=== PATIENT | female | born 1965 | race Caucasian/White ===

== ENCOUNTER → 2018-03-11 10:36 | Outpatient (CLI) | payer OTHER, SELFPAY | PROVIDERS: Family Provider Nurse Practitioner; PCP Nurse Practitioner; Visit Provider Nurse Practitioner | DX: Z12.31 Encounter for screening mammogram for malignant neoplasm of breast (principal); Z78.0 Asymptomatic menopausal state | CPT/HCPCS: 77063; 77067; 77080 ==

== ENCOUNTER 2019-01-29 19:36 | Emergency (ER) | payer OTHER, SELFPAY ==
[2019-01-29 19:38] VITALS: BP 162/88; PULSE 101; RESP 17; TEMP 36.2; O2SAT 96; BMI 29.8
--- NOTE | 2019-01-29 20:37 | CM.ED ---
Social Work Consult: Anxiety Informant: Dr. Birmingham Met with patient in room. Patient stating to have feelings of anxiety and not wanting to live like this. Patient denies any active suicidal thoughts. Patient is stating to think that it wouldn't be bad if God would take patient. Patient confirming that take means end of life for patient on earth. Patient reporting to have recently been started on a new medication, Temazepam by patient psychiatrist Dr. David No. Patient was started on Temazepam 3 days ago. Patient stating to have also started a new job recently and to feel overwhelmed. Patient identifying a diagnosis of depression and anxiety. Patient also stating that patient doctor has diagnosed patient with bi-polar disorder. Patient stating to typically feel good and to not want to feel this way any longer. Patient stating to happy to be in the ER as patient will get some help. Collaborating with Dr. Birmingham. Dr. Birmingham not safe with patient discharging to community at this time and would like patient evaluated by crisis. Telephone call to Nani Trevino. This social work coordinator giving handoff. ER staff to notify Crisis when patient is medically cleared. Garret CASTRO, NEMO
[2019-01-29 20:48] LABS: Absolute Lymphocyte Count 2.32 X10^3/uL (0.83-4.51); Absolute Neutrophil Count 6.4 X10^3/uL (2.0-7.7); Basophil# 0.03 X10^3/uL; Basophil% 0.3 % (0-1); Eosinophil# 0.04 X10^3/uL; Eosinophils% 0.4 % (0-5); Hematocrit 43.3 % (37-47); Hemoglobin 14.1 g/dL (12.0-15.0); Lymphocyte # 2.32 X10^3/ul (4.0); Lymphocyte % 23.5 % (19-41); Mean Corp Hgb Conc 32.6 g/dL (32-36); Mean Corpuscular Volume 101.4 fL (81-99); Mean Platelet Vol. 9.2 fl (6.2-12.0); Monocyte# 1.03 X10^3/uL; Monocyte% 10.4 % (0-10); NRBC Flagged by Analyzer 0 % (0-5); Neutrophil # 6.41 X10^3/uL (2.7-7.7); Neutrophil % 65.1 % (47-70); Platelet Count 323 K/mm3 (150-450); RBC Distribution Width CV 12.3 % (11.6-14.6); RBC Distribution Width SD 45.8 fl (35.1-43.9); Red Blood Count 4.27 M/mm3 (4.2-5.4); White Blood Count 9.9 K/mm3 (4.4-11.0)
[2019-01-29 21:09] LABS: Amphetamine Urine VISTA NEGATIVE (<1000 ng/mL); Barbiturate Urine VISTA NEGATIVE (< 200 ng/mL); Benzodiazepine Urine VISTA NEGATIVE (< 200 ng/mL); Cocaine Urine VISTA NEGATIVE (< 300 ng/mL); Ecstacy Urine VISTA NEGATIVE (< 500 ng/mL); Internal QC Validated? YES +Cl - CLEAR BKGD; Methadone Urine VISTA NEGATIVE (< 300 ng/mL); PCP Urine VISTA NEGATIVE (< 25 ng/mL); Pregnancy, Serum, hCG Quali. NEGATIVE Negative; THC Urine VISTA NEGATIVE (< 50 ng/mL); Vista UDS pH Range 7
[2019-01-29 21:11] LABS: AST(SGOT) 15 U/L (15-37); Alanine Aminotransfer ALT/SGPT 40 U/L (13-56); Albumin, Serum 4.2 g/dL (3.2-5.0); Alkaline Phosphatase 93 U/L (45-117); Anion Gap 7 (5-15); BUN 14 mg/dL (7-18); BUN/Creat Ratio 18.5 RATIO (10-20); Calcium,Total 9.3 mg/dL (8.5-10.1); Chloride 103 mmol/L (98-107); Creatinine, Serum 0.76 mg/dL (0.55-1.02); EST Glomerular Filtration Rate 86 mL/min (>60); Est Glom Filt Rate - Afr Amer 104 mL/min (>60); Estimated Creatinine Clearance 85.16 ml/min; Globulin 4.2 g/dL (2.2-4.2); Glucose 97 mg/dL (74-106); Potassium 3.4 mmol/L (3.5-5.1); Protein, Total 8.4 g/dL (6.4-8.2); Sodium Level 141 mmol/L (136-145)
--- NOTE | 2019-01-29 21:21 | NURSING ---
CALLED CRISIS AT [phone]
[2019-01-29 21:34] VITALS: RESP 14
--- NOTE | 2019-01-29 22:15 | CM.ED ---
Social Work Crisis evaluated patient and consulting with this professor of social work. Collaborating with Dr. Birmingham and crisis. Patient to be pink slipped. Crisis managing referral to inpatient psychiatric facility. Garret CASTRO, NEMO
[2019-01-29 23:15] VITALS: RESP 18; O2SAT 100
--- NOTE | 2019-01-29 23:33 | ED.DCSUM_ITS ---
- ER Visit Summary Date of Service: 01/29/19 Chief Complaint: Bad day History of Present Illness: The patient is a 53 F who presents with multiple complaints. She presents with exhaustion, diffuse paresthesias, memory issues. She said she is not eating much or sleeping much. She feels restless and hopele ss. She has a history of depression, anxiety, and bipolar disorder. She says she is compliant with her medications including temazepam, Prozac, mirtazapine, and Abilify. She told me that she had thoughts of suicide. She said it would be okay if God took her. No plan or attempt. Physical Examination: Afebrile and vital signs unremarkable. Alert and oriented. No acute distress. Depressed mood and flat affect. Heart regular. Lungs clear. Skin appears normal. Test Results: CBC, CMP, hCG negative. Tox screen negative. Alcohol negative. Emergency Department Course and Treatment: Patient presents with dysphoric symptoms possibly some manic symptoms as well. I did have the crisis counselor speak with her. Crisis evaluated her. She told them that she wanted to wreck her car and kill herself. At this point, I did complete a pink slip. She had suicide precautions. She is medically cleared for placement at a psychiatric facility. We are awaiting placement at this time. Treatment Plan: As above Disposition: Pending placement Impression: 1. Suicidal ideation This note was generated with [employer] dictation software. It may contain incorrect words, spelling, and punctuation that were not noted in review of the chart p rior to signing ED Disposition - Plan for ED Patient: Referrals: Addie Cosme, YURI-C [Primary Care Provider] -
[2019-01-30] VITALS (19 sets, daily range): BP systolic 114–148; BP diastolic 72–92; PULSE 73–99; RESP 12–20; TEMP 37.1; O2SAT 96–100
[2019-01-30] MEDS: Temazepam 15 MG Capsule 30 MG PO (00:51)
[2019-01-30] MEDS: ARIPiprazole 10 MG Tablet PO (00:51)
[2019-01-30] MEDS: Mirtazapine 30 MG Tablet PO (00:51)
--- NOTE | 2019-01-30 08:21 | EKG12_ITS ---
Test Reason : Blood Pressure : / mmHG Vent. Rate : 103 BPM Atrial Rate : 103 BPM P-R Int : 128 ms QRS Dur : 084 ms QT Int : 366 ms P-R-T Axes : 070 033 059 degrees QTc Int : 479 ms Sinus tachycardia Otherwise normal ECG Confirmed by JOSE MCALLISTER, JOVITA ([id number]), assignment desk editor JENNY FIERRO ([id number]) on 02/01/2019 1:46:27 PM Referred By: SWAPNIL Confirmed By:JOVITA GARCIA MD
--- NOTE | 2019-01-30 08:59 | ED.RN ---
PER RIMMA WITH CRISIS; PT WILL HAVE TO BE ACCEPTED BY [facility] BECAUSE THIS PT HAS NO INSURANCE. SHE CALLED [facility] AND THEY REQUESTED AN EKG WHICH WAS TAKEN AND FAXED TO THE FACILITY.
[2019-01-30] MEDS: Loperamide 2 MG Capsule PO (09:53)
[2019-01-30] MEDS: FLUoxetine 20 MG Capsule 80 MG PO (10:53)
--- NOTE | 2019-01-30 11:55 | ED.RN ---
RENNY HALL WITH CRISIS; [facility] IS STILL REVIEWING THE PTS CHART. SHE WILL CALL THEM BACK SOON IF SHE DOES NOT HEAR FROM THEM
--- NOTE | 2019-01-30 14:35 | ED.RN ---
ISABEL WITH CRISIS; STATED THAT THERE IS NO UPDATE FOR THE PATIENT. SHE HAS CALLED SEVERAL TIMES AND [facility] IS NOT ANSWERING THEIR PHONE
--- NOTE | 2019-01-30 14:47 | ED.RN ---
PER ISABEL WITH CRISIS; PT IS ACCEPTED BY [facility] AND DOES HAVE A BED ON HOLD AT THE FACILITY; THEY ARE UNABLE TO ALLOW HER TO COME AT THIS TIME BECAUSE THEY NEED TO PROCESS ALL THE HALFWAY HOLDS FIRST. ISABEL STATED THAT [facility] WILL CALL US SOON THEY ARE READY FOR HER.
--- NOTE | 2019-01-30 17:15 | ED.RN ---
LEFT A MESSAGE WITH [facility] ASKING FOR AN UPDATE
--- NOTE | 2019-01-30 18:16 | ED.RN ---
CALLED [facility] TO CHECK STATUS OF PT. GAVE ACCEPTING INFORMATION TO ME.
== END 2019-01-30 19:37 ==
PROVIDERS: Emergency Provider Emergency Medicine; Family Provider Nurse Practitioner; PCP Nurse Practitioner
DX: R45.851 Suicidal ideations (principal); F31.9 Bipolar disorder, unspecified; F41.9 Anxiety disorder, unspecified
CPT/HCPCS: 80053; 80307; 80320; 84703; 85025; 93005; 99285; A4216; G0480

== ENCOUNTER 2019-03-10 18:37 | Emergency (ER) | payer OTHER, SELFPAY ==
[2019-03-10 18:38] VITALS: BP 128/91; PULSE 108; RESP 16; TEMP 36.4; O2SAT 98; BMI 28.1
--- NOTE | 2019-03-10 18:54 | ED.VISSUMM ---
- ER Visit Summary Date of Service: 03/10/19 Chief Complaint: Depressed History of Present Illness: The patient is a 53 F who presents with depression. Is been ongoing for a couple of weeks. There was no specific trigger that may have started it but family was concerned that she is starting menopause and that may have some to do with that. She states that she feels very off. She cannot eat. Her sleeping habits have changed. She denies any auditory or visual hallucinations. This morning she had a thought that she was rolled up in a carpet and thrown out. She denies having any suicidal thoughts. No homicidal thoughts. She has had her psychiatric medications including her depression and anxiety meds changed around and this could be the cause of this as well. Physical Examination: Vital signs reviewed. HEENT exam unremarkable. Heart is regular rate and rhythm without murmurs. Lungs are clear to auscultation. Abdomen is soft and nontender. Extremities reveal no edema. Skin exam normal. Neurologic exam normal. The patient does appear to be depressed but voices no suicidal or homicidal thoughts. She does have a flat affect. Test Results: Laboratory studies including TSH are normal except for glucose of 138. Tox screen and alcohol are negative. Emergency Department Course and Treatment: I had our protective services social worker evaluate the patient. She, along with myself do not feel the patient needs to be admitted psychiatrically. She attempted to call the crisis center but they were unable to get her in tomorrow. Family feels safe taking her home. She will continue her medications that are prescribed to her. She will call her doctor and her psychiatrist tomorrow. Treatment Plan: [] Disposition: Discharge Impression: Depression This note was generated with [employer] dictation software. It may contain incorrect words, spelling, and punctuation that were not noted in review of the chart prior to signing ED Disposition - Plan for ED Patient: Referrals: Addie Cosme, YURI-C [Primary Care Provider] -
[2019-03-10 19:15] LABS: Absolute Lymphocyte Count 1.64 X10^3/uL (0.83-4.51); Absolute Neutrophil Count 5.9 X10^3/uL (2.0-7.7); Basophil# 0.04 X10^3/uL; Basophil% 0.5 % (0-1); Eosinophil# 0.07 X10^3/uL; Eosinophils% 0.8 % (0-5); Hemoglobin 14.2 g/dL (12.0-15.0); Lymphocyte # 1.64 X10^3/ul (4.0); Lymphocyte % 19.8 % (19-41); Mean Corp Hgb Conc 32.3 g/dL (32-36); Mean Corpuscular Hgb 32.8 pg (27.0-32.0); Mean Corpuscular Volume 101.6 fL (81-99); Mean Platelet Vol. 9.6 fl (6.2-12.0); Monocyte# 0.62 X10^3/uL; Monocyte% 7.5 % (0-10); NRBC Flagged by Analyzer 0 % (0-5); Neutrophil # 5.88 X10^3/uL (2.7-7.7); Neutrophil % 71.2 % (47-70); Platelet Count 284 K/mm3 (150-450); RBC Distribution Width CV 11.9 % (11.6-14.6); Red Blood Count 4.33 M/mm3 (4.2-5.4); White Blood Count 8.3 K/mm3 (4.4-11.0)
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
[2019-03-10 19:29] LABS: Internal QC Validated? YES +Cl - CLEAR BKGD; Pregnancy, Serum, hCG Quali. NEGATIVE Negative
[2019-03-10 19:30] LABS: Alcohol, Blood (Medical)-Serum < 3.0 mg/dL
[2019-03-10 19:39] LABS: Anion Gap 6 (5-15); BUN 13 mg/dL (7-18); BUN/Creat Ratio 13.3 RATIO (10-20); Calcium,Total 8.9 mg/dL (8.5-10.1); Chloride 107 mmol/L (98-107); Creatinine, Serum 0.98 mg/dL (0.55-1.02); EST Glomerular Filtration Rate 63 mL/min (>60); Est Glom Filt Rate - Afr Amer 77 mL/min (>60); Estimated Creatinine Clearance 66.04 ml/min; Glucose 138 mg/dL (74-106); Potassium 3.5 mmol/L (3.5-5.1); Sodium Level 140 mmol/L (136-145); Thyroid Stim Hormone (TSH) 0.82 uIU/mL (0.358-3.74)
[2019-03-10 20:02] LABS: Amphetamine Urine VISTA NEGATIVE (<1000 ng/mL); Barbiturate Urine VISTA NEGATIVE (< 200 ng/mL); Benzodiazepine Urine VISTA NEGATIVE (< 200 ng/mL); Cocaine Urine VISTA NEGATIVE (< 300 ng/mL); Ecstacy Urine VISTA NEGATIVE (< 500 ng/mL); Methadone Urine VISTA NEGATIVE (< 300 ng/mL); PCP Urine VISTA NEGATIVE (< 25 ng/mL); THC Urine VISTA NEGATIVE (< 50 ng/mL); Vista UDS pH Range 5
--- NOTE | 2019-03-10 20:21 | ED.DEP ---
ED Disposition - Plan for ED Patient: Disposition: Home or Assisted Living Instructions: Depression Referrals: Addie Cosme NP-C [Primary Care Provider] -
[2019-03-10 20:35] VITALS: BP 135/91; PULSE 95; PULSE 99; RESP 16; O2SAT 95
--- NOTE | 2019-03-10 20:35 | CM.ED ---
SOCIAL WORK PATIENT TO BE DISCHARGED HOME. MET WITH PATIENT AND IN ROOM. RECOMMENDING PATIENT CALL DR. ALEXANDER TOMORROW TO UPDATE ON ED VISIT. ALSO RECOMMENDING PATIENT CALL COUNSELOR AT [facility] TO UPDATE ON VISIT. PATIENT DOES HAVE COUNSELING APPOINTMENT SCHEDULED FOR 03/17/19. BRIGHT CUTTER TO FOLLOW UP TOMORROW BY TELEPHONE CALL. ALL IN AGREEMENT WITH PLAN. PATIENT PROVIDED WITH CRISIS RESOURCES AND THIS WORKER'S CONTACT INFORMATION. XUAN REED, CREDIT RATING CHECKER, CLAM SHUCKING MACHINE TENDER.
--- NOTE | 2019-03-11 18:11 | CM.ED ---
Social Work Follow-up call to patient. This marriage and family social worker introduced self. Patient open to speaking with this marriage and family social worker. Patient stating to have had a good day. This marriage and family social worker inquiring as of the nature of patient current thoughts. Patient stating that thoughts are getting better. Patient stating to have contact [facility], Dr. Gleason and left a message. This marriage and family social worker encouraging patient to contact Dr. Gleason again tomorrow. Patient confirming to have counseling appoint set up for next Friday, March 17. Patient stating to be continuing to be open to with family/support system on patient current mental health. Support provided. Patient thanking this marriage and family social worker for follow-up call. Garret CASTRO, NEMO
== END 2019-03-10 20:38 | disposition home or self-care (01) ==
PROVIDERS: Emergency Provider Emergency Medicine; Family Provider Nurse Practitioner; PCP Nurse Practitioner
DX: F32.9 Major depressive disorder, single episode, unspecified (principal); F41.9 Anxiety disorder, unspecified; Z79.899 Other long term (current) drug therapy
CPT/HCPCS: 36415; 80048; 80307; 80320; 84443; 84703; 85025; 99282; G0480

== ENCOUNTER 2021-08-21 12:10 | Outpatient (CLI) | payer OTHER, SELFPAY ==
[2021-08-21 13:34] LABS: Hematocrit 41.2 % (37-47); Hemoglobin 13.6 g/dL (12.0-15.0); Mean Corpuscular Hgb 32.5 pg (27.0-32.0); Mean Corpuscular Volume 98.3 fL (81-99); Mean Platelet Vol. 9.4 fl (6.2-12.0); Platelet Count 314 K/mm3 (150-450); RBC Distribution Width CV 12.2 % (11.6-14.6); RBC Distribution Width SD 44.5 fl (35.1-43.9); Red Blood Count 4.19 M/mm3 (4.2-5.4)
[2021-08-21 13:54] LABS: Anion Gap 6 (5-15); BUN 21 mg/dL (7-18); BUN/Creat Ratio 28.4 RATIO (10-20); Calcium,Total 8.9 mg/dL (8.5-10.1); Chloride 104 mmol/L (98-107); Creatinine, Serum 0.74 mg/dL (0.55-1.02); EST Glomerular Filtration Rate 87 mL/min (>60); Est Glom Filt Rate - Afr Amer 105 mL/min (>60); Glucose 85 mg/dL (74-106); Potassium 4.1 mmol/L (3.5-5.1); Sodium Level 140 mmol/L (136-145)
== END 2021-08-21 23:59 | disposition home or self-care (01) ==
PROVIDERS: PCP Nurse Practitioner; Referring Provider Physician Assistant; Visit Provider Physician Assistant
DX: Z01.818 Encounter for other preprocedural examination (principal)
CPT/HCPCS: 36415; 80048; 85027; 93005

== ENCOUNTER → 2021-08-27 | Outpatient (CLI) | payer OTHER, SELFPAY ==
--- NOTE | 2021-08-27 13:58 | BI_ITS ---
MAMMOGRAPHY - BILATERAL SCREENING REASON FOR EXAM: Female, 55 years old. Routine annual screening examination. PERTINENT HISTORY: Aunts with breast cancer. TECHNIQUE: Digital bilateral breast donny (3D mammographic acquisition) in the CC and MLO projections. 2-D mediolateral oblique (MLO) and craniocaudad (CC) views of both breasts were obtained. CAD: Full Field Digital Mammography with Computer Added Detection was performed. COMPARISON: Comparison is made with prior study done 03/11/2018 and 09/24/2016. FINDINGS: Breast Composition: The breasts are heterogeneously dense, which may obscure small masses. There are no dominant masses or suspicious calcifications. No other significant abnormalities are identified. There has been no significant change since the prior study. BI/SCRN MAMM (CAD)W/DONNY BILAT IMPRESSION: Stable bilateral screening mammogram. Yearly follow-up mammogram recommended. (A) ASSESSMENT CATEGORY: BIRADS Category 1: Negative. A letter regarding these results will be sent to the patient by the facility within 30 days. Approximately 10% of breast cancers are not detected by mammography. A normal mammogram should not delay biopsy of a clinically suspicious abnormality. [id number] Electronically Signed: Brandon Holloway MD at 14:43 EST ,
== END | disposition home or self-care (01) ==
PROVIDERS: PCP Nurse Practitioner; Referring Provider Nurse Practitioner; Visit Provider Nurse Practitioner
DX: Z12.31 Encounter for screening mammogram for malignant neoplasm of breast (principal)
CPT/HCPCS: 77063; 77067

== ENCOUNTER 2021-09-04 15:21 | Outpatient (CLI) | payer OTHER, SELFPAY ==
--- NOTE | 2021-09-04 15:25 | RAD_ITS ---
STUDY: X-RAY - RIGHT CALCANEUS REASON FOR EXAM: Female, 56 years old. pain, right heel spur TECHNIQUE: 2 view(s) of the calcaneus were obtained. COMPARISON: None. FINDINGS: Normal visualized calcaneus. No visualized calcaneal spur. Normal visualized tarsal bones. There is no demonstrated fracture. RAD/Calcaneus min 2 Views IMPRESSION: Normal x-ray examination of the calcaneus. Electronically Signed: Malachi Fields MD at 20:17 EST ,
== END 2021-09-04 23:59 | disposition home or self-care (01) ==
LOC: MTRAD 15:23
PROVIDERS: PCP Nurse Practitioner; Referring Provider Nurse Practitioner; Visit Provider Nurse Practitioner
DX: M77.31 Calcaneal spur, right foot (principal)
CPT/HCPCS: 73650

== ENCOUNTER 2024-02-21 16:44 | Emergency (ER) | payer OTHER, SELFPAY ==
[2024-02-21] VITALS (7 sets, daily range): BP systolic 117–158; BP diastolic 72–131; PULSE 83–94; RESP 16–19; TEMP 36.4–36.7; O2SAT 93–100; BMI 28.1
[2024-02-21] MEDS: morphine 8 MG/ML Syringe 6 MG IM (17:00)
--- NOTE | 2024-02-21 17:00 | RAD_ITS ---
STUDY: X-RAY - RIGHT ANKLE REASON FOR EXAM: Female, 58 years old. Injury/Pain TECHNIQUE: 3 view(s) of the ankle. COMPARISON: None. FINDINGS: There are acute comminuted spiral fractures of the distal third of the tibial and fibular shafts with mild overlapping and dorsal medial angulation of fracture fragments. Normal medial and lateral malleoli. Normal tibiotalar articulation and ankle mortise. Normal visualized talus and calcaneus. The visualized subtalar, talonavicular, calcaneocuboid and tarsal articulations are normal. The soft tissue structures are unremarkable. RAD/Ankle min 3 Views IMPRESSION: Acute displaced angulated fractures of the distal third of the tibial and fibular shaft. Electronically Signed: Audie Grady MD at 17:38 EDT ,
--- NOTE | 2024-02-21 17:00 | RAD_ITS ---
STUDY: X-RAY - RIGHT TIBIA AND FIBULA REASON FOR EXAM: Female, 58 years old. Injury/Pain TECHNIQUE: 2 view(s) of the tibia and fibula were obtained. COMPARISON: None. FINDINGS: The proximal to mid tibial and fibular shafts are intact. There are incompletely visualized fractures of the distal third of the tibia and fibula . The soft tissue structures are unremarkable. RAD/Tibia & Fibula 2 Views IMPRESSION: Acute fractures of the distal tibial and fibular shafts Electronically Signed: Audie Grady MD at 17:39 EDT ,
[2024-02-21] MEDS: Ondansetron ODT 4 MG Tablet PO (17:01)
--- NOTE | 2024-02-21 17:40 | ED.VIS.LOWEX ---
HPI History of Present Illness Chief Complaint: Lower Extremity Injury Informant: patient Narrative Narrative: Patient is a 58-year-old female presenting with sudden onset of right lower extremity pain. Patient was mowing the lawn when she slipped and fell. She heard a crack in her right lower leg and immediately had pain there. Denies hitting her head or any other injuries. Was brought in by EMS. Did not take any pain prior to arrival. Not on any blood thinners. Denies any associated numbness or tingling. No other complaints or concerns reported at this time. [facility] Medical History ANDREAS (generalized anxiety disorder) MDD (major depressive disorder) Vaginal prolapse Allergies Home Medications ?Medication ?Instructions ?Recorded ?Last Taken ?Type montelukast 10 mg tablet 10 mg PO DAILY PRN Allergies 01/29/19 Unknown History ascorbic acid (vitamin C) 500 mg mg PO 08/28/23 Unknown History capsule biotin 2,500 mcg capsule 5 mg PO DAILY 08/28/23 Unknown History cetirizine 10 mg tablet mg PO 08/28/23 Unknown History cholecalciferol (vitamin D3) 50 50 mcg PO DAILY 08/28/23 Unknown History mcg (2,000 unit) capsule naproxen sodium 220 mg tablet 440 mg PO Q12H PRN 08/28/23 Unknown History (Aleve) zinc gluconate 50 mg tablet 50 mg PO DAILY 08/28/23 Unknown History bupropion HCl 150 mg 24 hr tablet, 150 mg PO QAM #90 tabs 11/26/23 Unknown Rx extended release fluoxetine 40 mg capsule 40 mg PO DAILY #90 caps 11/26/23 Unknown Rx mirtazapine 30 mg tablet 30 mg PO QHS #90 tabs 11/26/23 Unknown Rx quetiapine 300 mg tablet 300 mg PO QHS #90 tabs 11/26/23 Unknown Rx trazodone 150 mg tablet 150 mg PO QHS #90 tabs 11/26/23 Unknown Rx hydroxyzine HCl 25 mg tablet 25 mg PO TID PRN anxiety #90 tabs 12/09/23 Unknown Rx ondansetron 4 mg disintegrating 4 mg PO Q8H PRN PRN Nausea #10 tabs 02/21/24 Unknown Rx tablet oxycodone-acetaminophen 5 mg-325 1 tab PO Q6H PRN pain 3 days #12 02/21/24 Unknown Rx mg tablet (Percocet) tabs Allergy/AdvReac Type Severity Reaction Status Date / Time No Known Allergies Allergy Verified 02/21/24 16:46 Family History Other Alcoholism Anxiety Arthritis Colon cancer Depression Psychiatric care Severe allergy Social History Smoking Status: Never smoker alcohol intake: current details: 1x week substance use type: does not use frequency: 1-2 times per week ROS ROS ED Constitutional Constitutional ED: Denies chills or fever(s) Gastrointestinal Gastrointestinal: Denies nausea Musculoskeletal Musculoskeletal: Reports other Details: Right lower extremity pain Neurologic Neurologic: Denies paresthesias or weakness Hematologic/Lymphatic Hematologic/Lymphatic: Denies easy bleeding or easy bruising EXAM Physical Exam Const Vital Signs: 02/21/24 16:46 02/21/24 16:46 02/21/24 18:11 Temperature 97.5 F L 98 F Temperature Source Oral Pulse Rate 83 83 89 Pulse Rate [1] Pulse Rate [2] Pulse Rate [3] Respiratory Rate 18 16 19 H Respiratory Rate [1] Respiratory Rate [2] Respiratory Rate [3] Blood Pressure 117/73 117/73 153/98 H Blood Pressure [1] Blood Pressure [2] Blood Pressure [3] Blood Pressure Mean 87 87 Pulse Ox 99 94 100 Oxygen Delivery Method Room Air Room Air Room Air Oxygen Delivery Method [1] Oxygen Delivery Method [2] Oxygen Delivery Method [3] Oxygen Flow Rate (L/min) Oxygen Flow Rate (L/min) [2] Oxygen Flow Rate (L/min) [3] 02/21/24 18:25 02/21/24 18:42 02/21/24 19:24 Temperature 98.0 F Temperature Source Pulse Rate 90 Pulse Rate [1] 88 Pulse Rate [2] 94 Pulse Rate [3] 94 Respiratory Rate 16 Respiratory Rate [1] 16 Respiratory Rate [2] 16 Respiratory Rate [3] 16 Blood Pressure 137/80 H Blood Pressure [1] 156/94 H Blood Pressure [2] 158/81 H Blood Pressure [3] 152/131 H Blood Pressure Mean 99 Pulse Ox 95 Oxygen Delivery Method Nasal Cannula Oxygen Delivery Method [1] Nasal Cannula Oxygen Delivery Method [2] Nasal Cannula Oxygen Delivery Method [3] Nasal Cannula Oxygen Flow Rate (L/min) 2 Oxygen Flow Rate (L/min) [2] 2 Oxygen Flow Rate (L/min) [3] 2 Positive well nourished and well developed General Appearance ED: well developed and NAD HEENT normocephalic and atraumatic Neck full ROM Chest Wall inspection of chest normal Resp normal respiratory effort and clear to auscultation bilaterally Cardio regular rate and regular rhythm Cardio Narrative: 2+ DP pulses Extremity Extremity Narrative: Tenderness palpation of the mid/distal tibia/fibula. No significant tenderness or deformity of the right ankle. Patient does have a deformity along the distal aspect of the tibia/fibula. No deformity or tenderness of the knee, fibular head or hip. General Extremety ED: Negative for edema General Extremity: Negative for edema Neuro oriented x3, moves all extremities and no sensory deficits noted Sensorium / Orientation: alert Psych mental status grossly normal Skin no wounds Rashes: no rashes MDM MDM MDM Narrative Medical decision making narrative: Patient is evaluated for right lower extremity injury. Patient is given IM morphine for pain control and oral Zofran. X-ray viewed by myself as well as radiology shows an acute displaced angulated fracture of the distal third of the tibia and fibular shaft. Case discussed with Dr. Fisher, Ortho on-call. He recommends splinting with some reduction of the proximal fragment if possible. Nonweightbearing status. This will need outpatient surgical follow-up with likely surgery in 7 to 10 days. Does request a CT of the ankle for surgical planning as there is a piece that appears to track down to the articular surface. Patient is informed of this and is agreeable. Patient is given and 1 mg diazepam and 50 mcg of fentanyl. Localized traction is applied with countertraction at the thigh with the leg bent. The great toe is in line with the knee. Patient is placed in a posterior slab with stirrup splint. Tolerated suture well. Does have improvement of her pain with the splint. Will discharge home with assistive devices (patient would like to try crutches). Given first dose of oxycodone in the emergency room. Patient unsuccessful with crutches and given a walker. Radiography Diagnostic Testing: Clinical Impression(s) from Imaging Studies Ankle X-Ray 02/21/24 17:00 IMPRESSION: Acute displaced angulated fractures of the distal third of the tibial and fibular shaft. Electronically Signed: Audie Grady MD at 17:38 EDT , Tibia/Fibula X-Ray 02/21/24 17:00 IMPRESSION: Acute fractures of the distal tibial and fibular shafts Electronically Signed: Audie Grady MD at 17:39 EDT , Lower Extremity CT 02/21/24 17:42 IMPRESSION: Acute fractures of the distal tibial and fibular shafts. Electronically Signed: Audie Grady MD at 18:32 EDT , Procedures Lower Extremity Splints Lower Extremity Splint: Orthoglass, Stirrup and - (posterior slab) Splint Fabrication: Fabricated Location: Right Procedural Sedation 1 (Initial Baseline): Consent Signed: Yes Any Problems With Anesthesia: No You/Your family experience fever (hyperthermia) w/anesthesia: No Sedation medication: Versed Route: IV Maliampati Score: Class I ASA Classification: II Discharge Plan Triage Chief Complaint: Lower Extremity Injury ED Provider: Cindy Mathis Dx/Rx/DC Orders Clinical Impression: Closed fracture of tibia and fibula, shaft, Leg pain, right Instructions: Crutches Stand Non Wt Bear Steps, ED Leg Fracture Prescriptions: New ondansetron 4 mg tablet,disintegrating 4 mg PO Q8H PRN PRN (Reason: Nausea) Qty: 10 0RF oxycodone-acetaminophen [Percocet] 5-325 mg tablet 1 tab PO Q6H PRN (Reason: pain) 3 Days Qty: 12 0RF No Action cetirizine 10 mg tablet PO Patient Comments: TAKE 1 TABLET BY MOUTH ONCE DAILY naproxen sodium [Aleve] 220 mg tablet 440 mg PO Q12H PRN ascorbic acid (vitamin C) 500 mg capsule PO cholecalciferol (vitamin D3) 50 mcg (2,000 unit) capsule 50 mcg PO DAILY biotin 2,500 mcg capsule 5 mg PO DAILY zinc gluconate 50 mg tablet 50 mg PO DAILY trazodone 150 mg tablet 150 mg PO QHS Qty: 90 1RF quetiapine 300 mg tablet 300 mg PO QHS Qty: 90 1RF mirtazapine 30 mg tablet 30 mg PO QHS Qty: 90 1RF fluoxetine 40 mg capsule 40 mg PO DAILY Qty: 90 1RF bupropion HCl 150 mg tablet extended release 24 hr 150 mg PO QAM Qty: 90 1RF hydroxyzine HCl 25 mg tablet 25 mg PO TID PRN (Reason: anxiety) Qty: 90 0RF montelukast 10 MG tablet 10 mg PO DAILY PRN (Reason: Allergies) Stand Alone Forms: ED Work / School Excuse Primary Care Provider: Rosalinda Cabello Referrals: Rosalinda Cabello DO [Primary Care Provider] - Jose Manuel Fisher DO [Med Staff - Active Staff] - 3-5 Days Activity Restrictions/Additional Instructions: Do not get the splint wet. Do not take it off. If the pain becomes significantly worse or you develop numbness please return to the emergency room. Follow-up with orthopedics. Call the office on Friday to schedule an appointment. Per recommendation of orthopedics, likely will need surgery but not for around 10 days. Take stool softener or MiraLAX to help with opioid-induced constipation while taking the pain medication. Do not put any weight on your foot. Print Language: Hebrew Disposition Disposition: Home, Self Care Discharge Date/Time: 02/21/24 19:42
--- NOTE | 2024-02-21 17:42 | CT_ITS ---
CT RIGHT LOWER EXTREMITY WITH 3-D IMAGING CLINICAL INDICATION: FRACTURE TECHNIQUE: Axial CT images of the RIGHT lower extremity was performed IV contrast material. Coronal and sagittal reformats were provided. The protocol utilizes one or more of the following dose reduction techniques: automated exposure control, adjustment of mA and/or kV according to patient size,and/or use of iterative reconstruction technique. RADIATION DOSAGE (If Supplied By Facility): CTDIvol = ( 15.35 ) mGy, DLP = ( 503.44 ) mGycm COMPARISON: FINDINGS: Bones: There is an acute comminuted spiral fracture of the distal third of the tibial shaft with mild separation and overlapping of fracture fragments. There is also an obliquely oriented intra-articular hairline fracture of the posterior distal tibial shaft. There is also an acute spiral fracture of the distal third of the fibular shaft with minor separation and overlapping of fracture fragments . No lytic or blastic osseous masses. Soft Tissues: The deep soft tissue structures are unremarkable. The superficial soft tissues are unremarkable without evidence of edema, hematoma, or foreign body. CT/Extremity Lower without Contra IMPRESSION: Acute fractures of the distal tibial and fibular shafts. Electronically Signed: Audie Grady MD at 18:32 EDT ,
[2024-02-21] MEDS: fentaNYL 100 MCG/2 ML Ampul 50 MCG IV (18:22)
[2024-02-21] MEDS: Midazolam 2 MG/2 ML Syringe 1 MG IV (18:24)
[2024-02-21] MEDS: oxyCODONE 5 MG Tablet PO (19:05)
== END 2024-02-21 19:42 | disposition home or self-care (01) ==
PROVIDERS: Emergency Provider Emergency Medicine; PCP Internal Medicine; Visit Provider Emergency Medicine
DX: S82.251A Displaced comminuted fracture of shaft of right tibia, initial encounter for closed fracture (principal); S82.241A Displaced spiral fracture of shaft of right tibia, initial encounter for closed fracture; S82.231A Displaced oblique fracture of shaft of right tibia, initial encounter for closed fracture; S82.441A Displaced spiral fracture of shaft of right fibula, initial encounter for closed fracture; W01.0XXA Fall on same level from slipping, tripping and stumbling without subsequent striking against object, initial encounter; Y93.H9 Activity, other involving exterior property and land maintenance, building and construction
CPT/HCPCS: 27752; 73590; 73610; 73700; 96372; 96374; 96375; 99152; 99284; J7030; A4216

== ENCOUNTER 2024-02-27 11:31 | Day surgery (SDC) | payer OTHER, SELFPAY ==
[2024-02-26 11:34] LABS: Absolute Neutrophil Count 4.7 X10^3/uL (2.0-7.7); Basophil# 0.08 X10^3/uL; Basophil% 1.1 % (0-1); Eosinophil# 0.13 X10^3/uL; Eosinophils% 1.8 % (0-5); Hematocrit 38.2 % (37-47); Lymphocyte % 22.3 % (19-41); Mean Corp Hgb Conc 31.4 g/dL (32-36); Mean Corpuscular Hgb 31.7 pg (27.0-32.0); Mean Corpuscular Volume 100.8 fL (81-99); Mean Platelet Vol. 9.4 fl (6.2-12.0); Monocyte% 8.4 % (0-10); NRBC Flagged by Analyzer 0 % (0-5); Neutrophil # 4.73 X10^3/uL (2.7-7.7); Neutrophil % 66.1 % (47-70); Platelet Count 304 K/mm3 (150-450); RBC Distribution Width CV 12.5 % (11.6-14.6); RBC Distribution Width SD 46.8 fl (35.1-43.9); Red Blood Count 3.79 M/mm3 (4.2-5.4); White Blood Count 7.2 K/mm3 (4.4-11.0)
[2024-02-26 12:56] LABS: Anion Gap 7 (5-15); BUN 18 mg/dL (7-18); BUN/Creat Ratio 28.8 RATIO (10-20); Chloride 104 mmol/L (98-107); Creatinine, Serum 0.62 mg/dL (0.55-1.02); EST Glomerular Filtration Rate 105 mL/min (>60); Est Glom Filt Rate - Afr Amer 127 mL/min (>60); Glucose 95 mg/dL (74-106); Potassium 4.3 mmol/L (3.5-5.1); Sodium Level 139 mmol/L (136-145)
[2024-02-27] VITALS (9 sets, daily range): BP systolic 131–166; BP diastolic 79–97; PULSE 85–96; RESP 16–20; TEMP 36.6–36.8; O2SAT 92–97; BMI 28.1
[2024-02-27] MEDS: Lactated Ringers 1,000 ML 15 ML IV (12:12)
--- NOTE | 2024-02-27 12:24 | PCM.PRE.AN2 ---
ASA Classification* ASA Classification ASA Classification: 2 Assessment & Plan Anesthesia* Anesthesia Assessment Anesthesia Assessment: Discussed sedation and/or anesthesia options, risks, benefits, and alternatives with patient/parents/legal guardian/POA. Questions invited. The patient/parents/legal guardian/POA seems to understand and agrees to proceed with anesthesia plan. Reviewed the physical assessment, medical history, allergy history and patient home medications list prior to surgery/procedure/anesthetic and documented any changes. Performed airway and anesthesia risk assessments. Anesthesia Type Anesthesia Type: General (block consented if surgeon request) Anesthesia Focused Assessment* Temperature: 98.2 F Pulse Rate: 85 Blood Pressure: 131/79 Respiratory Rate: 18 Pulse Ox: 97 Airway Assessment Mouth opens: >3 cm Mallampati Score: II Focused Labs Anesthesia Preop lab: CBC WBC 7.2 K/mm3 (4.4-11.0) 02/26/24 11:05 RBC 3.79 M/mm3 (4.2-5.4) L 02/26/24 11:05 Hgb 12.0 g/dL (12.0-15.0) 02/26/24 11:05 Hct 38.2 % (37-47) 02/26/24 11:05 Plt Count 304 K/mm3 (150-450) 02/26/24 11:05 CHEMISTRY Potassium 4.3 mmol/L (3.5-5.1) 02/26/24 11:05 Sodium 139 mmol/L (136-145) 02/26/24 11:05 BUN 18 mg/dL (7-18) 02/26/24 11:05 Creatinine 0.62 mg/dL (0.55-1.02) 02/26/24 11:05 Glucose 95 mg/dL (74-106) 02/26/24 11:05 TSH 0.82 uIU/mL (0.358-3.74) 03/10/19 19:00 COAG Pre-Assessment Diagnosis/Proposed Procedure Planned Operative Procedure(s): OPEN REDUCTION INTERNAL FIXATION RIGHT DISTAL TIBIA AND FIBULA FRACTURES Anesthesia History 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 When Was Last Pacemaker Check QUESTION #4 FULL TEXT: You/Your Family Experience fever (hyperthermia) with Anesthesia Last Oral Intake Last Oral intake: Last Oral Intake NPO since 08:00 02/27/24 11:59 Meds taken in AM with sips of Yes 02/27/24 11:59 water? Meds patient instructed to see medlist 02/27/24 11:59 take am of surgery PONV PONV - ultimate hoops trainer: PONV - ultimate hoops trainer Female Yes 02/26/24 08:44 HX of Motion Sickness No 02/26/24 08:44 HX of N/V After Surgery No 02/26/24 08:44 Non-Smoker Yes 02/26/24 08:44 Duration of Surgery greater Yes 02/26/24 08:44 than 60 minutes Number of Risk Factors 3 02/26/24 08:44 PONV Score Moderate Risk 02/26/24 08:44 Height & Weight Height & Weight: Anesthesia: Height & Weight Height 5 ft 7 in 02/27/24 11:59 Weight: 81.647 kg 02/27/24 11:59 Body Mass Index (BMI) 28.1 02/27/24 11:59 Respiratory Assessment Respiratory Assessment - ultimate hoops trainer: Respiratory Tract Infection Hx - ultimate hoops trainer Hx Respiratory Tract Infection STOP Sleep Apnea STOP Sleep Apnea - ultimate hoops trainer: STOP Sleep Apnea - ultimate hoops trainer Hx Hypertension No 02/26/24 08:44 Hx Sleep Apnea No 02/26/24 08:44 CPAP BIPAP Do you snore loudly (louder No 02/26/24 08:44 than talking or can be heard Do you often feel tired/ No 02/26/24 08:44 fatigued/ sleepy during daytime? Has anyone observed you stop No 02/26/24 08:44 breathing during sleep? STOP Results Negative 02/26/24 08:44 QUESTION #5 FULL TEXT : Do you snore loudly (louder than talking or can be heard through closed doors)? 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 Specify any problems Hx of Preganancy in last 3 No 02/26/24 08:44 Months Nurse Filling Out Transfusion [email or web address] 02/26/24 08:44 & Questions: Date: 02/26/24 02/26/24 08:44 Time: 08:47 02/26/24 08:44 Patient unable to answer at this time (ie. confused, unrespo /Reproduction History /Reproductive History - ultimate hoops trainer: /Reproductive Hx- ultimate hoops trainer Hx Now Gestational Age (in weeks): EDC: Hx Hx Para Hx Section SAB Active Medications Active Medications: Current Medications Generic Name Dose Route Start Last Admin Trade Name Freq PRN Reason Stop Dose Admin Cefazolin Sodium 2 gm/ Sodium 110 mls @ 150 mls/hr 02/27/24 13:30 Chloride IV 02/27/24 14:13 PREOP ONE Lactated Ringer's 1,000 mls @ 15 mls/hr 02/27/24 11:45 02/27/24 12:12 IV 15 mls/hr .Q48H OSVALDO Administration PFSH Medical History Wears glasses ANDREAS (generalized anxiety disorder) MDD (major depressive disorder) Vaginal prolapse Allergies Home Medications ?Medication ?Instructions ?Recorded ?Last Taken ?Type montelukast 10 mg tablet 10 mg PO QHS Allergies 01/29/19 Unknown History ascorbic acid (vitamin C) 500 mg 500 mg PO DAILY 08/28/23 Unknown History capsule cetirizine 10 mg tablet 10 mg PO QHS 08/28/23 Unknown History cholecalciferol (vitamin D3) 50 50 mcg PO DAILY 08/28/23 Unknown History mcg (2,000 unit) capsule naproxen sodium 220 mg tablet 440 mg PO Q12H PRN pain 08/28/23 Unknown History (Aleve) zinc gluconate 50 mg tablet 50 mg PO DAILY 08/28/23 Unknown History bupropion HCl 150 mg 24 hr tablet, 150 mg PO QAM #90 tabs 11/26/23 02/27/24 Rx extended release fluoxetine 40 mg capsule 40 mg PO DAILY #90 caps 11/26/23 02/27/24 Rx mirtazapine 30 mg tablet 30 mg PO QHS #90 tabs 11/26/23 Unknown Rx quetiapine 300 mg tablet 300 mg PO QHS #90 tabs 11/26/23 Unknown Rx trazodone 150 mg tablet 150 mg PO QHS #90 tabs 11/26/23 Unknown Rx ondansetron 4 mg disintegrating 4 mg PO Q8H PRN PRN Nausea #10 tabs 02/21/24 Unknown Rx tablet oxycodone-acetaminophen 5 mg-325 1 tab PO Q6H PRN pain 3 days #12 02/21/24 Unknown Rx mg tablet (Percocet) tabs aspirin 81 mg tablet,delayed 81 mg PO DAILY 02/26/24 02/26/24 History release (Adult Aspirin Regimen) Allergy/AdvReac Type Severity Reaction Status Date / Time No Known Allergies Allergy Verified 02/27/24 11:59 Family History Other Alcoholism Anxiety Arthritis Colon cancer Depression Psychiatric care Severe allergy Social History Smoking Status: Never smoker alcohol intake: current details: 1x week substance use type: does not use frequency: 1-2 times per week Review of Systems (Anesthesia) ROS Narrative System reviewed and no additional complaints, except as documented.
--- NOTE | 2024-02-27 13:30 | RAD_ITS ---
STUDY: X-RAY - RIGHT ANKLE REASON FOR EXAM: Female, 58 years old. Intraoperative digital documentation views of ORIF of distal right lower extremity. TECHNIQUE: 2 intraoperative digital documentation view(s) of the ankle. COMPARISON: Preoperative x-rays of the right lower extremity/ankle February 21, 2024 FINDINGS: 2 intraoperative digital documentation views show localizer at the distal tibiofibular syndesmosis and long lateral plate and screw fixation of the distal fibula. RAD/Ankle 2 Views IMPRESSION: Intraoperative digital documentation views as described. Electronically Signed: Christopher Agudelo MD at 10:34 EDT ,
[2024-02-27] MEDS: Cefazolin 2 GM in 0.9% Normal Saline (100mL Bag) 100 ML IV (13:34)
--- NOTE | 2024-02-27 16:46 | OP.PCM_ITS ---
Report of Operation Date of Procedure: 02/27/24 Description of Surgical Findings:: Preoperative diagnosis: 1. Right distal tibia pilon fracture 2. Right distal fibula fracture Postoperative diagnosis: 1. Right distal tibia pilon fracture 2. Right distal fibula fracture Procedure: Open reduction internal fixation of right distal tibia intra- articular pilon fracture with open reduction internal fixation of distal fibula Surgeon: Jose Manuel Fisher DO Anesthesiologist: Chico Iyer MD IV fluids: Per anesthesia record Urine output: None recorded Estimated blood loss: 50 cc Specimen: None Complications: None apparent Implants: Synthes 8 hole direct medial distal tibia LCP 3.5 mm plate, 12 hole 3. 5 mm third tubular plate Packing/drains: None Indications: This is a 58-year-old female who sustained a right distal tibia/fibula fracture mowing her lawn which she slipped and fell. Injury was sustained 6 days ago. She was seen in the emergency department and splinted. She follow-up in our office. There were no fracture blisters upon examination 3 days ago. Skin appeared amenable for definitive fixation. I recommended surgical intervention in the form of right distal tibia and fibula open reduction internal fixation. Risks, benefits, and alternatives to the procedure reviewed with patient at length and she agreed to proceed. Risks included but were not limited to bleeding, infection, loss of life or limb, need for additional surgery, nonhealing bone or wounds, neurovascular injury, DVT or PE, stiffness, posttraumatic arthritis, symptomatic hardware, risk of anesthesia. Informed consent obtained in the outpatient setting. Description of procedure: Patient was identified in the preoperative holding area by name, medical record number, and date of . The operative extremities marked. All questions answered to the patient's satisfaction. At time of her procedure, patient was brought to the op suite positioned supine a standard operating table. General anesthesia was induced and LMA placed. All bony prominences were well-padded. The splint was removed. Well-padded pneumatic tourniquet was applied to the right upper thigh. A Betadine scrub was performed provisionally. The leg was then dried. ChloraPrep was then used to prep the skin. We draped in a normal sterile orthopedic fashion. We then called a timeout to confirm the side, site, operation to be performed. No concerns voiced like to proceed with surgery. 2 g Ancef was ministered IV prior to tourniquet placed by anesthesia staff. I then elevated the right lower extremity for 2 minutes and tourniquet inflated to 250 mmHg which remained up for approximately 90 minutes. I first turned my attention to the distal fibula. Direct lateral approach to the fibula was performed. Full-thickness skin flaps were developed down to level of fascia. The fascia had already been disrupted by the fracture. I bluntly dissected the torn periosteum from the bone. There was a multi fragmentary fracture noted. I attempted to achieve reduction to allow amish of her fibular length. I provisionally placed a 12 hole third tubular plate in standard fashion however the length did not appear to be appropriate and I removed the proximal screws from the plate to destabilize the fibula term attention to the tibia. Direct medial approach to the tibia was performed. Full-thickness skin flaps were developed. I attempted to indirectly reduce the tibia with percutaneous clamps but was unsuccessful. Fracture site was opened. I was then able to debride the fracture site and irrigated. Reduction was then achieved with combination of traction, rotation and manual manipulation. I then selected a 8 hole medial LCP distal tibial plate. I compressed the plate to bone with a BB tack distally and a cortical screw proximally. This achieved near-anatomic and acceptable reduction. Distal clus ter of screws were then filled with unicortical locking screws. 4 cortical screws were placed proximal to the fracture site. The provisional reduction cortical screw was removed to increase our working length in this bridge construct. Bridge construct was selected due to the amount of comminution at the fracture site. I entered my attention back to the fibula. Length was restored given the tibial reduction. I placed cortical screws in the proximal segment of the plate achieving 3 cortical screws proximally and 4 screws distally. Final tightening was performed. Wounds were copiously irrigated with normal saline solution. Final orthogonal fluoroscopy was obtained and demonstrated an acceptable near-anatomic alignment and stable fixation. Tourniquet deflated hemostasis was achieved with Bovie cautery. Fascia was loosely reapproximated over the plates with 0 Vicryl suture. Dermis was reapproximated buried 2-0 Vicryl suture. Skin was finally reapproximated with 3-0 nylon suture laterally and 2-0 nylon suture medially. Compartments were soft and compressible following fixation. A bulky sterile compression dressing was applied. A well-padded 3 sided short leg AO type fiberglass splint was applied in maximal dorsiflexion. Patient was safely extubated and awakened from anesthesia. She was transferred to her gurney and subsequently to PACU in stable condition. She tolerated the procedure well without apparent complication. Postoperative plan: Discharge home today Postoperative femoral and popliteal blocks Ice elevation Follow-up in 2 weeks for suture removal and splint off x-rays Nonweightbearing x 6 weeks Aspirin 81 mg twice daily for x 6 weeks Oxycodone refill, Tylenol and Aleve encouraged.
--- NOTE | 2024-02-27 16:46 | PCM.POST.ANE ---
Anesthesia: Postop Eval I Current Vital Signs Temperature: 97.8 F Pulse Rate: 95 Blood Pressure: 161/97 Respiratory Rate: 20 Pulse Ox: 93 Assessment Airway patent: Yes Spontaneous unlabored respirations: Yes nausea: No Vomiting: No Anesthesia Complication: No Fluid Hydration Crystalloid volume administer (ml): 1,800 Total IV fluid infused: 1,800 Progress Note Anesthesia document: Postop Eval 1 completed: Yes
--- NOTE | 2024-02-27 17:04 | POSTOPAN2_ITS ---
Anesthesia Postop Eval I Sum Postop Eval Completion status Anesthesia document: Postop Eval 1 completed: Yes Anesthesia Postop Eval I Summary Anesthesia Postop Eval I Summary: Anesthesia Postop Eval I: Assessment Summary Airway patent Yes 02/27/24 16:46 SENIOR MARKETING COORDINATOR.CSIR Spontaneous unlabored Yes 02/27/24 16:46 SENIOR MARKETING COORDINATOR.CSIR respirations Mental status nausea No 02/27/24 16:46 SENIOR MARKETING COORDINATOR.CSIR Vomiting No 02/27/24 16:46 SENIOR MARKETING COORDINATOR.CSIR Anesthesia Postop Eval I: Fluid Summary Crystalloid volume administer 1,800 02/27/24 16:46 SENIOR MARKETING COORDINATOR.CSIR (ml) Colloids volume administered ( ml) Blood Product volume administered (ml) Total IV fluid infused 1,800 02/27/24 16:46 SENIOR MARKETING COORDINATOR.CSIR Anesthesia Postop Eval I: Summary Notes Anesthesia Complication No 02/27/24 16:46 SENIOR MARKETING COORDINATOR.CSIR Anesthesia Complication Comment: Post-operative progress note Anesthesia: Postop Eval II Evaluation Mental status: Awake Pain Level: 0 nausea: No Vomiting: No
--- NOTE | 2024-02-27 17:04 | PCM.POSTANE2 ---
Anesthesia Postop Eval I Sum Postop Eval Completion status Anesthesia document: Postop Eval 1 completed: Yes Anesthesia Postop Eval I Summary Anesthesia Postop Eval I Summary: Anesthesia Postop Eval I: Assessment Summary Airway patent Yes 02/27/24 16:46 SMALL BUSINESS BANKING OFFICER.CSIR Spontaneous unlabored Yes 02/27/24 16:46 SMALL BUSINESS BANKING OFFICER.CSIR respirations Mental status nausea No 02/27/24 16:46 SMALL BUSINESS BANKING OFFICER.CSIR Vomiting No 02/27/24 16:46 SMALL BUSINESS BANKING OFFICER.CSIR Anesthesia Postop Eval I: Fluid Summary Crystalloid volume administer 1,800 02/27/24 16:46 SMALL BUSINESS BANKING OFFICER.CSIR (ml) Colloids volume administered ( ml) Blood Product volume administered (ml) Total IV fluid infused 1,800 02/27/24 16:46 SMALL BUSINESS BANKING OFFICER.CSIR Anesthesia Postop Eval I: Summary Notes Anesthesia Complication No 02/27/24 16:46 SMALL BUSINESS BANKING OFFICER.CSIR Anesthesia Complication Comment: Post-operative progress note Anesthesia: Postop Eval II Evaluation Mental status: Awake Pain Level: 0 nausea: No Vomiting: No
[2024-02-27] MEDS: oxyCODONE 5 MG Tablet PO (17:25)
== END 2024-02-27 18:23 | disposition home or self-care (01) ==
LOC: SDC 11:31 → AC 11:32
PROVIDERS: PCP Internal Medicine; Referring Provider Student in an Organized Health Care Education/Training Program; Visit Provider Student in an Organized Health Care Education/Training Program
PROC: (CPT 27828; principal; 2024-02-27 13:10)
DX: S82.871A Displaced pilon fracture of right tibia, initial encounter for closed fracture (principal); W17.81XA Fall down embankment (hill), initial encounter; F32.A Depression, unspecified; R03.0 Elevated blood-pressure reading, without diagnosis of hypertension; Z79.899 Other long term (current) drug therapy; Z86.16 Personal history of COVID-19
CPT/HCPCS: 27828; 01480; 64445; 36415; 73600; 76000; 80048; 85025; 93005; C1713; J7120; J2405

== ENCOUNTER → 2024-07-17 | Outpatient (CLI) | payer OTHER, SELFPAY ==
[2024-07-17 10:42] LABS: Absolute Lymphocyte Count 1.47 X10^3/uL (0.83-4.51); Absolute Neutrophil Count 3.5 X10^3/uL (2.0-7.7); Basophil# 0.06 X10^3/uL; Eosinophil# 0.23 X10^3/uL; Hematocrit 41.3 % (37-47); Hemoglobin 13.1 g/dL (12.0-15.0); Lymphocyte # 1.47 X10^3/ul (0.83-4.51); Lymphocyte % 25.3 % (19-41); Mean Corp Hgb Conc 31.7 g/dL (32-36); Mean Corpuscular Hgb 30.7 pg (27.0-32.0); Mean Corpuscular Volume 96.7 fL (81-99); Mean Platelet Vol. 9.1 fl (6.2-12.0); Monocyte# 0.52 X10^3/uL; NRBC Flagged by Analyzer 0 % (0-5); Neutrophil # 3.49 X10^3/uL (2.7-7.7); Neutrophil % 60.2 % (47-70); Platelet Count 350 K/mm3 (150-450); RBC Distribution Width CV 13.3 % (11.6-14.6); RBC Distribution Width SD 47.7 fl (35.1-43.9); Red Blood Count 4.27 M/mm3 (4.2-5.4); White Blood Count 5.8 K/mm3 (4.4-11.0)
[2024-07-17 10:53] LABS: ALB/GLOB Ratio 0.9 RATIO (0.9-2.4); AST(SGOT) 29 U/L (15-37); Alanine Aminotransfer ALT/SGPT 47 U/L (13-56); Albumin, Serum 3.6 g/dL (3.2-5.0); Alkaline Phosphatase 138 U/L (45-117); Anion Gap 4 (5-15); BUN 20 mg/dL (7-18); BUN/Creat Ratio 26.4 RATIO (10-20); CRP 6.21 mg/L (0.0-3.0); Calcium,Total 8.8 mg/dL (8.5-10.1); Chloride 105 mmol/L (98-107); Creatinine, Serum 0.76 mg/dL (0.55-1.02); EST Glomerular Filtration Rate 84 mL/min (>60); Est Glom Filt Rate - Afr Amer 101 mL/min (>60); Glucose 105 mg/dL (74-106); Potassium 4.1 mmol/L (3.5-5.1); Protein, Total 7.6 g/dL (6.4-8.2); Sodium Level 137 mmol/L (136-145)
[2024-07-17 11:02] LABS: Erythrocyte Sedimentation Rate 26 mm/hr (0-30)
== END | disposition home or self-care (01) ==
LOC: LAB 10:14
PROVIDERS: PCP Nurse Practitioner Family; Referring Provider Physician Assistant Surgical; Visit Provider Physician Assistant Surgical
DX: R60.0 Localized edema (principal)
CPT/HCPCS: 36415; 80053; 85025; 85652; 86140

== ENCOUNTER → 2024-09-15 | Outpatient (CLI) | payer OTHER, SELFPAY ==
--- NOTE | 2024-09-15 15:00 | BI_ITS ---
PROCEDURE: SCRN MAMM (CAD)W/DONNY BILAT REASON FOR EXAM: F, Age 59 y/o, aunts with breast cancer. TECHNIQUE: Bilateral screening digital breast tomosynthesis with 2D and 3D images. Computer aided detection. COMPARISON: Prior exam(s) dating back to August 27, 2021.. FINDINGS: The breasts are heterogeneously dense which may obscure small masses. Stable small benign-appearing bilateral axillary lymph nodes. No suspicious masses, areas of developing architectural distortion, or suspicious calcifications. BI/SCRN MAMM (CAD)W/DONNY BILAT IMPRESSION: BI-RADS 2: BENIGN. RECOMMEND ANNUAL MAMMOGRAPHIC SCREENING. Follow-up code: Routine Follow-up The patient will be notified of the results by letter. Reading Location: [id number]
--- NOTE | 2024-09-15 15:26 | BD_ITS ---
PROCEDURE: DEXA BONE DENSITY STUDY REASON FOR EXAM: F, age 59 y/o . Postmenopausal. TECHNIQUE: DEXA scan of the lumbar spine and both hips. COMPARISON: Comparison is made with prior study dated March 11, 2018. FINDINGS: Lumbar Spine (L1-L4): g/cm2 (1.066)/T-score (0.1)/Z-score (1.3) findings are suggestive of normal with a low fracture risk. Left Femur Total: g/cm2 (0.983)/T-score (0.3)/Z-score (1.1) Left Femoral Neck: g/cm2 (0.828)/T-score (-0.2)/Z-score (1.0) Right Femur Total: g/cm2 (0.769)/T-score (-1.4)/Z-score (-0.6) Right Femoral Neck: g/cm2 (0.721)/T-score (-1.2)/Z-score (0.0) The T-Scores on the most recent prior examination were: Lumbar Spine (L1-L4): There has been worsening of bone density since the previous examination. Left Femur Total: Worsening of 7%. Right Femur Total: Worsening of 23%. BD/Dexa Bone Density Study IMPRESSION: The patient is considered osteopenia as outlined below according to [employer] Organization (WHO) criteria with a low fracture risk. There has been worsening of bone density since the previous examination. Reading Location: [id number]
== END | disposition home or self-care (01) ==
LOC: OPBD 15:00
PROVIDERS: PCP Nurse Practitioner Family; Referring Provider Nurse Practitioner Family; Visit Provider Nurse Practitioner Family
DX: Z12.31 Encounter for screening mammogram for malignant neoplasm of breast (principal); Z78.0 Asymptomatic menopausal state
CPT/HCPCS: 77063; 77067; 77080

== ENCOUNTER → 2025-07-06 | Outpatient (CLI) | payer OTHER, SELFPAY ==
--- OUTSIDE RECORDS SUMMARY | 2025-07-06 12:52 | XMS RPT_ITS | CCD ---
Author Organization [facility] Care Team Providers Care Grid Casting Machine Operator Helper Name Role Phone Addie Cosme Unavailable Nicole Barker Unavailable Dave Freeman Unavailable Sally House Unavailable Unavailable Karolina Dumont Unavailable Unavailable Zeeshan Byrne Unavailable Unavailable Unavailable Unavailable Unavailable Unavailable Unavailable Primary Care Provider Unavailabl Zeeshan Vazquez Unavailable Unavailable Silvana Chaves Unavailable Unavailable Ba PJAddie E Unavailable Nicole Barker MD Unavailable Dr. Dave Freeman Unavailable Zeeshan Dukes LPN Unavailable Unavailable Karolina Dumont LPN Unavailable Unavailable Sally House Unavailable Unavailable Silvana Chaves LPN Unavailable Unavailable Unavailable Unavailable Dr. April Encinas Unavailable Addie Cosme Unavailable Nicole Barker MD Unavailable [phone] Ciesa WET MACHINE OPERATOR, WET MACHINE OPERATOR-C Addie Primary Care Provider Dr. Saravanan Hernandez Attending Provider CASE Brian Referring Provider [phone] Ba WET MACHINE OPERATOR, WET MACHINE OPERATOR-C Addie Referring Provider [phone] Dr. Sallie Cottrell Attending Provider [phone] EdelmitaAddie Unavailable Ba WET MACHINE OPERATOR, WET MACHINE OPERATOR-C Addie Primary Care Provider ELVA Peacock Attending Provider [phone] Ba WET MACHINE OPERATOR, WET MACHINE OPERATOR-C Addie Primary Care Provider Ba WET MACHINE OPERATOR, WET MACHINE OPERATOR-C Addie Referring Provider [phone] BatoolmarlenemitaAddie Attending Unavailable Nicole Barker MD Referring Unavailable Batoolmarlenemita Addie Consulting Unavailable Blu OLIVA, Renaldo Unavailable [phone] Blu OLIVA, Renaldo Unavailable [phone] Addie Cosme Unavailable BLU SCRAP DROP CRANE OPERATOR-SCALE RECLAMATION TENDER, RENALDO Primary Care Physician ABDOUL WORTHY DO Attending Unavailable BLU SCRAP DROP CRANE OPERATOR-SCALE RECLAMATION TENDER, RENALDO Primary Care Unavail able ABDOUL WORTHY DO Attending Unavailable BLU SCRAP DROP CRANE OPERATOR-SCALE RECLAMATION TENDER, RENALDO Primary Care Unavail able WOODY MICHAEL MD Consulting Unavailable KORARABELLA DOABDOUL Admitting Unavailable KORARABELLA JACKSON, ABDOUL Attending Unavailable LASKOVDOYLE JACKSON, VU Consulting Unavailabl e BLU SCRAP DROP CRANE OPERATOR-SCALE RECLAMATION TENDER, RENALDO Primary Care Unavail able SHARON PIÑA DO Consulting Unavailable CELIA CHAND MD Consulting Unavailable Buddy Villegas Attending Unavailable Blu, Renaldo Primary Care Unavailable Blu, Renaldo Primary Care Unavailable Ynes Mobley Attending Unavailable Ynes Mobley Referring Unavailable Renaldo Hurt Attending Unavailable Renaldo Hurt Referring Unavailable Blu, Renaldo Primary Care Unavailable Buddy Villegas Attending Unavailable BluNevin dawsonyn Primary Care Unavailable Buddy Villegas Attending Unavailable Blu, Renaldo Primary Care Unavailable Allergies Allergy Classification Reported Allergen(s) Allergy Type Date of Onset Reaction(s) Facility Amoxicillin / Clavulanate (3 sources) Amoxicillin / Clavulanate; Translations: [Augmentin *PENICILLINS*] Drug Allergy [facility]omiting [facility] Work Phone: (9 sources) LORazepam; Translations: [LORAZEPAM] Drug Allergy 02-08-20 [facility] Repository (9 sources) zolpidem; Translations: [ZOLPIDEM TARTRATE] [facility] Amoxicillin / Clavulanate; Translations: [Augmentin *PENICILLINS*] Drug Allergy Vomiting [facility] Work Phone: (7 sources) Amoxicillin-Pot Clavulanate Propensity to adverse reactions to drug 03-31-20 Nausea And Vomiting [place], [place] Medications Current Medications Medication Drug Class(es) Dates Sig (Normalized) Sig (Original) acetaminophen 325 mg oral tablet (1 source) Start: 12-30-2024 acetaminophen 325 mg oral tablet Dose : 650 mg = 2 tab(s), Oral, q4h, PRN as needed for pain, # 1 tab(s), 0 Refill(s) Start Date: 12/30/24 Status: Ordered Quantity: 1.0 Unit: tab(s) Repeat number: 1 acetaminophen 325 mg / HYDROcodone bitartrate 5 mg oral tablet (1 source) Opioid Agonist Start: 07-22-2024 End: 07-29-2024 take 1 tablet by mouth every four hours as needed for pain Ewen 325- 5 mg oral tablet Dose = 1 tab(s), Oral, q4h, PRN for pain, X 7 day(s), # 28 tab(s), 0 Refill(s), Pharmacy: [id number], 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, 170.2, cm, 07/22/24 7:28:00 EST, Height, 83.9, kg, 07/22/24 7:28:00 EST, Dosing Weight Start Date: 07/22/24 Stop Date: 07/29/24 Status: Ordered Quantity: 28.0 Unit: tab(s) Repeat number: 1 Indication: Unspecified fracture of lower end of right tibia, subsequent encounter for closed fracture with nonunion acetaminophen 500 mg / phenyltoloxamine citrate 30 mg oral tablet (1 source) Start: 12-30-2024 take 1 tablet by mouth every four hours as needed for pain acetaminophen-pheny ltoloxamine 500 mg-30 mg oral tablet Dose = 1 tab(s), Oral, q4h, PRN for pain, # 50 tab(s), 0 Refill(s) Start Date: 12/30/24 Status: Ordered Quantity: 50.0 Unit: tab(s) Repeat number: 1 Biotin (1 source) Start: 07-22-2024 Biotin 5000 mcg oral capsule Dose : 5,000 mcg = 1 cap(s), Oral, Daily, 0 Refill(s) Start Date: 07/22/24 Status: Ordered Repeat number: 1 24 hr buPROPion hydrochloride 150 mg extended release oral tablet (9 sources) Aminoketone Start: 07-20-2024 take 1 tablet by mouth every hour, then take 1 tablet by mouth once daily in the morning buPROPion 150 mg/24 hours (XL) oral tablet, extended release Dose : 150 mg = 1 tab(s), Oral, qAM, # 30 tab(s), 0 Refill(s) Start Date: 07/20/24 Status: Ordered Quantity: 30.0 Unit: tab(s) Repeat number: 1 Start: 04-15-2023 take 1 tablet by [facility] once daily buPROPion HCL 150 mg oral Tablet, Extended Release 24 hr 1 (one) tablet daily for 90 days Quantity: 90 {Tablet} Refills: 3 Ordered: 15-Apr-2023 Renaldo Hurt CNP Start : 15-Apr-2023 Active Comments: Dr. Gleason Comment on above: Dr. Gleason cetirizine hydrochloride 10 mg oral tablet (20 sources) Histamine-1 Receptor Antagonist Start: 07-20-2024 cetirizine 10 mg oral tablet Dose : 10 mg = 1 tab(s), Oral, qHS, # 90 tab(s), 0 Refill(s) Start Date: 07/20/24 Status: Ordered Quantity: 90.0 Unit: tab(s) Repeat number: 1 Start: 04-15-2023 take 1 capsule by [facility] once daily ZyrTEC 10 mg oral capsule 1 (one) Capsule daily for 90 days Quantity: 90 {Capsule} Refills: 3 Ordered: 15-Apr-2023 Renaldo Hurt CNP Start : 15-Apr-2023 Active Start: 10-09-2022 take 1 capsule by [facility] once daily ZyrTEC 10 mg oral capsule 1 (one) Capsule daily for 0 days Quantity: 30 {Capsule} Refills: 0 Ordered: 09-Oct-2022 Renaldo Hurt CNP Start : 09-Oct-2022 Active Start: 09-11-2022 take 1 capsule by [facility] once daily ZyrTEC 10 mg oral capsule 1 (one) Capsule daily for 0 days Quantity: 30 {Capsule} Refills: 0 Ordered: 11-Sep-2022 Renaldo Hurt CNP Start : 11-Sep-2022 Active Start: 05-14-2022 take 1 capsule by [facility] once daily ZyrTEC Allergy 10 MG Oral Capsule 1 (one) Capsule daily for 0 days Quantity: 30 {Capsule} Refills: 3 Ordered: 14-May-2022 Irineo JACKSON Rosalinad Start : 14-May-2022 Active Start: 01-04-2022 take 1 capsule by [facility] once daily ZyrTEC Allergy 10 MG Oral Capsule 1 (one) Capsule daily for 0 days Quantity: 30 {Capsule} Refills: 3 Ordered: 04-Jan-2022 Irineo JACKSON Rosalinda Start : 04-Jan-2022 Active Start: 09-04-2021 take 1 capsule by [facility] once daily ZyrTEC Allergy 10 MG Oral Capsule 1 (one) Capsule daily for 0 days Quantity: 30 {Capsule} Refills: 3 Ordered: 04-Sep-2021 Ba Addie Ba Addie Start : 04-Sep-2021 Active Start: 04-07-2014 End: 2015 take 1 capsule by mouth once daily ZYRTEC ALLERGY, 10MG (Oral Capsule) 1 (one) Capsule Capsule daily for 0 days Quantity: 30 {Capsule} Refills: 0 Ordered: 28-Aug-2015 DALI Pina LPN Start : 07-Apr-2014 End : 28-Aug-2015 Inactive End: 09-09-2016 Zyrtec daily End : 09-Sep-19 17 Discontinued docusate sodium 100 mg oral capsule (7 sources) Start: 04-16-2019 take 1 capsule by mouth twice daily as needed for constipation docusate sodium (COLACE, DULCOLAX) 100 MG CAPS Take 100 mg by mouth 2 times daily as needed for Constipation 30 capsule 1 04/16/2019 Active DULoxetine 60 mg delayed release oral capsule (20 sources) Serotonin and Norepinephrine Reuptake Inhibitor Start: 04-16-2019 take 2 capsules by mouth once daily DULoxetine (CYMBALTA) 60 MG extended release capsule Take 2 capsules by mouth daily 60 capsule 1 04/16/2019 Active Start: 03-17-2019 End: 09-04-2021 take 1 capsule by mouth once daily DULoxetine HCl 30 MG Oral Capsule Delayed Release Particles 1 (one) Capsule daily for 0 days Quantity: 30 {Capsule} Refills: 0 Ordered: 04-Sep-2021 Karolina Dumont LPN Start : 17-Mar-2019 End : 04-Sep-2021 Inactive Start: 03-10-2019 End: 04-15-2023 take 1 capsule by mouth once daily DULoxetine 60 mg oral capsule,delayed release (enteric coated) 1 (one) Capsule daily for 0 days Quantity: 30 {Capsule} Refills: 3 Ordered: 15-Apr-2023 Karolina Dumont LPN Start : 17-Mar-2019 End : 15-Apr-2023 Inactive Comments: rx by dr gleason Start: 03-10-2019 take 30 mg by mouth at bedtime Duloxetine Active 30 MG PO AT BEDTIME March 10, 2019 12:00am Comment on above: rx by dr gleason FLUoxetine 40 mg oral capsule (20 sources) Serotonin Reuptake Inhibitor Start: 07-20-2024 FLUoxetine 40 mg oral capsule Dose : 40 mg = 1 cap(s), Oral, qAM, # 90 cap(s), 0 Refill(s) Start Date: 07/20/24 Status: Ordered Quantity: 90.0 Unit: cap(s) Repeat number: 1 Start: 08-08-2020 PROzac 20 MG O ral Capsule 1 (one) Capsule daily for 0 days Quantity: 30 {Capsule} Refills: 0 Ordered: 08-Aug-2020 Addie Cosme Start : 08-Aug-2020 Active Comments: states she takes 30mg take 1 capsule by [facility] once daily PROZAC, 20MG (Oral Capsule) 1 qd (20 MG) Inactive Comment on above: states she takes 30m g hydrOXYzine hydrochloride 50 mg oral tablet (7 sources) Antihistamine Start: 04-16-20 End: 04-30-20 19 take 1 tablet by mouth every six hours as needed for anxiety hydrOXYzine (ATARAX) 50 MG tablet Take 1 tablet by mouth every 6 hours as needed for Anxiety 14 tablet 1 04/16/2019 04/30/2019 Active L-METHYLFOLATE CALCIUM PO (7 sources) L-METHYLFOLATE CALCIUM PO Take by mouth 0 Active Levomefolate Calcium POWD (7 sources) Start: 03-10-20 19 take 7.5 mg by mouth once daily Levomefolate Calcium POWD Take 7.5 mg by mouth daily 0 03/10/2019 Active Levomefolate-Algal Oil (4 sources) Start: 03-10-20 Levomefolate-Algal Oil Active 7.5 MG PO March 10, 2019 7:36pm Start: 03-10-2019 Levomefolate-A lgal Oil Active 7.5 MG PO March 10, 2019 12:00am melatonin 3 mg oral tablet (4 sources) Start: 03-10-2019 take 3 mg by mouth at bedtime Melatonin Active 3 MG PO AT BEDTIME March 10, 2019 12:00am mirtazapine 30 mg oral tablet (20 sources) Start: 07-20-2024 mirtazapine 30 mg oral tablet Dose : 30 mg = 1 tab(s), Oral, qHS, 0 Refill(s) Start Date: 07/20/24 Status: Ordered Repeat number: 1 Start: 07-26-2011 End: 04-16-2019 take 1 tablet by mouth once daily Mirtazapine 30 MG Oral Tablet 1 (one) Tablet daily for 0 days Quantity: 30 {Tablet} Refills: 0 Ordered: 17-Mar-2019 BatoolAddie garcia Start : 17-Mar-2019 Active montelukast 10 mg oral tablet (20 sources) Leukotriene Receptor Antagonist Start: 07-22-2024 montelukast 10 mg oral tablet Dose : 10 mg = 1 tab(s), Oral, qPM, # 30 tab(s), 0 Refill(s) Start Date: 07/22/24 Status: Ordered Quantity: 30.0 Unit: tab(s) Repeat number: 1 Start: 04-15-2023 take 1 tablet by [facility] once daily montelukast 10 mg oral tablet 1 (one) Tablet daily for 0 days Quantity: 90 {Tablet} Refills: 3 Ordered: 15-Apr-2023 Renaldo Hurt CNP Start : 15-Apr-2023 Active Start: 10-14-2022 take 1 tablet by eleni [facility] once daily montelukast 10 mg oral tablet 1 (one) Tablet daily for 0 days Quantity: 90 {Tablet} Refills: 0 Ordered: 14-Oct-2022 Nicole Barker MD Start : 14-Oct-2022 Active Comments: no refills until next appt Start: 01-04-2022 take 1 tablet by eleni [facility] once daily Montelukast Sodium 10 MG Oral Tablet 1 (one) Tablet daily for 0 days Quantity: 90 {Tablet} Refills: 3 Ordered: 04-Jan-2022 Rosalinda Cabello DO Start : 04-Jan-2022 Active Start: 09-04-2021 take 1 tablet by eleni [facility] once daily Montelukast Sodium 10 MG Oral Tablet 1 (one) Tablet daily for 0 days Quantity: 90 {Tablet} Refills: 3 Ordered: 04-Sep-2021 Addie Cosme Mary Start : 04-Sep-2021 Active Start: 01-02-2021 take 1 tablet by eleni [facility] once daily Montelukast Sodium 10 MG Oral Tablet 1 (one) Tablet daily for 0 days Quantity: 90 {Tablet} Refills: 3 Ordered: 02-Jan-2021 Addie Cosme CNP, CNP Mary Start : 02-Jan-2021 Active Start: 12-27-2020 take 1 tablet by eleni [facility] once daily Montelukast Sodium 10 MG Oral Tablet 1 (one) Tablet daily for 0 days Quantity: 90 {Tablet} Refills: 3 Ordered: 27-Dec-2020 Addie Cosme CNP, CNP Mary Start : 27-Dec-2020 Active Start: 12-21-2019 take 1 tablet by eleni th once daily Montelukast Sodium 10 MG Oral Tablet 1 (one) Tablet daily for 0 days Quantity: 90 {Tablet} Refills: 3 Ordered: 21-Dec-2019 Addie Cosme CNP, CNP Mary Start : 21-Dec-2019 Active Start: 04-19-2019 take 1 tablet by eleni th once daily Montelukast Sodium 10 MG Oral Tablet 1 (one) Tablet daily for 0 days Quantity: 90 {Tablet} Refills: 3 Ordered: 19-Apr-2019 Addie Cosme CNP, CNP Mary Start : 19-Apr-2019 Active Start: 02-27-2018 take 10 mg by mouth once daily Montelukast Active 10 MG PO DAILY January 29, 2019 12:00am Comment on above: no refills until nex t appt naproxen sodium 220 mg oral tablet (1 source) Nonsteroidal Anti-inflammatory Drug Start: 12-30-2024 Aleve 220 mg oral tablet Dose : 440 mg = 2 tab(s), Oral, q8h, PRN as needed for pain, # 60 tab(s), 0 Refill(s) Start Date: 12/30/24 Status: Ordered Quantity: 60.0 Unit: tab(s) Repeat number: 1 oxyCODONE hydrochloride 5 mg oral tablet (1 source) Opioid Agonist Start: 01-06-2025 End: 01-09-2025 oxyCODONE 5 mg oral tablet ( IMMEDIATE release ) Dose : 5 mg = 1 tab(s), Oral, q6h, PRN as needed for pain, X 3 day(s), # 12 tab(s), 0 Refill(s), 01/09/25 8:39:00 AM EDT, Pharmacy: [id number], Post-op pain, 170.2, cm, 01/06/25 6:08:00 EDT, Height, 82.2, kg, 01/06/25 6:08:00 EDT, Dosing Weight Start Date: 01/06/25 Stop Date: 01/09/25 Status: Ordered Quantity: 12.0 Unit: tab(s) Repeat number: 1 Indications: Other acute postprocedural pain; polyethylene glycol 3350 66161 mg powder for oral solution (2 sources) Osmotic Laxative Start: 07-22-2024 MiraLax oral powder for reconstitution Oral, qDay, PRN Constipation, 0 Refill(s) Start Date: 07/22/24 Status: Ordered Repeat number: 1 QUEtiapine 300 mg oral tablet (20 sources) Atypical Antipsychotic Start: 07-20-2024 QUEtiapine 300 mg oral tablet Dose : 300 mg = 1 tab(s), Oral, qHS, # 90 tab(s), 0 Refill(s) Start Date: 07/20/24 Status: Ordered Quantity: 90.0 Unit: tab(s) Repeat number: 1 Start: 04-16-2019 take 1 tablet by eleni [facility] once daily QUEtiapine (SEROQUEL) 300 MG tablet Take 1 tablet by mouth daily 30 tablet 1 04/16/2019 Active take 1 tablet by eleni th once daily at bedtime SEROquel XR 150 mg oral Tablet, Extended Release 24 hr 150mg qhs (150 mg) Active take 1 tablet by eleni th every twenty-four hours SEROquel XR 150 MG Oral Tablet Extended Release 24 Hour daily (150 MG) Active Comments: rx by dr gleason End: 04-21-2019 take 1 tablet by mouth once daily QUEtiapine (SEROQUEL) 100 MG tablet Take 100 mg by mouth nightly 0 04/21/2019 Discontinued (DOSE ADJUSTMENT) End: 04-21-2019 take 1 tablet by mouth once daily QUEtiapine (SEROQUEL) 50 MG tablet Take 50 mg by mouth nightly 0 04/21/2019 Discontinued (DOSE ADJUSTMENT) Comment on above: rx by dr gleason traZODone hydrochloride 150 mg oral tablet (9 sources) Serotonin Reuptake Inhibitor Start: 07-20-2024 traZODone 150 mg oral tablet Dose : 150 mg = 1 tab(s), Oral, qHS, 0 Refill(s) Start Date: 07/20/24 Status: Ordered Repeat number: 1 Start: 04-16-2019 take 1 tablet by eleni th once daily as needed for sleep traZODone (DESYREL) 150 MG tablet Take 1 tablet by mouth nightly as needed for Sleep 30 tablet 1 04/16/2019 Active Vitamin D3 25 mcg (1000 intl units) oral capsule (2 sources) Start: 07-20-2024 Vitamin D3 25 mcg (1000 intl units) oral capsule Dose : 75 mcg = 3 cap(s), Oral, Mon/Wed/Fri, 0 Refill(s) Start Date: 07/20/24 Status: Ordered Repeat number: 1 Walking boot (2 sources) Start: 07-22-2024 Walking boot 1 , Other, Once, # 1 EA, 0 Refill(s), 83.9 Start Date: 07/22/24 Status: Ordered Quantity: 1.0 Unit: EA Repeat number: 1 zinc gluconate 50 mg oral tablet (1 source) Start: 07-20-2024 zinc (as gluco shun) 50 mg oral tablet Dose : 50 mg = 1 tab(s), Oral, qAM, # 30 tab(s), 0 Refill(s) Start Date: 07/20/24 Status: Ordered Quantity: 30.0 Unit: tab(s) Repeat number: 1 Completed/Discontinued Medications Medication Drug Class(es) Dates Sig (Normalized) Sig (Original) [id number] 200 actuat albuterol 0.09 mg/actuat metered dose inhaler (20 sources) beta2-Adrenergic Agonist Start: 12-27-2020 End: 04-15-2023 take 2 puff(s) by inhalation three times daily ProAir HFA 90 mcg/actuation inhalation HFA Aerosol with Adapter 2 (two) Puff tid for 0 days Quantity: 1 {Inhaler} Refills: 0 Ordered: 15-Apr-2023 Karolina Dumont LPN Start : 27-Dec-2020 End : 15-Apr-2023 Inactive amoxicillin 875 mg / clavulanate 125 mg oral tablet (20 sources) Penicillin-class Antibacterial Start: 08-27-2016 End: 09-06-2016 take 1 tablet by mouth twice daily Augmentin 875-125 MG Oral Tablet 1 (one) Tablet bid for 10 days Quantity: 20 {Tablet} Refills: 0 Ordered: 27-Aug-2016 Batoolradha Addie Start : 27-Aug-2016 End : 06-Sep-2016 Inactive ARIPiprazole 10 mg oral tablet (20 sources) Atypical Antipsychotic Start: 01-29-2019 End: 03-24-2019 take 1 tablet by mouth once daily at bedtime Abilify 10 MG Oral Tablet 1 (one) Tablet QHS for 0 days Quantity: 30 {Tablet} Refills: 0 Ordered: 24-Mar-2019 Zeeshan Dukes LPN Start : 17-Mar-2019 End : 24-Mar-2019 Inactive Ascorbic Acid (20 sources) Vitamin C Vitamin C Active azithromycin 250 mg oral tablet (17 sources) Macrolide Antimicrobial Start: 12-06-2021 End: 11-29-2022 Zithromax Z-George 250 mg oral tablet 1 (one) Tablet uad for 0 days Quantity: 1 {Packet} Refills: 0 Ordered: 29-Nov-2022 Karolina Dumont LPN Start : 06-Dec-2021 End : 29-Nov-2022 Discontinued budesonide 0.032 mg/actuat metered dose nasal spray (20 sources) Corticosteroid Start: 07-12-2014 End: 2015 RHINOCORT AQUA, 32MCG/ACT (Nasal Suspension) 2 (two) Puff daily for 0 days Quantity: 1 {Bottle} Refills: 0 Ordered: 28-Aug-2015 DALI Pina LPN Start : 12-Jul-2014 End : 28-Aug-2015 Inactive cholecalciferol 0.05 mg oral capsule (20 sources) Vitamin D Start: 03-02-2018 End: 04-01-2018 take 1 capsule by mouth once daily Vitamin D3 2000 UNIT Oral Capsule 1 (one) Capsule daily for 30 days Quantity: 30 {Capsule} Refills: 0 Ordered: 15-Jun-2018 Addie Cosme Start : 02-Mar-2018 End : 01-Apr-2018 Inactive clarithromycin 500 mg oral tablet (20 sources) Macrolide Antimicrobial Start: 09-09-2016 End: 09-19-2016 take 1 tablet by mouth twice daily Biaxin 500 MG Oral Tablet 1 (one) Tablet bid for 10 days Quantity: 20 {Tablet} Refills: 0 Ordered: 09-Sep-2016 Addie Cosme Start : 09-Sep-2016 End : 19-Sep-2016 Inactive codeine phosphate 2 mg/ml / guaiFENesin 20 mg/ml oral solution (20 sources) Opioid Agonist Start: 07-12-2014 End: 2015 take 1 [tsp_us] by mouth once daily at bedtime as needed CHERATUSSIN AC, 100-10MG/5ML (Oral Solution) 1 (one) Teaspoon qhs prn for 0 days Quantity: 6 {Ounce} Refills: 0 Ordered: 28-Aug-2015 DALI Pina LPN Start : 12-Jul-2014 End : 28-Aug-2015 Inactive cyclobenzaprine hydrochloride 10 mg oral tablet (20 sources) Muscle Relaxant Start: 07-23-2013 End: 2015 take 1 tablet by mouth every eight hours as needed CYCLOBENZAPRINE HCL, 10MG (Oral Tablet) 1 Tablet Tablet every 8 hours prn for 0 days Quantity: 10 {Tablet} Refills: 0 Ordered: 28-Aug-2015 DALI Pina LPN Start : 23-Jul-2013 End : 28-Aug-2015 Inactive Deplin 7.5 7.5-90.314 MG Oral Capsule (20 sources) Start: 03-17-2019 End: 09-04-2021 take 1 capsule by mouth once daily Deplin 7.5 7.5-90.314 MG Oral Capsule 1 (one) Capsule daily for 0 days Quantity: 30 {Capsule} Refills: 0 Ordered: 04-Sep-2021 Karolina Dumont LPN Start : 17-Mar-2019 End : 04-Sep-2021 Inactive Comments: rx by dr gleason Start: 03-17-2019 take 1 capsule by [facility] once daily Deplin 7.5 7.5-90.314 MG Oral Capsule 1 (one) Capsule daily for 0 days Quantity: 30 {Capsule} Refills: 0 Ordered: 17-Mar-2019 Batoolmarlenemita OLIVA, Mary Edelmita SCALE RECLAMATION TENDER, Mary Start : 17-Mar-2019 Active Comments: rx by dr gleason Comment on above: rx by dr gleason 0.4 ml enoxaparin sodium 100 mg/ml prefilled syringe (1 source) Low Molecular Weight Heparin Start: End: inject 0.4 mL by subcutaneous injection once daily Lovenox 40 mg/0.4 mL injectable solution Dose : 40 mg = 0.4 mL, Subcutaneous, qDay, X 6 week(s), # 16.8 mL, 0 Refill(s), 09/02/24 9:55:00 AM EST, Pharmacy: [id number], 170.2, cm, 07/22/24 7:28:00 EST, Height, kg, 07/22/24 7:28:00 EST, Dosing Weight Start Date: 07/22/24 Stop Date: 09/02/24 Status: Ordered Quantity: 16.8 Unit: mL Repeat number: 1 ergocalciferol 1.25 mg oral capsule (20 sources) Provitamin D2 Compound Start: 014 End: take 1 capsule by mouth two times weekly ergocalciferol (vitamin D2) 1,250 mcg (50,000 unit) oral capsule 1 Capsule Capsule twice weekly for 0 days Quantity: 24 {Capsule} Refills: 1 Ordered: 15-Apr-2023 Karolina Dumont LPN Start : 10-Aug-2013 End : 15-Apr-2023 Inactive 168 hr estradiol 0.44946 mg/hr transdermal system (20 sources) Estrogen Start: 023 apply 1 dose transdermal route every week estradioL 0.025 mg/24 hr weekly transdermal patch 1 (one) Patch once weekly for 0 days Quantity: 12 {Patch} Refills: 3 Ordered: 15-Apr-2023 Renaldo Hurt CNP Start : 15-Apr-2023 Active Start: 01-18-2022 apply 1 dose transde rmal route every week Estradiol 0.025 MG/24HR Transdermal Patch Weekly 1 (one) Patch take on weekly for 0 days Quantity: 12 {Patch} Refills: 1 Ordered: 18-Jan-2022 Rosalinda Cabello DO Start : 18-Jan-2022 Active Start: 09-04-2021 apply 1 dose transde rmal route every week Estradiol 0.025 MG/24HR Transdermal Patch Weekly 1 (one) Patch take on weekly for 0 days Quantity: 12 {Patch} Refills: 1 Ordered: 04-Sep-2021 Addie Cosme Mary Start : 04-Sep-2021 Active Start: 09-04-2021 Estradiol 0.02 5 MG/24HR Transdermal Patch Weekly 1 (one) Patch take daily x 2 weeks then one 3x per week for 0 days Quantity: 20 {Patch} Refills: 3 Ordered: 04-Sep-2021 Addie Cosme CNP, CNP Mary Start : 04-Sep-2021 Active Start: 01-02-2021 End: 09-04-2021 Estradiol 0.1 MG/GM Vaginal Cream 2 (two) Gram qd x2 weeks vaginally for 0 days Refills: 0 Ordered: 04-Sep-2021 Karolina Dumont LPN Start : 02-Jan-2021 End : 04-Sep-2021 Inactive Start: 01-02-2021 Estradiol 0.02 5 MG/24HR Transdermal Patch Weekly 1 (one) Patch take daily x 2 weeks then one 3x per week for 0 days Quantity: 20 {Patch} Refills: 3 Ordered: 02-Jan-2021 Ba OLIVA MaryAlex Cosme CNP Mary Start : 02-Jan-2021 Active Start: 08-02-2020 Estradiol 0.02 5 MG/24HR Transdermal Patch Weekly 1 (one) Patch take weekly x 3 weeks and off for 1 week for 90 days Quantity: 9 {Patch} Refills: 3 Ordered: 02-Aug-2020 Ba OLIVA MaryAlex Cosme CNP Mary Start : 02-Aug-2020 Active Start: 03-24-2019 Estradiol 0.02 5 MG/24HR Transdermal Patch Weekly 1 (one) Patch take weekly x 3 weeks and off for 1 week for 90 days Quantity: 9 {Patch} Refills: 3 Ordered: 24-Mar-2019 Ba PJ Addie Cosme PJ, Addie Johnson Start : 24-Mar-2019 Active lamoTRIgine 200 mg oral tablet (20 sources) Mood Stabilizer, Anti-epileptic Agent take 1 tablet by mouth once daily LAMICTAL, 200MG (Oral Tablet) 1 qd (200 MG) Inactive Problems Active Problems Problem Classification Problem Date Documented Date Episodic/Chronic Administrative/social admission (20 sources) Patient encounter status; Translations: [Physical exam for work or camp (Renamed from Encounter for school health examination)] Resolved: 11-28-2022 12-27-2020 Episodic Anxiety disorders (20 sources) Anxiety; Translations: [Anxiety] Onset: 05-16-2025 02-27-2018 Chronic Comment on above: On Lmictal per Helmu th, prozac and remeron, those filled thru Dr. Flanagan in late s, hospitalized in [address] Gleason await Dr. 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 has no uterus and on ly 1 ovary, thinks also in menopausenever had period. Immunizations and screening for infectious disease (14 sources) Needs influenza immunization; Translations: [Need for influenza vaccination (Renamed from Need for immunization against influenza)] 04-15-2023 Episodic Intracranial injury (20 sources) Concussion, unspecified; Translations: [Mild concussion] Resolved: 2015 2015 Episodic Comment on above: Grade I. better now. no postconcussive ss. recommend not to hit head again if can help blayne in next 6 weeks. since she has been clumsy since on lamictal will check level Menopausal disorders (20 sources) Menopausal flushing; Translations: [Hot flashes, menopausal] 03-17-2019 Chronic Comment on above: has no uterus, born that way, has one ovary, will check menopause hormones, then consider estradiol patch, no history of blood clots or migrainesShe wont need progesterone if no uterus. Mood disorders (20 sources) Depression; Translations: [Depressive disorder] Onset: 03-30-2019 Resolved: 2015 2015 Chronic Comment on above: sees Dr. gleason. ramon Gallegosmuth we will send refills of psych meds until she gets establishedsaw Rosibel, retired. Waiting on scheduled consult with Dr. Villegas Nutritional deficiencies (20 sources) Vitamin D deficiency; Translations: [Vitamin d deficiency (Renamed from Avitaminosis D)] 03-02-2018 Chronic Other connective tissue disease (20 sources) Calcaneal spur of right foot; Translations: [Heel spur, right] Resolved: 11-29-2022 09-04-2021 Episodic Other eye disorders (20 sources) Lazy eye; Translations: [Lazy eye] 02-27-2018 Episodic Comment on above: left eye, most all l víctor. Other injuries and conditions due to external causes (20 sources) Injury of head; Translations: [Head injury, unspecified] Episodic Other lower respiratory disease (20 sources) Cough; Translations: [Cough] Resolved: 11-28-2022 02-27-2018 Episodic Other lower respiratory disease (20 sources) Dyspnea; Translations: [Dyspnea] Resolved: 2015 2015 Episodic Other nervous system disorders (1 source) Other acute postprocedural pain; Translations: [Other acute postprocedural pain] Onset: 01-06-2025 Episodic Other nutritional; endocrine; and metabolic disorders (20 sources) Body mass index 25-29 - overweight; Translations: [BMI 28.0-28.9,adult] 02-27-2018 Chronic Other nutritional; endocrine; and metabolic disorders (20 sources) Body mass index 30+ - obesity; Translations: [BMI 30.0-30.9,adult] Resolved: 11-29-2022 09-04-2021 Chronic Other nutritional; endocrine; and metabolic disorders (20 sources) Body mass index 25-29 - overweight; Translations: [BMI 27.0-27.9,adult] Resolved: 09-04-2021 12-27-2020 Episodic Other nutritional; endocrine; and metabolic disorders (20 sources) Overweight in adulthood with body mass index of 25 or more but less than 30; Translations: [BMI 27.0-27.9,adult] Resolved: 09-04-2021 09-04-2021 Episodic Other upper respiratory disease (20 sources) Allergic rhinitis; Translations: [Allergic Rhinitis] 02-27-2018 Chronic Comment on above: velasquezyrtic not working a nymore will add singulair to cover lungs, this helped leslietec helps, has no t been taking the singulair. takes prn. doing ok. send refills Other upper respiratory infections (20 sources) Sinusitis; Translations: [Sinusitis] Resolved: 11-28-2022 12-27-2020 Chronic Other upper respiratory infections (20 sources) Sinusitis; Translations: [Acute pharyngitis] 02-27-2018 Episodic Residual codes; unclassified (20 sources) Postmenopausal state; Translations: [Postmenopausal (Renamed from Postmenopausal status)] 02-27-2018 Episodic Comment on above: born without uterus, has Left ovary, no cervix found age 14 [address] Welch F agenesis of uterus-d iscussed osteo prevention, vit d/ca+ supplements, exercise, etc Residual codes; unclassified (6 sources) Increased body mass index; Translations: [BMI 29.0-29.9,adult] 02-27-2018 Episodic Residual codes; unclassified (20 sources) Current non-smoker ; Translations: [Current nonsmoker (Renamed from Current non-smoker)] 12-27-2020 Episodic Residual codes; unclassified (20 sources) Non-smoker; Translations: [Current nonsmoker (Renamed from Current non-smoker)] 09-04-2021 Episodic Spondylosis; intervertebral disc disorders; other back problems (20 sources) Neck pain; Translations: [Neck pain] Resolved: 11-29-2022 02-27-2018 Episodic Comment on above: think muscle try mas alejandra icy hot, etc Sprains and strains (20 sources) Strain of neck muscle; Translations: [Neck muscle strain] Resolved: 2015 2015 Episodic Superficial injury; contusion (1 source) Contusion of left middle finger without damage to nail, initial encounter; Translations: [Contusion of left middle finger without damage to nail, initial encounter] Onset: 04-20-2018 Episodic Unclassified (20 sources) Current non-smoker ; Translations: [Current nonsmoker (Renamed from Current non-smoker)] 02-27-2018 Unclassified (20 sources) Unclassified (8 sources) BMI 30.0-30.9,adult Unclassified (8 sources) Heel spur, right Viral infection (20 sources) Viral infection, unspecified; Translations: [Viral disease] Resolved: 2015 2015 Episodic Comment on above: Tested pos Jul 20 ret urned Jul 31 2020, mostly fatigue and congestion works at [employer] Past or Other Problems Problem Classification Problem Date Documented Date Episodic/Chronic Complication of device; implant or graft (2 sources) Breakdown (mechanical) of internal fixation device of other bones, initial encounter; Translations: [Breakdown (mechanical) of internal fixation device of other bones, initial encounter] Onset: 07-22-2024 Episodic Mood disorders (1 source) Mood disorders Other injuries and conditions due to external causes (20 sources) Head injury, unspecified; Translations: [Head trauma] Resolved: 2015 2015 Episodic Comment on above: no neuro signs and s ymptoms. not think need image at this point Other screening for suspected conditions (not mental disorders or infectious disease) (20 sources) Breast neoplasm screening status; Translations: [Patient encounter status] Onset: 09-29-2024 Resolved: 2015 2015 Episodic Residual codes; unclassified (1 source) Localized edema; Translations: [Localized edema] Onset: 08-09-2024 Episodic Unclassified (20 sources) WWV V73.21 Resolved: 2015 2015 Comment on above: up to date with immu nizations through hospital work. no pap with uterine agenesis. 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 make sure mammo and done Unclassified (20 sources) Neck muscle strain (847.0) Unclassified (20 sources) Mild concussion (850.9) Unclassified (20 sources) Unspecified Diagnosis 02-27-2018 Unclassified (20 sources) Encounter for screening mammogram for breast cancer (Renamed from Encounter for screening mammogram for malignant neoplasm of breast) Unclassified (20 sources) Encounter for routine adult medical exam with abnormal findings Unclassified (20 sources) Encounter for screening for lipid disorder Unclassified (20 sources) Agenesis of uterus Unclassified (20 sources) Pelvic kidney Unclassified (20 sources) BMI 29.0-29.9,adult Unclassified (20 sources) BMI 28.0-28.9,adult Unclassified (20 sources) Colon cancer screening (Renamed from Encounter for screening for malignant neoplasm of colon) Unclassified (20 sources) Postmenopausal (Renamed from Postmenopausal status) Unclassified (20 sources) Encounter for screening for other suspected endocrine disorder Unclassified (20 sources) Encounter for general adult medical examination with abnormal findings Unclassified (20 sources) Encounter for screening breast examination Unclassified (20 sources) Pharyngitis, acute Unclassified (20 sources) Hot flashes, menopausal Unclassified (19 sources) BMI 27.0-27.9,adult Unclassified (17 sources) Physical exam for work or camp (Renamed from Encounter for school health examination) Unclassified (17 sources) COVID-19 Unclassified (10 sources) Screening for breast cancer Results Test Name Value Interpretation Reference Range Facility MR/BMS.BPon 05-16-2025 MR/BMS.BP [facility] [address], [address] [place] [id number] OFFICE VISIT Date of Service: 05/16/25 MR#: [id number] Acct: [id number] Name: RONNI BLUM JO Rep #: [id number] : 1965 Provider: Dr. Buddy Bedoya se, DO Age/Sex: 59/F Location: [facility] Status: Signed Intake Vital Signs 01/24/25 06:40 05/16/25 08:02 Height 5 ft 7 in 5 ft 7 in Weight: 194 lb 197 lb BMI 30.4 30.8 BP 135/81 H 133/86 H Blood Pressure Location Lt brachial Lt brachial Position Sitting Sitting Respiration 16 16 Pulse 103 H 93 Pulse Source Monitor Monitor BP Intake Visit Reasons: 4 M FU Accompanied by: Self Allergies No Known Allergies Allergy (Verified 05/16/25 08:04) Medications ???Medication ???Instructions ???Recorded ???Confirmed ???Type montelukast 10 mg tablet 10 mg PO QHS Allergies 01/29/19 History ascorbic acid (vitamin C) 500 mg 500 mg PO DAILY 08/28/23 05/16/25 History capsule cetirizine 10 mg tablet 10 mg PO QHS 08/28/23 05/16/25 His tory cholecalciferol (vitamin D3) 50 50 mcg PO DAILY 08/28/23 05/16/25 History mcg (2,000 unit) capsule naproxen sodium 220 mg tablet 440 mg PO Q12H PRN pain 08/28/23 1 07/16/24 History (Aleve) bupropion HCl 150 mg 24 hr tablet, 150 mg PO QAM #90 tabs 04/28/25 05/16/25 Rx extended release fluoxetine 40 mg capsule 40 mg PO DAILY #90 caps 04/28/25 1 07/16/24 Rx mirtazapine 30 mg tablet 30 mg PO QHS #90 tabs 04/28/2510/05 Rx naproxen 220 mg-diphenhydramine 25 1 tab PO HS PRN 05/16/25 5 History mg tablet (Aleve PM) quetiapine 200 mg tablet 200 mg PO QHS #90 tabs 05/16/25 Rx trazodone 150 mg tablet 150 mg PO QHS #90 tabs 05/16/25 Rx PFSH Medical History (Updated 01/24/25 @ 07:03 by Bernie Romero) Fracture of tibia or fibula following insertion of orthopedic implant, joint prosthesis, or bone plate, right leg Wears glasses ANDREAS (generalized anxiety disorder) MDD (major depressive disorder) Vaginal prolapse Allergies Family History Other Alcoholism Anxiety Arthritis Colon cancer Depression Psychiatric care Severe allergy Social History Smoking Status: Never smoker alcohol intake: current details: 1x week substance use type: does not use frequency: 1-2 times per week HPI History of Present Illness History provided by: patient HPI: Ronni Blum is a 59 year old female who presents today for follow up evaluation. Patient reports that things have been rough at work over the course of the last week. 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 No longer has an activities specialist which increased her workload. Was awake for nearly 3 hours last night stressing about work. Ankle is largely doing well. Mood is somewhat jumpy/cranky. Has not been doing her devotions as she previously had been. Admits to feeling maybe a little depressed. Continues to have some sexual side effects. Unsure of the effects of reducing the quetiapine to this point. On her way to work she scraped her car on another car but didn't even realize until the next day. Denies SI/HI or AVH. Sleep outside of last night has been ok. Has been using some Aleve PM which has helped with sleep. Does feel somewhat more hungry in recent past. Review of Systems Constitutional Denies: fever(s), chills, change in weight or fatigue Eyes Denies: change in vision or blurry vision Ears, Nose, Mouth, Throat Reports: nasal congestion; Denies: neck pain Cardiovascular Denies: chest pain, palpitations or dyspnea Respiratory Denies: dyspnea, cough or wheezing Gastrointestinal Reports: diarrhea (likely secondary to diet); Denies: abdominal pain, nausea or vomiting Genitourinary Denies: dysuria or urinary frequency Musculoskeletal Reports: extremity swelling and joint pain (leg/ankle); Denies: back pain, neck pain or muscle weakness Integumentary/Breast Denies: rash or new lesions Neurological Denies: headache(s), dizziness or confusion Endocrine Denies: fatigue or excessive sweating Hematologic/Lymphatic Denies: easy bruising or easy bleeding Allergic/Immunologic Denies: wheezing Exam Mental Status Exam - Psych Appearance casually dressed Attitude cooperative Activity/Motor Behavior MSE activity/motor behavior finding no adventitious movements Speech regular rate, regular volume and regular prosody Mood anxious and irritable Affect congruent Thought Process linear, logical and coherent Thought Content no delusions and no hallucinations Suicidal Ideation none Homicidal Ideation none Attention intact Concentration (more content not included)... Normal [facility] MR/BMS.BPon 01-24-2025 MR/BMS.BP [facility] [address], [address] [place] [address] OFFICE VISIT Date of Service: 01/24/25 MR#: [id number] Acct: [id number] Name: RONNI BLUM Rep #: [id number] : 1965 Provider: Dr. Buddy Bedoya se, DO Age/Sex: 59/F Location: [facility].BP Status: Signed Intake Vital Signs 09/13/24 16:44 09/15/24 15:27 01/24/25 06:40 Height 5 ft 7 in 5 ft 7 in 5 ft 7 in Weight: 194 lb BMI 30.4 BP 135/81 H Blood Pressure Location Lt brachial Position Sitting Respiration 16 Pulse 103 H Pulse Source Monitor BP Intake Visit Reasons: 4 M FU Accompanied by: Self Allergies No Known Allergies Allergy (Verified 01/24/25 06:59) Medications ???Medication ???Instructions ???Recorded ???Confirmed ???Type montelukast 10 mg tablet 10 mg PO QHS Allergies 01/29/19 History ascorbic acid (vitamin C) 500 mg 500 mg PO DAILY 08/28/23 01/24/25 History capsule cetirizine 10 mg tablet 10 mg PO QHS 08/28/23 01/24/25 His tory cholecalciferol (vitamin D3) 50 50 mcg PO DAILY 08/28/23 01/24/25 History mcg (2,000 unit) capsule naproxen sodium 220 mg tablet 440 mg PO Q12H PRN pain 08/28/23 0 01/24/25 History (Aleve) trazodone 150 mg tablet 150 mg PO QHS #90 tabs 08/16/24 Rx bupropion HCl 150 mg 24 hr tablet, 150 mg PO QAM #90 tabs 09/13/24 01/24/25 Rx extended release fluoxetine 40 mg capsule 40 mg PO DAILY #90 caps 09/13/24 0 01/24/25 Rx mirtazapine 30 mg tablet 30 mg PO QHS #90 tabs 09/13/24 Rx quetiapine 200 mg tablet 200 mg PO QHS #90 tabs 01/24/25 Rx PFSH Medical History (Updated 01/24/25 @ 07:03 by Bernie Romeor) Fracture of tibia or fibula following insertion of orthopedic implant, joint prosthesis, or bone plate, right leg Wears glasses ANDREAS (generalized anxiety disorder) MDD (major depressive disorder) Vaginal prolapse Allergies Family History Other Alcoholism Anxiety Arthritis Colon cancer Depression Psychiatric care Severe allergy Social History Smoking Status: Never smoker alcohol intake: current details: 1x week substance use type: does not use frequency: 1-2 times per week HPI History of Present Illness History provided by: patient HPI: Ronni Blum is a 59 year old female who presents today for follow up evaluation. Patient has been doing much better in regards to having 3 ankle surgeries over the last year. 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 Does have an activities specialist which has been helpful. Mood has been good. Feels like medications is doing largely well. Has been experiencing some anorgasmia which has been worse for the past year. Is currently wearing a hormone patch. Sleep has been doing largely well. Appetite has been somewhat increased. 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 Has stopped taking zinc. Did recently get a speeding ticket which was frustrating. Denies SI/HI or AVH. Review of Systems Constitutional Denies: fever(s), chills, change in weight or fatigue Eyes Denies: change in vision or blurry vision Ears, Nose, Mouth, Throat Reports: nasal congestion; Denies: neck pain Cardiovascular Denies: chest pain, palpitations or dyspnea Respiratory Denies: dyspnea, cough or wheezing Gastrointestinal Reports: constipation; Denies: abdominal pain, nausea, vomiting or diarrhea Genitourinary Denies: dysuria or urinary frequency Musculoskeletal Reports: extremity swelling and joint pain (leg/ankle); Denies: back pain, neck pain or muscle weakness Integumentary/Breast Denies: rash or new lesions Neurological Denies: headache(s), dizziness or confusion Endocrine Denies: fatigue or excessive sweating Hematologic/Lymphatic Denies: easy bruising or easy bleeding Allergic/Immunologic Denies: wheezing Exam Mental Status Exam - Psych Appearance casually dressed Attitude cooperative Activity/Motor Behavior MSE activity/motor behavior finding no adventitious movements Speech regular rate, regular volume and regular prosody Mood OK Affect congruent Thought Process linear, logical and coherent Thought Content no delusions and no hallucinations Suicidal Ideation none Homicidal Ideation none Attention intact Concentration intact Sensorium/Orientation awake, alert and oriented x3 Memory/Cognition other (appropriate for stated age) Insight fair Judgement fair Assessment Plan Assessment Plan (1) MDD (major depressive disorder): Plan: -Will continue Wellbutrin, fluoxetine, mirtazapine, and trazodone as previous ??? Given some worsening sexual side effects we w (more content not included)... [facility] XR FLUORO < 1HR TECH TIMEon 01-12-2025 XR FLUORO < 1HR TECH TIME ORIGINAL HISTORY: Hardware removal COMPARISON: 22 July 2024 FLUOROSCOPY TIME: 3 seconds FLUOROSCOPY IMAGES: 4 FINDINGS: There is removal of fibula hardware IMPRESSION: Fluoroscopy provided to the Orthopedic surgery service. Interpreted by: Eliezer Vargas MD Preliminary Report By: Eliezer Vargas MD Electronically signed By Eliezer Vargas MD Dictated Date: 01/12/2025 9:18:41 AM Prelim Date: 01/12/2025 9:19:42 AM Sign Date: 01/12/2025 9:19:42 AM Ordering Provider: ABDOUL WORTHY Interpreted by: Eliezer Vargas MD Preliminary Report By: Eliezer Vargas MD Electronically signed By Eliezer Vargas MD Dictated Date: 01/12/2025 9:18:41 AM Prelim Date: 01/12/2025 9:19:42 AM Sign Date: 01/12/2025 9:19:42 AM Ordering Provider: ABDOUL WORTHY [facility] MAIN Dexa Bone Density Studyon Dexa Bone Density Study [facility] Imaging Services [address] [place], [place] [id number] Dexa Bone Density Study MR#: [id number] Acct: [id number] Name: MIRIAMKARIN Rep #: [id number] : 1965 F 59 From: Brandon hobson MD PCP: AURELIA Machado Status: REG CLI Study: Dexa Bone Density Study Date of Exam: 09/15/24 Exam# [id number] Ordering Dr: Renaldo Hurt PROCEDURE: DEXA BONE DENSITY STUDY REASON FOR EXAM: F, age 59 y/o . Postmenopausal. TECHNIQUE: DEXA scan of the lumbar spine and both hips. COMPARISON: Comparison is made with prior study dated March 11, 2018. FINDINGS: Lumbar Spine (L1-L4): g/cm2 (1.066)/T-score (0.1)/Z-score (1.3) findings are suggestive of normal with a low fracture risk. Left Femur Total: g/cm2 (0.983)/T-score (0.3)/Z-score (1.1) Left Femoral Neck: g/cm2 (0.828)/T-score (-0.2)/Z-score (1.0) Right Femur Total: g/cm2 (0.769)/T-score (-1.4)/Z-score (-0.6) Right Femoral Neck: g/cm2 (0.721)/T-score (-1.2)/Z-score (0.0) The T-Scores on the most recent prior examination were: Lumbar Spine (L1-L4): There has been worsening of bone density since the previous examination. Left Femur Total: Worsening of 7%. Right Femur Total: Worsening of 23%. BD/Dexa Bone Density Study IMPRESSION: The patient is considered osteopenia as outlined below according to World Ama[employer] Organization (WHO) criteria with a low fracture risk. There has been worsening of bone density since the previous examination. Reading Location: [id number] CC: AURELIA Hurt Magnetic Prospecting Operator: Signed Normal [facility] SCRN MAMM (CAD)W/DONNY BILATo n 09-15-2024 SCRN MAMM (CAD)W/DONNY BILAT [facility] Imaging Services [address] [place] [id number] SCRN MAMM (CAD)W/DONNY BILAT MR#: [id number] Acct: [id number] Name: RONNI BLUM Rep #: [id number] : 1965 F 59 From: Brandon hobson MD PCP: AURELIA Machado Status: [facility] CL Study: SCRN MAMM (CAD)W/DONNY BILAT Date of Exam: 12/05 Exam# [id number] Ordering Dr: Renaldo Hurt WET MACHINE OPERATORRamona PROCEDURE: SCRN MAMM (CAD)W/DONNY BILAT REASON FOR EXAM: F, Age 59 y/o, aunts with breast cancer. TECHNIQUE: Bilateral screening digital breast tomosynthesis with 2D and 3D images. Computer aided detection. COMPARISON: Prior exam(s) dating back to August 27, 2021.. FINDINGS: The breasts are heterogeneously dense which may obscure small masses. Stable small benign-appearing bilateral axillary lymph nodes. No suspicious masses, areas of developing architectural distortion, or suspicious calcifications. BI/SCRN MAMM (CAD)W/DONNY BILAT IMPRESSION: BI-RADS 2: BENIGN. RECOMMEND ANNUAL MAMMOGRAPHIC SCREENING. Follow-up code: Routine Follow-up The patient will be notified of the results by letter. Reading Location: [id number] CC: AURELIA Hurt Magnetic Prospecting Operator: Signed [facility] MR/BMS.BPon 09-13-2024 MR/BMS.[address], [address] [place] [address] OFFICE VISIT Date of Service: 09/13/24 MR#: [id number] Acct: [id number] Name: RONNI BLUM Rep #: [id number] : 1965 Provider: Dr. Buddy Bedoya se, DO Age/Sex: 59/F Location: [facility]. Status: Signed Intake Vital Signs 04/20/24 12:44 09/13/24 16:44 Height 5 ft 7 in 5 ft 7 in BP Intake Visit Reasons: Follow up Allergies No Known Allergies Allergy (Verified 02/27/24 11:59) [facility] Medical History Wears glasses ANDREAS (generalized anxiety disorder) MDD (major depressive disorder) Vaginal prolapse Allergies Family History Other Alcoholism Anxiety Arthritis Colon cancer Depression Psychiatric care Severe allergy Social History Smoking Status: Never smoker alcohol intake: current details: 1x week substance use type: does not use frequency: 1-2 times per week HPI History of Present Illness History provided by: patient HPI: Ronni Blum is a 59 year old female who presents today for follow up evaluation. Patient admits to having had another surgery on her tibia after it had broken again after her first surgery. This happened in July. Is still walking with a cane, but pain is largely managed. 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 She is excited about this, but also a little nervous. Hours will be about 8 am-430 pm. Mood has been much better. Recognizes that she was likely depressed, but this has improved. Weight loss has stabilized. Scheduled for a bone density scan this Friday. Feels like her psychiatric medications are working largely well. Plans to get Invisalign in near future. Had to sell one her cars in recent past. Sleep has been doing largely well. Has been taking afternoon nap but mainly because she is recovering from her surgery. Denies SI/HI or AVH. Review of Systems Constitutional Denies: fever(s), chills, change in weight or fatigue Eyes Denies: change in vision or blurry vision Ears, Nose, Mouth, Throat Reports: nasal congestion; Denies: neck pain Cardiovascular Denies: chest pain, palpitations or dyspnea Respiratory Denies: dyspnea, cough or wheezing Gastrointestinal Reports: constipation; Denies: abdominal pain, nausea, vomiting or diarrhea Genitourinary Denies: dysuria or urinary frequency Musculoskeletal Reports: extremity swelling and joint pain (leg/ankle); Denies: back pain, neck pain or muscle weakness Integumentary/Breast Denies: rash or new lesions Neurological Denies: headache(s), dizziness or confusion Endocrine Denies: fatigue or excessive sweating Hematologic/Lymphatic Denies: easy bruising or easy bleeding Allergic/Immunologic Denies: wheezing Exam Mental Status Exam - Psych Appearance other (utilizes cane) Attitude cooperative Activity/Motor Behavior MSE activity/motor behavior finding no adventitious movements Speech regular rate, regular volume and regular prosody Mood OK Affect congruent Thought Process linear, logical and coherent Thought Content no delusions and no hallucinations Suicidal Ideation none Homicidal Ideation none Attention intact Concentration intact Sensorium/Orientation awake, alert and oriented x3 Memory/Cognition other (appropriate for stated age) Insight fair Judgement fair Assessment Plan Assessment Plan (1) MDD (major depressive disorder): Plan: - Can continue to use hydroxyzine as needed for anxiety however has not been using in recent past. -Will continue Wellbutrin, fluoxetine, mirtazapine, quetiapine, and trazodone as previously prescribed. Despite being a relatively complex combination medication she has been doing largely well on this combination. ??? Recent labs reviewed and largely within normal limits -Despite recent stressor of having broken her leg has been doing largely fairly well (2) ANDREAS (generalized anxiety disorder): Plan: See above Medications: Refilled bupropion HCl XL 150 mg PO QAM 90 tabs 1RF F32.9 - Major depressive disorder, single episode, unspecified, F41.1 - Generalized anxiety disorder fluoxetine 40 mg PO DAILY 90 caps 1RF F32.9 - Major depressive disorder, single episode, unspecified, F41.1 - Generalized anxiety disorder mirtazapine 30 mg PO QHS 90 tabs 1RF F32.9 - Major depressive disorder, single episode, unspecified, F41.1 - Generalized anxiety disorder Coding Level of Care Code Off vis,est,level 4 Diagnoses MDD (major depressive disorder) F32.9 ANDREAS (generalized anxiety disorder) F41.1 09/14/24 0629 Date Buddy Villegas DO [facility] Signature (more content not included)... Normal [facility] .Auto Diffon 07-23-2024 Basophil, Absolute 0.0 10 3/mcL Normal 0.0-0.3 [facility] Comment on above: Performed By: #### A ALEX, BMP, ADIFF, CBC, GFR #### [address] [address] Eosinophil, Absolute 0.0 10 3/mcL Normal 0.0-0.7 [facility] Comment on above: Performed By: #### A ALEX, BMP, ADIFF, CBC, GFR #### [address] [address] Lymphocyte, Absolute 1.3 10 3/mcL Normal 0.9-4.3 [facility] Comment on above: Performed By: #### A ALEX, BMP, ADIFF, CBC, GFR #### [address] [address] Monocyte, Absolute 1.2 10 3/mcL Normal 0.1-1.4 [facility] Comment on above: Performed By: #### A ALEX, BMP, ADIFF, CBC, GFR #### [address] [address] .Auto DiffOrdered By: SYSTEM SYSTEM on 07-23-2024 Basophils/100 WBC (Bld) 0.1 % Normal 0.0-2.5 AH Workflow SS Comment on above: Performed By: #### A ALEX, BMP, ADIFF, CBC, GFR #### [address] [address] Eosinophils/100 WBC (Bld) 0.0 % Normal 0.0-6.0 AH Workflow SS Comment on above: Performed By: #### A ALEX, BMP, ADIFF, CBC, GFR #### [address] [address] Lymphocytes/100 WBC (Bld) 9.4 % Low 20.0-40.0 AH Workflow SS Comment on above: Performed By: #### A ALEX, BMP, ADIFF, CBC, GFR #### [address] [address] Monocytes/100 WBC (Bld) 8.6 % Normal 2.0-13.0 AH Workflow SS Comment on above: Performed By: #### A ALEX, BMP, ADIFF, CBC, GFR #### [address] [address] Neutrophils/100 WBC (Bld) 81.9 % High 50.0-75.0 AH Workflow SS Comment on above: Performed By: #### A ALEX, BMP, ADIFF, CBC, GFR #### [address] [address] .GFRon 07-23-2024 GFR Non- >60 [facility] Comment on above: Result Comment: GFR Population mean for , Non- Americans Ages 20-29 = 116 mL/min/1.73 sq.m. Ages 30-39 = 107 mL/min/1.73 sq.m. Ages 40-49 = 99 mL/min/1.73 sq.m. Ages 50-59 = 93 mL/min/1.73 sq.m. Ages 60-69 = 85 mL/min/1.73 sq.m. Ages 70+ = 75 mL/min/1.73 sq.m. Chronic Kidney Disease: Less than 60 mL/min/1.73 square meters End Stage Renal Disease: Less than 15 mL/min/1.73 square meters Performed By: #### A ALEX, BMP, ADIFF, CBC, GFR #### [place] [address] GFR >60 [facility] Comment on above: Result Comment: GFR Population mean for , Non- Americans Ages 20-29 = 116 mL/min/1.73 sq.m. Ages 30-39 = 107 mL/min/1.73 sq.m. Ages 40-49 = 99 mL/min/1.73 sq.m. Ages 50-59 = 93 mL/min/1.73 sq.m. Ages 60-69 = 85 mL/min/1.73 sq.m. Ages 70+ = 75 mL/min/1.73 sq.m. Chronic Kidney Disease: Less than 60 mL/min/1.73 square meters End Stage Renal Disease: Less than 15 mL/min/1.73 square meters Performed By: #### A ALEX, BMP, ADIFF, CBC, GFR #### [place] [id number] .NEUABSon 07-23-2024 Neutrophil, Absolute 11.4 10 3/mcL High 2.3-8.1 [facility] Comment on above: Performed By: #### A ALEX, BMP, ADIFF, CBC, GFR #### [address] [address] BMPon 07-23-2024 BUN/Creatinine Ratio 27.8 ratio High 10.0-22.0 [facility] Comment on above: Performed By: #### A ALEX, BMP, ADIFF, CBC, GFR #### [address] [address] BMPOrdered By: SYSTEM SYSTEM on 07-23-2024 Calcium [Mass/Vol] 8.8 mg/dL Normal 8.7-10.4 AH ADM SS Comment on above: Performed By: #### A ALEX, BMP, ADIFF, CBC, GFR #### [place] [address] Chloride [Moles/Vol] 105 mmol/L Normal 98-110 AH ADM SS Comment on above: Performed By: #### A ALEX, BMP, ADIFF, CBC, GFR #### [place] [address] CO2 [Moles/Vol] 31 mmol/L Normal 22-32 AH ADM SS Comment on above: Performed By: #### A ALEX, BMP, ADIFF, CBC, GFR #### [place] [address] Creatinine [Mass/Vol] 0.54 mg/dL Normal 0.50-1.20 AH ADM SS Comment on above: Interpretive Data: T esting performed on [employer] CH analyzer using enzymatic creatinine methodology. Result Comment: Test ing performed on [employer] CH analyzer using enzymatic creatinine methodology. Performed By: #### A ALEX, BMP, ADIFF, CBC, GFR #### [place] [address] Electrolyte Balance 7.0 mEq/L Normal 4.0-15.0 AH AD M SS Comment on above: Performed By: #### A ALEX, BMP, ADIFF, CBC, GFR #### [place] [address] Glucose [Mass/Vol] 114 mg/dL High 70-110 AH ADM SS Comment on above: Performed By: #### A ALEX, BMP, ADIFF, CBC, GFR #### [address] [address] Potassium [Moles/Vol] 4.2 mmol/L Normal 3.5-5.0 AH ADM SS Comment on above: Performed By: #### A ALEX, BMP, ADIFF, CBC, GFR #### [address] [address] Sodium [Moles/Vol] 143 mmol/L Normal 136-145 AH ADM SS Comment on above: Performed By: #### A ALEX, BMP, ADIFF, CBC, GFR #### [place] [address] Urea nitrogen [Mass/Vol] 15.0 mg/dL Normal 8.0-22.0 AH ADM SS Comment on above: Performed By: #### A ALEX, BMP, ADIFF, CBC, GFR #### [place] [address] CBCOrdered By: SYSTEM SYSTEM on 07-23-2024 Erythrocyte distribution width (RBC) [Ratio] 14.0 % Normal 11.5-15.5 AH Workflow SS Comment on above: Performed By: #### A ALEX, BMP, ADIFF, CBC, GFR #### [place] [address] Hematocrit (Bld) [Volume fraction] 33.5 % Low 34.0-46.0 AH Workflow SS Comment on above: Performed By: #### A ALEX, BMP, ADIFF, CBC, GFR #### [address] [address] MCH (RBC) [Entitic mass] 31.7 pg Normal 27.0-33.0 AH Workflow SS Comment on above: Performed By: #### A ALEX, BMP, ADIFF, CBC, GFR #### [place] [address] MCHC 32.5 G/dL Normal 32.0-36.0 AH Workflow SS Comment on above: Performed By: #### A ALEX, BMP, ADIFF, CBC, GFR #### [address] [address] MCV (RBC) [Entitic vol] 97.4 fL Normal 80.0-99.0 AH Workflow SS Comment on above: Performed By: #### A ALEX, BMP, ADIFF, CBC, GFR #### [address] [address] Platelet mean volume (Bld) [Entitic vol] 7.4 fL Normal 6.6-10.5 Workflow SS Comment on above: Performed By: #### A ALEX, BMP, ADIFF, CBC, GFR #### [address] [address] CBCon 07-23-2024 Hgb 10.9 G/dL Low 12.0-16.0 [facility] Comment on above: Performed By: #### A ALEX, BMP, ADIFF, CBC, GFR #### [place] [address] Platelet 292 10 3/mcL Normal 150-450 [facility] Comment on above: Performed By: #### A ALEX, BMP, ADIFF, CBC, GFR #### [place] [address] RBC 3.44 10 6/mcL Low 4.10-5.30 [facility] Comment on above: Performed By: #### A ALEX, BMP, ADIFF, CBC, GFR #### [place] [address] WBC 14.0 10 3/mcL High 4.5-10.8 [facility] Comment on above: Performed By: #### A ALEX, BMP, ADIFF, CBC, GFR #### [place] [address] LABORATORYOrdered By: SYSTEM SYSTEM on 07-23-2024 Basophils (Bld) [#/Vol] 0.0 103/mcL Normal 0.0 - 0.3 10^3/mcL AH Workflow SS Eosinophils (Bld) [#/Vol] 0.0 103/mcL Normal 0.0 - 0.7 10^3/mcL AH Workflow SS GFR/1.73 sq M.predicted among blacks MDRD (S/P/Bld) [Vol rate/Area] ml/min/1.73sqm Invalid Interpretation Code Chemistry S Comment on above: Interpretive Data: GFR Population mean for , Non- Americans Ages 20-29 = 116 mL/min/1.73 sq.m. Ages 30-39 = 107 mL/min/1.73 sq.m. Ages 40-49 = 99 mL/min/1.73 sq.m. Ages 50-59 = 93 mL/min/1.73 sq.m. Ages 60-69 = 85 mL/min/1.73 sq.m. Ages 70+ = 75 mL/min/1.73 sq.m. Chronic Kidney Disease: Less than 60 mL/min/1.73 square meters End Stage Renal Disease: Less than 15 mL/min/1.73 square meters GFR/1.73 sq M.predicted among non-blacks MDRD (S/P/Bld) [Vol rate/Area] ml/min/1.73sqm Invalid Interpretation Code Chemistry S Comment on above: Interpretive Data: GFR Population mean for , Non- Americans Ages 20-29 = 116 mL/min/1.73 sq.m. Ages 30-39 = 107 mL/min/1.73 sq.m. Ages 40-49 = 99 mL/min/1.73 sq.m. Ages 50-59 = 93 mL/min/1.73 sq.m. Ages 60-69 = 85 mL/min/1.73 sq.m. Ages 70+ = 75 mL/min/1.73 sq.m. Chronic Kidney Disease: Less than 60 mL/min/1.73 square meters End Stage Renal Disease: Less than 15 mL/min/1.73 square meters Hemoglobin (Bld) [Mass/Vol] 10.9 G/dL Low 12.0 - 16.0 G/dL Workflow SS Lymphocytes (Bld) [#/Vol] 1.3 103/mcL Normal 0.9 - 4.3 10^3/mcL Workflow SS Monocytes (Bld) [#/Vol] 1.2 103/mcL Normal 0.1 - 1.4 10^3/mcL Workflow SS Neutrophils (Bld) [#/Vol] 11.4 103/mcL High 2.3 - 8.1 10^3/mcL Workflow SS Platelets (Bld) [#/Vol] 292 103/mcL Normal 150 - 450 10^3/mcL Workflow SS RBC (Bld) [#/Vol] 3.44 106/mcL Low 4.10 - 5.30 10^6/mcL AH Workflow SS Urea nitrogen/Creatinine [Mass ratio] 27.8 ratio High 10.0 - 22.0 ratio AH ADM SS WBC (Bld) [#/Vol] 14.0 103/mcL High 4.5 - 10.8 10^3/mcL AH Workflow SS No Panel InformationOrdered By: Deysi Good on 07-22-2024 Bone Culture No growth to date [facility] XR FLUORO 1-2 HRS TECH TIMEo n 07-22-2024 XR FLUORO 1-2 HRS TECH TIME ORIGINAL EXAMINATION: SPOT FLUOROSCOPIC IMAGES 07/22/2024 5:27 pm TECHNIQUE: Fluoroscopy was provided by the radiology department for procedure. Radiologist was not present during examination. FLUOROSCOPY DOSE AND TYPE: Reference air kerma: mGy, 2.3683 Total number of images: 11. COMPARISON: None HISTORY: ORDERING SYSTEM PROVIDED HISTORY: Reason for Exam: RT TIBIA REVISION Intraprocedural imaging. FINDINGS: Spot intraoperative images are obtained demonstrating tibial fixation revision.. IMPRESSION: Intraprocedural fluoroscopic spot images as above. See separate procedure report for more information. Interpreted by: Guero Yo Preliminary Report By: Guero Yo Electronically signed By Guero Yo Dictated Date: 07/22/2024 5:32:05 PM Prelim Date: 07/22/2024 5:32:50 PM Sign Date: 07/22/2024 5:32:50 PM Ordering Provider: ABDOUL WORTHY [facility] MAIN CT TIBIA/FIBULA W/O CONTRAST RIGHTon 07-19-2024 CT TIBIA/FIBULA W/O CONTRAST RIGHT ORIGINAL EXAMINATION: CT OF THE RIGHT TIBIA AND FIBULA WITHOUT CONTRAST 07/19/2024 3:58 pm TECHNIQUE: CT of the right tibia and fibula was performed without the administration of intravenous contrast. Multiplanar reformatted images are provided for review. Automated exposure control, iterative reconstruction, and/or weight based adjustment of the mA/kV was utilized to reduce the radiation dose to as low as reasonably achievable. COMPARISON: None. HISTORY ORDERING SYSTEM PROVIDED HISTORY: Reason for Exam: OTH FX SHAFT OF RIGHT TIBIA, SUBS FOR CLOS FX W NONUNION FINDINGS: Fractures of the distal tibia and fibula status post plate screw fixation. A majority of the distal tibial fixation screws are fractured, with resultant widening of the space between the plate and the medial tibial cortex (although with underlying periosteal reaction), as well as mild displacement of the distal tibia and nonunion of the fracture. Nonunion of the distal fibular fracture. Generalized heterogeneous osseous demineralization. Degenerative changes of the knee. 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 Correlate with prior postoperative radiographs/imaging. Interpreted by: Guero Yo Preliminary Report By: uGero Yo Electronically signed By Guero Yo Dictated Date: 07/19/2024 4:16:05 PM Prelim Date: 07/19/2024 4:21:35 PM Sign Date: 07/19/2024 4:21:35 PM Ordering Provider: ABDOUL Oropeza [facility] CBC W/Diff, Automatedon 01-0 Absolute Lymph 1.47 X10 3/uL Normal 0.83-4.51 [facility] Comment on above: Performed By: #### L 100.0100, L101.9900, L500.4050, [id number] #### [facility] [address] [place], [address] Absolute Neut 3.5 X10 3/uL Normal 2.0-7.7 [facility] Comment on above: Performed By: #### L 100.0100, L101.9900, L500.4050, [id number] #### [facility] [address] [place], [address] Basophils/100 WBC (Bld) 1.0 % Normal 0-1 [facility] Comment on above: Performed By: #### L 100.0100, L101.9900, L500.4050, [id number] #### [facility] [address] [place], [address] Eosinophils/100 WBC (Bld) 4.0 % Normal 0-5 [facility] Comment on above: Performed By: #### L 100.0100, L101.9900, L500.4050, [id number] #### [facility] [address] [place], [address] Erythrocyte distribution width (RBC) [Ratio] 13.3 % Normal 11.6-14.6 [facility] Comment on above: Performed By: #### L 100.0100, L101.9900, L500.4050, [id number] #### [facility] [address] [place], [address] Hematocrit (Bld) [Volume fraction] 41.3 % Normal 37-47 [facility] Comment on above: Performed By: #### L 100.0100, L101.9900, L500.4050, [id number] #### [facility] [address] [place], [address] Hemoglobin (Bld) [Mass/Vol] 13.1 g/dL Normal 12.0-15.0 [facility] Comment on above: Performed By: #### L 100.0100, L101.9900, L500.4050, [id number] #### [facility] [address] [place], [address] IG% 0.500 Normal 0.0-0.9 [facility] Comment on above: Result Comment: IG% - Immature Granulocytes (promyelocytes, myelocytes and metamyelocytes) > 1% indicates that a LEFT SHIFT is Present. Performed By: #### L 100.0100, L101.9900, L500.4050, [id number] #### [facility] [address] [place], [address] Lymphocytes/100 WBC (Bld) 25.3 % Normal 19-41 [facility] Comment on above: Performed By: #### L 100.0100, L101.9900, L500.4050, [id number] #### [facility] [address] [place], [address] MCH (RBC) [Entitic mass] 30.7 pg Normal 27.0-32.0 [facility] Comment on above: Performed By: #### L 100.0100, L101.9900, L500.4050, [id number] #### [facility] [address] [place], [address] MCHC (RBC) [Mass/Vol] 31.7 g/dL Low 32-36 [facility] Comment on above: Performed By: #### L 100.0100, L101.9900, L500.4050, [id number] #### [facility] [address] [place], [address] MCV (RBC) [Entitic vol] 96.7 fL Normal 81-99 [facility] Comment on above: Performed By: #### L 100.0100, L101.9900, L500.4050, [id number] #### [facility] [address] [place], [address] Monocytes/100 WBC (Bld) 9.0 % Normal 0-10 [facility] Comment on above: Performed By: #### L 100.0100, L101.9900, L500.4050, [id number] #### [facility] [address] [place], [address] Neutrophils/100 WBC (Bld) 60.2 % Normal 47-70 [facility] Comment on above: Performed By: #### L 100.0100, L101.9900, L500.4050, [id number] #### [facility] [address] [place], [address] Nucleated RBC (Bld) [#/Vol] 0 10*3/uL Normal 0-5 [facility] Comment on above: Performed By: #### L 100.0100, L101.9900, L500.4050, [id number] #### [facility] [address] [place], [address] Platelet mean volume (Bld) [Entitic vol] 9.1 fL Normal 6.2-12.0 [facility] Comment on above: Performed By: #### L 100.0100, L101.9900, L500.4050, [id number] #### [facility] [address] [place], [address] Platelets (Bld) [#/Vol] 350 10*3/uL Normal 150-450 [facility] Comment on above: Performed By: #### L 100.0100, L101.9900, L500.4050, [id number] #### [facility] [address] [place], [address] RBC (Bld) [#/Vol] 4.27 10*6/uL Normal 4.2-5.4 [facility] Comment on above: Performed By: #### L 100.0100, L101.9900, L500.4050, [id number] #### [facility] [address] [place], [address] RDW SD 47.7 fl High 35.1-43.9 [facility] Comment on above: Performed By: #### L 100.0100, L101.9900, L500.4050, [id number] #### [facility] [address] [place], [address] WBC (Bld) [#/Vol] 5.8 10*3/uL Normal 4.4-11.0 [facility] Comment on above: Performed By: #### L 100.0100, L101.9900, L500.4050, [id number] #### [facility] [address] [place], [address] CRPon 07-17-2024 C-REACTIVE PROT 6.21 mg/L High 0.0-3.0 [facility] Comment on above: Result Comment: C-Re active Protein (CRP) provides useful information for the diagnosis, therapy and monitoring of inflammatory processes and associated diseases. For the evaluation of Relative Risk for Cardiovascular Disease, a High Sensitivity CRP (HSCRP) should be ordered. Performed By: #### L 100.0100, L101.9900, L500.4050, [id number] #### [facility] [address] [place], [address] Comprehensive Metabolic Prof ilon 07-17-2024 Albumin [Mass/Vol] 3.6 g/dL Normal 3.2-5.0 [facility] Comment on above: Performed By: #### L 100.0100, L101.9900, L500.4050, [id number] #### [facility] [address] [place], [address] Albumin/Globulin [Mass ratio] 0.9 {ratio} Normal 0.9-2.4 [facility] Comment on above: Performed By: #### L 100.0100, L101.9900, L500.4050, [id number] #### [facility] [address] [place], [address] ALK P 138 U/L High 45-117 [facility] Comment on above: Performed By: #### L 100.0100, L101.9900, L500.4050, [id number] #### [facility] [address] [place], [address] ALT [Catalytic activity/Vol] 47 U/L Normal 13-56 [facility] Comment on above: Performed By: #### L 100.0100, L101.9900, L500.4050, [id number] #### [facility] [address] [place], [address] AST [Catalytic activity/Vol] 29 U/L Normal 15-37 [facility] Comment on above: Performed By: #### L 100.0100, L101.9900, L500.4050, [id number] #### [facility] [address] [place], [address] Bilirubin [Mass/Vol] 0.50 mg/dL Normal 0.20-1.00 [facility] Comment on above: Result Comment: For patients on eltrombopag therapy, use of Dimension [place] TBIL is not recommended. Performed By: #### L 100.0100, L101.9900, L500.4050, [id number] #### [facility] [address] [place], [address] BUN/CRE 26.4 RATIO High 10-20 [facility] Comment on above: Performed By: #### L 100.0100, L101.9900, L500.4050, [id number] #### [facility] [address] [place], [address] CA,Total 8.8 mg/dL Normal 8.5-10.1 [facility] Comment on above: Performed By: #### L 100.0100, L101.9900, L500.4050, [id number] #### [facility] [address] [place], [address] Chloride [Moles/Vol] 105 mmol/L Normal 98-107 [facility] Comment on above: Performed By: #### L 100.0100, L101.9900, L500.4050, [id number] #### [facility] [address] [place], [address] CO2 [Moles/Vol] 28.0 mmol/L Normal 21.0-32.0 [facility] Comment on above: Performed By: #### L 100.0100, L101.9900, L500.4050, [id number] #### [facility] [address] [place], [address] Creatinine [Mass/Vol] 0.76 mg/dL Normal 0.55-1.02 [facility] Comment on above: Result Comment: The validity of the calculated GFR GFRAA in patients over 70 years has not been determined. Clinical correlation is essential. Performed By: #### L 100.0100, L101.9900, L500.4050, [id number] #### [facility] [address] [place], [address] EST GFR - AA 101 mL/min Normal >60 [facility] Comment on above: Result Comment: Afri can [place] GFR Calc Performed By: #### L 100.0100, L101.9900, L500.4050, [id number] #### [facility] [address] [place], [address] GAP 4 Low 5-15 [facility] Comment on above: Performed By: #### L 100.0100, L101.9900, L500.4050, [id number] #### [facility] [address] [place], [address] GFR/1.73 sq M.predicted among non-blacks MDRD (S/P/Bld) [Vol rate/Area] 84 mL/min/{1.73_m2} Normal >60 [facility] Comment on above: Result Comment: Non- GFR Calc Performed By: #### L 100.0100, L101.9900, L500.4050, [id number] #### [facility] [address] [place], [address] Globulin (S) [Mass/Vol] 4.0 g/dL Normal 2.2-4.2 [facility] Comment on above: Performed By: #### L 100.0100, L101.9900, L500.4050, [id number] #### [facility] [address] [place], [address] Glucose [Mass/Vol] 105 mg/dL Normal 74-106 [facility] Comment on above: Result Comment: Fast ing Glucose result from 100 to 125 mg/dL suggests IMPAIRED HOMEOSTASIS per A.D.A. criteria. Performed By: #### L 100.0100, L101.9900, L500.4050, [id number] #### [facility] [address] [place], [address] Potassium [Moles/Vol] 4.1 mmol/L Normal 3.5-5.1 [facility] Comment on above: Performed By: #### L 100.0100, L101.9900, L500.4050, [id number] #### [facility] [address] [place], [address] Sodium [Moles/Vol] 137 mmol/L Normal 136-145 [facility] Comment on above: Performed By: #### L 100.0100, L101.9900, L500.4050, [id number] #### [facility] [address] [place], [address] T PROT 7.6 g/dL Normal 6.4-8.2 [facility] Comment on above: Performed By: #### L 100.0100, L101.9900, L500.4050, [id number] #### [facility] [address] [place], [address] Urea nitrogen [Mass/Vol] 20 mg/dL High 7-18 [facility] Comment on above: Performed By: #### L 100.0100, L101.9900, L500.4050, [id number] #### [facility] [address] [place], [address] Erythrocyte Sed Rateon 07-17 SED RATE 26 mm/hr Normal 0-30 [facility] Comment on above: Performed By: #### L 100.0100, L101.9900, L500.4050, [id number] #### [facility] [address] [place], [address] Laboratory - Microbiology an d Antimicrobial susceptibilityon 12-05-2021 SARS-CoV-2 (COVID-19) RNA GINA+probe Ql (Unsp spec) Detected [facility] Work Phone: No Panel Informationon 12-05 Influenza Types A,B Rapid (Clinic) Not detected [facility] Work Phone: SARS-CoV-2 (COVID-19) Ag IA. rapid Ql (Resp)on 11-30-2021 SARS-CoV-2 (COVID-19) RNA GINA+probe Ql (Unsp spec) [facility] Work Phone: No Panel Informationon 10-02 Hepatitis B Surface Antibody Non-Reactive [facility] Work Phone: Comment on above: Non Reactive: Incons istent with immunity less than <10 mIU/mL Reactive: Consistent with immunity greater than or equal to 10 mIU/mL Basophil percentageon 2021 Chloride [Moles/Vol] 104 mmol/L 98-107 [facility] Work Phone: Glucose [Mass/Vol] 85 mg/dL 74-106 [facility] Work Phone: Potassium [Moles/Vol] 4.1 mmol/L 3.5-5.1 [facility] Work Phone: Sodium [Moles/Vol] 140 mmol/L 136-145 [facility] Work Phone: WBC (Bld) [#/Vol] 7.0 10*3/uL 4.4-11.0 [facility] Work Phone: Blood erythrocytes count (nu mber/volume)on 08-21-2021 RBC (Bld) [#/Vol] 4.19 10*6/uL 4.2-5.4 [facility] Work Phone: Blood hemoglobin measurement (mass/volume)on 08-21-2021 Hemoglobin (Bld) [Mass/Vol] 13.6 g/dL 12.0-15.0 [facility] Work Phone: Blood platelet mean volumeon 08-21-2021 Platelet mean volume (Bld) [Entitic vol] 9.4 fL 6.2-12.0 [facility] Work Phone: Determination of erythrocyte mean corpuscular volume (MCV)on 08-21-2021 MCV (RBC) [Entitic vol] 98.3 fL 81-99 [facility] Work Phone: Hematocrit Auto (Bld) [Volum e fraction]on 08-21-2021 Hematocrit (Bld) [Volume fraction] 41.2 % 37-47 [facility] Work Phone: Laboratory - Chemistry and C hemistry - challengeon 08-21-2021 CO2 [Moles/Vol] 30.0 mmol/L 21.0-32.0 [facility] Work Phone: Urea nitrogen/Creatinine [Mass ratio] 28.4 mg/mg 10-20 [facility] Work Phone: Laboratory - Hematology and Cell countson 08-21-2021 Erythrocyte distribution width (RBC) [Entitic vol] 44.5 fL 35.1-43.9 [facility] Work Phone: Erythrocyte distribution width (RBC) [Ratio] 12.2 % 11.6-14.6 [facility] Work Phone: MCH (RBC) [Entitic mass] 32.5 pg 27.0-32.0 [facility] Work Phone: MCHC Auto (RBC) [Mass/Vol]on 08-21-2021 MCHC (RBC) [Mass/Vol] 33.0 g/dL 32-36 [facility] Work Phone: No Panel Informationon 08-21 Estimated GFR (MDRD) Amer 105 mL/min >60 [facility] Work Phone: Comment on above: GFR Calc Estimated GFR (MDRD) Non-Af Amer 87 mL/min >60 [facility] Work Phone: Comment on above: Non- GFR Calc Platelets bldon 08-21-2021 Platelets (Bld) [#/Vol] 314 10*3/uL 150-450 [facility] Work Phone: Serum or plasma calcium vania urement (mass/volume)on 08-21-2021 Calcium [Mass/Vol] 8.9 mg/dL 8.5-10.1 [facility] Work Phone: Serum or plasma creatinine m easurement (mass/volume)on 08-21-2021 Creatinine [Mass/Vol] 0.74 mg/dL 0.55-1.02 [facility] Work Phone: Comment on above: The validity of the calculated GFR & GFRAA in patients over 70 years has not been determined. Clinical correlation is essential. Serum or plasma urea nitroge n measurement (mass/volume)on 08-21-2021 Urea nitrogen [Mass/Vol] 21 mg/dL 7-18 [facility] Work Phone: Thin prep Papanicolaou smear with manual screeningon 08-21-2021 Thin prep Papanicolaou smear with manual screening 6 5-15 [facility] Work Phone: LIPID PANEL ([id number])Ordered B y: Shopfitter on 08-25-2020 Cholesterol [Mass/Vol] 184 mg/dL Normal 100-199 [facility] Work Phone: Comment on above: PATIENT WAS FASTINGP ERFORMED BY: [id number] [facility] [id number] Cholesterol in HDL [Mass/Vol] 67 mg/dL Normal [facility] Work Phone: Comment on above: PATIENT WAS FASTINGP ERFORMED BY: [employer] [place] [id number] Cholesterol in LDL/Cholesterol in HDL [Mass ratio] 1.5 {ratio} Normal 0.0-3.2 [facility] Work Phone: Comment on above: LDL/HDL Ratio Men Wo men 1/2 Avg.Risk 1.0 1.5 Avg.Risk 3.6 3.2 2X Avg.Risk 6.2 5.0 3X Avg.Risk 8.0 6.1 PATIENT WAS FASTINGP ERFORMED BY: DANIA [facility] [id number] L2CMaria Parham Healthin [place] [id number] Triglyceride [Mass/Vol] 104 mg/dL Normal 0-149 [facility] Work Phone: Comment on above: PATIENT WAS FASTINGP ERFORMED BY: CB [facility] [id number] [facility] [place] [id number] LIPID PANEL ([id number]) 98 mg/dL Normal 0-99 [facility] Work Phone: Comment on above: PATIENT WAS FASTINGP ERFORMED BY: DANIA [facility] [id number] [address] L[facility] [id number] LIPID PANEL ([id number]) 19 mg/dL Normal 5-40 [facility] Work Phone: Comment on above: PATIENT WAS FASTINGP ERFORMED BY: CB [facility] [id number] [facility] [id number] LIPID PANEL ([id number]) 1.5 {ratio} Normal 0.0-3.2 [facility] Work Phone: Comment on above: LDL/HDL Ratio Men Wo men 1/2 Avg.Risk 1.0 1.5 Avg.Risk 3.6 3.2 2X Avg.Risk 6.2 5.0 3X Avg.Risk 8.0 6.1 PATIENT WAS FASTINGP ERFORMED BY: DANIA [facility] [id number] [facility] [id number] Blood Glucose , Office ([phone])Ordered By: Zeeshan Dukes on 08-08-2020 Glucose Glucometer (BldC) [Moles/Vol] 138 1 Normal [facility]; [facility] Work Phone: HgA1C , Office ([phone])Ordere d By: Zeeshan Dukes on 08-08-2020 HbA1c (Bld) [Mass fraction] 5.3 % Normal 4.6 - 7.1 [facility]; [facility] Work Phone: CT Head or Brain w/o Contras ton 04-01-2019 CT Head or Brain w/o Contrast Patient Name: RONNI BLUM CT Exam Date/Time 04/01/2019 12:33:[address] Head or Brain w/o Contrast Ordering Physician DO GAYLE HEATHER ANN Accession Number [id number] CPT4 Codes 91224 () Reason For Exam CONFUSION/DELIRIUM, ALTERED LOC, UNEXPLAINED Report Examination: CT Head Clinical Information: Mental status change. Comparison: None Findings: Serial axial [address] images were obtained through the skull without intravenous contrast. Coronal, sagittal, and axial images were reconstructed. The ventricular system and cortical sulci are within normal limits. Roland white differentiation is well preserved. There is no evidence of gross mass, hemorrhage or edema. No areas of mass-effect or infarct are seen. Sinuses appear well pneumatized. Impression: Unremarkable noncontrast CT scan of the head. No evidence of acute intracranial process. Report Dictated on Final Dictated: 04/01/2019 1:16 pm Dictating Physician: MD ANDRE JASON Signed Date and Time: 04/01/2019 1:17 pm Signed by: MD ANDRE JASON Transcribed Date and Time: 04/01/2019 1:16 Normal [facility] 04-01-2019 Cholesterol [Mass/Vol] 165 mg/dL <200 [facility], [place] Cholesterol in HDL [Mass/Vol] 60 mg/dL 40 - 60 mg/dL [facility] [place] Cholesterol in LDL [Mass/Vol] 84 mg/dL <100 [facility] [place] Triglyceride [Mass/Vol] 106 mg/dL <150 [facility] [place] Free T4on 04-01-2019 Free T4 [Mass/Vol] 0.85 ng/dL Normal 0.78-2.19 [facility] Comment on above: Performed By: #### T SH5, LIPD2, FT4M, HA1C2 #### [facility] [address] [place], [place] Hemoglobin A1Con 04-01-2019 HbA1c (Bld) [Mass fraction] 123 mg/dL Normal [facility] Comment on above: Performed By: #### T SH5, LIPD2, FT4M, HA1C2 #### [facility] [address] [place], [place] HbA1c (Bld) [Mass fraction] 5.9 % High 4.0-5.7 [place], [place] Comment on above: --HgbA1C levels may not be accurate in patients who have renal disease, received recent blood transfusions, are anemic, or who have dyshemoglobinemia. Result Comment: --Hg bA1C levels may not be accurate in patients who have renal disease, received recent blood transfusions, are anemic, or who have dyshemoglobinemia. Performed By: #### T SH5, LIPD2, FT4M, HA1C2 #### [facility] [address] [place], [place] Lipid Panelon 04-01-2019 Cholesterol in HDL [Mass/Vol] 60 mg/dL Normal 40-60 [facility] Comment on above: Performed By: #### T SH5, LIPD2, FT4M, HA1C2 #### [facility] [address] [place], [place] Cholesterol.total/C holesterol in HDL [Mass ratio] 3 Normal [facility] Comment on above: Result Comment: Ref Range: < 3 Low Risk for CHD 3-6 Mod Risk for CHD > 6 High Risk for CHD Performed By: #### T SH5, LIPD2, FT4M, HA1C2 #### [facility] [address] [place], [place] Protein [Mass/Vol] 84 mg/dL Normal <100 [facility] Comment on above: Performed By: #### T SH5, LIPD2, FT4M, HA1C2 #### [facility] [address] [place], [place] Triglyceride [Mass/Vol] 106 mg/dL Normal <150 [facility] Comment on above: Performed By: #### T SH5, LIPD2, FT4M, HA1C2 #### [facility] [address] [place] [address] Cholesterol [Mass/Vol] 165 mg/dL Normal < 200 [facility] Comment on above: Performed By: #### T SH5, LIPD2, FT4M, HA1C2 #### [facility] [address] [place] [address] Otheron 04-01-2019 [facility], [facility] Incoming Radiology Results From [facility] - 04/01/2019 1:19 PM EDT Patient Name: RONNI BLUM ---CT--- Exam Date/Time 04/01/2019 12:33:[address] Head or Brain w/o Contrast Ordering Physician DO GAYLE HEATHER BOSSMAN Accession Number [id number] CPT4 Codes 80268 () Reason For Exam CONFUSION/DELIRIUM, ALTERED LOC, UNEXPLAINED Report Examination: CT Head Clinical Information: Mental status change. Comparison: None Findings: Serial axial [address] images were obtained through the skull without intravenous contrast. Coronal, sagittal, and axial images were reconstructed. The ventricular system and cortical sulci are within normal limits. Roland white differentiation is well preserved. There is no evidence of gross mass, hemorrhage or edema. No areas of mass-effect or infarct are seen. Sinuses appear well pneumatized. Impression: Unremarkable noncontrast CT scan of the head. No evidence of acute intracranial process. Report Dictated on --- Final --- Dictated: 04/01/2019 1:16 pm Dictating Physician: MD ANDRE JASON Signed Date and Time: 04/01/2019 1:17 pm Signed by: MD ANDRE JASON Transcribed Date and Time: 04/01/2019 1:16 [facility], [place] Patient Name: Teena BLUM ---CT--- Exam Date/Time 04/01/2019 12:33:[address] Head or Brain w/o Contrast Ordering Physician DO GAYLE HEATHER BOSSMAN Accession Number [id number] CPT4 Codes 98788 () Reason For Exam CONFUSION/DELIRIUM, ALTERED LOC, UNEXPLAINED Report Examination: CT Head Clinical Information: Mental status change. Comparison: None Findings: Serial axial [address] images were obtained through the skull without intravenous contrast. Coronal, sagittal, and axial images were reconstructed. The ventricular system and cortical sulci are within normal limits. Roland white differentiation is well preserved. There is no evidence of gross mass, hemorrhage or edema. No areas of mass-effect or infarct are seen. Sinuses appear well pneumatized. Impression: Unremarkable noncontrast CT scan of the head. No evidence of acute intracranial process. Report Dictated on --- Final --- Dictated: 04/01/2019 1:16 pm Dictating Physician: MD ANDRE JASON Signed Date and Time: 04/01/2019 1:17 pm Signed by: MD ANDRE JASON Transcribed Date and Time: 04/01/2019 1:16 [facility]zTWO [facility]IV[facility] PS[facility] HOSPITALSprout Route eAG 123 mg/dL [place], [place] Interpretation and review of laboratory results Abnormal [facility] [place] Test Performed by [facility], [address] [place] [id number] [place] [address] Test Performed by [employer] [id number] [place] [address] Test Performed by [facility], [address] [place] [id number] [place] [address] Cholesterol.total/C holesterol in HDL [Mass ratio] 3 {ratio} [place], [place] Comment on above: Ref Range: < 3 Low Risk for CHD 3-6 Mod Risk for CHD > 6 High Risk for CHD Test Performed by [facility], [address] [place] [id number] [facility] Test Date: 2019-03-30 Pat Name: Ronni Blum Department: Room: 444 Gender: F Primary Care Nurse: DENNIS : 1965 Requested By: ED Order Number: [id number] Reading MD: Karina Whelan Measurements Intervals [place] Rate: 106 P: 43 AL: 128 QRS: 37 QRSD: 86 T: 38 QT: 336 QTc: 447 Interpretive Statements SINUS TACHYCARDIA BORDERLINE R WAVE PROGRESSION, ANTERIOR LEADS Compared to ECG 05/16/2011 07:12:02 Sinus rhythm no longer present Electronically Signed On 04-01-2019 8:23:52 EDT by Karina Whelan [place], [place] [facility] Incoming Cardiology Results From [facility] - 04/01/2019 8:24 AM EDT [facility] Test Date: 2019-03-30 Pat Name: Ronni Blum Department: 01 Room: 444 Gender: F Primary Care Nurse: DENNIS : 1965 Requested By: ED Order Number: [id number] Reading MD: Karina Whelan Measurements Intervals [place] Rate: 106 P: 43 AL: 128 QRS: 37 QRSD: 86 T: 38 QT: 336 QTc: 447 Interpretive Statements SINUS TACHYCARDIA BORDERLINE R WAVE PROGRESSION, ANTERIOR LEADS Compared to ECG 05/16/2011 07:12:02 Sinus rhythm no longer present Electronically Signed On 04-01-2019 8:23:52 EDT by Karina Whelan [place], [place] Thyroidon 04-01-2019 TSH Qn 1.059 u[IU]/mL 0.465 - 4.68 u[IU]/mL [place], [place] Free T4 [Mass/Vol] 0.85 ng/dL 0.78 - 2.19 ng/dL [place], [place] Thyroid Stim. Hormoneon 03-14 Thyroid Stim. Hormone 1.059 u[IU]/mL Normal 0.465-4.68 0 [facility] Comment on above: Performed By: #### T SH5, LIPD2, FT4M, HA1C2 #### [facility] [address] [place] [address] Comp Metabolic Panelon 03-30 ALP [Catalytic activity/Vol] 69 U/L Normal 38-126 [facility] Comment on above: Performed By: #### H NURY ERICKSON3 #### [facility] [address] [place] [address] ALT [Catalytic activity/Vol] 30 U/L Normal 13-69 [facility] Comment on above: Performed By: #### H DRE CMP3 #### [facility] [address] [place] [address] Calcium [Mass/Vol] 9.3 mg/dL Normal 8.4-10.4 [facility] Comment on above: Performed By: #### H DRE, CMP3 #### [facility] [address] [place] [address] Glucose [Mass/Vol] 114 mg/dL High 70-100 [facility] Comment on above: Performed By: #### H EMDF CMP3 #### [facility] [address] [place] [address] Protein [Mass/Vol] 7.3 g/dL Normal 6.3-8.2 [facility] Comment on above: Performed By: #### H EMDF CMP3 #### [facility] [address] [place] [address] Urea nitrogen [Mass/Vol] 12 mg/dL Normal 7-20 [facility] Comment on above: Performed By: #### H LAURAF CMP3 #### [facility] [address] [place] [address] Anion gap [Moles/Vol] 6 Normal [facility] Comment on above: Performed By: #### H EMDF, CMP3 #### [facility] [address] [place] [address] AST [Catalytic activity/Vol] 20 U/L Normal 15-46 [facility] Comment on above: Performed By: #### H EMDF, CMP3 #### [facility] [address] [place] [address] Bilirubin [Mass/Vol] 0.5 mg/dL Normal 0.2-1.3 [facility] Comment on above: Performed By: #### H EMDF, CMP3 #### [facility] [address] [place] [address] CO2 [Moles/Vol] 32 mmol/L High 22-30 [facility] Comment on above: Performed By: #### H EMDF, CMP3 #### [facility] [address] [place] [address] Creatinine [Mass/Vol] 0.59 mg/dL Normal 0.52-1.25 [facility] Comment on above: Performed By: #### H EMDF, CMP3 #### [facility] [address] [place] [address] GFR/1.73 sq M predicted among blacks MDRD (S/P/Bld) [Vol rate/Area] mL/min/{1.73_m2} Normal >60 [facility] Comment on above: Performed By: #### H EMDF, CMP3 #### [facility] [address] [place] [address] GFR/1.73 sq M predicted among non-blacks MDRD (S/P/Bld) [Vol rate/Area] mL/min/{1.73_m2} Normal >60 [facility] Comment on above: Result Comment: Sour ce- MDRD equation with creatinine calibration to IDMS(NKDEP) eGFR not recommended for drug dose adjustment Performed By: #### H DRE, CMP3 #### [facility] [address] [place] [address] Potassium [Moles/Vol] 3.5 mmol/L Normal 3.5-5.1 [facility] Comment on above: Performed By: #### H DRE, CMP3 #### [facility] [address] [place] [address] Sodium [Moles/Vol] 141 mmol/L Normal 135-145 [facility] Comment on above: Performed By: #### H EMDF, CMP3 #### [facility] [address] [place] [address] Albumin [Mass/Vol] 4.2 g/dL Normal 3.5-5.0 [facility] Comment on above: Performed By: #### H EMDF, CMP3 #### [facility] [address] [place] [address] Chloride [Moles/Vol] 103 mmol/L Normal 98-107 [facility] Comment on above: Performed By: #### H EMDF, CMP3 #### [facility] [address] [place] [address] Complete Urinalysison 2018 Appearance (U) Clear Normal [facility] Comment on above: Result Comment: Refe rence Range: Clear Performed By: #### H CGUR, CUA2, DRGA4 #### [facility] [address] [place] [address] Bilirubin,Urine Negative Normal [facility] Comment on above: Result Comment: Refe rence Range: Negative Performed By: #### H CGUR, CUA2, DRGA4 #### [facility] [address] [place] [address] Color (U) Light-Yellow Normal [facility] Comment on above: Result Comment: Refe rence Range: Lt. Yellow Performed By: #### H CGUR, CUA2, DRGA4 #### [facility] [address] [place] [address] Glucose Ql (U) Normal Normal [facility] Comment on above: Result Comment: Refe rence Range: Normal (<70) Performed By: #### H CGUR, CUA2, DRGA4 #### [facility] [address] [place] [address] Ketone,Urine Negative Normal [facility] Comment on above: Result Comment: Refe rence Range: Negative Performed By: #### H CGUR, CUA2, DRGA4 #### [facility] [address] [place] [address] Leukocytes,Urine Negative Normal [facility] Comment on above: Result Comment: Refe rence Range: Negative Performed By: #### H CGUR, CUA2, DRGA4 #### [facility] [address] [place] [address] Nitrites,Urine Negative Normal [facility] Comment on above: Result Comment: Refe rence Range: Negative Performed By: #### H CGUR, CUA2, DRGA4 #### [facility] [address] [place] [address] Occult Blood,Urine Negative Normal [facility] Comment on above: Result Comment: Refe rence Range: Negative Performed By: #### H CGUR, CUA2, DRGA4 #### [facility] [address] [place] [address] pH (U) 6.0 Normal 5.0-8.0 [facility] Comment on above: Performed By: #### H CGUR, CUA2, DRGA4 #### [facility] [address] [place] [address] Protein (U) [Mass/Vol] Negative Normal [facility] Comment on above: Result Comment: Refe rence Range: Negative Performed By: #### H CGCOLLIN, CUA2, DRGA4 #### [facility] [address] [place] [address] Specific Dexter,Urine 1.020 Normal 1.005-1.03 0 [facility] Comment on above: Performed By: #### H CGCOLLIN, CUA2, DRGA4 #### [facility] [address] [place] [address] Urobilinogen,Urine Normal Normal [facility] Comment on above: Result Comment: Refe rence Range: Normal (0-1) Performed By: #### H CGCOLLIN, CUA2, DRGA4 #### [facility] [address] [place] [address] Drugs of Abuseon 03-30-2019 Phencyclidine (PCP), Ur Negative Normal [facility] Comment on above: Result Comment: The expected value for all of the drugs listed above is Negative. The following drugs or drug groups have been screened for by Immunoassay at the following thresholds: Amphetamine class (1000 ng/mL), Barbiturates (200 ng/mL), Benzodiazepines (200 ng/mL), Cocaine (300 ng/mL), Methadone (300 ng/mL), Opiates (300 ng/mL), Oxycodone (100 ng/mL), and PCP (25 ng/mL). NOTE: These results are for medical treatment only. Analysis performed using non-forensic procedures. POSITIVE results are NOT confirmed by a more specific alternative method unless requested. If confirmation is needed, request confirmation under separate order. Performed By: #### H CGCOLLIN, CUA2, DRGA4 #### [facility] [address] [place] [address] Opiates, Ur Negative Normal [facility] Comment on above: Performed By: #### H CGUR, CUA2, DRGA4 #### [facility] [address] [place] [address] Cocaine, Ur Negative Normal [facility] Comment on above: Performed By: #### H CGUR, CUA2, DRGA4 #### [facility] [address] [place] [address] Methadone, Ur Negative Normal [facility] Comment on above: Performed By: #### H CGUR, CUA2, DRGA4 #### [facility] [address] [place] [address] Benzodiazepines, Ur Negative Normal [facility] Comment on above: Performed By: #### H CGUR, CUA2, DRGA4 #### [facility] [address] [place] [address] Barbiturates, Ur Negative Normal [facility] Comment on above: Performed By: #### H CGUR, CUA2, DRGA4 #### [facility] [address] [place] [address] Amphetamines, Ur Negative Normal [facility] Comment on above: Performed By: #### H CGUR, CUA2, DRGA4 #### [facility] [address] [place] [address] Oxycodone/Oxymorphi ne,Ur Negative Normal [facility] Comment on above: Performed By: #### H CGUR, CUA2, DRGA4 #### [facility] [address] [place] [address] HCG,Urine Qualon 03-30-2019 Beta HCG ( test) Ql (U) Negative Normal Negative [facility] Comment on above: Result Comment: Preg pratima is the most common reason for HCG in urine, although choriocarcinoma, hydatidiform mole, and certain nontropho- blastic malignancies also result in detectable urinary HCG levels. Sensitivity = 20mIU/mL. Performed By: #### H CGUR, CUA2, DRGA4 #### [facility] [address] [place] [address] Hematologyon 03-30-2019 Basophils/100 WBC (Bld) 0.6 % 0 - 2 % [place] Eosinophils (Bld) [#/Vol] 0.0 10*3/uL 0 - 0.5 10*3/uL [place] Eosinophils/100 WBC (Bld) 0.6 % Low 1 - 6 % [place] Hematocrit (Bld) [Volume fraction] 40.8 % 35 - 47 % [place] Hemoglobin (Bld) [Mass/Vol] 13.6 g/dL 11.7 - 16 g/dL [place] Lymphocytes (Bld) [#/Vol] 1.5 10*3/uL 1 - 4.3 10*3/uL [place] Lymphocytes/100 WBC (Bld) 17.8 % Low 20 - 40 % [place] [facility] (RBC) [Entitic mass] 32.7 pg 26 - 34 pg [place] MCV (RBC) [Entitic vol] 98.1 fL High 79 - 98 fL [place] Monocytes (Bld) [#/Vol] 0.7 10*3/uL 0 - 0.8 10*3/uL [place] Monocytes/100 WBC (Bld) 8.8 % 2 - 10 % [place] Platelets (Bld) [#/Vol] 304 10*3/uL 140 - 440 10*3/uL [place] RBC (Bld) [#/Vol] 4.16 10*6/uL 3.8 - 5.2 10*6/uL [place] WBC (Bld) [#/Vol] 8.4 10*3/uL 3.6 - 10.7 10*3/uL [place] Hemogram w/ Autodiffon 03-30 Abs Baso Cnt 0.1 10*3/uL Normal 0.0-0.2 [facility] Comment on above: Performed By: #### H DRE CMP3 #### [facility] [address] [place] [address] Abs Neutrophile Cnt 6.1 10*3/uL Normal 1.8-7.0 [facility] Comment on above: Performed By: #### H DRE CMP3 #### [facility] [address] [place] [address] Basophils/100 WBC (Bld) 0.6 % Normal 0.0-2.0 [facility] Comment on above: Performed By: #### H DRE CMP3 #### [facility] [address] [place] [address] Eosinophils (Bld) [#/Vol] 0.0 10*3/uL Normal 0.0-0.5 [facility] Comment on above: Performed By: #### H EMDF, CMP3 #### [facility] [address] [place] [address] Eosinophils/100 WBC (Bld) 0.6 % Low 1.0-6.0 [facility] Comment on above: Performed By: #### H EMDF, CMP3 #### [facility] [address] [place] [address] Erythrocyte distribution width (RBC) [Ratio] 12.9 % Normal 11.5-14.5 [facility] Comment on above: Performed By: #### H EMDF, CMP3 #### [facility] [address] [place] [address] Granulocytes/100 WBC (Bld) 72.2 % Normal 40.0-80.0 [facility] Comment on above: Performed By: #### H EMDF CMP3 #### [facility] [address] [place] [address] Hematocrit (Bld) [Volume fraction] 40.8 % Normal 35.0-47.0 [facility] Comment on above: Performed By: #### H EMDF, CMP3 #### [facility] [address] [place] [address] Hemoglobin (Bld) [Mass/Vol] 13.6 g/dL Normal 11.7-16.0 [facility] Comment on above: Performed By: #### H EMDF, CMP3 #### [facility] [address] [place] [address] Lymphocytes (Bld) [#/Vol] 1.5 10*3/uL Normal 1.0-4.3 [facility] Comment on above: Performed By: #### H EMDF, CMP3 #### [facility] [address] [place] [address] Lymphocytes/100 WBC (Bld) 17.8 % Low 20.0-40.0 [facility] Comment on above: Performed By: #### H EMDF, CMP3 #### [facility] [address] [place] [address] MCH (RBC) [Entitic mass] 32.7 pg Normal 26.0-34.0 [facility] Comment on above: Performed By: #### H EMDF, CMP3 #### [facility] [address] [place] [address] MCHC (RBC) [Mass/Vol] 33.3 % Normal 32.0-36.0 [facility] Comment on above: Performed By: #### H EMDF, CMP3 #### [facility] [address] [place] [address] MCV (RBC) [Entitic vol] 98.1 fL High 79.0-98.0 [facility] Comment on above: Performed By: #### H EMDF, CMP3 #### [facility] [address] [place] [address] Monocytes (Bld) [#/Vol] 0.7 10*3/uL Normal 0.0-0.8 [facility] Comment on above: Performed By: #### H EMDF, CMP3 #### [facility] [address] [place] [address] Monocytes/100 WBC (Bld) 8.8 % Normal 2.0-10.0 [facility] Comment on above: Performed By: #### H EMDF, CMP3 #### [facility] [address] [place] [address] Platelet mean volume (Bld) [Entitic vol] 7.2 fL Low 7.4-10.4 [facility] Comment on above: Performed By: #### H EMDF, CMP3 #### [facility] [address] [place] [address] Platelets (Bld) [#/Vol] 304 10*3/uL Normal 140-440 [facility] Comment on above: Performed By: #### H EMDF, CMP3 #### [facility] [address] [place] [address] RBC (Bld) [#/Vol] 4.16 10*6/uL Normal 3.80-5.20 [facility] Comment on above: Performed By: #### H EMDF, CMP3 #### [facility] [address] [place] [address] WBC (Bld) [#/Vol] 8.4 10*3/uL Normal 3.6-10.7 [facility] Comment on above: Performed By: #### H NURY ERICKSON3 #### [facility] [address] [place] [address] Metabolic Panelon 03-30-2019 Albumin [Mass/Vol] 4.2 g/dL 3.5 - 5 g/dL [place] ALP [Catalytic activity/Vol] 69 U/L 38 - 126 U/L [place] ALT [Catalytic activity/Vol] 30 U/L 13 - 69 U/L [place] Anion gap [Moles/Vol] 6 mmol/L [place] AST [Catalytic activity/Vol] 20 U/L 15 - 46 U/L [place] Calcium [Mass/Vol] 9.3 mg/dL 8.4 - 10. 4 mg/dL [place] Chloride [Moles/Vol] 103 mmol/L 98 - 107 mmol/L [place] CO2 [Moles/Vol] 32 mmol/L High 22 - 30 mmol/L [place] Creatinine [Mass/Vol] 0.59 mg/dL 0.52 - 1.25 mg/dL [place] GFR/1.73 sq M predicted among blacks MDRD (S/P/Bld) [Vol rate/Area] mL/min/{1.73_m2} >60 mL/min [place] Glucose [Mass/Vol] 114 mg/dL High 70 - 100 mg/dL [place] Potassium [Moles/Vol] 3.5 mmol/L 3.5 - 5.1 mmol/L [place] Protein [Mass/Vol] 7.3 g/dL 6.3 - 8.2 g/dL [place] Sodium [Moles/Vol] 141 mmol/L 135 - 145 mmol/L [place] Urea nitrogen [Mass/Vol] 12 mg/dL 7 - 20 mg/dL [place] Otheron 03-30-2019 Amphetamines, urine Negative [facility], [place] Barbiturates, Ur Negative [facility] [place] Benzodiazepine Ur Qual Negative [facility], [place] Cocaine Metabolites, Ur Negative [facility], [place] Methadone, Urine Negative [facility] [place] Opiates, Urine Negative [facility], [place] Oxycodone Screen, Ur Negative [facility], [place] PCP, Urine Negative [place] Comment on above: The expected value f or all of the drugs listed above is Negative. The following drugs or drug groups have been screened for by Immunoassay at the following thresholds: Amphetamine class (1000 ng/mL), Barbiturates (200 ng/mL), Benzodiazepines (200 ng/mL), Cocaine (300 ng/mL), Methadone (300 ng/mL), Opiates (300 ng/mL), Oxycodone (100 ng/mL), and PCP (25 ng/mL). NOTE: These results are for medical treatment only. Analysis performed using non-forensic procedures. POSITIVE results are NOT confirmed by a more specific alternative method unless requested. If confirmation is needed, request confirmation under separate order. Test Performed by [facility], [address] [place], [place] [address] [place] [address] Bilirubin Urine Negative mg/dL [place], [place] Comment on above: Reference Range: Neg ative Glucose, Ur Normal mg/dL [place] Comment on above: Reference Range: Nor mal (<70) LEUKOCYTES, UA Negative Pierce/uL [place], [place] Comment on above: Reference Range: Neg ative Nitrite, Urine Negative [place] Comment on above: Reference Range: Neg ative Occult Blood,Urine Negative mg/dL [place] Comment on above: Reference Range: Neg ative pH (U) 6.0 [pH] [place] Specific Dexter, Urine 1.020 [place] Urobilinogen, Urine Normal mg/dL [place] Comment on above: Reference Range: Nor mal (0-1) Test Performed by [facility], [address] [place] [address] [place] Bilirubin Ql (U) 0.5 mg/dL 0.2 - 1.3 mg/dL [place] EGFR IF NonAfrican Chadian >60.0 >60 mL/min [place] Comment on above: Source- MDRD equatio n with creatinine calibration to IDMS(NKDEP) eGFR not recommended for drug dose adjustment Interpretation and review of laboratory results Abnormal [place] Test Performed by [facility], [address] [place], [place] [address] [place] Absolute Baso # 0.1 10*3/uL 0 - 0.2 10*3/uL [place] Absolute Neut # 6.1 10*3/uL 1.8 - 7 10*3/uL [place] Erythrocyte distribution width (RBC) [Ratio] 12.9 % 11.5 - 14.5 % [place] Granulocytes/100 WBC (Bld) 72.2 % 40 - 80 % [place] Interpretation and review of laboratory results Abnormal [place] MCHC (RBC) [Mass/Vol] 33.3 % 32 - 36 % [place] Platelet mean volume (Bld) [Entitic vol] 7.2 fL Low 7.4 - 10.4 fL [place] Test Performed by [facility], [address] [place], [place] [id number] [place] [address] Urinalysison 03-30-2019 Appearance (U) Clear [place], [place] Comment on above: Reference Range: Mars ar Beta HCG ( test) Ql (U) Negative Negative NA [place] Comment on above: is the mos t common reason for HCG in urine, although choriocarcinoma, hydatidiform mole, and certain nontropho- blastic malignancies also result in detectable urinary HCG levels. Sensitivity = 20mIU/mL. Color (U) Light-Yellow [place], [place] Comment on above: Reference Range: Lt. Yellow Ketones Ql (U) Negative mg/dL [place] Comment on above: Reference Range: Neg ative Protein (U) [Mass/Vol] Negative mg/dL [facility], [place] Comment on above: Reference Range: Neg ative ESTRADIOL ([id number])Ordered By: Shopfitter on 03-17-2019 E2 [Mass/Vol] 8.5 pg/mL Normal Compre[facility] ve [facility] Work Phone: Comment on above: Adult Female: Follic ular phase 12.5 - 166.0 Ovulation phase 85.8 - 498.0 Luteal phase 43.8 - 211.0 Postmenopausal <6.0 - 54.7 1st trimester 215.0 - >4300.0 Girls (1-10 years) 6.0 - 27.0Roche ECLIA methodology PATIENT NOT FASTINGP ERFORMED BY: DANIA [employer] E-commerceSt. Lawrence Rehabilitation CenterLjqbpj8109 [facility] [id number] GONADOTROPIN-FSH ([id number])Orde red By: Shopfitter on 03-17-2019 Follitropin Qn 67.9 m[IU]/mL Normal Compreh ensive Internal Medicine Work Phone: Comment on above: Adult Female: Follic ular phase 3.5 - 12.5 Ovulation phase 4.7 - 21.5 Luteal phase 1.7 - 7.7 Postmenopausal 25.8 - 134.8 PATIENT NOT FASTINGP ERFORMED BY: DANIA [employer] E-commerceSt. Lawrence Rehabilitation CenterIryzvz7088 [facility] [id number] GONADOTROPIN-LH ([id number])Order ed By: Shopfitter on 03-17-2019 Lutropin Qn 55.9 m[IU]/mL Normal Comprehens windy [facility] Work Phone: Comment on above: Adult Female: Follic ular phase 2.4 - 12.6 Ovulation phase 14.0 - 95.6 Luteal phase 1.0 - 11.4 Postmenopausal 7.7 - 58.5 PATIENT NOT FASTINGP ERFORMED BY: DANIA [employer] E-commerceSt. Lawrence Rehabilitation CenterHzseeu9229 [facility] [id number] ED NOTEon 04-20-2018 ED NOTE HNO ID: [id number] thor: Izzy (Medic) Manjeet, MedicService: Emergency MedicineAuthor Type: Depot Agent and TechnicianType: ED NotesFiled: 04/20/2018 4:33 PMNote Text:Pt comes to er c/o left middle finger injury. States she slammed finger inbetween residents door and bathroom door. No bruising, deformity, orswelling noted. No other complaints at this time. Normal [facility] ED PROV NOTEon 04-20-2018 Protein mass conc HNO ID: [id number] thor: Daniel Dukes IIIService: Emergency MedicineAuthor Type: Physician AssistantType: ED Provider NotesFiled: 04/20/2018 7:56 PMNote Text:ED Provider NotePatient Name: Ronni Andrews LayMRN: [id number] DATE: 04/20/18HistoryPatient presents with:Finger Injury: left midle [id number] that is right-hand dominant presents to the emergencydepartment for evaluation of left middle finger injury. The patientstates that she was coming into room and the finger Caught between thebathroom door and the resident door. The patient has left middle fingerdistal phalanx pain. 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- Nonspecific (abnormal) findings on radiological and other examination ofgastrointestinal tract malrotation of colon- Nonspecific abnormal findings on radiological and other examination ofother site of body left pelvic kidney is low- Other acne- PMH - PAST MEDICAL HISTORY OF absence of uterusPAST SURGICAL HISTORYProcedure Laterality Date- PAST SURGICAL HISTORY OF 1999 neovaginal prolaspe repair with sacrospinial fixationFAMILY HISTORYProblem Relation Age of Onset- Hypertension Mother- Thyroid Father- Breast Cancer Maternal Aunt- Cancer Maternal Uncle testicular- Breast Cancer Maternal AuntSocial HistorySocial History Main Topics- Smoking status: Never Smoker- Smokeless tobacco: Never Used- Alcohol use No- Drug use: No- Sexual activity: Yes Partners: Male Comment: one tatoo, certain was clean needle; no transfusionsALLERGIESAllerg en Reactions- Ambien [Zolpidem Ta* Intolerance dreaming, facial tics- Ativan [Lorazepam] Mental Status Change Addiction issuesReview of SystemsConstitutional: Negative for chills, fatigue and fever.HENT: Negative for congestion and rhinorrhea.Respiratory: Negative for cough, chest tightness, shortness of breath andwheezing.Cardiovascular: Negative for chest pain, palpitations and leg swelling.Gastrointestinal: Negative for abdominal pain, diarrhea, nausea andvomiting.Genitourinary: Negative for dysuria and flank pain.Musculoskeletal: Negative for back pain, neck pain and neck stiffness. Left middle finger injurySkin: Negative for color change, pallor, rash and wound.Neurological: Negative for dizziness, syncope, speech difficulty,light-headedness and headaches.Hematological: Negative for adenopathy. Does not bruise/bleed easily.Psychiatric/Behavior al: Negative for agitation and confusion.All other systems reviewed and are negative.Physical ExamBP 128/67 Pulse 96 Temp (Src) 97.6 (Oral) Resp 18 Ht 5' 7 (1.70m) Wt 175 lb (79.4kg) SpO2 95% BMI 27.40 kg/(m2).Physical ExamVital signs reviewed and nurse's notes. The patient is not hypoxic.General: Alert, no acute distress, patient resting comfortablySkin: warm, intact, no pallor notedHead: Normocephalic, atraumaticEye: Normal conjunctivaRespiratory: No acute distressMusculoskeletal: The patient does have tenderness noted to the distalpharynx of the left middle finger. There is no obvious deformity. Thereis no significant abrasion, contusion, laceration, or swelling. There isno ecchymosis at this point. Pulses are intact at radius 2+. The patientno deficit to any the other digits. The patient had no cyanosis ormottling. Normal capillary refill. No definite signs of subungualhematoma at this point.Neurological: alert and orient x4, normal sensory and motor observed.Psychiatric: CooperativeProceduresMDMED Course:XR DIGIT GENERAL 3V FRONTAL/LAT/OBL LT Final Result IMPRESSION: Cortical irregularity volar base and proximal shaft of the middle finger likely represents a bone contusion. No discrete fracture or dislocation. Magnetic Prospecting Operator: HOLDEN Transcribe Date/Time: Apr 20 2018 5:10P Dictated by : JESSA QUEZADA MD This examination was interpreted and the report reviewed and electronically signed by: JESSA QUEZADA MD on Apr 20 2018 5:16PM ESTMedical Decision Makin-year-old female presents to the emergency department for evaluation ofleft middle finger injury. X-rays were obtained. The patient did notwant anything for the pain here. The patient has a cortical irregularityat the volar bases and proximal shaft of the middle finger likelyrepresents a bone contusion. No discrete fracture or dislocation. Thepatient had the results discussed with her. I printed a copy of theradiology report. The patient was placed in a long finger splint. Thepatient will be discharged home with adequate analgesia. The patient isto ice the area. The patient is to follow-up with PCP. Patient is toreturn if any of the signs or symptoms worsen. Patient was comfortablewith the plan and will be discharged to home. She will follow-up withpending [facility] as [facility].Clinical Impression:Encounter Diagnosis ICD-10-CM1. Contusion of left middle finger without damage to nail, initialencounter S60.032ACondition at disposition:stableDispositi on:DISCHARGED: Counseled patient regarding radiology results AND suspecteddiagnosis AND need for follow-up. Discharged home with verbal and writteninstructions. They were instructed to return as needed for persistent orworsening symptoms or any new concerns.SIGNATURE: Clemencia Yates III (Case) Ernst MORGAN04/[birth year]/181953 [facility] XR DIGIT 3V FRONTAL/LAT/OBL LTon 04-20-2018 XR DIGIT 3V FRONTAL/LAT/OBL LT * * *Final Report* * *DATE OF EXAM: Apr 20 2018 5:03PM MDX [id number] - XR DIGIT 3V FRONTAL/LAT/OBL LT / REASON: Fracture, hand * * * * Physician Interpretation * * * * EXAMINATION: XR DIGIT 3V FRONTAL/LAT/OBL LTCLINICAL HISTORY: long/middle finger, slammed in door todayTechnique: XR DIGIT 3V FRONTAL/LAT/OBL LT -- LEFT with 3 views on 3 imagesComparison: NoneRESULT:There is cortical irregularity along the volar aspect of the middle phalanx base and proximal shaft, likely sequela of trauma. No discrete fractures identified. No dislocation.IMPRESSION:Shyam ical irregularity volar base and proximal shaft of the middle finger likely represents a bone contusion. No discrete fracture or dislocation.Transcriptionis t: PSCB Transcribe Date/Time: Apr 20 2018 5:10PDictated by : JESSA QUEZADA MDThijorge luis examination was interpreted and the report reviewed and electronically signed by: JESSA QUEZADA MD on Apr 20 2018 5:16PM [id number] Normal [facility] CALCIFEDIOL ([id number])Ordered B y: Shopfitter on 02-27-2018 25-Hydroxyvitamin D2+25-Hydroxyvitami n D3 [Mass/Vol] 37.1 ng/mL Normal 30.0-100.0 [facility] Work Phone: Comment on above: Vitamin D deficiency has been defined by the [place] of[place] and an Endocrine Society practice guideline as alevel of serum 25-OH vitamin D less than 20 ng/mL (1,2).The Endocrine Society went on to further define vitamin Dinsufficiency as a level between 21 and 29 ng/mL (2).1. IOM ([place] [employer]). 2010. Dietary reference intakes for calcium and D. [place]: The National Academies Press.2. Yuridia MF, Wendy ADAME, Jose Cruz DESHPANDE, et al. Evaluation, treatment, and prevention of vitamin D deficiency: an Endocrine Society clinical practice guideline. JCEM. 2010; 96(7):1911-30. PATIENT WAS FASTINGP ERFORMED BY: [employer] [place] [id number] CBC, Platelets & Auto Diff ( [id number])Ordered By: Shopfitter on 02-27-2018 Basophils (Bld) [#/Vol] 0.0 {x10E3/uL} Normal 0.0-0.2 [facility] Work Phone: Comment on above: PATIENT WAS FASTINGP ERFORMED BY: [employer] [facility] Kjbyoq[address] L2CDublin [place] [id number] Basophils (Bld) [#/Vol] 0.0 10*3/uL Normal 0.0-0.2 [facility]; [facility] Work Phone: Comment on above: PATIENT WAS FASTINGP ERFORMED BY: [employer] [facility] Pxfqrq6545 [address] L2CDublin [place] [id number] Basophils/100 WBC (Bld) 0 % Normal [facility] Work Phone: Comment on above: PATIENT WAS FASTINGP ERFORMED BY: [facility] Xrgkyc5163 [address]arez RoadDublin [place] [id number] Eosinophils (Bld) [#/Vol] 0.1 {x10E3/uL} Normal 0.0-0.4 [facility] Work Phone: Comment on above: PATIENT WAS FASTINGP ERFORMED BY: [facility] Bsvcwp8936 Suarez RoadDublin [place] [id number] Eosinophils (Bld) [#/Vol] 0.1 10*3/uL Normal 0.0-0.4 [facility]; [facility] Work Phone: Comment on above: PATIENT WAS FASTINGP ERFORMED BY: [facility] Ppxsxr6908 [address]arez RoadDuin [place] [id number] Eosinophils/100 WBC (Bld) 1 % Normal [facility] Work Phone: Comment on above: PATIENT WAS FASTINGP ERFORMED BY: [facility] Oeqnox[address] [facility]in [place] [id number] Erythrocyte distribution width (RBC) [Ratio] 13.3 % Normal 12.3-15.4 [facility] Work Phone: Comment on above: PATIENT WAS FASTINGP ERFORMED BY: [facility] Atmngl[address] [facility] [place] [id number] Hematocrit (Bld) [Volume fraction] 40.9 % Normal 34.0-46.6 [facility] Work Phone: Comment on above: PATIENT WAS FASTINGP ERFORMED BY: [facility] Gazpff0690 [address] RoadDublin [place] [id number] Hemoglobin (Bld) [Mass/Vol] 13.6 g/dL Normal 11.1-15.9 [facility] Work Phone: Comment on above: PATIENT WAS FASTINGP ERFORMED BY: [facility] Jimgzf0511 [address]arez RoadDublin [place] [id number] Immature granulocytes (Bld) [#/Vol] 0.0 {x10E3/uL} Normal 0.0-0.1 [facility] Work Phone: Comment on above: PATIENT WAS FASTINGP ERFORMED BY: [facility] Rmlzsl8527 [address]arez RoadDublin [place] [id number] Immature granulocytes (Bld) [#/Vol] 0.0 10*3/uL Normal 0.0-0.1 [facility]; [facility] Work Phone: Comment on above: PATIENT WAS FASTINGP ERFORMED BY: [facility] Jbqovl4607 [address] RoadDublin [place] [id number] Immature granulocytes/100 WBC (Bld) 0 % Normal [facility] Work Phone: Comment on above: PATIENT WAS FASTINGP ERFORMED BY: [facility] Qezzke6097 [address]arez RoadDublin [place] [id number] Lymphocytes (Bld) [#/Vol] 1.6 {x10E3/uL} Normal 0.7-3.1 [facility] Work Phone: Comment on above: PATIENT WAS FASTINGP ERFORMED BY: LabUp [facility] System6370 [address] RoadDublin [place] [id number] Lymphocytes (Bld) [#/Vol] 1.6 10*3/uL Normal 0.7-3.1 [facility]; [facility] Work Phone: Comment on above: PATIENT WAS FASTINGP ERFORMED BY: [facility] Hidrom0726 [address] RoadDublin [place] [id number] Lymphocytes/100 WBC (Bld) 22 % Normal [facility] Work Phone: Comment on above: PATIENT WAS FASTINGP ERFORMED BY: [facility] Qtmniy9744 [address] RoadDublin [place] [id number] MCH (RBC) [Entitic mass] 32.5 pg Normal 26.6-33.0 [facility] Work Phone: Comment on above: PATIENT WAS FASTINGP ERFORMED BY: [facility] Qrdyin9916 [address] RoadDublin [place] [id number] MCHC (RBC) [Mass/Vol] 33.3 g/dL Normal 31.5-35.7 [facility] Work Phone: Comment on above: PATIENT WAS FASTINGP ERFORMED BY: DANIA [facility] Sqdxej8947 [address] RoadDublin [place] [id number] MCV (RBC) [Entitic vol] 98 fL Abnormal 79-97 [facility] Work Phone: Comment on above: PATIENT WAS FASTINGP ERFORMED BY: [facility] Qzcudn1038 [address] RoadDublin [place] [id number] Monocytes (Bld) [#/Vol] 0.6 {x10E3/uL} Normal 0.1-0.9 [facility] Work Phone: Comment on above: PATIENT WAS FASTINGP ERFORMED BY: [facility] Uqrthx3658 [address] RoadDublin [place] [id number] Monocytes (Bld) [#/Vol] 0.6 10*3/uL Normal 0.1-0.9 [facility]; [facility] Work Phone: Comment on above: PATIENT WAS FASTINGP ERFORMED BY: [facility] Lgblru5489 [address]arez RoadDublin [place] [id number] Monocytes/100 WBC (Bld) 8 % Normal [facility] Work Phone: Comment on above: PATIENT WAS FASTINGP ERFORMED BY: [facility] Fzlhkl0633 [address] RoadDublin [place] [id number] Neutrophils (Bld) [#/Vol] 5.1 {x10E3/uL} Normal 1.4-7.0 [facility] Work Phone: Comment on above: PATIENT WAS FASTINGP ERFORMED BY: [facility] Iyznxl3957 [address] RoadDublin [place] [id number] Neutrophils (Bld) [#/Vol] 5.1 10*3/uL Normal 1.4-7.0 [facility]; [facility] Work Phone: Comment on above: PATIENT WAS FASTINGP ERFORMED BY: [facility] Ogocgj8039 [address] RoadDublin [place] [id number] Neutrophils/100 WBC (Bld) 69 % Normal [facility] Work Phone: Comment on above: PATIENT WAS FASTINGP ERFORMED BY: DANIA LabCobryant YipPnlgde0740 [address] [place] [id number] Platelets (Bld) [#/Vol] 383 {x10E3/uL} Abnormal 150-379 [facility] Work Phone: Comment on above: PATIENT WAS FASTINGP ERFORMED BY: CB LabCo Fvodyr5780 [address] [facility]in [place] [id number] Platelets (Bld) [#/Vol] 383 10*3/uL Abnormal 150-379 [facility]; [facility] Work Phone: Comment on above: PATIENT WAS FASTINGP ERFORMED BY: DANIA LabRobi Jchavs7541 [facility] [place] [id number] RBC (Bld) [#/Vol] 4.19 {x10E6/uL} Normal 3.77-5.28 [facility] Internal Medicine Work Phone: Comment on above: PATIENT WAS FASTINGP ERFORMED BY: DANIA [facility] Iotwer9112 [facility] [id number] RBC (Bld) [#/Vol] 4.19 10*6/uL Normal 3.77-5.[address] [facility] Internal Medicine; [facility] Work Phone: Comment on above: PATIENT WAS FASTINGP ERFORMED BY: [facility] Cndiqq5846 [facility] [id number] WBC (Bld) [#/Vol] 7.4 {x10E3/uL} Normal 3.4-10.8 [facility] Internal Medicine Work Phone: Comment on above: PATIENT WAS FASTINGP ERFORMED BY: LabCo Aqxhmd6379 [address] [facility]in [place] [id number] WBC (Bld) [#/Vol] 7.4 10*3/uL Normal 3.4-10.8 [facility] Internal Medicine; [facility] Work Phone: Comment on above: PATIENT WAS FASTINGP ERFORMED BY: DANIA [facility] Ezqxti2402 [address]arez RoadDublin [place] [id number] LIPID PANEL ([id number])Ordered B y: Shopfitter on 02-27-2018 Cholesterol [Mass/Vol] 162 mg/dL Normal 100-199 [facility] Work Phone: Comment on above: PATIENT WAS FASTINGP ERFORMED BY: DANIA LabDerrell AnEnhaho2137 [address]arez RoadDublin [place] [id number] Cholesterol in HDL [Mass/Vol] 62 mg/dL Normal [facility] Work Phone: Comment on above: PATIENT WAS FASTINGP ERFORMED BY: DANIA LabCobryant Czncpv5612 [address] RoadDublin [place] [id number] Cholesterol in LDL [Mass/Vol] 83 mg/dL Normal 0-99 [facility] Work Phone: Comment on above: PATIENT WAS FASTINGP ERFORMED BY: DANIA LabDerrell AnOzqmjk6212 [address] L2CMaria Parham Healthin [place] [id number] Cholesterol in LDL/Cholesterol in HDL [Mass ratio] 1.3 {ratio} Normal 0.0-3.2 [facility] Work Phone: Comment on above: LDL/HDL Ratio Men Wo men 1/2 Avg.Risk 1.0 1.5 Avg.Risk 3.6 3.2 2X Avg.Risk 6.2 5.0 3X Avg.Risk 8.0 6.1 PATIENT WAS FASTINGP ERFORMED BY: DANIA LabCobryant Xuqryq3813 [address] L2CC[facility] [id number] Cholesterol in VLDL [Mass/Vol] 17 mg/dL Normal 5-40 [facility] Work Phone: Comment on above: PATIENT WAS FASTINGP ERFORMED BY: DANIA LabCobryant Srdjmn6506 [address]arez RoadDublin [place] [id number] Triglyceride [Mass/Vol] 85 mg/dL Normal 0-149 [facility] Work Phone: Comment on above: PATIENT WAS FASTINGP ERFORMED BY: DANIA [facility] Dgbjom7471 Suarez RoadDublin [place] [id number] Metabolic Panel, Comprehensi ve ([id number])Ordered By: Shopfitter on 02-27-2018 Albumin [Mass/Vol] 4.2 g/dL Normal 3.5-5.5 [facility] Internal Medicine Work Phone: Comment on above: PATIENT WAS FASTINGP ERFORMED BY: CB [facility] Fzmkcn7290 [address]arez RoadDublin [place] [id number] Albumin/Globulin [Mass ratio] 1.5 {ratio} Normal 1.2-2.2 [facility] Work Phone: Comment on above: PATIENT WAS FASTINGP ERFORMED BY: CB [facility] Rftmwf8105 [address] RoadDublin [place] [id number] ALP [Catalytic activity/Vol] 79 [iU]/L Normal 39-117 [facility] Work Phone: Comment on above: PATIENT WAS FASTINGP ERFORMED BY: CB [facility] Xgeeqs6781 [address] RoadDublin [place] [id number] ALP [Catalytic activity/Vol] 79 U/L Normal 39-117 [facility]; [facility] Work Phone: Comment on above: PATIENT WAS FASTINGP ERFORMED BY: CB [facility] Ajdztu0681 [address] RoadDublin [place] [id number] ALT [Catalytic activity/Vol] 19 [iU]/L Normal 0-32 [facility] Work Phone: Comment on above: PATIENT WAS FASTINGP ERFORMED BY: CB [facility] Qrbgyh6900 [address] RoadDublin [place] [id number] ALT [Catalytic activity/Vol] 19 U/L Normal 0-32 [facility]; [facility] Work Phone: Comment on above: PATIENT WAS FASTINGP ERFORMED BY: CB [facility] Wkqkbz3101 [address] RoadDublin [place] [id number] AST [Catalytic activity/Vol] 13 [iU]/L Normal 0-40 [facility] Work Phone: Comment on above: PATIENT WAS FASTINGP ERFORMED BY: CB [facility] Lmqgty1249 [address] RoadDublin [place] [id number] AST [Catalytic activity/Vol] 13 U/L Normal 0-40 [facility]; [facility] Work Phone: Comment on above: PATIENT WAS FASTINGP ERFORMED BY: CB [facility] Ccmbkm4272 [address] RoadDublin [place] [id number] Bilirubin [Mass/Vol] 0.3 mg/dL Normal 0.0-1.2 [facility] Internal Medicine Work Phone: Comment on above: PATIENT WAS FASTINGP ERFORMED BY: CB [facility] Thiboe6448 [address] RoadDublin [place] [id number] Calcium [Mass/Vol] 9.0 mg/dL Normal 8.7-10.2 [facility] Internal Medicine Work Phone: Comment on above: PATIENT WAS FASTINGP ERFORMED BY: CB [facility] Kejniv1473 [address] RoadDublin [place] [id number] Chloride [Moles/Vol] 100 mmol/L Normal 96-106 [facility] Internal Medicine Work Phone: Comment on above: PATIENT WAS FASTINGP ERFORMED BY: [facility] Jikyqd2390 [address] RoadDublin [place] [id number] CO2 [Moles/Vol] 24 mmol/L Normal 20-29 [facility] Internal Medicine Work Phone: Comment on above: PATIENT WAS FASTINGP ERFORMED BY: [facility] Pgmssx7122 [address] RoadDublin [place] [id number] Creatinine [Mass/Vol] 0.66 mg/dL Normal 0.57-1.00 [facility] Internal Medicine Work Phone: Comment on above: PATIENT WAS FASTINGP ERFORMED BY: CB [facility] Zlznij8569 [address] RoadDublin [place] [id number] GFR/1.73 sq M predicted among blacks CKD-EPI (S/P/Bld) [Vol rate/Area] 119 mL/min/1.73 Normal [facility] Work Phone: Comment on above: PATIENT WAS FASTINGP ERFORMED BY: CB [facility] Vrwwvl4966 [address] RoadDublin [place] [id number] GFR/1.73 sq M predicted among non-blacks CKD-EPI (S/P/Bld) [Vol rate/Area] 103 mL/min/1.73 Normal [facility] Work Phone: Comment on above: PATIENT WAS FASTINGP ERFORMED BY: CB [facility] Zscmyp8218 [address] RoadDublin [place] [id number] Globulin (S) [Mass/Vol] 2.8 g/dL Normal 1.5-4.5 [facility] Work Phone: Comment on above: PATIENT WAS FASTINGP ERFORMED BY: CB [facility] Cqmzwn9873 [address] RoadDublin [place] [id number] Glucose [Mass/Vol] 89 mg/dL Normal 65-99 [facility] Internal Medicine Work Phone: Comment on above: PATIENT WAS FASTINGP ERFORMED BY: [facility] Ngnexq8345 [address]arez RoadDublin [place] [id number] Potassium [Moles/Vol] 4.5 mmol/L Normal 3.5-5.2 [facility] Work Phone: Comment on above: PATIENT WAS FASTINGP ERFORMED BY: LabCo Dhdmsp7253 [address] RoadDublin [place] [id number] Protein [Mass/Vol] 7.0 g/dL Normal 6.0-8.5 [facility] Internal Medicine Work Phone: Comment on above: PATIENT WAS FASTINGP ERFORMED BY: [facility] Jpmshm7046 [address] RoadDublin [place] [id number] Sodium [Moles/Vol] 139 mmol/L Normal 134-144 [facility] Internal Medicine Work Phone: Comment on above: PATIENT WAS FASTINGP ERFORMED BY: [facility] Afrrok6001 [address]ae[address] RoadDublin [place] [id number] Urea nitrogen [Mass/Vol] 11 mg/dL Normal 6-24 [facility] Work Phone: Comment on above: PATIENT WAS FASTINGP ERFORMED BY: CB [facility] Vkhmuh7228 [address] RoadDublin [place] [id number] Urea nitrogen/Creatinine [Mass ratio] 17 mg/mg Normal 9-23 [facility] Work Phone: Comment on above: PATIENT WAS FASTINGP ERFORMED BY: CB [facility] Ujxfdv6222 [address] L2Cblin [place] [id number] TSH (THYROID STIMULATING HOR NAKUL) ([id number])Ordered By: Shopfitter on 02-27-2018 TSH Qn 0.838 {uIU/mL} Normal 0.450-4.50 0 [facility] Work Phone: Comment on above: PATIENT WAS FASTINGP ERFORMED BY: CB [facility] Pjoufx8381 [address] L2Cblin [place] [id number] JERICHO CULTURE-OTHER ([id number])Ord ered By: Shopfitter on 09-09-2016 Bacteria identified Respiratory culture Nom (Unsp spec) RRF Normal [facility] Work Phone: Comment on above: Routine respiratory hay PATIENT NOT FASTINGP ERFORMED BY: CB [facility] Rebzja2032 [address] Man [facility] [id number] Information: SRC:TH Bacteria identified Respiratory culture Nom (Unsp spec) Final report Normal [facility] Work Phone: Comment on above: PATIENT NOT FASTINGP ERFORMED BY: CB [facility] Qiexml7162 [address] [facility] [id number] Information: SRC:TH Rapid Strep Test, Office ([phone])Ordered By: Trista Herman on 09-09-2016 S. pyogenes Ag EIA Ql (Throat) Negative Normal [facility]; [facility] Work Phone: S. pyogenes Ag IA Ql (Unsp spec) Negative Normal [facility] Work Phone: CALCIFEDIOL ([id number])Ordered B y: Shopfitter on 2016 25-Hydroxyvitamin D2+25-Hydroxyvitami n D3 [Mass/Vol] 43.2 ng/mL Normal 30.0-100.0 [facility] Work Phone: Comment on above: Vitamin D deficiency has been defined by the [place] [employer] and an Endocrine Society practice guideline as alevel of serum 25-OH vitamin D less than 20 ng/mL (1,2).The Endocrine Society went on to further define vitamin Dinsufficiency as a level between 21 and 29 ng/mL (2).1. IOM ([place] [employer]). 2010. Dietary reference intakes for calcium and D. [place]: The National Academies Press.2. Yuridia MF, Wendy ADAME, Jose Cruz DESHPANDE, et al. Evaluation, treatment, and prevention of vitamin D deficiency: an Endocrine Society clinical practice guideline. JCEM. 2010; 96(7):1911-30. PATIENT WAS FASTINGP ERFORMED BY: LabCo Nordio2214 [address] [facility] [place] [id number] CBC, Platelets & Auto Diff ( [id number])Ordered By: Shopfitter on 2016 Basophils (Bld) [#/Vol] 0.0 {x10E3/uL} Normal 0.0-0.2 [facility] Work Phone: Comment on above: PATIENT WAS FASTINGP ERFORMED BY: [facility] Qyiimo1832 [address] [facility]bl[facility] [place] [id number] Basophils (Bld) [#/Vol] 0.0 10*3/uL Normal 0.0-0.2 [facility]; [facility] Work Phone: Comment on above: PATIENT WAS FASTINGP ERFORMED BY: [facility] Dgyeoa7337 [address] [facility]bl[facility] [place] [id number] Basophils/100 WBC (Bld) 1 % Normal [facility] Work Phone: Comment on above: PATIENT WAS FASTINGP ERFORMED BY: LabCo Ylpbmd6689 [address] [facility] [place] [id number] Eosinophils (Bld) [#/Vol] 0.1 {x10E3/uL} Normal 0.0-0.4 [facility] Work Phone: Comment on above: PATIENT WAS FASTINGP ERFORMED BY: [facility] Sajzdb7087 [address] [place] [facility] [place] [id number] Eosinophils (Bld) [#/Vol] 0.1 10*3/uL Normal 0.0-0.4 [facility]; [facility] Work Phone: Comment on above: PATIENT WAS FASTINGP ERFORMED BY: [facility]6370 [address] [facility]in [place] [id number] Eosinophils/100 WBC (Bld) 1 % Normal [facility] Work Phone: Comment on above: PATIENT WAS FASTINGP ERFORMED BY: [facility]6370 [facility] [id number] Erythrocyte distribution width (RBC) [Ratio] 13.3 % Normal 12.3-15.4 [facility] Work Phone: Comment on above: PATIENT WAS FASTINGP ERFORMED BY: [facility]6370 [address] [facility] [id number] Hematocrit (Bld) [Volume fraction] 42.7 % Normal 34.0-46.6 [facility] Work Phone: Comment on above: PATIENT WAS FASTINGP ERFORMED BY: [place] [id number] [address] [facility] [id number] Hemoglobin (Bld) [Mass/Vol] 13.8 g/dL Normal 11.1-15.9 [facility] Work Phone: Comment on above: PATIENT WAS FASTINGP ERFORMED BY: [facility]6370 [address] [facility] [id number] Immature granulocytes (Bld) [#/Vol] 0.0 {x10E3/uL} Normal 0.0-0.1 [facility] Work Phone: Comment on above: PATIENT WAS FASTINGP ERFORMED BY: [facility] Udvvdw0579 [address] [facility]in [place] [id number] Immature granulocytes (Bld) [#/Vol] 0.0 10*3/uL Normal 0.0-0.1 [facility]; [facility] Work Phone: Comment on above: PATIENT WAS FASTINGP ERFORMED BY: [facility]6370 [address] [facility] [place] [id number] Immature granulocytes/100 WBC (Bld) 0 % Normal [facility] Work Phone: Comment on above: PATIENT WAS FASTINGP ERFORMED BY: DANIA [facility] Qutlth7188 [facility] [id number] Lymphocytes (Bld) [#/Vol] 1.4 {x10E3/uL} Normal 0.7-3.1 [facility] Work Phone: Comment on above: PATIENT WAS FASTINGP ERFORMED BY: DANIA [place] [id number] [facility] [id number] Lymphocytes (Bld) [#/Vol] 1.4 10*3/uL Normal 0.7-3.1 [facility]; [facility] Work Phone: Comment on above: PATIENT WAS FASTINGP ERFORMED BY: DANIA SunshineMibryant AnAckkve7680 [facility] [id number] Lymphocytes/100 WBC (Bld) 21 % Normal [facility] Work Phone: Comment on above: PATIENT WAS FASTINGP ERFORMED BY: DANIA SunshineMet[facility] Whyvqm8927 [facility] [id number] MCH (RBC) [Entitic mass] 31.9 pg Normal 26.6-33.0 [facility] Work Phone: Comment on above: PATIENT WAS FASTINGP ERFORMED BY: DANIA [facility]6370 [facility] [id number] MCHC (RBC) [Mass/Vol] 32.3 g/dL Normal 31.5-35.7 [facility] Work Phone: Comment on above: PATIENT WAS FASTINGP ERFORMED BY: DANIA [place] 1743770 [facility] [id number] MCV (RBC) [Entitic vol] 99 fL Abnormal 79-97 [facility] Work Phone: Comment on above: PATIENT WAS FASTINGP ERFORMED BY: DANIA [facility] Wxcppl3555 [facility] [id number] Monocytes (Bld) [#/Vol] 0.4 {x10E3/uL} Normal 0.1-0.9 [facility] Work Phone: Comment on above: PATIENT WAS FASTINGP ERFORMED BY: DANIA Yip6370 [address] RoadDublin [place] [id number] Monocytes (Bld) [#/Vol] 0.4 10*3/uL Normal 0.1-0.9 [facility]; [facility] Work Phone: Comment on above: PATIENT WAS FASTINGP ERFORMED BY: DANIA [place] Bwlqnd0643 [address]arez RoadDublin [place] [id number] Monocytes/100 WBC (Bld) 7 % Normal [facility] Work Phone: Comment on above: PATIENT WAS FASTINGP ERFORMED BY: DANIA LabRobi Aowmda8435 [address] RoadDublin [place] [id number] Neutrophils (Bld) [#/Vol] 4.5 {x10E3/uL} Normal 1.4-7.0 [facility] Work Phone: Comment on above: PATIENT WAS FASTINGP ERFORMED BY: DANIA Yip6370 [address] RoadDublin [place] [id number] Neutrophils (Bld) [#/Vol] 4.5 10*3/uL Normal 1.4-7.0 [facility]; [facility] Work Phone: Comment on above: PATIENT WAS FASTINGP ERFORMED BY: DANIA Anlin6370 [address] RoadDublin [place] [id number] Neutrophils/100 WBC (Bld) 70 % Normal [facility] Work Phone: Comment on above: PATIENT WAS FASTINGP ERFORMED BY: Mike Anlin6370 [address] RoadDublin [place] [id number] Platelets (Bld) [#/Vol] 376 {x10E3/uL} Normal 150-379 [facility] Work Phone: Comment on above: PATIENT WAS FASTINGP ERFORMED BY: DANIA LabDerrell AnPcrdih2511 [address] RoadDublin [place] [id number] Platelets (Bld) [#/Vol] 376 10*3/uL Normal 150-379 [facility]; [facility] Work Phone: Comment on above: PATIENT WAS FASTINGP ERFORMED BY: DANIA [facility] Invibi6421 [address] RoadDublin [place] [id number] RBC (Bld) [#/Vol] 4.33 {x10E6/uL} Normal 3.77-5.28 [facility] Internal Medicine Work Phone: Comment on above: PATIENT WAS FASTINGP ERFORMED BY: CB [facility] Pmswps2120 [address] RoadDublin [place] [id number] RBC (Bld) [#/Vol] 4.33 10*6/uL Normal 3.77-5.[address] [facility] Internal Medicine; [facility] Work Phone: Comment on above: PATIENT WAS FASTINGP ERFORMED BY: CB [facility] Ommzlt2403 [address] RoadDublin [place] [id number] WBC (Bld) [#/Vol] 6.4 {x10E3/uL} Normal 3.4-10.8 [facility] Internal Medicine Work Phone: Comment on above: PATIENT WAS FASTINGP ERFORMED BY: CB [facility] Ygnkqu2047 [address] RoadDublin [place] [id number] WBC (Bld) [#/Vol] 6.4 10*3/uL Normal 3.4-10.8 [facility] Internal [facility]; [facility] Work Phone: Comment on above: PATIENT WAS FASTINGP ERFORMED BY: DANIA [facility] Mayxms1771 [address] RoadDublin [place] [id number] LIPID PANEL ([id number])Ordered B y: Shopfitter on 2016 Cholesterol [Mass/Vol] 200 mg/dL Abnormal 100-199 [facility] Work Phone: Comment on above: PATIENT WAS FASTINGP ERFORMED BY: CB [facility] Lcbgrq8230 [address] RoadDublin [place] [id number] Cholesterol in HDL [Mass/Vol] 76 mg/dL Normal [facility] Work Phone: Comment on above: PATIENT WAS FASTINGP ERFORMED BY: CB [facility] Nwegnr8237 [address] RoadDublin [place] [id number] Cholesterol in LDL [Mass/Vol] 105 mg/dL Abnormal 0-99 [facility] Work Phone: Comment on above: PATIENT WAS FASTINGP ERFORMED BY: DANIA LabDerrell AnSylabz1652 [facility] [id number] Cholesterol in LDL/Cholesterol in HDL [Mass ratio] 1.4 {ratio_units} Normal 0.0-3.2 [facility] Work Phone: Comment on above: LDL/HDL Ratio Men Wo men 1/2 Avg.Risk 1.0 1.5 Avg.Risk 3.6 3.2 2X Avg.Risk 6.2 5.0 3X Avg.Risk 8.0 6.1 PATIENT WAS FASTINGP ERFORMED BY: DANIA Anlin6370 [facility] [id number] Cholesterol in VLDL [Mass/Vol] 19 mg/dL Normal 5-40 [facility] Work Phone: Comment on above: PATIENT WAS FASTINGP ERFORMED BY: DANIA LabDerrell AnEzpnfn9773 [facility] [id number] Triglyceride [Mass/Vol] 96 mg/dL Normal 0-149 [facility] Work Phone: Comment on above: PATIENT WAS FASTINGP ERFORMED BY: DANIA Anlin6370 [facility] [id number] Metabolic Panel, Comprehensi ve ([id number])Ordered By: Shopfitter on 2016 Albumin [Mass/Vol] 4.3 g/dL Normal 3.5-5.5 [facility] Internal Medicine Work Phone: Comment on above: PATIENT WAS FASTINGP ERFORMED BY: DANIA LabDerrell Pffsrh7683 [facility] [id number]; ov 09/09 Albumin/Globulin [Mass ratio] 1.4 {ratio} Normal 1.1-2.5 [facility] Work Phone: Comment on above: Effective September the reference interval for A/G Ratio will be changing to: Age Male Female 0 - 7 days 1.1 - 2.3 1.1 - 2.3 8 - 30 days 1.2 - 2.8 1.2 - 2.8 1 - 6 months 1.3 - 3.6 1.3 - 3.6 7 months - 5 years 1.5 - 2.6 1.5 - 2.6 > 5 years 1.2 - 2.2 1.2 - 2.2 PATIENT WAS FASTINGP ERFORMED BY: CB [facility] Zsxrsk7182 [address] RoadDublin [place] [id number]; ov 2 ALP [Catalytic activity/Vol] 103 [iU]/L Normal 39-117 [facility] Work Phone: Comment on above: PATIENT WAS FASTINGP ERFORMED BY: CB [facility] Klfece4591 [address]arez RoadDublin [place] [id number]; ov 2 ALP [Catalytic activity/Vol] 103 U/L Normal 39-117 [facility]; [facility] Work Phone: Comment on above: PATIENT WAS FASTINGP ERFORMED BY: CB [facility] Gwxiaq4879 [address] RoadDublin [place] [id number]; ov 2 ALT [Catalytic activity/Vol] 23 [iU]/L Normal 0-32 [facility] Work Phone: Comment on above: PATIENT WAS FASTINGP ERFORMED BY: CB [facility] Tgxqez3541 [address] RoadDublin [place] [id number]; ov 2 ALT [Catalytic activity/Vol] 23 U/L Normal 0-32 [facility]; [facility] Work Phone: Comment on above: PATIENT WAS FASTINGP ERFORMED BY: CB [facility] Fdllqq4883 [address] RoadDublin [place] [id number]; ov 2 AST [Catalytic activity/Vol] 16 [iU]/L Normal 0-40 [facility] Work Phone: Comment on above: PATIENT WAS FASTINGP ERFORMED BY: CB [facility] Pilzst0265 [address] RoadDublin [place] [id number]; ov 2 AST [Catalytic activity/Vol] 16 U/L Normal 0-40 [facility]; [facility] Work Phone: Comment on above: PATIENT WAS FASTINGP ERFORMED BY: CB [facility] Bmqeob8107 [address] RoadDublin [place] [id number]; ov 2 Bilirubin [Mass/Vol] 0.3 mg/dL Normal 0.0-1.2 [facility] Work Phone: Comment on above: PATIENT WAS FASTINGP ERFORMED BY: CB [facility] Ftziig9639 [address] RoadDublin [place] [id number]; ov 2 Calcium [Mass/Vol] 9.2 mg/dL Normal 8.7-10.2 [facility] Internal Medicine Work Phone: Comment on above: PATIENT WAS FASTINGP ERFORMED BY: CB [facility] Ihdqok9635 [address] RoadDublin [place] [id number]; ov 2 Chloride [Moles/Vol] 100 mmol/L Normal 96-106 [facility] Work Phone: Comment on above: PATIENT WAS FASTINGP ERFORMED BY: CB [facility] Voqgcl3115 [address] RoadDublin [place] [id number]; ov 2/ CO2 [Moles/Vol] 24 mmol/L Normal 18-29 [facility] Internal Medicine Work Phone: Comment on above: PATIENT WAS FASTINGP ERFORMED BY: CB [facility] Hxuqul7701 [address] RoadDublin [place] [id number]; ov 2 Creatinine [Mass/Vol] 0.66 mg/dL Normal 0.57-1.00 [facility] Work Phone: Comment on above: PATIENT WAS FASTINGP ERFORMED BY: CB [facility] Ktcprq3902 [address] RoadDublin [place] [id number]; ov 2/ GFR/1.73 sq M predicted among blacks CKD-EPI (S/P/Bld) [Vol rate/Area] 120 mL/min/1.73 Normal [facility] Work Phone: Comment on above: PATIENT WAS FASTINGP ERFORMED BY: CB [facility] Yfhkpe8453 [address] RoadDublin [place] [id number]; ov 2 GFR/1.73 sq M predicted among non-blacks CKD-EPI (S/P/Bld) [Vol rate/Area] 104 mL/min/1.73 Normal [facility] Work Phone: Comment on above: PATIENT WAS FASTINGP ERFORMED BY: CB [facility] Rkplec5513 [address] RoadDublin [place] [id number]; ov 2/27 Globulin (S) [Mass/Vol] 3.1 g/dL Normal 1.5-4.5 [facility] Work Phone: Comment on above: PATIENT WAS FASTINGP ERFORMED BY: CB [facility] Exomia3585 [address] RoadDublin [place] [id number]; ov 2/27 Glucose [Mass/Vol] 89 mg/dL Normal 65-99 [facility] Internal Medicine Work Phone: Comment on above: PATIENT WAS FASTINGP ERFORMED BY: CB [facility] Quciym7683 [address] RoadDublin [place] [id number]; ov 2/ Potassium [Moles/Vol] 4.3 mmol/L Normal 3.5-5.2 [facility] Work Phone: Comment on above: PATIENT WAS FASTINGP ERFORMED BY: CB [facility] Iemxqx8670 [address] RoadDublin [place] [id number]; ov 2/27 Protein [Mass/Vol] 7.4 g/dL Normal 6.0-8.5 [facility] Internal Medicine Work Phone: Comment on above: PATIENT WAS FASTINGP ERFORMED BY: CB [facility] Wlfgeg6147 [address] RoadDublin [place] [id number]; ov 2/27 Sodium [Moles/Vol] 141 mmol/L Normal 134-144 [facility] Internal Medicine Work Phone: Comment on above: PATIENT WAS FASTINGP ERFORMED BY: CB [facility] Emyfvv1524 Suarez RoadDublin [place] [id number]; ov 2/27 Urea nitrogen [Mass/Vol] 16 mg/dL Normal 6-24 [facility] Work Phone: Comment on above: PATIENT WAS FASTINGP ERFORMED BY: CB [facility] Edzhec6[address] Roadblin [place] [id number]; ov 09/09 Urea nitrogen/Creatinine [Mass ratio] 24 mg/mg Abnormal 9- [facility] Work Phone: Comment on above: PATIENT WAS FASTINGP ERFORMED BY: [facility] Hfbdnr4476 Suarez RoadDublin [place] [id number]; ov 09/09 TSH (THYROID STIMULATING HOR NAKUL) ([id number])Ordered By: Shopfitter on 2016 TSH Qn 0.576 {uIU/mL} Normal 0.450-4.50 0 [facility] Work Phone: Comment on above: PATIENT WAS FASTINGP ERFORMED BY: [facility] Lebmzs55[address] RoadDublin [place] [id number] CALCIFIDIOL (73633) VIT D 25 Ordered By: Shopfitter on 08-29-2015 25-Hydroxyvitamin D2+25-Hydroxyvitami n D3 [Mass/Vol] 58.1 ng/mL Normal 30.0-100.0 [facility] Work Phone: Comment on above: Vitamin D deficiency has been defined by the [facility] and an Endocrine Society practice guideline as alevel of serum 25-OH vitamin D less than 20 ng/mL (1,2).The Endocrine Society went on to further define vitamin Dinsufficiency as a level between 21 and 29 ng/mL (2).1. IOM ([place] of Medicine). 2010. Dietary reference intakes for calcium and D. [place]: The National Academies Press.2. Yuridia MF, Wendy NC, Jose Cruz DESHPANDE, et al. Evaluation, treatment, and prevention of vitamin D deficiency: an Endocrine Society clinical practice guideline. JCEM. 2010; 96(7):1911-30. PATIENT WAS FASTINGP ERFORMED BY: [facility] Zexuec65[address] RoadDublin [place] [id number] LIPID PANEL ([id number])Ordered B y: Shopfitter on 08-29-2015 Cholesterol [Mass/Vol] 176 mg/dL Normal 100-199 [facility] Work Phone: Comment on above: PATIENT WAS FASTINGP ERFORMED BY: DANIA Anlin6370 [facility] [id number] Cholesterol in HDL [Mass/Vol] 71 mg/dL Normal [facility] Work Phone: Comment on above: According to ATP-III Guidelines, HDL-C >59 mg/dL is considered anegative risk factor for CHD. PATIENT WAS FASTINGP ERFORMED BY: DANIA Anlin6370 [facility] [id number] Cholesterol in LDL [Mass/Vol] 90 mg/dL Normal 0-99 [facility] Work Phone: Comment on above: PATIENT WAS FASTINGP ERFORMED BY: DANIA Yip6370 [facility] [id number] Cholesterol in LDL/Cholesterol in HDL [Mass ratio] 1.3 {ratio_units} Normal 0.0-3.2 [facility] Work Phone: Comment on above: LDL/HDL Ratio Men Wo men 1/2 Avg.Risk 1.0 1.5 Avg.Risk 3.6 3.2 2X Avg.Risk 6.2 5.0 3X Avg.Risk 8.0 6.1 PATIENT WAS FASTINGP ERFORMED BY: DANIA Anlin6370 [facility] [id number] Cholesterol in VLDL [Mass/Vol] 15 mg/dL Normal 5-40 [facility] Work Phone: Comment on above: PATIENT WAS FASTINGP ERFORMED BY: DANIA Anlin6370 [facility] [id number] Triglyceride [Mass/Vol] 73 mg/dL Normal 0-149 [facility] Work Phone: Comment on above: PATIENT WAS FASTINGP ERFORMED BY: DANIA Anlin6370 [facility] [id number] Renal function Panel (75393) Ordered By: Shopfitter on 08-29-2015 Albumin [Mass/Vol] 4.3 g/dL Normal 3.5-5.5 [facility] Internal Medicine Work Phone: Comment on above: PATIENT WAS FASTINGP ERFORMED BY: DANIA Anlin[address] [facility] [id number] Information: [id number] Calcium [Mass/Vol] 8.9 mg/dL Normal 8.7-10.2 [facility] Internal Medicine Work Phone: Comment on above: PATIENT WAS FASTINGP ERFORMED BY: [facility] Fjukqa[address] [facility] [id number] Information: [id number] Chloride [Moles/Vol] 101 mmol/L Normal 97-108 [facility] Work Phone: Comment on above: PATIENT WAS FASTINGP ERFORMED BY: [facility] Zzrviy1027 [facility] [id number] Information: [id number] CO2 [Moles/Vol] 22 mmol/L Normal 18-29 [facility] Internal Medicine Work Phone: Comment on above: PATIENT WAS FASTINGP ERFORMED BY: [facility] Nhtzdr6119 [facility] [id number] Information: [id number] Creatinine [Mass/Vol] 0.64 mg/dL Normal 0.57-1.00 [facility] Work Phone: Comment on above: PATIENT WAS FASTINGP ERFORMED BY: [facility] Qgxato9311 [facility] [id number] Information: [id number] GFR/1.73 sq M predicted among blacks CKD-EPI (S/P/Bld) [Vol rate/Area] 122 mL/min/1.73 Normal [facility] Work Phone: Comment on above: PATIENT WAS FASTINGP ERFORMED BY: [facility] Lizytb6101 [facility] [id number] Information: [id number] GFR/1.73 sq M predicted among non-blacks CKD-EPI (S/P/Bld) [Vol rate/Area] 106 mL/min/1.73 Normal [facility] Work Phone: Comment on above: PATIENT WAS FASTINGP ERFORMED BY: DANIA [facility] Aiilnh[address] [facility]in [place] [id number] Information: [id number] Glucose [Mass/Vol] 90 mg/dL Normal 65-99 [facility] Internal Medicine Work Phone: Comment on above: PATIENT WAS FASTINGP ERFORMED BY: [facility] Awbnwa2857 [address] [facility] [id number] Information: [id number] Phosphate [Mass/Vol] 3.3 mg/dL Normal 2.5-4.5 [facility] Work Phone: Comment on above: PATIENT WAS FASTINGP ERFORMED BY: DANIA [facility] Lfsxqn4529 [address] [facility] [id number] Information: [id number] Potassium [Moles/Vol] 4.2 mmol/L Normal 3.5-5.2 [facility] Work Phone: Comment on above: PATIENT WAS FASTINGP ERFORMED BY: [facility] Lnshnj1623 [facility] [id number] Information: [id number] Sodium [Moles/Vol] 141 mmol/L Normal 134-144 [facility] Internal Medicine Work Phone: Comment on above: PATIENT WAS FASTINGP ERFORMED BY: [facility] Dywmxk0[address] [facility] [id number] Information: [id number] Urea nitrogen [Mass/Vol] 15 mg/dL Normal 6-24 [facility] Work Phone: Comment on above: PATIENT WAS FASTINGP ERFORMED BY: [facility] Zvxdvh4[address] [facility] [id number] Information: [id number] Urea nitrogen/Creatinine [Mass ratio] 23 mg/mg Normal 9-23 [facility] Work Phone: Comment on above: PATIENT WAS FASTINGP ERFORMED BY: [facility] Iuyfic6271 [facility] [id number] Information: [id number] Rapid Flu (27110 x 2)Ordered By: Karolina Dumont on 07-12-2014 FLUAV Ag IA Ql (Throat) Negative Normal [facility] Work Phone: FLUAV Ag IA Ql (Throat) Negative Normal [facility]; [facility] Work Phone: CALCIFIDIOL (40392) VIT D 25 Ordered By: Shopfitter on 07-30-2013 25-Hydroxyvitamin D2+25-Hydroxyvitami n D3 [Mass/Vol] 19.0 ng/mL Abnormal 30.0-100.0 [facility] Work Phone: Comment on above: Vitamin D deficiency has been defined by the [place] ofMedicine and an Endocrine Society practice guideline as alevel of serum 25-OH vitamin D less than 20 ng/mL (1,2).The Endocrine Society went on to further define vitamin Dinsufficiency as a level between 21 and 29 ng/mL (2).1. IOM ([place] of Medicine). 2010. Dietary reference intakes for calcium and D. [place]: The National Academies Press.2. Yuridia MF, Wendy NC, Cristina-Dre DESHPANDE, et al. Evaluation, treatment, and prevention of vitamin D deficiency: an Endocrine Society clinical practice guideline. JCEM. 2010; 96(7):1911-30. PATIENT NOT FASTINGP ERFORMED BY: [facility] Oncologylin6370 SuarezLeido TechnologyAtrium Health Cleveland [id number] BY: [employer] E-commerceEast Orange VA Medical CenterThyyfkghik4724 [facility] [id number] Information: [id number] LAMOTIGINE (LAMICTAL) [id number] (12269)Ordered By: Shopfitter on 07-30-2013 Lamotrigine [Mass/Vol] 4.1 ug/mL Normal 2.0-20.0 [facility] Work Phone: Comment on above: Detection Limit = 1. [address] gleason; PATIENT NOT FASTINGPERFORMED BY: ViViFilin6[address] L2CCone Health Wesley [facility] Hospital [id number] BY: Playcez Vrdgacdvmp7821 [facility] [id number] VITAMIN D, 1, 25-DIHYDROXY ( 57531)Ordered By: Shopfitter on 11-17-2012 Calcitriol [Mass/Vol] 71.6 pg/mL Normal 10.0-75.0 [facility] Work Phone: Comment on above: PATIENT NOT FASTINGP ERFORMED BY: Playcez Btscgrjqxi7041 [facility] [id number] Information: [id number] CALCIFIDIOL (44940) VIT D 25 Ordered By: Shopfitter on 09-18-2012 25-Hydroxyvitamin D2+25-Hydroxyvitami n D3 [Mass/Vol] 15.3 ng/mL Abnormal 30.0-100.0 [facility] Work Phone: Comment on above: Vitamin D deficiency has been defined by the [facility] and an Endocrine Society practice guideline as alevel of serum 25-OH vitamin D less than 20 ng/mL (1,2).The Endocrine Society went on to further define vitamin Dinsufficiency as a level between 21 and 29 ng/mL (2).1. IOM ([place] of Medicine). 2010. Dietary reference intakes for calcium and D. [place]: The National Academies Press.2. Yuridia MF, Wendy ADAME, Jose Cruz DESHPANDE, et al. Evaluation, treatment, and prevention of vitamin D deficiency: an Endocrine Society clinical practice guideline. JCEM. 2010; 96(7):1911-30. PATIENT WAS FASTINGP ERFORMED BY: ThirdSpaceLearning6370 [facility] [id number] Lipid Panel (82044)Ordered B y: Shopfitter on 09-18-2012 Cholesterol [Mass/Vol] 185 mg/dL Normal 100-199 [facility] Work Phone: Comment on above: PATIENT WAS FASTINGP ERFORMED BY: ThirdSpaceLearning6370 [facility] [id number] Cholesterol in HDL [Mass/Vol] 67 mg/dL Normal [facility] Work Phone: Comment on above: According to ATP-III Guidelines, HDL-C >59 mg/dL is considered anegative risk factor for CHD. PATIENT WAS FASTINGP ERFORMED BY: DANIA LabDerrell Yip6370 [facility] [id number] Cholesterol in LDL [Mass/Vol] 101 mg/dL Abnormal 0-99 [facility] Work Phone: Comment on above: PATIENT WAS FASTINGP ERFORMED BY: DANIA LabRobi Rgzdms7104 [facility] [id number] Cholesterol in LDL/Cholesterol in HDL [Mass ratio] 1.5 {ratio_units} Normal 0.0-3.2 [facility] Work Phone: Comment on above: PATIENT WAS FASTINGP ERFORMED BY: DANIA Anlin6370 [facility] [id number] Cholesterol in VLDL [Mass/Vol] 17 mg/dL Normal 5-40 [facility] Work Phone: Comment on above: PATIENT WAS FASTINGP ERFORMED BY: DANIA Florence Bccapg2268 [facility] [id number] Triglyceride [Mass/Vol] 87 mg/dL Normal 0-149 [facility] Work Phone: Comment on above: PATIENT WAS FASTINGP ERFORMED BY: DANIA Florence Bvejzl9206 [facility] [id number] Metabolic Panel, Comprehensi ve (07102)Ordered By: Shopfitter on 09-18-2012 Albumin [Mass/Vol] 4.2 g/dL Normal 3.5-5.5 [facility] Internal Medicine Work Phone: Comment on above: PATIENT WAS FASTINGP ERFORMED BY: [facility] Nqwrra6964 [facility] [id number] Information: [id number] Albumin/Globulin [Mass ratio] 1.6 {ratio} Normal 1.1-2.5 [facility] Work Phone: Comment on above: PATIENT WAS FASTINGP ERFORMED BY: [facility] Pedpdh1137 [facility] [id number] Information: [id number] ALP [Catalytic activity/Vol] 80 [iU]/L Normal 25-150 [facility] Work Phone: Comment on above: PATIENT WAS FASTINGP ERFORMED BY: DANIA LabCobryant YipWwszzo4913 [address] [facility] [id number] Information: [id number] ALP [Catalytic activity/Vol] 80 U/L Normal 25-150 [facility]; [facility] Work Phone: Comment on above: PATIENT WAS FASTINGP ERFORMED BY: LabCoJonathan Ville 65[address] [facility] [id number] Information: [id number] ALT [Catalytic activity/Vol] 16 [iU]/L Normal 0-32 [facility] Work Phone: Comment on above: PATIENT WAS FASTINGP ERFORMED BY: [place] 1011570 [facility] [id number] Information: [id number] ALT [Catalytic activity/Vol] 16 U/L Normal 0-32 [facility]; [facility] Work Phone: Comment on above: PATIENT WAS FASTINGP ERFORMED BY: LabCoSt. Lawrence Rehabilitation CenterBcefbi7902 [facility] [id number] Information: [id number] AST [Catalytic activity/Vol] 15 [iU]/L Normal 0-40 [facility] Work Phone: Comment on above: PATIENT WAS FASTINGP ERFORMED BY: [facility] Jslrym6086 [facility] [id number] Information: [id number] AST [Catalytic activity/Vol] 15 U/L Normal 0-40 [facility]; [facility] Work Phone: Comment on above: PATIENT WAS FASTINGP ERFORMED BY: [facility] Dzemec3843 [address] [facility] [id number] Information: [id number] Bilirubin [Mass/Vol] 0.5 mg/dL Normal 0.0-1.2 [facility] Work Phone: Comment on above: PATIENT WAS FASTINGP ERFORMED BY: DANIA [facility] Ggasrz3543 [address] [facility] [id number] Information: [id number] Calcium [Mass/Vol] 8.8 mg/dL Normal 8.7-10.2 [facility] Internal Medicine Work Phone: Comment on above: PATIENT WAS FASTINGP ERFORMED BY: [facility] Gkwsqx4087 [address] [facility] [id number] Information: [id number] Chloride [Moles/Vol] 101 mmol/L Normal 97-108 [facility] Internal Medicine Work Phone: Comment on above: PATIENT WAS FASTINGP ERFORMED BY: [facility] Iknxoc6819 [facility] [id number] Information: [id number] CO2 [Moles/Vol] 25 mmol/L Normal 20-32 [facility] Internal Medicine Work Phone: Comment on above: PATIENT WAS FASTINGP ERFORMED BY: [facility] Qazxrr4764 [facility] [id number] Information: [id number] Creatinine [Mass/Vol] 0.62 mg/dL Normal 0.57-1.00 [facility] Work Phone: Comment on above: PATIENT WAS FASTINGP ERFORMED BY: [facility] Cnbcyk8299 [facility] [id number] Information: [id number] GFR/1.73 sq M predicted among blacks CKD-EPI (S/P/Bld) [Vol rate/Area] 126 mL/min/1.73 Normal [facility] Work Phone: Comment on above: PATIENT WAS FASTINGP ERFORMED BY: [facility] Gkothd5226 [facility] [id number] Information: [id number] GFR/1.73 sq M predicted among non-blacks CKD-EPI (S/P/Bld) [Vol rate/Area] 109 mL/min/1.73 Normal [facility] Work Phone: Comment on above: PATIENT WAS FASTINGP ERFORMED BY: DANIA LabCoSt. Lawrence Rehabilitation CenterSrjvcv1246 [facility] [id number] Information: [id number] Globulin (S) [Mass/Vol] 2.7 g/dL Normal 1.5-4.5 [facility] Work Phone: Comment on above: PATIENT WAS FASTINGP ERFORMED BY: [facility]6370 [facility] [id number] Information: [id number] Glucose [Mass/Vol] 82 mg/dL Normal 65-99 [facility] Internal Medicine Work Phone: Comment on above: PATIENT WAS FASTINGP ERFORMED BY: [place] 1011570 [facility] [id number] Information: [id number] Potassium [Moles/Vol] 3.8 mmol/L Normal 3.5-5.2 [facility] Internal Medicine Work Phone: Comment on above: PATIENT WAS FASTINGP ERFORMED BY: [facility]6370 [facility] [id number] Information: [id number] Protein [Mass/Vol] 6.9 g/dL Normal 6.0-8.5 [facility] Internal Medicine Work Phone: Comment on above: PATIENT WAS FASTINGP ERFORMED BY: [facility]6370 [facility] [id number] Information: [id number] Sodium [Moles/Vol] 138 mmol/L Normal 134-144 [facility] Internal Medicine Work Phone: Comment on above: PATIENT WAS FASTINGP ERFORMED BY: [facility]6370 [facility] [id number] Information: [id number] Urea nitrogen [Mass/Vol] 11 mg/dL Normal 6-24 [facility] Work Phone: Comment on above: PATIENT WAS FASTINGP ERFORMED BY: DANIA [facility] Gjdgys6762 [facility] [id number] Information: [id number] Urea nitrogen/Creatinine [Mass ratio] 18 mg/mg Normal 9-23 [facility] Work Phone: Comment on above: PATIENT WAS FASTINGP ERFORMED BY: DANIA [facility] Pcjlqd5727 [facility] [id number] Information: [id number] TSH ([id number])Ordered By: Garry lao Raw Stock Drier Tender on 09-18-2012 TSH Qn 0.741 {uIU/mL} Normal 0.450-4.50 0 [facility] Work Phone: Comment on above: PATIENT WAS FASTINGP ERFORMED BY: DANIA [facility] Ivbhfu4088 [facility] [id number] Vital Signs Date Time Vital Sign Value Performing Clinician Facility 07-23-2024 14:50-0500 Reason For Taking VItal Signs ABDOUL KORPI DO [address] [place] [address] 07-23-2024 14:28-0500 Body temperature 98.42 [degF] ABDOUL KORPI DO [address] [place] [address] 07-23-2024 14:28-0500 Diastolic Blood Pressure Non-Invasive 71 mm[Hg] ABDOUL KORPI DO [address] [place] [address] 07-23-2024 14:28-0500 Heart rate 89 /min ABDOUL KORPI DO [address] [place] [address] 07-23-2024 14:28-0500 Reason For Taking VItal Signs ABDOUL KORPI DO [address] [place] [address] 07-23-2024 14:28-0500 Respiratory rate 18 /min ABDOUL KORPI DO [address] [place] [address] 07-23-2024 14:28-0500 Systolic Blood Pressure Non-Invasive 108 mm[Hg] ABDOUL KORPI DO [address] [place] [address] 07-23-2024 11:20-0500 Reason For Taking VItal Signs ABDOUL KORPI DO [address] [place] [address] 07-23-2024 07:09-0500 Body temperature 98.06 [degF] ABDOUL KORPI DO [address] [place] [address] 07-23-2024 07:09-0500 Diastolic Blood Pressure Non-Invasive 69 mm[Hg] ABDOUL KORPI DO [address] [place] [address] 07-23-2024 07:09-0500 Heart rate 97 /min ABDOUL KORPI DO [address] [place] [address] 07-23-2024 07:09-0500 Systolic Blood Pressure Non-Invasive 125 mm[Hg] ABDOUL KORPI DO [address] [place] [address] 07-22-2024 23:00-0500 Body temperature 98.24 [degF] ABDOUL KORPI DO [address] [place] [address] 07-22-2024 23:00-0500 Diastolic Blood Pressure Non-Invasive 71 mm[Hg] ABDOUL KORPI DO [address] [place] [address] 07-22-2024 23:00-0500 Heart rate 100 /min ABDOUL KORPI DO [address] [place] [address] 07-22-2024 23:00-0500 Systolic Blood Pressure Non-Invasive 111 mm[Hg] ABDOUL KORPI DO [address] [place] [address] 07-22-2024 16:56-0500 Body height 170.2 cm ABDOUL KORPI DO [address] [place] [address] 07-22-2024 16:56-0500 Body weight 83.9 kg ABDOUL KORPI DO [address] [place] [address] 07-22-2024 16:56-0500 Body weight 28.96 kg/m2 ABDOUL KORPI DO [address] [place] [address] 07-22-2024 16:09-0500 Body temperature 98.06 [degF] ABDOUL KORPI DO [address] [place] [address] 07-22-2024 16:09-0500 Heart rate 95 /min ABDOUL KORPI DO [address] [place] [address] 07-22-2024 16:09-0500 Respiratory rate 16 /min ABDOUL KORPI DO [address] [place] [address] 07-22-2024 15:36-0500 Body temperature 97.16 [degF] ABDOUL KORPI DO [address] [place] [address] 07-22-2024 15:36-0500 Heart rate 94 /min ABDOUL KORPI DO [address] [place] [address] 07-22-2024 15:36-0500 Mean blood pressure 89 mm[Hg] ABDOUL KORPI DO [address] [place] [address] 07-22-2024 15:05-0500 Heart rate 95 /min ABDOUL KORPI DO [address] [place] [address] 07-22-2024 15:05-0500 Mean blood pressure 85 mm[Hg] ABDOUL KORPI DO [address] [place] [address] 07-22-2024 14:35-0500 Mean blood pressure 85 mm[Hg] ABDOUL KORPI DO [address] [place] [address] 07-22-2024 13:34-0500 Body temperature 97.16 [degF] ABDOUL KORPI DO [address] [place] [address] 07-22-2024 13:30-0500 Respiratory Rate - Anes 19 br/min ABDOUL KORPI DO [address] [place] [address] 07-22-2024 13:25-0500 Respiratory Rate - Anes 11 br/min ABDOUL KORPI DO [address] [place] [address] 07-22-2024 13:20-0500 Respiratory Rate - Anes 10 br/min ABDOUL KORPI DO [address] [place] [address] 07-22-2024 13:15-0500 Body temperature 98.35 [degF] ABDOUL KORPI DO [address] [place] [address] 07-22-2024 13:10-0500 Body temperature 98.28 [degF] ABDOUL KORPI DO [address] [place] [address] 07-22-2024 13:05-0500 Body temperature 98.28 [degF] ABDOUL KORPI DO [address] [place] [address] 07-22-2024 07:27-0500 Body height 170.2 cm ABDOUL KORPI DO [address] [place] [address] 07-22-2024 07:27-0500 Body weight 83.9 kg ABDOUL KORPI DO [address] [place] [address] 07-22-2024 07:27-0500 Heart rate 85 /min ABDOUL KORPI DO [address] [place] [address] 07-20-2024 07:47-0500 Body height 170.2 cm ABDOUL KORPI DO [address] [place] [address] 07-20-2024 07:47-0500 Body weight 81.8 kg ABDOUL KORPI DO [address] [place] [address] 07-20-2024 07:47-0500 Body weight 28.24 kg/m2 ABDOUL KORPI DO [address] [place] [address] 04-15-2023 08:11-0400 Body height 170.18 cm Karolina Dumont [facility]; [facility] Work Phone: 04-15-2023 08:11-0400 Body mass index (BMI) [Ratio] 28.56 kg/m2 Karolina Dumont [facility]; [facility] Work Phone: 04-15-2023 08:11-0400 Body surface area Derived from formula 1.94 m2 Karolina Dumont [facility]; [facility] Work Phone: 04-15-2023 08:0400 Body temperature 98.8 [degF] Karolina Slarb MEDICAL ASSEMBLER [facility]; [facility] Work Phone: Comment on above: Method: Temporal 04-15-2023 08:110400 Body weight 82.73 kg Karolina Slarb MEDICAL ASSEMBLER [facility]; [facility] Work Phone: 04-15-2023 08:11-0400 Diastolic blood pressure 80 mm[Hg] Karolina Slarb MEDICAL ASSEMBLER [facility]; [facility] Work Phone: Comment on above: Patient Position: Sitting; Cuff Location : Left Arm; Cuff Size: Standard 04-15-2023 08:11-0400 Heart rate 93 /min Karolina Slarb MEDICAL ASSEMBLER [facility]; [facility] Work Phone: Comment on above: Pattern: Regular 04-15-2023 08:11-0400 Respiratory rate 16 /min Karolina Slarb MEDICAL ASSEMBLER [facility]; [facility] Work Phone: Comment on above: Pattern: Unlabored 04-15-2023 08:11-0400 SaO2% (BldA) [Mass fraction] 97 % Karolina Slarb MEDICAL ASSEMBLER [facility]; [facility] Work Phone: Comment on above: Room air 04-15-2023 08:11-0400 Systolic blood pressure 118 mm[Hg] Karolina Slarb [employer]ICAL [employer]; [facility] Work Phone: Comment on above: Patient Position: Sitting; Cuff Location : Left Arm; Cuff Size: Standard 09-04-2021 14:25-0500 Body height 170.18 cm Karolina Slarb MEDICAL ASSEMBLER [facility]; [facility] Work Phone: 09-04-2021 14:25-0500 Body mass index (BMI) [Ratio] 30.54 kg/m2 Karolina Slarb MEDICAL ASSEMBLER [facility]; [facility] Work Phone: 09-04-2021 14:25-0500 Body surface area Derived from formula 2 m2 Karolina Slarb MEDICAL ASSEMBLER [facility]; [facility] Work Phone: 09-04-2021 14:25-0500 Body temperature 97.1 [degF] Karolina Dumont MEDICAL ASSEMBLER [facility]; [facility] Work Phone: 09-04-2021 14:25-0500 Body weight 88.46 kg Karolina Slaangelina CHACKON [facility]; [facility] Work Phone: 09-04-2021 14:25-0500 Diastolic blood pressure 76 mm[Hg] Karolina Dumont MEDICAL ASSEMBLER [facility]; [facility] Work Phone: Comment on above: Patient Position: Sitting; Cuff Location : Left Arm; Cuff Size: Standard 09-04-2021 14:25-0500 Heart rate 95 /min Karolina Tim MONTOYA [facility]; [facility] Work Phone: Comment on above: Pattern: Regular 09-04-2021 14:25-0500 Respiratory rate 16 /min Karolina Dumont LPN [facility]; [facility] Work Phone: Comment on above: Pattern: Unlabored 09-04-2021 14:25-0500 SaO2% (BldA) [Mass fraction] 96 % Karolina Tim MONTOYA [facility]; [facility] Work Phone: Comment on above: Room air 09-04-2021 14:25-0500 Systolic blood pressure 118 mm[Hg] Karolina Dumont LPN [facility]; [facility] Work Phone: Comment on above: Patient Position: Sitting; Cuff Location : Left Arm; Cuff Size: Standard 12-27-2020 15:17-0400 Body height 170.18 cm Zeeshan Dukes LPN [facility]; [facility] Work Phone: 12-27-2020 15:17-0400 Body mass index (BMI) [Ratio] 28.98 kg/m2 Zeeshan Dukes LPN [facility]; [facility] Work Phone: 12-27-2020 15:17-0400 Body surface area Derived from formula 1.96 m2 Zeeshan Dukes LPN [facility]; [facility] Work Phone: 12-27-2020 15:17-0400 Body temperature 97.9 [degF] Zeeshan Dukes LPN [facility]; [facility] Work Phone: Comment on above: Method: Infrared 12-27-2020 15:17-0400 Body weight 83.92 kg Zeeshan Dukes LPN [facility]; [facility] Work Phone: 12-27-2020 15:17-0400 Diastolic blood pressure 70 mm[Hg] Zeeshan Dukes LPN [facility]; [facility] Work Phone: Comment on above: Patient Position: Sitting; Cuff Location : Left Arm; Cuff Size: Standard 12-27-2020 15:17-0400 Heart rate 93 /min Zeeshan Dukes LPN [facility]; [facility] Work Phone: Comment on above: Pattern: Regular 12-27-2020 15:17-0400 Respiratory rate 16 /min Zeeshan Dukes LPN [facility]; [facility] Work Phone: Comment on above: Pattern: Unlabored 12-27-2020 15:17-0400 SaO2% (BldA) [Mass fraction] 97 % Zeeshan Dukes LPN [facility]; [facility] Work Phone: Comment on above: Room air 12-27-2020 15:17-0400 Systolic blood pressure 106 mm[Hg] Zeeshan Dukes LPN [facility]; [facility] Work Phone: Comment on above: Patient Position: Sitting; Cuff Location : Left Arm; Cuff Size: Standard 08-08-2020 13:20-0500 BMI (Body Mass Index) 28.98 kg/m2 Zeeshan Dukes LPN [facility]; [facility] Work Phone: 08-08-2020 13:20-0500 Body Temperature 97.8 [degF] Zeeshan Dukes LPN [facility]; [facility] Work Phone: Comment on above: Method: Infrared 08-08-2020 13:20-0500 Body weight 83.92 kg Zeeshan Dukes LPN [facility]; [facility] Work Phone: 08-08-2020 13:20-0500 BP Diastolic 62 mm[Hg] Zeeshan Dukes LPN [facility]; [facility] Work Phone: Comment on above: Patient Position: Sitting; Cuff Location : Left Arm; Cuff Size: Standard 08-08-2020 13:20-0500 BP Systolic 100 mm[Hg] Zeeshan Dukes LPN [facility]; [facility] Work Phone: Comment on above: Patient Position: Sitting; Cuff Location : Left Arm; Cuff Size: Standard 08-08-2020 13:20-0500 BSA (Body Surface Area) 1.96 m2 Zeeshan Dukes LPN [facility]; [facility] Work Phone: 08-08-2020 13:20-0500 Height 170.18 cm Zeeshan Dukes LPN [facility]; [facility] Work Phone: 08-08-2020 13:20-0500 Pulse (Heart Rate) 100 /min Zeeshan Dukes LPN [facility]; [facility] Work Phone: Comment on above: Pattern: Regular 08-08-2020 13:20-0500 Pulse Oximetry 96 % Addie Cosme [facility]; [facility] Work Phone: Comment on above: Room air 08-08-2020 13:20-0500 Respiratory Rate 16 /min Zeeshan Dukes LPN [facility]; [facility] Work Phone: Comment on above: Pattern: Unlabored 08-08-2020 13:20-0500 SaO2% (BldA) [Mass fraction] 96 % Zeeshan Dukes LPN [facility]; [facility] Work Phone: Comment on above: Room air 04-28-2019 10:10-0400 BP Diastolic 83 mm[Hg] [employer] , [place] 04-28-2019 10:10-0400 BP Systolic 135 mm[Hg] [facility] , [place] 04-28-2019 10:10-0400 Pulse (Heart Rate) 104 /min [facility] [place] 04-28-2019 10:10-0400 Pulse Oximetry 94 % [facility] , [place] 04-28-2019 10:10-0400 Respiratory Rate 19 /min [facility], [place] 04-28-2019 10:00-0400 Body Temperature 98.6 [degF] [facility], [place] 04-26-2019 09:43-0400 Body Temperature 98.49 [degF] [facility], [place] 04-26-2019 09:43-0400 BP Diastolic 90 mm[Hg] [facility] , [place] 04-26-2019 09:43-0400 BP Systolic 142 mm[Hg] [facility] , [place] 04-26-2019 09:43-0400 Pulse (Heart Rate) 107 /min [facility], [place] 04-26-2019 09:43-0400 Pulse Oximetry 94 % [facility] , [place] 04-26-2019 09:43-0400 Respiratory Rate 20 /min [facility], [place] 04-23-2019 09:55-0400 Body Temperature 98.49 [degF] [facility], [place] 04-23-2019 09:55-0400 BP Diastolic 90 mm[Hg] [facility] , [place] 04-23-2019 09:55-0400 BP Systolic 133 mm[Hg] [facility] , [place] 04-23-2019 09:55-0400 Pulse (Heart Rate) 97 /min [facility], [place] 04-23-2019 09:55-0400 Pulse Oximetry 95 % [facility] , [place] 04-23-2019 09:55-0400 Respiratory Rate 17 /min [facility], [place] 04-23-2019 07:30-0400 BMI (Body Mass Index) 28.19 kg/m2 [facility], [place] 04-23-2019 07:30-0400 Body weight 81.65 kg [facility] , [place] 04-23-2019 07:30-0400 Height 170.2 cm [facility] , [place] 04-21-2019 09:50-0400 BP Diastolic 82 mm[Hg] [facility] , [place] 04-21-2019 09:50-0400 BP Systolic 121 mm[Hg] [facility] , [place] 04-21-2019 09:50-0400 Pulse (Heart Rate) 94 /min [facility], [place] 04-21-2019 09:50-0400 Pulse Oximetry 96 % [facility] [place] , [place] 04-21-2019 09:50-0400 Respiratory Rate 18 /min [facility] [place] 04-21-2019 07:30-0400 BMI (Body Mass Index) 28.19 kg/m2 [facility], [place] 04-21-2019 07:30-0400 Body Temperature 98.4 [degF] [facility] [place] 04-21-2019 07:30-0400 Body weight 81.65 kg [facility] , [place] 04-21-2019 07:30-0400 Height 170.2 cm [facility] , [place] 04-19-2019 09:30-0400 BP Diastolic 86 mm[Hg] [facility] , [place] 04-19-2019 09:30-0400 BP Systolic 146 mm[Hg] [facility] , [place] 04-19-2019 09:30-0400 Pulse (Heart Rate) 98 /min [facility], [place] 04-19-2019 09:30-0400 Pulse Oximetry 94 % [facility] , [place] 04-19-2019 09:30-0400 Respiratory Rate 19 /min [facility], [place] 04-19-2019 09:20-0400 Body Temperature 97.9 [degF] [facility], [place] 04-19-2019 07:45-0400 BMI (Body Mass Index) 28.19 kg/m2 [facility], [place] 04-19-2019 07:45-0400 Body weight 81.65 kg [facility] , [place] 04-19-2019 07:45-0400 Height 170.2 cm [facility] , [place] 04-16-2019 14:44-0400 Body Temperature 99 [degF] [facility] [place] 04-16-2019 14:44-0400 BP Diastolic 83 mm[Hg] [facility] , [place] 04-16-2019 14:44-0400 BP Systolic 116 mm[Hg] [facility] , [place] 04-16-2019 14:44-0400 Pulse (Heart Rate) 109 /min [facility], [place] 04-16-2019 14:44-0400 Pulse Oximetry 94 % [facility] , [place] 04-16-2019 14:44-0400 Respiratory Rate 18 /min [facility], [place] 03-31-2019 17:37-0400 BMI (Body Mass Index) 27.84 kg/m2 [facility], [place] 03-31-2019 17:37-0400 Body weight 80.63 kg [facility] , [place] 03-31-2019 17:37-0400 Height 170.2 cm [facility] , [place] 03-23-2019 14:59-0400 BMI (Body Mass Index) 27.89 kg/m2 Zeeshan Dukes LPN [facility] Work Phone: 03-23-2019 14:59-0400 Body Temperature 97.5 [degF] Zeeshan Dukes LPN [facility] Work Phone: Comment on above: Method: Temporal 03-23-2019 14:59-0400 Body weight 80.76 kg Zeeshan Dukes LPN [facility] Work Phone: 03-23-2019 14:59-0400 BP Diastolic 82 mm[Hg] Zeeshan Dukes LPN [facility] Work Phone: Comment on above: Patient Position: Sitting; Cuff Location : Left Arm; Cuff Size: Standard 03-23-2019 14:59-0400 BP Systolic 124 mm[Hg] Zeeshan Dukes LPN [facility] Work Phone: Comment on above: Patient Position: Sitting; Cuff Location : Left Arm; Cuff Size: Standard 03-23-2019 14:59-0400 BSA (Body Surface Area) 1.92 m2 Zeeshan Dukes LPN [facility] Work Phone: 03-23-2019 14:59-0400 Height 170.18 cm Zeeshan Dukes LPN [facility] Work Phone: 03-23-2019 14:59-0400 Pulse (Heart Rate) 111 /min Zeeshan Dukes LPN [facility] Work Phone: Comment on above: Pattern: Regular 03-23-2019 14:59-0400 Pulse Oximetry 98 % Addie Cosme [facility] Work Phone: Comment on above: Room air 03-23-2019 14:59-0400 Respiratory Rate 16 /min Zeeshan Dukes LPN [facility] Work Phone: Comment on above: Pattern: Unlabored 03-23-2019 14:59-0400 SaO2% (BldA) [Mass fraction] 98 % Zeeshan Dukes LPN [facility]; [facility] Work Phone: Comment on above: Room air 03-17-2019 07:50-0400 BMI (Body Mass Index) 29.03 kg/m2 Addie Hollingsworthmita [facility] Work Phone: 03-17-2019 07:50-0400 BMI (Body Mass Index) 28.04 kg/m2 Zeeshan Dukes LPN [facility] Work Phone: 03-17-2019 07:50-0400 Body Temperature 97.9 [degF] Zeeshan Dukes LPN [facility] Work Phone: Comment on above: Method: Temporal 03-17-2019 07:50-0400 Body weight 84.09 kg Addie Gantradha [facility] Work Phone: 03-17-2019 07:50-0400 Body weight 81.21 kg Zeeshan Dukes LPN [facility] Work Phone: 03-17-2019 07:50-0400 BP Diastolic 82 mm[Hg] Zeeshan Dukes LPN [facility] Work Phone: Comment on above: Patient Position: Sitting; Cuff Location : Left Arm; Cuff Size: Standard 03-17-2019 07:50-0400 BP Systolic 136 mm[Hg] Zeeshan Dukes LPN [facility] Work Phone: Comment on above: Patient Position: Sitting; Cuff Location : Left Arm; Cuff Size: Standard 03-17-2019 07:50-0400 BSA (Body Surface Area) 1.96 m2 Addie Gantradha [facility] Work Phone: 03-17-2019 07:50-0400 BSA (Body Surface Area) 1.93 m2 Zeeshan Dukes LPN [facility] Work Phone: 03-17-2019 07:50-0400 Height 170.18 cm Zeeshan Dukes LPN [facility] Work Phone: 03-17-2019 07:50-0400 Pulse (Heart Rate) 106 /min Zeeshan Dukes LPN [facility] Work Phone: Comment on above: Pattern: Regular 03-17-2019 07:50-0400 Pulse Oximetry 93 % Addie Cosme [facility] Work Phone: Comment on above: Room air 03-17-2019 07:50-0400 Respiratory Rate 16 /min Zeeshan Dukes LPN [facility] Work Phone: Comment on above: Pattern: Unlabored 03-17-2019 07:50-0400 SaO2% (BldA) [Mass fraction] 93 % Zeeshan Dukes LPN [facility]; [facility] Work Phone: Comment on above: Room air 02-27-2018 09:54-0400 BMI (Body Mass Index) 29.03 kg/m2 Sally House [facility] Work Phone: 02-27-2018 09:54-0400 Body Temperature 98.3 [degF] Sally Tillmanlear [facility] Work Phone: Comment on above: Method: Temporal 02-27-2018 09:54-0400 Body weight 84.09 kg Sally Lacy [facility] Work Phone: 02-27-2018 09:54-0400 BP Diastolic 80 mm[Hg] Sally House [facility] Work Phone: Comment on above: Patient Position: Sitting; Cuff Location : Left Arm; Cuff Size: Standard 02-27-2018 09:54-0400 BP Systolic 118 mm[Hg] Sally Tillmanlear [facility] Work Phone: Comment on above: Patient Position: Sitting; Cuff Location : Left Arm; Cuff Size: Standard 02-27-2018 09:54-0400 BSA (Body Surface Area) 1.96 m2 Sally House [facility] Work Phone: 02-27-2018 09:54-0400 Height 170.18 cm Sally House [facility] Work Phone: 02-27-2018 09:54-0400 Pulse (Heart Rate) 81 /min Sally House [facility] Work Phone: Comment on above: Pattern: Regular 02-27-2018 09:54-0400 Pulse Oximetry 92 % Addie Cosme [facility] Work Phone: Comment on above: Room air 02-27-2018 09:54-0400 Respiratory Rate 18 /min Sally House [facility] Work Phone: Comment on above: Pattern: Unlabored 02-27-2018 09:54-0400 SaO2% (BldA) [Mass fraction] 92 % Sally House [facility]; [facility] Work Phone: Comment on above: Room air 09-09-2016 10:53-0500 BMI (Body Mass Index) 29.03 kg/m2 Karolina Slarb MEDICAL ASSEMBLER [facility] Work Phone: 09-09-2016 10:53-0500 Body Temperature 98.7 [degF] Karolina Slarb MEDICAL ASSEMBLER [facility] Work Phone: 09-09-2016 10:53-0500 Body weight 84.09 kg Karolina Slarb MEDICAL ASSEMBLER [facility] Work Phone: 09-09-2016 10:53-0500 BP Diastolic 76 mm[Hg] Karolina Slarb MEDICAL ASSEMBLER [facility] Work Phone: Comment on above: Patient Position: Sitting; Cuff Location : Left Arm; Cuff Size: Standard 09-09-2016 10:53-0500 BP Systolic 118 mm[Hg] Karolina Slarb MEDICAL ASSEMBLER [facility] Work Phone: Comment on above: Patient Position: Sitting; Cuff Location : Left Arm; Cuff Size: Standard 09-09-2016 10:53-0500 BSA (Body Surface Area) 1.96 m2 Karolina Slarb MEDICAL ASSEMBLER [facility] Work Phone: 09-09-2016 10:53-0500 Height 170.18 cm Karolina Slarb MEDICAL ASSEMBLER [facility] Work Phone: 09-09-2016 10:53-0500 Pulse (Heart Rate) 92 /min Karolina Dumont LPN [facility] Work Phone: Comment on above: Pattern: Regular 09-09-2016 10:53-0500 Pulse Oximetry 98 % Addie Cosme [facility] Work Phone: Comment on above: Room air 09-09-2016 10:53-0500 Respiratory Rate 17 /min Karolina Dumont MEDICAL ASSEMBLER [facility] Work Phone: Comment on above: Pattern: Unlabored 09-09-2016 10:53-0500 SaO2% (BldA) [Mass fraction] 98 % Karolina Slarb MEDICAL ASSEMBLER [facility]; [facility] Work Phone: Comment on above: Room air 08-27-2016 11:13-0500 BMI (Body Mass Index) 28.82 kg/m2 Karolina Figueroarb MEDICAL ASSEMBLER [facility] Work Phone: 08-27-2016 11:13-0500 Body Temperature 97.6 [degF] Karolina Figueroarb MEDICAL ASSEMBLER [facility] Work Phone: 08-27-2016 11:13-0500 Body weight 83.46 kg Karolina Figueroarb MEDICAL ASSEMBLER [facility] Work Phone: 08-27-2016 11:13-0500 BP Diastolic 80 mm[Hg] Karolina Carolinarb MEDICAL ASSEMBLER [facility] Work Phone: Comment on above: Patient Position: Sitting; Cuff Location : Left Arm; Cuff Size: Standard 08-27-2016 11:13-0500 BP Systolic 122 mm[Hg] Karolina Figueroarb MEDICAL ASSEMBLER [facility] Work Phone: Comment on above: Patient Position: Sitting; Cuff Location : Left Arm; Cuff Size: Standard 08-27-2016 11:13-0500 BSA (Body Surface Area) 1.95 m2 Karolina Carolinarb MEDICAL ASSEMBLER [facility] Work Phone: 08-27-2016 11:13-0500 Height 170.18 cm Karolina Slarb MEDICAL ASSEMBLER [facility] Work Phone: 08-27-2016 11:13-0500 Pulse (Heart Rate) 98 /min Karolina Dumont JAN [facility] Work Phone: Comment on above: Pattern: Regular 08-27-2016 11:13-0500 Pulse Oximetry 97 % Addie Comse [facility] Work Phone: Comment on above: Room air 08-27-2016 11:13-0500 Respiratory Rate 16 /min Karolina Dumont JAN [facility] Work Phone: Comment on above: Pattern: Unlabored 08-27-2016 11:13-0500 SaO2% (BldA) [Mass fraction] 97 % Karolina Figueroaangelina MONTOYA [facility]; [facility] Work Phone: Comment on above: Room air 2015 13:30-0500 BMI (Body Mass Index) 29.29 kg/m2 DALI Pina JAN [facility] Work Phone: 2015 13:30-0500 Body Temperature 97.6 [degF] ADLI Pina JAN [facility] Work Phone: Comment on above: Method: Temporal 2015 13:30-0500 Body weight 84.82 kg DALI Pina JAN [facility] Work Phone: 2015 13:30-0500 BP Diastolic 80 mm[Hg] DALI Pina JAN [facility] Work Phone: Comment on above: Patient Position: Sitting; Cuff Location : Left Arm; Cuff Size: Standard 2015 13:30-0500 BP Systolic 120 mm[Hg] DALI Pina JAN [facility] Work Phone: Comment on above: Patient Position: Sitting; Cuff Location : Left Arm; Cuff Size: Standard 2015 13:30-0500 BSA (Body Surface Area) 1.97 m2 DALI Pina JAN [facility] Work Phone: 2015 13:30-0500 Height 170.18 cm DALI Pina LPN [facility] Work Phone: 2015 13:30-0500 Pulse (Heart Rate) 100 /min DALI Pina JAN [facility] Work Phone: Comment on above: Pattern: Regular 2015 13:30-0500 Pulse Oximetry 97 % Addie Cosme [facility] Work Phone: Comment on above: Room air 2015 13:30-0500 Respiratory Rate 20 /min DALI Pina JAN [facility] Work Phone: Comment on above: Pattern: Unlabored 2015 13:30-0500 SaO2% (BldA) [Mass fraction] 97 % DALI Pina LPN [facility]; [facility] Work Phone: Comment on above: Room air 07-12-2014 14:10-0500 BMI (Body Mass Index) 29.29 kg/m2 Shahana Rashaad MONTOYA [facility] Work Phone: 07-12-2014 14:10-0500 Body Temperature 90.9 [degF] Shahana Neil [facility]AN [facility] Work Phone: Comment on above: Method: Oral 07-12-2014 14:10-0500 Body weight 84.82 kg Shahana Brandcirilo MONTOYA [facility] Work Phone: 07-12-2014 14:10-0500 BP Diastolic 70 mm[Hg] Shahana Brandcirilo MONTOYA [facility] Work Phone: Comment on above: Patient Position: Sitting; Cuff Location : Left Arm; Cuff Size: Standard 07-12-2014 14:10-0500 BP Systolic 118 mm[Hg] Shahana Neil JAN [facility] Work Phone: Comment on above: Patient Position: Sitting; Cuff Location : Left Arm; Cuff Size: Standard 07-12-2014 14:10-0500 BSA (Body Surface Area) 1.97 m2 Shahana Neil JAN [facility] Work Phone: 07-12-2014 14:10-0500 Height 170.18 cm Shahana Rashaad MONTOYA [facility] Work Phone: 07-12-2014 14:10-0500 Pulse (Heart Rate) 97 /min Shahana Neil LPN [facility] Work Phone: Comment on above: Pattern: Regular 07-12-2014 14:10-0500 Pulse Oximetry 98 % Addie Cosme [facility] Work Phone: Comment on above: Room air 07-12-2014 14:10-0500 Respiratory Rate 18 /min Shahana Neil LPN [facility] Work Phone: 07-12-2014 14:10-0500 SaO2% (BldA) [Mass fraction] 98 % Shahana Neil LPN [facility]; [facility] Work Phone: Comment on above: Room air 04-07-2014 08:45-0400 BMI (Body Mass Index) 29.29 kg/m2 Eleanor Braxton RN [facility] Work Phone: 04-07-2014 08:45-0400 Body Temperature 99.3 [degF] Eleanor Braxton RN [facility] Work Phone: Comment on above: Method: Temporal 04-07-2014 08:45-0400 Body weight 84.82 kg Eleanor Braxton RN [facility] Work Phone: 04-07-2014 08:45-0400 BP Diastolic 82 mm[Hg] Eleanor Braxton RN [facility] Work Phone: Comment on above: Patient Position: Sitting; Cuff Location : Left Arm; Cuff Size: Standard 04-07-2014 08:45-0400 BP Systolic 130 mm[Hg] Eleanor Braxton RN [facility] Work Phone: Comment on above: Patient Position: Sitting; Cuff Location : Left Arm; Cuff Size: Standard 04-07-2014 08:45-0400 BSA (Body Surface Area) 1.97 m2 Eleanor Braxton RN [facility] Work Phone: 04-07-2014 08:45-0400 Height 170.18 cm Eleanor Braxton RN [facility] Work Phone: 04-07-2014 08:45-0400 Pulse (Heart Rate) 101 /min Eleanor Braxton RN [facility] Work Phone: Comment on above: Pattern: Regular 04-07-2014 08:45-0400 Pulse Oximetry 98 % Addie Cosme [facility] Work Phone: Comment on above: Room air 04-07-2014 08:45-0400 Respiratory Rate 18 /min Eleanor Braxton RN [facility] Work Phone: Comment on above: Pattern: Unlabored 04-07-2014 08:45-0400 SaO2% (BldA) [Mass fraction] 98 % Eleanor Braxton RN [facility]; [facility] Work Phone: Comment on above: Room air 07-30-2013 11:48-0500 BMI (Body Mass Index) 29.29 kg/m2 DALI Pina LPN [facility] Work Phone: 07-30-2013 11:48-0500 Body Temperature 97.6 [degF] DALI Pina LPN [facility] Work Phone: Comment on above: Method: Oral 07-30-2013 11:48-0500 Body weight 84.82 kg DALI Pina LPN [facility] Work Phone: 07-30-2013 11:48-0500 BP Diastolic 78 mm[Hg] DALI Pina LPN [facility] Work Phone: Comment on above: Patient Position: Sitting; Cuff Location : Left Arm; Cuff Size: Standard 07-30-2013 11:48-0500 BP Systolic 120 mm[Hg] DALI Pina LPN [facility] Work Phone: Comment on above: Patient Position: Sitting; Cuff Location : Left Arm; Cuff Size: Standard 07-30-2013 11:48-0500 BSA (Body Surface Area) 1.97 m2 DALI Pina LPN [facility] Work Phone: 07-30-2013 11:48-0500 Height 170.18 cm DALI Pina LPN [facility] Work Phone: 07-30-2013 11:48-0500 Pulse (Heart Rate) 90 /min DALI Pina LPN [facility] Work Phone: Comment on above: Pattern: Regular 07-30-2013 11:48-0500 Respiratory Rate 18 /min DALI Pina LPN [facility] Work Phone: Comment on above: Pattern: Unlabored 07-23-2013 13:12-0500 BMI (Body Mass Index) 28.66 kg/m2 DALI Pina LPN [facility] Work Phone: 07-23-2013 13:12-0500 Body Temperature 97.6 [degF] DALI Pina LPN [facility] Work Phone: Comment on above: Method: Oral 07-23-2013 13:12-0500 Body weight 83.01 kg DALI Pina LPN [facility] Work Phone: 07-23-2013 13:12-0500 BP Diastolic 76 mm[Hg] DALI Pina LPN [facility] Work Phone: Comment on above: Patient Position: Sitting; Cuff Location : Left Arm; Cuff Size: Standard 07-23-2013 13:12-0500 BP Systolic 122 mm[Hg] DALI Pina LPN [facility] Work Phone: Comment on above: Patient Position: Sitting; Cuff Location : Left Arm; Cuff Size: Standard 07-23-2013 13:12-0500 BSA (Body Surface Area) 1.95 m2 DALI Pina LPN [facility] Work Phone: 07-23-2013 13:12-0500 Height 170.18 cm DALI Pina LPN [facility] Work Phone: 07-23-2013 13:12-0500 Pulse (Heart Rate) 78 /min DALI Pina LPN [facility] Work Phone: Comment on above: Pattern: Regular 07-23-2013 13:12-0500 Respiratory Rate 18 /min DALI Pina LPN [facility] Work Phone: Comment on above: Pattern: Unlabored 09-08-2012 09:20-0500 BMI (Body Mass Index) 28.66 kg/m2 Eleanor Braxton RN [facility] Work Phone: Comment on above: weight 180 at home with no clothes/shoes 09-08-2012 09:20-0500 Body Temperature 97.6 [degF] Eleanor Braxton RN [facility] Work Phone: Comment on above: Method: Temporal weight 180 at home w ith no clothes/shoes 09-08-2012 09:20-0500 Body weight 83.01 kg Eleanor Braxton RN [facility] Work Phone: Comment on above: weight 180 at home with no clothes/shoes 09-08-2012 09:20-0500 BP Diastolic 76 mm[Hg] Eleanor Braxton RN [facility] Work Phone: Comment on above: Patient Position: Sitting; Cuff Location : Left Arm; Cuff Size: Standard weight 180 at home w ith no clothes/shoes 09-08-2012 09:20-0500 BP Systolic 124 mm[Hg] Eleanor Braxton RN [facility] Work Phone: Comment on above: Patient Position: Sitting; Cuff Location : Left Arm; Cuff Size: Standard weight 180 at home w ith no clothes/shoes 09-08-2012 09:20-0500 BSA (Body Surface Area) 1.95 m2 Eleanor Braxton RN [facility] Work Phone: Comment on above: weight 180 at home with no clothes/shoes 09-08-2012 09:20-0500 Height 170.18 cm Eleanor Braxton RN [facility] Work Phone: Comment on above: weight 180 at home with no clothes/shoes 09-08-2012 09:20-0500 Pulse (Heart Rate) 84 /min Eleanor Braxton RN [facility] Work Phone: Comment on above: Pattern: Regular weight 180 at home w ith no clothes/shoes 09-08-2012 09:20-0500 Respiratory Rate 16 /min Eleanor Braxton RN [facility] Work Phone: Comment on above: Pattern: Unlabored weight 180 at home w ith no clothes/shoes Encounters Encounter Date Encounter Type Care Provider Facility Start: 05-16-2025 End: 05-16-2025 ambulatory Buddy Spencer See Facility:[facility] Start: 01-24-2025 End: 01-24-2025 ambulatory Buddy L Seese Facility:[facility] Start: 01-06-2025 End: 01-06-2025 ambulatory ABDOUL KORPI DO Facility:[facility] Start: 01-06-2025 End: 01-06-2025 SAME DAY STAY ABDOUL KORPI DO [facility] Start: 09-15-2024 End: 09-15-2024 ambulatory Renaldo Hurt Facility:[facility] Start: 09-13-2024 End: 09-13-2024 ambulatory Buddy Villegas Facility:[facility] Start: 07-22-2024 End: 07-23-2024 ambulatory ABDOUL KORPI DO Facility:[facility] Start: 07-22-2024 End: 07-23-2024 Observation ABDOUL KORPI DO [facility] Start: 07-19-2024 End: 07-19-2024 ambulatory ABDOUL KORPI DO Facility:[facility] Start: 07-19-2024 End: 07-19-2024 Patient encounter procedure ABDOUL KORPI DO [facility] Start: 07-17-2024 End: 07-17-2024 ambulatory Renaldo Hurt Facility:[facility] Start: 04-15-2023 End: 04-16-2023 Office outpatient visit 15 minutes Renaldo Hurt SCALE RECLAMATION TENDER Work Phone: [facility] Start: 04-15-2023 Review Renaldo Hurt SCALE RECLAMATION TENDER Work Phone: [facility] Start: 10-14-2022 ambulatory Addie Gantmarlenemita [facility] Start: 04-19-2022 End: 05-13-2022 ambulatory WET MACHINE OPERATOR-C Addie Cosme WET MACHINE OPERATOR Work Phone: [facility] Work Phone: Start: 04-19-2022 End: 05-13-2022 Discharged Recurring WET MACHINE OPERATOR-C Addie Cosme WET MACHINE OPERATOR Work Phone: [facility] Start: 03-14-2022 End: 04-12-2022 ambulatory WET MACHINE OPERATOR-C Addie Hollingswortha WET MACHINE OPERATOR Work Phone: [facility] Work Phone: Start: 03-14-2022 End: 04-12-2022 Discharged Recurring WET MACHINE OPERATOR-C Addie Cosme WET MACHINE OPERATOR Work Phone: [facility] Start: 02-01-2022 End: 02-01-2022 Patient encounter procedure WET MACHINE OPERATOR-C Addie Cosme WET MACHINE OPERATOR Work Phone: [facility] Start: 12-06-2021 End: 12-06-2021 Lab Order Addie Cosme Work Phone: [facility] Start: 12-05-2021 End: 12-05-2021 Patient encounter procedure WET MACHINE OPERATOR-C Addie Cosme WET MACHINE OPERATOR Work Phone: [facility] Start: 12-01-2021 End: 12-11-2021 Discharged Recurring WET MACHINE OPERATOR-C Addie Cosme WET MACHINE OPERATOR Work Phone: [facility] Start: 10-02-2021 Registered Referred WET MACHINE OPERATOR-C Addie Cosme WET MACHINE OPERATOR Work Phone: [facility] Start: 09-04-2021 End: 09-04-2021 Annotation/Addendum Addie Cosme SCALE RECLAMATION TENDER Work Phone: [facility] Start: 09-04-2021 End: 09-04-2021 Patient encounter procedure WET MACHINE OPERATOR-C Addie Hollingswortha WET MACHINE OPERATOR Work Phone: [facility] Start: 09-04-2021 End: 09-04-2021 Office outpatient visit 25 minutes Addie Cosme SCALE RECLAMATION TENDER Work Phone: [facility] Start: 08-27-2021 End: 08-27-2021 Annotation/Addendum Addie Cosme SCALE RECLAMATION TENDER Work Phone: [facility] Start: 08-27-2021 Patient encounter procedure WET MACHINE OPERATOR-C Addie Cosme WET MACHINE OPERATOR Work Phone: [facility] Start: 08-21-2021 End: 08-21-2021 Patient encounter procedure WET MACHINE OPERATOR-C Addie Cosme WET MACHINE OPERATOR Work Phone: [facility]/Neurology Start: 08-21-2021 Non-patient / Non-visit WET MACHINE OPERATOR-C Janeth Cosme WET MACHINE OPERATOR Work Phone: [facility] Start: 08-06-2021 End: 08-06-2021 Annotation/Addendum Addie Cosme SCALE RECLAMATION TENDER Work Phone: [facility] Start: 01-02-2021 End: 01-02-2021 Annotation/Addendum Addie Cosme SCALE RECLAMATION TENDER Work Phone: [facility] Start: 01-02-2021 Review Addie Cosme SCALE RECLAMATION TENDER Work Phone: [facility] Start: 12-27-2020 End: 12-27-2020 Office outpatient visit 10 minutes Addie Cosme SCALE RECLAMATION TENDER Work Phone: [facility] Start: 09-15-2020 End: 09-15-2020 Annotation/Addendum Addie Cosme [facility] Start: 09-15-2020 End: 09-15-2020 Annotation/Addendum Addie Cosme [facility] Start: 08-08-2020 End: 08-08-2020 Periodic preventive med est patient 40-64yrs Addie Hollingsworthmita [facility] Start: 03-31-2019 Patient encounter procedure ADITYA Roberts Start: 03-30-2019 Patient encounter procedure ADITYA Roberts Start: 03-30-2019 Telephone encounter [facility] Puente [facility] Comment on above: Other ( PAGE ) Start: 03-24-2019 End: 03-24-2019 Office outpatient visit 15 minutes Addie Cosme [facility] Start: 03-17-2019 End: 03-17-2019 Office outpatient visit 15 minutes Addie Cosme [facility] Start: 03-17-2019 Review Addie Cosme [facility] Start: 04-23-2018 End: 04-23-2018 Patient encounter [facility] Start: 04-20-2018 End: 04-20-2018 Emergency department patient visit [facility] Start: 03-31-2018 End: 03-31-2018 Annotation/Addendum Addie Cosme [facility] Start: 03-11-2018 End: 03-11-2018 Annotation/Addendum Addie Cosme [facility] Start: 03-11-2018 End: 03-11-2018 Annotation/Addendum Addie Cosme [facility] Start: 03-02-2018 End: 03-02-2018 Annotation/Addendum Addie Cosme [facility] Start: 02-27-2018 End: 02-27-2018 Office outpatient visit 25 minutes Addie Cosme [facility] Start: 02-27-2018 End: 02-27-2018 Patient encounter status [facility]; [facility] Work Phone: Comment on above: no uterus. make sure mammo and done Start: 02-20-2018 End: 02-20-2018 Phone Encounter Addie Csome [facility] Start: 11-10-2017 End: 11-10-2017 Annotation/Addendum Addie Cosme [facility] Start: 09-01-2017 End: 09-01-2017 Annotation/Addendum Addie Cosme [facility] Start: 09-09-2016 End: 09-09-2016 Office outpatient visit 15 minutes Addie Cosme [facility] Start: 08-30-2016 End: 08-30-2016 Phone Encounter Addie Cosme [facility] Start: 08-27-2016 End: 08-27-2016 Office outpatient visit 25 minutes Addie Cosme [facility] Start: 08-27-2016 End: 08-27-2016 Patient encounter status Karolina Dumont LPN [facility]; [facility] Work Phone: Start: 2015 End: 2015 Patient encounter status Addie Cosme Work Phone: [facility] Start: 2015 End: 2015 Periodic preventive med est patient 18-39 yrs Addie Cosme [facility] Start: 07-25-2015 End: 07-25-2015 Phone Encounter Addie Cosme [facility] Start: 07-21-2015 End: 07-21-2015 Phone Encounter Addie Cosme [facility] Start: 04-25-2015 End: 04-25-2015 Historical Summary Addie Cosme [facility] Start: 07-12-2014 End: 07-12-2014 Office outpatient visit 15 minutes Addie Cosme [facility] Start: 04-07-2014 End: 04-07-2014 Office outpatient visit 15 minutes Addie Cosme [facility] Start: 08-10-2013 End: 08-10-2013 Lab Order Addie Cosme [facility] Start: 07-30-2013 End: 07-30-2013 Patient encounter procedure Addie Cosme [facility] Start: 07-23-2013 End: 07-23-2013 Patient encounter procedure Addie Cosme [facility] Start: 09-22-2012 End: 09-22-2012 Phone Encounter Addie Cosme [facility] Start: 09-08-2012 End: 09-08-2012 Patient encounter procedure Addie Cosme [facility] Patient encounter status Zeeshan Dukes [facility]; [facility] Work Phone: Patient encounter status Karolina Figueroaangelina [facility]; [facility] Work Phone: Patient encounter status Karolina Dumont [facility]; [facility] Work Phone: Procedures Date Procedure Procedure Detail Performing Clinician Start: 07-22-2024 Revision to open reduction of fracture and intramedullary nail fixation ABDOULKELSIE PATTERSONPI DO Comment on above: 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 Removed hardware. Replaced with nail. Application of bone graft products. Start: 07-14-2023 Open reduction of fracture of ankle with internal fixation ABDOUL KORPI DO Comment on above: RIGHT Start: 06-27-2022 End: 07-01-2022 Office Visit Report Procedure Note: See Note; NOTES: [facility] [address] [place] [id number] OFFICE VISIT Date of Service: 06/27/22 MR#: [id number] Acct: [id number] Patient: RONNI BLUM Rep #: [id number] : 1965 Provider: ELVA rosario Age/Sex: 56/F Location: [facility] Status: Signed Intake Intake Visit Reasons: PE DRUG SCREEN/TB TEST Allergies No Known Allergies Allergy (Verified 01/29/19 21:34) Office Procedures [facility] Billing Sheet Testing Pre-Employment Drug Screen: Yes Pre-Employment PE: Yes [facility] Billing Sheet Testing Pre-Employment Drug Screen: Yes Pre-Employment PE: Yes TB Test: Yes PPD Procedure TB Med Used: Tuberculin PPD 5 tub. unit/0.1 mL intradermal injection solution was administered Lot number: [id number] Registered Travel Nurse: SANOFI PASTEUR date: 01/15/23 PPD Location: Left forearm Date PPD Placed: 06/27/22 Time PPD Placed: 05:30 PPD Placed By: Ivone Umana 07/01/22 0632 <Electronically signed by Buddy STEVENSON> Date Buddy Roseign Signature: Date (if applicable) CC: Addie Cosme Work Phone: Start: 06-27-2022 End: 06-27-2022 Urgent Care Visit Report Procedure Note: See Note; NOTES: [facility] [address] [place] [address] [address] [place] [address] OFFICE VISIT Date of Service: 06/27/22 MR#: [id number] Acct: [id number] Name: RONNI BLUM Rep #: [id number] : 1965 Provider: ELVA rosario Age/Sex: 56/F Location: [facility] Status: Signed Intake Intake Visit Reasons: PE PHYSICAL/EZIO AMSTER Allergies No Known Allergies Allergy (Verified 01/29/19 21:34) PFSH Social History Smoking Status: Never smoker HPI HPI Details: RONNI BLUM is a 56 F who presents to the office today for Office Procedures Physical Exam Coding PE Coding Sports/School Physical: No DOT PE: No Pre-employment PE: Yes Coding Level of Care Code No Charge Diagnoses Encounter for pre-employment health screening examination Z02.1 Assessment and Plan Assessment and Plan (1) Encounter for pre-employment health screening examination: Status: Acute 06/27/22 1721 <Electronically signed by Buddy STEVENSON> Date Buddy STEVENSON Cosigner Signature: Date (if applicable) CC: Addie Cosme Work Phone: Start: 02-01-2022 End: 02-04-2022 Urgent Care Visit Report Procedure Note: See Note; NOTES: [facility] [address] [place] [address] OFFICE VISIT Date of Service: 02/01/22 MR#: [id number] Acct: [id number] Name: RONNI BLUM Rep #: [id number] : 1965 Provider: ELVA Henriquez Age/Sex: 56/F Location: [facility] Status: Signed Intake Vital Signs 03/10/19 18:38 Height 5 ft 7 in Intake Visit Reasons: PE PHYSICAL/DRUG/BAT/GILCRES T Allergies No Known Allergies Allergy (Verified 01/29/19 21:34) PFSH Social History Smoking Status: Never smoker HPI HPI Details: RONNI BLUM is a 56 F who presents to the office today for preemployment physical. Please see corresponding scanned documents with today's date. Office Procedures Physical Exam Coding PE Coding Pre-employment PE: Yes Coding Level of Care Code No Charge Diagnoses Encounter for pre-employment health screening examination Z02.1 Assessment and Plan Assessment and Plan (1) Encounter for pre-employment health screening examination: Status: Acute 02/01/22 1419 <Electronically signed by Bimal STEVENSON> Date Bimal STEVENSON Cosigner Signature: Date (if applicable) CC: Addie Cosme Work Phone: Start: 11-30-2021 End: 11-30-2021 Viral antigen assay WET MACHINE OPERATOR-C Addie Cosme NP Work Phone: Start: 09-04-2021 End: 09-04-2021 Calcaneus min 2 Views Comments: See Note; NOTES: [facility] Imaging Services [address] [place] [address] Calcaneus min 2 Views MR#: [id number] Acct: [id number] Name: RONNI BLUM Rep #: [id number] : 1965 F 56 From: Malachi green MD PCP: AURELIA Myrick Status: REG CLI Study: Calcaneus min 2 Views Date of Exam: 09/04/21 Exam# [id number] Ordering Dr: Addie Cosme NP WET MACHINE OPERATOR-C STUDY: X-RAY - RIGHT CALCANEUS REASON FOR EXAM: Female, 56 years old. pain, right heel spur TECHNIQUE: 2 view(s) of the calcaneus were obtained. COMPARISON: None. FINDINGS: Normal visualized calcaneus. No visualized calcaneal spur. Normal visualized tarsal bones. There is no demonstrated fracture. RAD/Calcaneus min 2 Views IMPRESSION: Normal x-ray examination of the calcaneus. Electronically Signed: Malachi Fields MD at 20:17 EST Reading Location ID and State: [address] [place] [address] , Service support , CC: WET MACHINE OPERATOR-Diogo Cosme Magnetic Prospecting Operator: Signed Mary Ba SCALE RECLAMATION TENDER Work Phone: Start: 09-04-2021 Diagnostic radiograp hy of calcaneus WET MACHINE OPERATOR-C Addie Cosme WET MACHINE OPERATOR Work Phone: Start: 08-27-2021 Screening mammography N P-C Addie Cosme WET MACHINE OPERATOR Work Phone: Start: 08-27-2021 End: 08-27-2021 SCRN MAMM (CAD)W/DONNY BILAT Comments: See Note; NOTES: [facility] Imaging Services [address] [place] [address] SCRN MAMM (CAD)W/DONNY BILAT MR#: [id number] Acct: [id number] Name: RONNI BLUM Rep #: [id number] : 1965 F 55 From: Brandon hobson MD PCP: AURELIA Myrick Status: PRE CLI Study: SCRN MAMM (CAD)W/DONNY BILAT Date of Exam: 08/14 11/02 Exam# [id number] Ordering Dr: Addie Cosme NP WET MACHINE OPERATOR-C MAMMOGRAPHY - BILATERAL SCREENING REASON FOR EXAM: Female, 55 years old. Routine annual screening examination. PERTINENT HISTORY: Aunts with breast cancer. TECHNIQUE: Digital bilateral breast donny (3D mammographic acquisition) in the CC and MLO projections. 2-D mediolateral oblique (MLO) and craniocaudad (CC) views of both breasts were obtained. CAD: Full Field Digital Mammography with Computer Added Detection was performed. COMPARISON: Comparison is made with prior study done 03/11/2018 and 09/24/2016. FINDINGS: Breast Composition: The breasts are heterogeneously dense, which may obscure small masses. There are no dominant masses or suspicious calcifications. No other significant abnormalities are identified. There has been no significant change since the prior study. BI/SCRN MAMM (CAD)W/DONNY BILAT IMPRESSION: Stable bilateral screening mammogram. Yearly follow-up mammogram recommended. (A) ASSESSMENT CATEGORY: BIRADS Category 1: Negative. A letter regarding these results will be sent to the patient by the facility within 30 days. Approximately 10% of breast cancers are not detected by mammography. A normal mammogram should not delay biopsy of a clinically suspicious abnormality. [id number] Electronically Signed: Brandon Holloway MD at 14:43 EST , CC: AURELIA Cosme Magnetic Prospecting Operator: Signed Addie Cosme CNP Work Phone: Start: 04-01-2019 Ct head/brain w/o contrast material Jazmyne Gayle Work Phone: Start: 04-01-2019 Assay of free thyroxine Perfecto Morales Work Phone: Start: 04-01-2019 Assay of thyroid stimulating hormone tsh Perfecto Morales Work Phone: Start: 04-01-2019 Hemoglobin glycosyla bro a1c Jaylon Puente Work Phone: Start: 04-01-2019 Lipid panel Jaylon Puente Work Phone: Start: 03-30-2019 Drug screen class list a Perfecto Cole Work Phone: Start: 03-30-2019 Urine test visual color cmprsn meths Perfecto Cole Work Phone: Start: 03-30-2019 Urnls dip stick/tabl et rgnt auto w/o microscopy Perfecto Cole Work Phone: Start: 03-30-2019 Blood count complete auto&auto difrntl wbc Perfecto Cole Work Phone: Start: 03-30-2019 Comprehensive metabo lic panel Perfecto Cole Work Phone: Start: 03-30-2019 Ecg routine ecg w/le ast 12 lds w/i&r Perfecto Cole Work Phone: Start: 03-10-2019 End: 03-10-2019 Discharge Instruction Comments: See Note; NOTES: [facility] Medical Records Department [address] [place] [address] Discharge Instruction 03/10/192020 MR#: [id number] Acct: [id number] Name: RONNI BLUM JO Rep #: [id number] : 1965 53 From: Stewart Suazo MD PCP: AURELIA Myrick Status: REG ER ED Disposition - Plan for ED Patient: Disposition: Home or Assisted Living Instructions: Depression Referrals: Addie Cosme NP-C [Primary Care Provider] - What to do if you have Problems For any increased pain, shortness of breath, bleeding, nausea or vomiting, chest pain, or any unexpected problems, contact your Primary Care Provider. Call [facility] ([phone]) or report to the closest Emergency Room. Call 911 if necessary. 03/10/192020 <Electronically signed by Stewart Suazo MD> Date Stewart Suazo MD Cosigner Signature (If Indicated): Date CC: AURELIA Cosme Start: 03-10-2019 End: 03-10-2019 Emergency Department Summary Comments: See Note; NOTES: [facility] Medical Records Department [address] [place] [address] Emergency Department Summary 03/10/19 1854 MR#: [id number] Acct: [id number] Name: RONNI BLUM Rep #: [id number] : 1965 53 From: Stewart Suazo MD PCP: Addie Cosme WET MACHINE OPERATOR-C Status: REG ER - ER Visit Summary Date of Service: 03/10/19 Chief Complaint: Depressed History of Present Illness: The patient is a 53 F who presents with depression. Is been ongoing for a couple of weeks. There was no specific trigger that may have started it but family was concerned that she is starting menopause and that may have some to do with that. She states that she feels very off. She cannot eat. Her sleeping habits have changed. She denies any auditory or visual hallucinations. This morning she had a thought that she was rolled up in a carpet and thrown out. She denies having any suicidal thoughts. No homicidal thoughts. She has had her psychiatric medications including her depression and anxiety meds changed around and this could be the cause of this as well. Physical Examination: Vital signs reviewed. HEENT exam unremarkable. Heart is regular rate and rhythm without murmurs. Lungs are clear to auscultation. Abdomen is soft and nontender. Extremities reveal no edema. Skin exam normal. Neurologic exam normal. The patient does appear to be depressed but voices no suicidal or homicidal thoughts. She does have a flat affect. Test Results: Laboratory studies including TSH are normal except for glucose of 138. Tox screen and alcohol are negative. Emergency Department Course and Treatment: I had our social insurance analyst evaluate the patient. She, along with myself do not feel the patient needs to be admitted psychiatrically. She attempted to call the crisis center but they were unable to get her in tomorrow. Family feels safe taking her home. She will continue her medications that are prescribed to her. She will call her doctor and her psychiatrist tomorrow. Treatment Plan: [] Disposition: Discharge Impression: Depression This note was generated with [employer] software. It may contain incorrect words, spelling, and punctuation that were not noted in review of the chart prior to signing ED Disposition - Plan for ED Patient: Referrals: Addie Cosme, WET MACHINE OPERATOR-C [Primary Care Provider] - What to do if you have Problems For any increased pain, shortness of breath, bleeding, nausea or vomiting, chest pain, or any unexpected problems, contact your Primary Care Provider. Call [facility] ([phone]) or report to the closest Emergency Room. Call 911 if necessary. 03/10/192020 <Electronically signed by Stewart Suazo MD> Date Stewart Suazo MD Cosigner Signature (If Indicated): Date CC: WET MACHINE OPERATOR-C Addie Cosme Addie Ba Start: 02-01-2019 End: 02-01-2019 12 lead ECG Comments: See Note; NOTES: [facility] Cardiovascular Services [address] [place] [address] 12 Lead EKG 01/30/19 0830 MR#: [id number] Acct: [id number] Name: RONNI BLUM Rep #: [id number] : 1965 53 From: Damain Reyna MD Attending Dr: Status: DEP ER Ordering Dr: Raoul Iqbal MD Date: 01/30/19 Location: ED Sex: F C Admitted: Test Reason : Blood Pressure : / mmHG Vent. Rate : 103 BPM Atrial Rate : 103 BPM P-R Int : 128 ms QRS Dur : 084 ms QT Int : 366 ms P-R-T Axes : 070 033 059 degrees QTc Int : 479 ms Sinus tachycardia Otherwise normal ECG Confirmed by DAMIAN REYNA MD ([id number]), purchasing expeditor JENNY FIERRO ([id number]) on 02/01/2019 1:46:27 PM Referred By: CORNEBATOOL Confirmed By:DAMIAN REYNA MD 02/01/19 7587 Date Damian Reyna MD CC: WET MACHINE OPERATOR Addie Cosme; RAOUL IQBAL MD; Daren Birmingham MD Signed Addie Cosme Start: 01-29-2019 End: 01-29-2019 Emergency Department Summary Comments: See Note; NOTES: [facility] Medical Records Department [address] [place] [address] Emergency Department Summary 01/29/19 2333 MR#: [id number] Acct: [id number] Name: RONNI BLUM Rep #: [id number] : 1965 53 From: Daren Birmingham MD PCP: Addie Cosme NP Status: REG ER - ER Visit Summary Date of Service: 01/29/19 Chief Complaint: day History of Present Illness: The patient is a 53 F who presents with multiple complaints. She presents with exhaustion, diffuse paresthesias, memory issues. She said she is not eating much or sleeping much. She feels restless and hopeless. She has a history of depression, anxiety, and bipolar disorder. She says she is compliant with her medications including temazepam, Prozac, mirtazapine, and Abilify. She told me that she had thoughts of suicide. She said it would be okay if God took her. No plan or attempt. Physical Examination: Afebrile and vital signs unremarkable. Alert and oriented. No acute distress. Depressed mood and flat affect. Heart regular. Lungs clear. Skin appears normal. Test Results: CBC, CMP, hCG negative. Tox screen negative. Alcohol negative. Emergency Department Course and Treatment: Patient presents with dysphoric symptoms possibly some manic symptoms as well. I did have the crisis counselor speak with her. Crisis evaluated her. She told them that she wanted to wreck her car and kill herself. At this point, I did complete a pink slip. She had suicide precautions. She is medically cleared for placement at a psychiatric facility. We are awaiting placement at this time. Treatment Plan: As above Disposition: Pending placement Impression: 1. Suicidal ideation This note was generated with [employer] software. It may contain incorrect words, spelling, and punctuation that were not noted in review of the chart prior to signing ED Disposition - Plan for ED Patient: Referrals: Addie Cosme, WET MACHINE OPERATOR-C [Primary Care Provider] - What to do if you have Problems For any increased pain, shortness of breath, bleeding, nausea or vomiting, chest pain, or any unexpected problems, contact your Primary Care Provider. Call [facility] ([phone]) or report to the closest Emergency Room. Call 911 if necessary. 01/29/19 2342 <Electronically signed by Daren Birmingham MD> Date Daren Birmingham MD Cosigner Signature (If Indicated): Date CC: YURI Cosme Start: 03-11-2018 End: 03-11-2018 Dexa Bone Density Study Comments: See Note; NOTES: [facility] Imaging Services [address] [place] [address] Dexa Bone Density Study MR#: [id number] Acct: [id number] Name: RONNI BLUM Rep #: [id number] : 1965 F 52 From: rBandon Holloway MD PCP: Addie Cosme NP Status: [facility] CLI Study: Dexa Bone Density Study Date of Exam: 03/11/18 Exam# [id number] Ordering Dr: Addie Cosme STUDY: DUAL ENERGY X-RAY ABSORPTIOMETRY / DXA REASON FOR EXAM: Female, 52 years old. The patient is postmenopausal. TECHNIQUE: Bone Mineral Density (BMD) measurements of lumbar spine and bilateral hips were obtained. COMPARISON: None. FINDINGS: Lumbar Spine (L1-L4): g/cm2 (1.292) / T-score (1.1) / Z-score (1.5) Findings are suggestive of normal bone density with a low fracture risk. Left Femur Total: g/cm2 (1.126) / T-score (0.9) / Z-score (1.4) Left Femoral Neck: g/cm2 (1.019) / T-score (-0.1) / Z-score (0.7) Right Femur Total: g/cm2 (1.066) / T-score (0.5) / Z-score (0.9) Right Femoral Neck: g/cm2 (1.027) / T-score (-0.1) / Z-score (0.7) BD/Dexa Bone Density Study IMPRESSION: The patient is considered normal as outlined below according to World Amaury Organization (WHO) criteria with a low fracture risk. Reference Information: The T-score is the number of standard deviations above or below the standard which is normal for young adults at their peak bone mineral density. The World Health Organization (WHO) interprets the T-scores as follows: Above -1 Normal bone density Between -1 and -2.5 Osteopenia Equal to / or below -2.5 Osteoporosis As a practical clinical guideline, osteopenia may be graded as follows: Mild -1 through -1.5 Moderate -1.6 through -2.0 Severe -2.1 through -2.4 The Z-score is the number of standard deviations above or below age-matched controls. A Z-score of less than -1.5 would be considered abnormal. References: 1. NIH Osteoporosis and Related Bone Diseases http://www.osteo.org 2. International Society for Clinical Densitometry http://www.iscd.org 3. National Osteoporosis Foundation http://www.nof.org Electronically Signed: Brandon Holloway MD at 16:01 EDT Tel [phone], Service support , CC: Addie Cosme NP Magnetic Prospecting Operator: Signed Mary Ba Work Phone: Start: 03-11-2018 End: 03-11-2018 SCREENING MAMM (CAD), BILAT Comments: See Note; NOTES: [facility] Imaging Services [address] [place] [address] SCREENING MAMM (CAD), BILAT MR#: [id number] Acct: [id number] Name: RONNI BLUM Rep #: [id number] : 1965 F 52 From: Brandon Holloway MD PCP: Addie Cosme NP Status: REG CLI Study: SCREENING MAMM (CAD), BILAT Date of Exam: 03/11/18 Exam# [id number] Ordering Dr: Addie Cosme MAMMOGRAPHY - BILATERAL SCREENING REASON FOR EXAM: Female, 52 years old. Routine annual screening examination. PERTINENT HISTORY: Aunt with breast cancer. TECHNIQUE: Digital bilateral breast donny (3D mammographic acquisition) in the CC and MLO projections. 2-D mediolateral oblique (MLO) and craniocaudad (CC) views of both breasts were obtained. CAD: Full Field Digital Mammography with Computer Added Detection was performed. COMPARISON: Comparison is made with prior study dated September 24, 2016 and July 26, 2015. FINDINGS: Breast Composition: The breasts are heterogeneously dense, which may obscure small masses. There are no dominant masses or suspicious calcifications. No other significant abnormalities are identified. There has been no significant change since the prior study. BI/SCREENING MAMM (CAD), BILAT IMPRESSION: Stable bilateral screening mammogram. Yearly follow-up mammogram recommended. (A) ASSESSMENT CATEGORY: BIRADS Category 1: Negative. A letter regarding these results will be sent to the patient by the facility within 30 days. Approximately 10% of breast cancers are not detected by mammography. A normal mammogram should not delay biopsy of a clinically suspicious abnormality. [id number] Electronically Signed: Brandon Holloway MD at 13:40 EDT Tel [phone], Service support , CC: Addie Cosme WET MACHINE OPERATOR Magnetic Prospecting Operator: Signed Addie Cosme Work Phone: Start: 09-24-2016 End: 09-24-2016 SCREENING MAMM (CAD), BILAT Comments: See Note; NOTES: [facility] Imaging Services [address] [place] [address] Verdana 4d SCREENING MAMM (CAD), BILAT MR#: [id number] Acct: [id number] Name: RONNI BLUM Rep #: [id number] : 1965 F 51 From: Brandon Holloway MD PCP: Addie Cosme Status: REG CLI Study: SCREENING MAMM (CAD), BILAT Date of Exam: 09/24/16 Exam# [id number] Ordering Dr: Addie Cosme MAMMOGRAPHY - BILATERAL SCREENING REASON FOR EXAM: Female, 51 years old. Routine annual screening examination. PERTINENT HISTORY: Aunt with breast cancer. TECHNIQUE: Digital bilateral breast donny (3D mammographic acquisition) in the CC and MLO projections. 2-D mediolateral oblique (MLO) and craniocaudad (CC) views of both breasts were obtained. CAD: Full Field Digital Mammography with Computer Added Detection was performed. COMPARISON: Comparison is made with prior study dated July 26, 2015 and August 27, 2013. FINDINGS: Breast Composition: The breasts are heterogeneously dense, which may obscure small masses. There are no dominant masses or suspicious calcifications. No other significant abnormalities are identified. There has been no significant change since the prior study. HPBI/SCREENING MAMM (CAD), BILAT IMPRESSION: Stable bilateral screening mammogram. Yearly follow-up mammogram recommended. (A) ASSESSMENT CATEGORY: BIRADS Category 1: Negative. A letter regarding these results will be sent to the patient by the facility within 30 days. Approximately 10% of breast cancers are not detected by mammography. A normal mammogram should not delay biopsy of a clinically suspicious abnormality. [id number] Electronically Signed: Brandon Holloway MD at 12:11 EDT Tel [phone], Service support [phone], CC: Addie Cosme Magnetic Prospecting Operator: Signed Addie Cosme Work Phone: Start: 07-26-2015 End: 07-26-2015 Bilat Scrn Digital AND CAD Comments: See Note; NOTES: [facility] Imaging Services [address] [place] [address] Verdana 4d Bilat Scrn Digital AND CAD MR#: [id number] Acct: [id number] Name: RONNI BLUM Rep #: [id number] : 1965 F 49 From: Brandon Holloway MD PCP: Nicole Barker MD Status: REG CLI Study: Bilat Scrn Digital AND CAD Date of Exam: 07/26/15 Exam# [id number] Ordering Dr: Nicole Barker MD MAMMOGRAPHY - BILATERAL SCREENING REASON FOR EXAM: Female, 49 years old. Routine annual screening examination. PERTINENT HISTORY: Aunt with breast cancer. TECHNIQUE: Digital examination. Mediolateral oblique (MLO) and craniocaudad (CC) views of both breasts were obtained. CAD: CAD was performed on this study. COMPARISON: Comparison is made with prior study dated August 27, 2013 and September 22, 2012. FINDINGS: Breast Composition: The breasts are heterogeneously dense, which may obscure small masses. There are no dominant masses or suspicious calcifications. No other significant abnormalities are identified. There has been no significant change since the prior study. IMPRESSION: Stable bilateral screening mammogram. Yearly follow-up mammogram recommended. (A) ASSESSMENT CATEGORY: BIRADS Category 1: Negative. A letter regarding these results will be sent to the patient by the facility within 30 days. Approximately 10% of breast cancers are not detected by mammography. A normal mammogram should not delay biopsy of a clinically suspicious abnormality. [id number] Electronically Signed: Brandon Holloway MD at 12:54 EST Tel [phone], Service support [phone], CC: Nicole Barker MD Magnetic Prospecting Operator: Signed Nicole Barker Work Phone: Start: 04-07-2014 End: 04-07-2014 Spmtry w/vc expiratory michael w/wo mxml vol vntj _ Nicole Barker Work Phone: Start: 08-27-2013 End: 08-27-2013 Bilat Scrn Digital & CAD Comments: See Note; NOTES: [facility] Imaging Services [address] [place] [address] Breast Imaging Report MR#: [id number] Acct: [id number] Name: RONNI BLUM Rep #: [id number] : 1965 F 47 From: Brandon Holloway MD PCP: Nicole Barker MD Status: REG CLI Exam# [id number] Ordering Dr: Nicole Barker MD MAMMOGRAPHY - BILATERAL SCREENING REASON FOR EXAM: Female, 47 years old. Routine annual screening examination. PERTINENT HISTORY: Aunt with breast cancer. TECHNIQUE: Digital examination. Mediolateral oblique (MLO) and craniocaudad (CC) views of both breasts were obtained. CAD: CAD was performed on this study. COMPARISON: Comparison is made with prior examination dated September 22, 2012 and prior outside study dated August 09, 2011. FINDINGS: The breast composition is heterogeneously dense - ranging from 51% to 75% of the breast tissue. There are no dominant masses or suspicious calcifications. No other significant abnormalities are identified. There has been no significant change since the prior study. IMPRESSION: Stable bilateral screening mammogram. Yearly follow-up recommended. (A) ASSESSMENT CATEGORY: BIRADS Category 2: Benign finding(s). A letter regarding these results will be sent to the patient by the facility within 30 days. Approximately 10% of breast cancers are not detected by mammography. A normal mammogram should not delay biopsy of a clinically suspicious abnormality. Electronically Signed: Brandon Holloway M.D. at 13:07 EST , Service support [phone], CC: Nicole Barker MD Magnetic Prospecting Operator: Signed Nicole Barker Work Phone: Anterior colporrhaphy FREDER ICK KORPI DO Arthroscopy of knee with lateral meniscectomy ABDOUL KORPI DO Comment on above: RIGHT Colonoscopy ABDOUL KORPI DO Right knee Karolinamita Dumont LP N Comment on above: 08/29/2021 Dr. Clifton meniscus repair Right knee Karolina Dumont LP N Comment on above: 08/29/2021 Dr. Clifton meniscus repair Screening for malign ant neoplasm of breast Screening for malignant neoplasm of breast Addie Gantesa Screening for malign ant neoplasm of breast Screening for malignant neoplasm of breast Addie Hollingswortha SCALE RECLAMATION TENDER Work Phone: vaginal surgery to t ack up uterine tissue 1999 [facility] vaginal surgery to t ack up uterine tissue 1999 Zeeshan Byrne vaginal surgery to t ack up uterine tissue 1999 Zeeshan Byrne vaginal surgery to t ack up uterine tissue 1999 Zeeshan Dukes vaginal surgery to t ack up uterine tissue 1999 Zeeshan Dukes MEDICAL ASSEMBLER vaginal surgery to t ack up uterine tissue 1999 Karolina Dumont MEDICAL ASSEMBLER vaginal surgery to t ack up uterine tissue 1999 Karolina Dumont MEDICAL ASSEMBLER Viral antigen assay WET MACHINE OPERATOR-C Kirstin Cosme WET MACHINE OPERATOR Work Phone: Plan of Treatment Date Care Activity Detail Author Start: 04-01-2024 Lipid screen Lipid screen [facility] [place], [place] Start: 04-15-2023 Procedure Education Eprescribe d prescriptions (G8553) [facility] Work Phone: Start: 04-15-2023 Provider Instruction s for Treatment Follow up in 1 year or as needed [facility]; [facility] Work Phone: Start: 04-15-2023 Lipid panel LIPID PANEL (17135) [facility]; [facility] Work Phone: Start: 04-15-2023 Comprehensive metabo lic panel METABOLIC PANEL, COMPREHENSIVE (58357) [facility]; [facility] Work Phone: Start: 04-15-2023 Blood count complete auto&auto difrntl wbc CBC, PLATELETS & AUT DIFF (60780) [facility]; [facility] Work Phone: Start: 04-15-2023 Assay of thyroid stimulating hormone tsh TSH (THYROID STIMULATING HORMONE) (81417) [facility]; [facility] Work Phone: Start: 04-15-2023 25 hydroxy includes fractions if performed CALCIFEDIOL (83345) [facility]; [facility] Work Phone: Start: 09-04-2021 Procedure Education Eprescribe d prescriptions (G8553) [facility]; [facility] Work Phone: Start: 09-04-2021 Provider Instruction s for Treatment Follow up in 6 months [facility]; [facility] Work Phone: Start: 03-05-2021 DTaP/Tdap/Td vaccine (2 - Td) DTaP/Tdap/Td vaccine (2 - Td) [place], [place] Start: 12-27-2020 Procedure Education Eprescribe d prescriptions (G8553) [facility]; [facility] Work Phone: Start: 12-27-2020 Provider Instruction s for Treatment Follow up if no improvement or if symptoms worsen [facility]; [facility] Work Phone: Start: 08-08-2020 Procedure Education Eprescribe d prescriptions (G8553) [facility]; [facility] Work Phone: Start: 08-08-2020 Provider Instruction s for Treatment COVID SCREENING FORM [facility]; [facility] Work Phone: Start: 04-01-2020 A1C test (Diabetic o r Prediabetic) A1C test (Diabetic or Prediabetic) [place], [place] Start: 03-24-2019 Procedure Education Eprescribe d prescriptions (G8553) [facility] Work Phone: Start: 03-24-2019 Provider Instruction s for Treatment Follow up in 3 months [facility] Work Phone: Start: 03-17-2019 Procedure Education Eprescribe d prescriptions (G8553) [facility] Work Phone: Start: 03-17-2019 Provider Instruction s for Treatment [facility] Work Phone: Start: 03-17-2019 Assay of estradiol ESTRADIOL (42965) [facility] Work Phone: Start: 03-17-2019 Gonadotropin luteinizing hormone GONADOTROPIN-LH (17353) [facility] Work Phone: Start: 03-17-2019 Gonadotropin follicl e stimulating hormone GONADOTROPIN-FSH (17143) [facility] Work Phone: Start: 03-14-2019 Influenza vaccination Flu vaccine (# 1) [place], [place] Start: 02-27-2018 Procedure Education Eprescribe d prescriptions (G8553) [facility] Work Phone: Start: 02-27-2018 Provider Instruction s for Treatment Follow up in 2 weeks [facility] Work Phone: Start: 2017 Breast cancer screen Breast cancer s creen [place], [place] Start: 2017 Colon cancer screen colonoscopy Colon cancer screen colonoscopy [place], [place] Start: 2017 Shingles Vaccine (1 of 2) Shingles Vaccine (1 of 2) [place], [place] Start: 09-09-2016 Procedure Education Eprescribe d prescriptions (G8553) [facility] Work Phone: Start: 08-27-2016 Provider Instruction s for Treatment Follow up in 2 weeks [facility] Work Phone: Start: 07-12-2014 Provider Instruction s for Treatment [facility] Work Phone: Start: 04-07-2014 Procedure Education Eprescribe d prescriptions (G8553) [facility] Work Phone: Start: 08-10-2013 25 hydroxy includes fractions if performed CALCIFIDIOL (71749) VIT D 25 [facility] Work Phone: Comment on above: recheck in 8 weeks Start: 1988 Cervical cancer screen Cervical canc er screen [place], [place] Start: 1982 HIV screen HIV screen [place], [place] [facility] Work Phone: [facility] Work Phone: [facility] Work Phone: [facility] Work Phone: [facility] Work Phone: [facility] Work Phone[facility] Work Phone[facility] Work Phone: [facility] Work Phone: [facility] Work Phone: [facility] Work Phone: [facility] Work Phone: Immunizations Immunization Date Immunization Notes Care Provider Jad cortés 12-25-2023 SARS-CoV-2 (COVID-19 ) [id number] ABDOUL WORTHY DO [facility] 04-15-2023 influenza virus vacc ine, unspecified formulation ABDOUL WORTHY DO [facility] 04-15-2023 influenza, injectabl e, quadrivalent, contains preservative Renaldo Blu SCALE RECLAMATION TENDER Work Phone: [facility]; [facility] Work Phone: Comment on above: Site: Left Deltoid InfluenzaFlulaval pr efilled syringe 0.5ml Lot: [id number]: 01/11/2024Le JAN Gonzales 05-06-2022 influenza virus vacc ine, unspecified formulation ABDOUL WORTHY DO [facility] 05-06-2022 influenza, seasonal, injectable WET MACHINE OPERATOR-C Addie Ciesa WET MACHINE OPERATOR Work Phone: [facility] Work Phone: 04-05-2022 Covid Pfizer Bivalen t Booster WET MACHINE OPERATOR-C Addie Ciesa WET MACHINE OPERATOR Work Phone: [facility] Work Phone: 03-10-2022 SARS-CoV-2 mRNA (xjpbwdnyjhi-megw-qbclomc ) vaccine ABDOUL WORTHY DO [facility] 08-27-2021 hepatitis B vaccine, adult dosage WET MACHINE OPERATOR-C Addie Ciesa WET MACHINE OPERATOR Work Phone: [facility] 06-25-2021 hepatitis B vaccine, adult dosage WET MACHINE OPERATOR-C Addie Ciesa WET MACHINE OPERATOR Work Phone: [facility] 05-30-2021 influenza virus vacc ine, unspecified formulation ABDOUL WORTHY DO [facility] 05-30-2021 influenza, seasonal, injectable WET MACHINE OPERATOR-C Addie Cosme WET MACHINE OPERATOR Work Phone: [facility] Work Phone: 05-24-2021 Covid (Pfizer) WET MACHINE OPERATOR-C Addie Ayon sa WET MACHINE OPERATOR Work Phone: [facility] 08-31-2020 Covid (Pfizer) WET MACHINE OPERATOR-C Addie Ayon sa WET MACHINE OPERATOR Work Phone: [facility] Comment on above: Result Comment: 2024: TPV4 08-10-2020 Covid (Pfizer) WET MACHINE OPERATOR-C Addie Ayon sa WET MACHINE OPERATOR Work Phone: [facility] Comment on above: Result Comment: 2024: TPV4 12-24-2018 hepatitis B vaccine, adult dosage WET MACHINE OPERATOR-C Addie Cosme WET MACHINE OPERATOR Work Phone: [facility] Work Phone: 05-04-2018 influenza virus vacc ine, unspecified formulation ABDOUL KORPI DO [facility] 05-07-2016 influenza virus vacc ine, unspecified formulation ABDOUL KORPI DO [facility] 04-23-2015 influenza virus vacc ine, unspecified formulation ABDOUL KORPI DO [facility] 07-22-2013 Influenza virus vaccine WET MACHINE OPERATOR-C Addie Cosme WET MACHINE OPERATOR Work Phone: [facility] Work Phone: Payers Date Payer Category Payer Private Health Insurance [facility] [id number] 2024 Self-pay [id number] 2024 Private Health Insurance [facility] [id number] 2021 Unknown [id number] 2020 Private Health Insurance [id number] 2019 Private Health Insurance xxx [id number] 2018 Private Health Insurance [id number] 2017 Private Health Insurance [id number] 2016 Unknown [id number] 2015 Unknown [id number] 1965 Unknown [id number] 2.16.84 [id number] 1965 Unknown [id number] 2.16.8 [id number] 1965 Unknown [id number] 2.16. [id number] 1965 Unknown [id number] 2.16.8 [id number] Private Health Insurance [id number] Unknown Unknown [id number] Unknown [id number] 2.16.8 [id number] Unknown [id number] 2.16.8 [id number] Unknown [id number] 2.16.8 [id number] Unknown [id number] 2.16.8 [id number] Unknown [id number] 2.16.8 [id number] Social History Date Type Detail Facility Alcohol Use Alcohol Use [facility] Work Phone: Comment on above: rarely coffee/soda - up to 3 a day . [facility] [place] [facility] work for [employer].sh lives with s pouse Tobacco Use: Tobacco Use: [facility] Work Phone: Start: 04-19-2019 End: 07-20-2024 Tobacco smoking status DEIS Never smoker [facility] Start: 03-31-2019 End: 04-19-2019 Alcohol intake Not Currently Blip ADITYA Sex Assigned At Not on file Blip ADITYA Tobacco Use: Tobacco Use: [facility] Work Phone: Start: 03-10-2019 End: 02-01-2022 Tobacco smoking status DEIS Unknown if ever smoked [facility] Work Phone: Start: 1965 Sex Assigned At Female A [facility] Tobacco smoking status [facility] Start: 07-19-2024 Sex Female (finding) [facility] Medical Equipment Procedure Code Equipment Code Equipment Original Text Equipment Identifier Dates Tibia/Fibula Ope n Reduction Internal Fix Unknown 07/22/24 Unknown Unknown FDA Start: 07-22-2024 Tibia/Fibula Ope n Reduction Internal Fix Unknown 07/22/24 Unknown Unknown FDA Start: 07-22-2024 Tibia/Fibula Ope n Reduction Internal Fix Unknown 07/22/24 Unknown Unknown FDA Start: 07-22-2024 Tibia/Fibula Ope n Reduction Internal Fix Unknown 07/22/24 Unknown Unknown FDA Start: 07-22-2024 Tibia/Fibula Ope n Reduction Internal Fix Unknown 07/22/24 Unknown Unknown FDA Start: 07-22-2024 Tibia Rodding Intramedullary Unknown 07/22/24 Unknown Unknown FDA Start: 07-22-2024 Tibia Rodding Intramedullary Unknown 07/22/24 Unknown Unknown FDA Start: 07-22-2024 Tibia Rodding Intramedullary Unknown 07/22/24 Unknown Unknown FDA Start: 07-22-2024 Tibia Rodding Intramedullary Unknown 07/22/24 Unknown Unknown FDA Start: 07-22-2024 Tibia Rodding Intramedullary Unknown 07/22/24 Unknown Unknown FDA Start: 07-22-2024 Tibia Rodding Intramedullary Unknown 07/22/24 Unknown Unknown FDA Start: 07-22-2024 Tibia/Fibula Ope n Reduction Internal Fix Unknown 07/22/24 Unknown Unknown FDA Start: 07-22-2024 Tibia/Fibula Ope n Reduction Internal Fix Unknown 07/22/24 Unknown Unknown FDA Start: 07-22-2024 Tibia/Fibula Ope n Reduction Internal Fix Unknown 07/22/24 Unknown Unknown FDA Start: 07-22-2024 Tibia/Fibula Ope n Reduction Internal Fix Unknown 07/22/24 Unknown Unknown FDA Start: 07-22-2024 Tibia/Fibula Ope n Reduction Internal Fix Unknown 07/22/24 Unknown Unknown FDA Start: 07-22-2024 Tibia Rodding Intramedullary Unknown 07/22/24 Unknown Unknown FDA Start: 07-22-2024 Tibia Rodding Intramedullary Unknown 07/22/24 Unknown Unknown FDA Start: 07-22-2024 Tibia Rodding Intramedullary Unknown 07/22/24 Unknown Unknown FDA Start: 07-22-2024 Tibia Rodding Intramedullary Unknown 07/22/24 Unknown Unknown FDA Start: 07-22-2024 Tibia Rodding Intramedullary Unknown 07/22/24 Unknown Unknown FDA Start: 07-22-2024 Tibia Rodding Intramedullary Unknown 07/22/24 Unknown Unknown FDA Start: 07-22-2024 Functional Status Date Assessment Result Facility 07-23-2024 Functional Status Room check performed [facility] 07-23-2024 Functional Status [facility] 07-23-2024 Functional Status Single level home [facility] 07-23-2024 Functional Status Independent [facility] 07-23-2024 Functional Status [facility] 07-22-2024 Functional Status [facility] 07-22-2024 Functional Status Sensory Deficits None [facility] 07-22-2024 Functional Status ice chips and sips take n [facility] 07-22-2024 Functional Status [facility] 07-20-2024 Functional Status [facility] Mental Status Date Assessment Result Facility 07-23-2024 Mental Status Oriented x 4 [facility] 07-23-2024 Mental Status [facility] 07-22-2024 Mental Status [facility] Clinical Notes 07-19-2024 to 01-06-2025 Note Date & Type Note Facility 01-06-2025 Hospital Discharge instructions Patient Education 01/06/2025 09:34:52 Orthopedic Hardware Removal, Care After Orthopedic Hardware Removal, Care After This sheet gives you information about how to care for yourself after your procedure. Your health care provider may also give you more specific instructions. If you have problems or questions, contact your health care provider. What can I expect after the procedure? After the procedure, it is common to have: Soreness or pain. Some swelling in the area where the hardware was removed. A small amount of blood or clear fluid coming from your incision. Follow these instructions at home: If you have a cast: Do not stick anything inside the cast to scratch your skin. Doing that increases your risk of infection. Check the skin around the cast every day. Tell your health care provider about any concerns. You may put lotion on dry skin around the edges of the cast. Do not put lotion on the skin underneath the cast. Keep the cast clean and dry. If you have a splint or boot: Wear the splint or boot as told by your health care provider. Remove it only as told by your health care provider. Loosen the splint or boot if your fingers or toes tingle, become numb, or turn cold and blue. Keep the splint or boot clean and dry. Bathing Do not take baths, swim, or use a hot tub until your health care provider approves. Ask your health care provider if you may take showers. You may only be allowed to take sponge baths. Keep the bandage (dressing) dry until your health care provider says it can be removed. If your cast, splint, or boot is not waterproof: ?Do not let it get wet. ?Cover it with a watertight covering when you take a bath or a shower. Incision care Follow instructions from your health care provider about how to take care of your incision. Make sure you: ?Wash your hands with soap and water before you change your dressing. If soap and water are not available, use hand realtime court reporter. ?Change your dressing as told by your health care provider. ?Leave stitches (sutures), skin glue, or adhesive strips in place. These skin closures may need to stay in place for 2 weeks or longer. If adhesive strip edges start to loosen and curl up, you may trim the loose edges. Do not remove adhesive strips completely unless your health care provider tells you to do that. Check your incision area every day for signs of infection. Check for: ?Redness. ?More swelling or pain. ?More fluid or blood. ?Warmth. ?Pus or a bad smell. Managing pain, stiffness, and swelling If directed, put ice on the affected area: ?If you have a removable splint or boot, remove it as told by your health care provider. ?Put ice in a plastic bag. ?Place a towel between your skin and the bag. ?Leave the ice on for 20 minutes, 2 3 times a day. Move your fingers or toes often to avoid stiffness and to lessen swelling. Raise (elevate) the injured area above the level of your heart while you are sitting or lying down. Driving Do not drive or use heavy machinery while taking prescription pain medicine. Do not drive for 24 hours if you were given a medicine to help you relax (sedative) during your procedure. Ask your health care provider when it is safe to drive if you have a cast, splint, or boot on the affected limb. Activity Ask your health care provider what activities are safe for you during recovery, and ask what activities you need to avoid. Do not use the injured limb to support your body weight until your health care provider says that you can. Do not play contact sports until your health care provider approves. Do exercises as told by your health care provider. Avoid sitting for a long time without moving. Get up and move around at least every few hours. This will help prevent blood clots. General instructions Do not put pressure on any part of the cast or splint until it is fully hardened. This may take several hours. If you are taking prescription pain medicine, take actions to prevent or treat constipation. Your health care provider may recommend that you: ?Drink enough fluid to keep your urine pale yellow. ?Eat foods that are high in fiber, such as fresh fruits and vegetables, whole grains, and beans. ?Limit foods that are high in fat and processed sugars, such as fried or sweet foods. ?Take an ywwu-vwh-meepqjo or prescription medicine for constipation. Do not use any products that contain nicotine or tobacco, such as cigarettes and e-cigarettes. These can delay bone healing after surgery. If you need help quitting, ask your health care provider. Take gxvq-ycu-sslozaa and prescription medicines only as told by your health care provider. Keep all follow-up visits as told by your health care provider. This is important. Contact a health care provider if: You have lasting pain. You have redness around your incision. You have more swelling or pain around your incision. You have more fluid or blood coming from your incision. Your incision feels warm to the touch. You have pus or a bad smell coming from your incision. You are unable to do exercises or physical activity as told by your health care provider. Get help right away if: You have difficulty breathing. You have chest pain. You have severe pain. You have a fever or chills. You have numbness for more than 24 hours in the area where the hardware was removed. Summary After the procedure, it is common to have some pain and swelling in the area where the hardware was removed. Follow instructions from your health care provider about how to take care of your incision. Return to your normal activities as told by your health care provider. Ask your health care provider what activities are safe for you. This information is not intended to replace advice given to you by your health care provider. Make sure you discuss any questions you have with your health care provider. Document Released: 11/14/2015 Document Revised: 08/26/2019 Document Reviewed: 07/23/2018 [employer] Patient Education 2020 Room n House. Follow Up Care 12/13/2024 14:32:50 With:ABDOUL WORTHY DO, Orthopedic Address: [address] [place] [address] [facility], [place] [address]- [phone] When: Unknown Comments:Follow-up as scheduled [facility] 01-06-2025 Anesthesiology Consult note Patient: RONNI BLUM Age: 59 years Sex: Female : 1965 Associated Diagnoses: None Author: KRISTINA ENG MD Assessment Postanesthesia assessment Vitals: Vital signs from flowsheet : Vital Signs 01/06/2025 9:25 EDT Temperature Temporal Artery 36.0 DegC Peripheral Pulse Rate 85 bpm Respiratory Rate 16 br/min Systolic Blood Pressure Non-Invasive 149 mmHg HI Diastolic Blood Pressure Non-Invasive 93 mmHg HI 01/06/2025 9:01 EDT Temperature Temporal Artery 36 DegC Heart Rate Monitored 85 bpm Respiratory Rate 18 br/min Systolic Blood Pressure Non-Invasive 142 mmHg HI Diastolic Blood Pressure Non-Invasive 84 mmHg 01/06/2025 8:46 EDT Heart Rate Monitored 87 bpm Respiratory Rate 18 br/min Systolic Blood Pressure Non-Invasive 131 mmHg Diastolic Blood Pressure Non-Invasive 84 mmHg Mean Arterial Pressure (NBP) 97 mmHg 01/06/2025 8:30 EDT Temperature Temporal Artery 36 DegC Heart Rate Monitored 86 bpm Respiratory Rate 16 br/min Systolic Blood Pressure Non-Invasive 140 mmHg Diastolic Blood Pressure Non-Invasive 95 mmHg HI Mean Arterial Pressure (NBP) 108 mmHg 01/06/2025 8:27 EDT Systolic Blood Pressure Non-Invasive 142 mmHg mmHg Diastolic Blood Pressure Non-Invasive 86 mmHg mmHg 01/06/2025 8:25 EDT Heart Rate Monitored 88 bpm bpm Respiratory Rate - Anes 10 br/min br/min 01/06/2025 8:24 EDT Systolic Blood Pressure Non-Invasive 133 mmHg mmHg Diastolic Blood Pressure Non-Invasive 91 mmHg mmHg 01/06/2025 8:21 EDT Systolic Blood Pressure Non-Invasive 126 mmHg mmHg Diastolic Blood Pressure Non-Invasive 82 mmHg mmHg 01/06/2025 8:20 EDT Heart Rate Monitored 92 bpm bpm Respiratory Rate - Anes 15 br/min br/min 01/06/2025 8:18 EDT Systolic Blood Pressure Non-Invasive 129 mmHg mmHg Diastolic Blood Pressure Non-Invasive 78 mmHg mmHg 01/06/2025 8:15 EDT Temperature (Route Not Specified) 35.28 DegC DegC Heart Rate Monitored 96 bpm bpm Respiratory Rate - Anes 13 br/min br/min Systolic Blood Pressure Non-Invasive 113 mmHg mmHg Diastolic Blood Pressure Non-Invasive 69 mmHg mmHg 01/06/2025 8:12 EDT Systolic Blood Pressure Non-Invasive 126 mmHg mmHg Diastolic Blood Pressure Non-Invasive 85 mmHg mmHg 01/06/2025 8:10 EDT Temperature (Route Not Specified) 35.29 DegC DegC Heart Rate Monitored 97 bpm bpm Respiratory Rate - Anes 14 br/min br/min 01/06/2025 8:09 EDT Systolic Blood Pressure Non-Invasive 119 mmHg mmHg Diastolic Blood Pressure Non-Invasive 76 mmHg mmHg 01/06/2025 8:06 EDT Systolic Blood Pressure Non-Invasive 112 mmHg mmHg Diastolic Blood Pressure Non-Invasive 83 mmHg mmHg 01/06/2025 8:05 EDT Temperature (Route Not Specified) 35.33 DegC DegC Heart Rate Monitored 96 bpm bpm Respiratory Rate - Anes 14 br/min br/min 01/06/2025 8:02 EDT Systolic Blood Pressure Non-Invasive 120 mmHg mmHg Diastolic Blood Pressure Non-Invasive 82 mmHg mmHg 01/06/2025 8:00 EDT Temperature (Route Not Specified) 35.38 DegC DegC Heart Rate Monitored 92 bpm bpm Respiratory Rate - Anes 10 br/min br/min Systolic Blood Pressure Non-Invasive 97 mmHg mmHg Diastolic Blood Pressure Non-Invasive 74 mmHg mmHg 01/06/2025 7:57 EDT Systolic Blood Pressure Non-Invasive 93 mmHg mmHg Diastolic Blood Pressure Non-Invasive 71 mmHg mmHg 01/06/2025 7:55 EDT Temperature (Route Not Specified) 35.41 DegC DegC Heart Rate Monitored 91 bpm bpm Respiratory Rate - Anes 10 br/min br/min 01/06/2025 7:54 EDT Systolic Blood Pressure Non-Invasive 101 mmHg mmHg Diastolic Blood Pressure Non-Invasive 70 mmHg mmHg 01/06/2025 7:51 EDT Systolic Blood Pressure Non-Invasive 116 mmHg mmHg Diastolic Blood Pressure Non-Invasive 75 mmHg mmHg 01/06/2025 7:50 EDT Temperature (Route Not Specified) 35.45 DegC DegC Heart Rate Monitored 94 bpm bpm Respiratory Rate - Anes 12 br/min br/min 01/06/2025 7:48 EDT Systolic Blood Pressure Non-Invasive 115 mmHg mmHg Diastolic Blood Pressure Non-Invasive 82 mmHg mmHg 01/06/2025 7:45 EDT Temperature (Route Not Specified) 35.51 DegC DegC Heart Rate Monitored 89 bpm bpm Respiratory Rate - Anes 11 br/min br/min Systolic Blood Pressure Non-Invasive 113 mmHg mmHg Diastolic Blood Pressure Non-Invasive 75 mmHg mmHg 01/06/2025 7:42 EDT Systolic Blood Pressure Non-Invasive 116 mmHg mmHg Diastolic Blood Pressure Non-Invasive 76 mmHg mmHg 01/06/2025 7:40 EDT Temperature (Route Not Specified) 35.52 DegC DegC Heart Rate Monitored 85 bpm bpm Respiratory Rate - Anes 9 br/min br/min 01/06/2025 7:39 EDT Systolic Blood Pressure Non-Invasive 93 mmHg mmHg Diastolic Blood Pressure Non-Invasive 60 mmHg mmHg 01/06/2025 7:36 EDT Systolic Blood Pressure Non-Invasive 102 mmHg mmHg Diastolic Blood Pressure Non-Invasive 68 mmHg mmHg 01/06/2025 7:35 EDT Temperature (Route Not Specified) 35.55 DegC DegC Heart Rate Monitored 85 bpm bpm Respiratory Rate - Anes 10 br/min br/min 01/06/2025 7:33 EDT Systolic Blood Pressure Non-Invasive 98 mmHg mmHg Diastolic Blood Pressure Non-Invasive 66 mmHg mmHg 01/06/2025 7:30 EDT Temperature (Route Not Specified) 35.77 DegC DegC Heart Rate Monitored 85 bpm bpm Respiratory Rate - Anes 11 br/min br/min Systolic Blood Pressure Non-Invasive 97 mmHg mmHg Diastolic Blood Pressure Non-Invasive 65 mmHg mmHg 01/06/2025 7:27 EDT Systolic Blood Pressure Non-Invasive 100 mmHg mmHg Diastolic Blood Pressure Non-Invasive 68 mmHg mmHg 01/06/2025 7:25 EDT Heart Rate Monitored 94 bpm bpm Respiratory Rate - Anes 0 br/min br/min 01/06/2025 7:23 EDT Systolic Blood Pressure Non-Invasive 132 mmHg mmHg Diastolic Blood Pressure Non-Invasive 84 mmHg mmHg 01/06/2025 6:03 EDT Temperature Temporal Artery 36 DegC Apical Heart Rate 84 bpm Respiratory Rate 16 br/min Systolic Blood Pressure Non-Invasive 117 mmHg Diastolic Blood Pressure Non-Invasive 82 mmHg . Mental status: at preoperative baseline. Respiratory function: respirations are non-labored, breath sounds are equal, symmetrical expansion. Respiratory support: none. CV function: BP and HR within 20% of pre-op baseline. Cardiovascular support: none. Pain: Post op control see nursing medication documentation. Nausea status: denies nausea, see nursing documentation of medications. Postoperative hydration status: euvolemic. Notes: Patient has sufficiently recovered from anesthesia and has met discharge criteria to leave PACU. Digitally Signed by KRISTINA ENG MD on 01/06/2025 09:46 AM [facility] 01-06-2025 Summary of episode note Discharge Instructions Thank you for allowing [facility] to assist you with your healthcare needs. The following is important discharge information regarding your hospital visit. Your Care Team RENALDO HURT Your Diagnosis Post-op pain What to do next Follow Up Appointments Follow Up with ABDOUL WORTHY DO, Orthopedic Where:[address] [facility], [place] [address]- [phone] Additional Information: Follow-up as scheduled The Following Activity and Diet Have Been Ordered for You Discharge Activity - Ordered -- Weight Bearing Activity Permitted, Weightbearing as tolerated right lower extremity, 01/06/25 9:30:00 EDT Discharge Diet - Ordered -- Type of Diet: Regular, 01/06/25 9:30:00 EDT The Following Equipment Has Been Ordered for You Discharge Home Equipment Discharge Wound Care - Ordered -- Keep splint in place until follow-up in office. Keep splint clean dry and intact., 01/06/25 9:30:00 EDT Allergies [facility] Medications Please ask your primary doctor or pharmacist before taking any other medication not listed, including over the counter drugs, herbal medications, vitamins and or supplements as they may interact with your home medications. What How Much When Why Instructions Last Dose New oxyCODONE (oxyCODONE 5 mg oral tablet ( IMMEDIATE release )) 1 tab(s) by mouth Every 6 hours as needed for as needed for pain Post-op pain Duration: 3 Days Pickup at [facility] Unchanged acetaminophen (acetaminophen 325 mg oral tablet) 2 tab(s) by mouth Every 4 hours as needed for as needed for pain Unchanged acetaminophen-phenyltoloxamine (acetaminophen-phenyltoloxamine 500 mg-30 mg oral tablet) 1 tab(s) by mouth Every 4 hours as needed for for pain Unchanged buPROPion (buPROPion 150 mg/ 24 hours (XL) oral tablet, extended release) 1 tab(s) by mouth Once a day (in the morning) Unchanged cetirizine (cetirizine 10 mg oral tablet) 1 tab(s) by mouth Daily at bedtime Unchanged cholecalciferol (Vitamin D3 25 mcg (1000 intl units) oral capsule) 3 cap by mouth Friday / Friday / Friday Unchanged DME (Walking boot) 1 Other Once Unchanged FLUoxetine (FLUoxetine 40 mg oral capsule) 1 cap by mouth Once a day (in the morning) Unchanged mirtazapine (mirtazapine 30 mg oral tablet) 1 tab(s) by mouth Daily at bedtime Unchanged montelukast (montelukast 10 mg oral tablet) 1 tab(s) by mouth Once a day (in the evening) Unchanged naproxen (Aleve 220 mg oral tablet) 2 tab(s) by mouth Every 8 hours as needed for as needed for pain Unchanged polyethylene glycol 3350 (MiraLax oral powder for reconstitution) by mouth Once a day as needed for Constipation Unchanged QUEtiapine (QUEtiapine 300 mg oral tablet) 1 tab(s) by mouth Daily at bedtime Unchanged traZODone (traZODone 150 mg oral tablet) 1 tab(s) by mouth Daily at bedtime Pharmacy Information [facility]: [address] [place], [place] [phone] Please take this list to your next doctor s visit. Bring all medications you take, including over the counter medications, herbals and other supplements with you to your doctor s visit. Patients and families are reminded to discard old lists and to update any records with all medication providers or retail pharmacies. Education Materials Orthopedic Hardware Removal, Care After This sheet gives you information about how to care for yourself after your procedure. Your health care provider may also give you more specific instructions. If you have problems or questions, contact your health care provider. What can I expect after the procedure? After the procedure, it is common to have: Soreness or pain. Some swelling in the area where the hardware was removed. A small amount of blood or clear fluid coming from your incision. Follow these instructions at home: If you have a cast: Do not stick anything inside the cast to scratch your skin. Doing that increases your risk of infection. Check the skin around the cast every day. Tell your health care provider about any concerns. You may put lotion on dry skin around the edges of the cast. Do not put lotion on the skin underneath the cast. Keep the cast clean and dry. If you have a splint or boot: Wear the splint or boot as told by your health care provider. Remove it only as told by your health care provider. Loosen the splint or boot if your fingers or toes tingle, become numb, or turn cold and blue. Keep the splint or boot clean and dry. Bathing Do not take baths, swim, or use a hot tub until your health care provider approves. Ask your health care provider if you may take showers. You may only be allowed to take sponge baths. Keep the bandage (dressing) dry until your health care provider says it can be removed. If your cast, splint, or boot is not waterproof: ? Do not let it get wet. ? Cover it with a watertight covering when you take a bath or a shower. Incision care Follow instructions from your health care provider about how to take care of your incision. Make sure you: ? Wash your hands with soap and water before you change your dressing. If soap and water are not available, use hand realtime court reporter. ? Change your dressing as told by your health care provider. ? Leave stitches (sutures), skin glue, or adhesive strips in place. These skin closures may need to stay in place for 2 weeks or longer. If adhesive strip edges start to loosen and curl up, you may trim the loose edges. Do not remove adhesive strips completely unless your health care provider tells you to do that. Check your incision area every day for signs of infection. Check for: ? Redness. ? More swelling or pain. ? More fluid or blood. ? Warmth. ? Pus or a bad smell. Managing pain, stiffness, and swelling If directed, put ice on the affected area: ? If you have a removable splint or boot, remove it as told by your health care provider. ? Put ice in a plastic bag. ? Place a towel between your skin and the bag. ? Leave the ice on for 20 minutes, 2 3 times a day. Move your fingers or toes often to avoid stiffness and to lessen swelling. Raise (elevate) the injured area above the level of your heart while you are sitting or lying down. Driving Do not drive or use heavy machinery while taking prescription pain medicine. Do not drive for 24 hours if you were given a medicine to help you relax (sedative) during your procedure. Ask your health care provider when it is safe to drive if you have a cast, splint, or boot on the affected limb. Activity Ask your health care provider what activities are safe for you during recovery, and ask what activities you need to avoid. Do not use the injured limb to support your body weight until your health care provider says that you can. Do not play contact sports until your health care provider approves. Do exercises as told by your health care provider. Avoid sitting for a long time without moving. Get up and move around at least every few hours. This will help prevent blood clots. General instructions Do not put pressure on any part of the cast or splint until it is fully hardened. This may take several hours. If you are taking prescription pain medicine, take actions to prevent or treat constipation. Your health care provider may recommend that you: ? Drink enough fluid to keep your urine pale yellow. ? Eat foods that are high in fiber, such as fresh fruits and vegetables, whole grains, and beans. ? Limit foods that are high in fat and processed sugars, such as fried or sweet foods. ? Take an mpmq-tqp-pvofids or prescription medicine for constipation. Do not use any products that contain nicotine or tobacco, such as cigarettes and e-cigarettes. These can delay bone healing after surgery. If you need help quitting, ask your health care provider. Take wgfq-ppj-ibgkuln and prescription medicines only as told by your health care provider. Keep all follow-up visits as told by your health care provider. This is important. Contact a health care provider if: You have lasting pain. You have redness around your incision. You have more swelling or pain around your incision. You have more fluid or blood coming from your incision. Your incision feels warm to the touch. You have pus or a bad smell coming from your incision. You are unable to do exercises or physical activity as told by your health care provider. Get help right away if: You have difficulty breathing. You have chest pain. You have severe pain. You have a fever or chills. You have numbness for more than 24 hours in the area where the hardware was removed. Summary After the procedure, it is common to have some pain and swelling in the area where the hardware was removed. Follow instructions from your health care provider about how to take care of your incision. Return to your normal activities as told by your health care provider. Ask your health care provider what activities are safe for you. This information is not intended to replace advice given to you by your health care provider. Make sure you discuss any questions you have with your health care provider. Document Released: 11/14/2015 Document Revised: 08/26/2019 Document Reviewed: 07/23/2018 Elsevier Patient Education 2020 [employer] Additional Information VACCINATE! IT SAVES LIVES! Members of the community who have not yet received the COVID-19 vaccine and would like to receive it can visit one of [facility] vaccine clinics. There are many vaccine clinic locations within the [facility]. For locations and available times, please visit [email or web address] It is important to note that some COVID mobile vaccine clinics are held outdoors and may be canceled in rainy or stormy conditions. To learn more about pediatric vaccinations (ages 5-11), we invite you to visit the [facility] webpage. [email or web address] [email or web address] To learn more about the COVID-19 vaccine, we invite you to visit the CDC website for a list of frequently asked questions.https://www.cdc.gov/alfaro virus/2019-ncov/vaccines/faq.html [facility] Patient Portal Access Instructions: Stay connected with your healthcare team and access your personal medical information anytime with the [facility] Patient Portal. Please follow the directions below to create your [facility] account: 1.Access the email account you provided upon registration to the hospital/physician office.2.Look for an invitation email from [facility].3.Open the email and access the invitation link: Accept Invitation to [facility].4.Fill in the required pineda to create your account. To access your account, visit [employer]. Click the blue button labeled Access Patient Portal and then log in with the username and password that you created in the steps above. You will be able to view your test results, lab results, a summary of your visits, upcoming appointments and more. There is also a convenient messaging option where you can send secure messages to your provider. In addition, you will have the ability to download any documents or summaries to your computer and/or send the information securely to a physician. Remember that your healthcare information is confidential, so carefully consider who you will allow to register on the [facility] Patient Portal for access to your information. You can also access the [facility] Patient Portal on the [employer] Anywhere rama. Simply click on Patient Portal and then log into your account. If you would like to receive a full copy of your medical records, please contact the [facility] Medical Records Department by calling [phone], Friday through Friday between 8 a.m. and 4:30 p.m. HOW TO SAFELY DISPOSE OF PRESCRIPTION MEDICATIONS Please use one of the following methods to safely dispose of your unused medications. 1.Use a drug disposal kit: the drug disposal pouch allows you to safely discard your old and unused drugs. Ask your nurse to give you one when you are discharged.2.Visit a local take-back location: Many local pharmacies and police departments have programs that collect old and unwanted prescription drugs. Call your local pharmacy or go to http://[employer].Ellie/7S2Kz2w to find one close to you.3.Make use of household items: Use cat litter or old coffee grounds to dispose medications if other options are not available. Mix your drugs with these household products, seal them in an airtight container and throw it into the garbage. Call [facility]: [phone] to be sure your drugs can be disposed of in this way. Some medicines may require a different approach.4.Never flush your medications down the toilet. IF YOU HAVE BEEN PRESCRIBED AN OPIOID FOR PAIN If you have been prescribed an opioid (such as hydrocodone, oxycodone or morphine), it is critical to understand the possible side effects and risks of opioid pain medications. Even when taken as directed, opioids can have several side effects including: Tolerance, meaning you might need to take more of a medication for the same pain relief. Nausea, vomiting and/or constipation. Sleepiness, dizziness, dry mouth, confusion, depression or itching. Physical dependence, meaning you have withdrawal symptoms when a medication is stopped, can develop within a few days. KNOW YOUR RESPONSIBILITIES It is important to know exactly how much and how often to take the opioid pain medications you are prescribed. Never take opioids in higher amounts or more often than prescribed. Do not combine opioids with alcohol or other drugs that cause drowsiness, such as benzodiazepines, also known as benzos, including diazepam and alprazolam, muscle relaxants or sleep aids. Never sell or share prescription opioids. This is illegal. Store opioids in a secure place and out of reach of others (including children, family, friends and visitors). The last page of this document has been signed and retained as a CHART COPY. Signatures Patient Education Materials Orthopedic Hardware Removal, Care After Medication Leaflets My discharge plan and instructions have been reviewed and explained to me and I,LAY, RONNI understand my current condition and have read and understand these discharge instructions. I have received a written copy of the plan/instructions. If I have questions, I am aware that I should contact my doctor. Patient/Educational Psychologist Signature: ___ Date/Time: Relationship to Patient: _ Witness Name/Signature: Date/Time: [facility] 01-06-2025 History and physical note Date of Service 01/06/2026 History and Physical Update I have examined the patient; reviewed the History and Physical and there are no changes to the History and Physical unless noted below. Digitally Signed by ABDOUL WORTHY DO on 01/06/2025 07:16 AM [facility] 01-06-2025 Anesthesiology Consult note Patient: RONNI BLUM Age: 59 years Sex: Female : 1965 Associated Diagnoses: None Author: WOODY MICHAEL MD Preoperative Information Time of last food or liquid consumption: 01/06/2025 00:00:00 Anesthesia history Patient's history: negative. Family's history: negative. Health Status Allergies: Allergic Reactions (Selected) NKA, Allergies (1) ActiveSeverityReaction NKANone Documented Current medications: (Selected) Inpatient Medications Ordered Kefzol: 2 gram(s), 20 mL, 240 mL/hr, IV Push (INT), PREOP pharm LR 1,000 mL: 100 mL/hr, Intravenous Documented Medications Documented Aleve 220 mg oral tablet: 440 mg, 2 tab(s), Oral, q8h, PRN: as needed for pain, 60 tab(s), 0 Refill(s) FLUoxetine 40 mg oral capsule: 40 mg, 1 cap(s), Oral, qAM, 90 cap(s), 0 Refill(s) MiraLax oral powder for reconstitution: Oral, qDay, PRN: Constipation, 0 Refill(s) QUEtiapine 300 mg oral tablet: 300 mg, 1 tab(s), Oral, qHS, 90 tab(s), 0 Refill(s) Vitamin D3 25 mcg (1000 intl units) oral capsule: 75 mcg, 3 cap(s), Oral, Mon/Wed/Fri, 0 Refill(s) Walking boot: 1, Other, Once, 1 EA, 0 Refill(s) acetaminophen 325 mg oral tablet: 650 mg, 2 tab(s), Oral, q4h, PRN: as needed for pain, 1 tab(s), 0 Refill(s) acetaminophen-phenyltoloxamine 500 mg-30 mg oral tablet: 1 tab(s), Oral, q4h, PRN: for pain, 50 tab(s), 0 Refill(s) buPROPion 150 mg/24 hours (XL) oral tablet, extended release: 150 mg, 1 tab(s), Oral, qAM, 30 tab(s), 0 Refill(s) cetirizine 10 mg oral tablet: 10 mg, 1 tab(s), Oral, qHS, 90 tab(s), 0 Refill(s) mirtazapine 30 mg oral tablet: 30 mg, 1 tab(s), Oral, qHS, 0 Refill(s) montelukast 10 mg oral tablet: 10 mg, 1 tab(s), Oral, qPM, 30 tab(s), 0 Refill(s) traZODone 150 mg oral tablet: 150 mg, 1 tab(s), Oral, qHS, 0 Refill(s), Medications (2) Active Scheduled: (1) ceFAZolin syringe 2 gram(s) 20 mL, IV Push (INT), PREOP pharm Continuous: (1) Lactated Ringers 1,000 mL 1,000 mL, Intravenous, 100 mL/hr PRN: (0) Problem list: Active Problems (7) Anxiety BMI 28.0-28.9,adult Depression Glasses Other fracture of shaft of right tibia, subsequent encounter for closed fracture with nonunion Seasonal allergy Vitamin D deficiency Histories Past Medical History: No active or resolved past medical history items have been selected or recorded. Family History: Heart disease Brother Atrial fibrillation Brother Mental illness Mother Cancer Father Alcoholic Brother Procedure history: Revision to open reduction of fracture and intramedullary nail fixation ([id number]) on 07/22/2024 at 58 Years. Comments: 12/30/2024 8:02 Marisol Junior RN 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 Removed hardware. Replaced with nail. Application of bone graft products. Open reduction of fracture of ankle with internal fixation ([id number]) in 2023 at 58 Years. Comments: 12/30/2024 8:02 Marisol Junior RN RIGHT AR - Anterior repair of vagina ([id number]). Arthroscopic lateral meniscectomy ([id number]). Comments: 07/20/2024 7:55 SULY - DORI Ann RIGHT Colonoscopy ([id number]). Social History: Social & Psychosocial Habits Alcohol 01/06/2025 Use: Current Type: Liquor Frequency: 1-2 times per week Average drinks per episode in last year: 1 Previous treatment: None Substance Abuse 01/06/2025 Use: Never Tobacco 01/06/2025 Tobacco Use: Never (less than 100 in l Home/Environment 01/06/2025 Living situation: Home/Independent Domestic Concerns None Current Home Treatments None Special Services and Community Resources None Spouse Name SALLIE Marital Status of Patient if Patient Independent Adult: Nutrition/Health 01/06/2025 Type of diet: Regular Appetite Good Eating Difficulties None Physical Examination Vital Signs 01/06/2025 6:03 EDT Temperature Temporal Artery 36 DegC Apical Heart Rate 84 bpm Respiratory Rate 16 br/min Systolic Blood Pressure Non-Invasive 117 mmHg Diastolic Blood Pressure Non-Invasive 82 mmHg Vital Signs (last 24 hrs) Last Charted Temp [id number] DegC (JAN 06 06:03) Heart Rate Yrjevm88 bpm (JAN 06 06:03) PFX131 mmHg (JAN 06 06:03) DBP82 mmHg (JAN 06 06:03) Measurements from flowsheet : Measurements 01/06/2025 6:03 EDT Height 170.2 cm Height in inches 67 inch(es) Admission Weight 82.2 kg Weight Lbs 180.8 lb Weight Method Actual Cecil Body Weight 61.62 kg Admission Body Mass Index 28.38 m2 Pain assessment: Pain Assessment 01/06/2025 6:03 EDT Primary Pain Intensity 0 Primary Pain Nonverbal Response Nods No Pain Scale Type 0-10 Pain scale . General: Alert and oriented, No acute distress. Airway: Mallampati classification: II (soft palate, fauces, uvula visible). Dentition Evaluation: Own teeth. Respiratory: Lungs are clear to auscultation. Cardiovascular: Normal rate. Heart Sounds: Normal. Review / Management Results review: No qualifying data available , Lab results 01/06/2025 6:09 EDT SN - Preop - CTm Pt Ready for OR/Proced 01/06/2025 6:09 01/06/2025 6:09 EDT SN - Preop - CTm Pt in SDS Room 01/06/2025 5:55 01/06/2025 6:08 EDT Hand Left 01/06/2025 20 gauge Peripheral IV Activity: Insert new site Peripheral IV Dressing Condition: Clean, Dry, Intact Peripheral IV Dressing Activity: Applied, Transparent dressing Peripheral IV Line Status/Patency: Flushes easily, 10ml normal saline flush Peripheral IV Site Condition: No complications Peripheral IV Equipment: PRN Adaptor Peripheral IV Number of Attempts: 1 01/06/2025 6:03 EDT Height 170.2 cm Height in inches 67 inch(es) Admission Weight 82.2 kg Weight Lbs 180.8 lb Weight Method Actual Cecil Body Weight 61.62 kg Admission Body Mass Index 28.38 m2 Temperature Temporal Artery 36 DegC Apical Heart Rate 84 bpm Respiratory Rate 16 br/min Systolic Blood Pressure Non-Invasive 117 mmHg Diastolic Blood Pressure Non-Invasive 82 mmHg Primary Pain Intensity 0 Primary Pain Nonverbal Response Nods No Pain Scale Type 0-10 Pain scale Heart Rhythm Regular Respirations Unlabored Respiratory Pattern Regular Breath Sounds Auscultated Anterior only All Lobes Breath Sounds Clear Oxygen Therapy Room air Oxygen Saturation 95 % Abdomen Description Soft Urinary Elimination Voiding, no difficulties Skin Description [place], Dry IV Present Present Neurological Symptoms Patient denies Level of Consciousness Alert Strength All Extremities Strong Tone All Extremities Normal Sensation All Extremities Intact Violence Risk Confused No Violence Risk Irritable No Violence Risk Boisterous No Violence Risk Verbal Threats No Violence Risk Physical Threats No Violence Risk Attacking Objects No Violence Risk Predictor Score 0 Violence Risk Intervention None Violence Risk Current Interventions None Affect/Behavior Appropriate, Calm, Cooperative Orientation Oriented x 4 Allergies No Consent Form Signed No Reason Consent Not Signed does not match Patient Dressed In Hospital gown, No undergarments Pre-op Preparation Glasses not removed CHG Preoperative Wash/Wipe Site specific wipe Preop Nasal Swab Povidone-Iodine History & Physical On Chart Yes Obstructive Sleep Apnea Assess Completed Yes Orientation Assessment Oriented x 4 Belongings At Bedside Glasses, Shirt, Shoes, T-shirt Assistive Device None Activity Status ADL Awake Standard Safety ID band on, Call device within reach, Bed in low position Patient ID Band on and Verified Yes Implants Verified Yes Last Fluid Intake 01/05/2025 23:59 Last Food Intake 01/05/2025 20:00 Last Void 01/06/2025 6:05 01/06/2025 5:56 EDT Designated Person #1 We May Share [place] RIZO [phone] Designated Person #1 Relationship Spouse Privacy Restrictions Requested None Status No, per patient Sensory Deficits None Sleep Apnea Snore No Sleep Apnea Tired No Sleep Apnea Obstruction No Sleep Apnea Pressure No Sleep Apnea BMI No Sleep Apnea Age Yes Sleep Apnea Neck No Sleep Apnea Gender No Sleep Apnea Score 1 Diagnosed With Sleep Apnea No Advanced Directives No - refuses information Infectious Disease Symptoms Patient states no symptoms Infectious Disease Recent Exposure No Alcohol and Drug Use No Employee of Institutional Living No Health Care Employee No History of Exposure to TB No History of Positive Chest X-Ray for TB No History of Positive TB Skin Test No Homeless No Known Immunosuppression No Recent Immigrant No Resident of Institutional Living No Bloody Sputum No Fatigue No Fever No Loss of Appetite No Night Sweats No Persistent Cough > 3 Weeks No Weight Loss No Surgery Scheduled On Date/Time 01/06/2025 7:15 Patient Aware Date/Time Of Surgery Yes Arrival Time the Day of Surgery 01/06/2025 5:15 Patient Aware of Arrival Time Yes Previous Surgery At This Facility Yes Pre-Op Patient Education No smoking after midnight, No makeup, No jewelry, Responsible Libertarian, Aware of surgery location, Pre-op education done, No ordered medications, Instructed to bring home medications, Clear liquids until arrival SN - Preprocedure Comments Spoke with patient, Verbalizes/Nonverbally indicates understanding, Other: Instructed to use antibacterial soap Individuals Taught Patient Barriers to Learning None evident Teaching Method Explanation, Printed materials Preferred Spoken Language Romanian Preferred Written Language Romanian Family/Caregiver Prefer Spoken Language Romanian Family/Caregiver Prefer Written Language Romanian Teaching Evaluation Verbalizes/Nonverbally indicates understanding Surgical Site Infection Prevention SSI FAQ provided Infection Prevention Teaching Evaluation Verbalizes/Nonverbally indicates understanding Safety Brochure Information Reviewed Yes [facility] Video Viewed No Patient's Current Physicians Patient's Current Physicians History of Malignant Hyperthermia No Discharge To, Anticipated Home with family care Prev Test Positive/Diagnosis w/COVID-19 No Current Quarantine/Isolated any Illness No Any Contact with Sick Animals/Birds No Traveled Anywhere in Last 30 Days Yes Travel Where Within [facility] State(s) [place] Lost Weight Unintentionally Recently No Eat Poorly Due to Decreased Appetite No Total MST Score 0 No Personal Devices, Patient Valuables Glasses Anesthesia/Transfusions Prior anesthesia Admission Note-Nursing Same Day Patient History 01/05/2025 15:09 EDT Surgery Scheduled On Date/Time 01/06/2025 7:15 Arrival Time the Day of Surgery 01/06/2025 5:15 Patient Aware of Arrival Time Yes Pre-Op Patient Education No smoking after midnight, No makeup, No jewelry, Responsible Libertarian, Aware of surgery location, Pre-op education done, No ordered medications, Instructed to bring home medications, Clear liquids until arrival (Modified) Admission Note-Nursing Patient History PreTest (Modified) 01/05/2025 15:06 EDT History and Physical Scanned . Assessment and Plan [place] [employer] Anesthesiologists (ASA) physical status classification: Class II. Anesthetic Preoperative Plan Anesthetic technique: General. Maintenance airway: Laryngeal mask airway. Risks discussed: nausea, vomiting, headache, sore throat, dental injury, hypotension, allergic reaction, serious complications. Informed consent: signed by patient. Notes: Ronni was seen and examined by Woody matt MD. The medical record was reviewed. Consultations, lab results , radiographic results and cardiovascular studies examined and noted. Anesthesia was explained in detail and questions were invited and answered. We will proceed as outlined in the plan above.. Digitally Signed by WOODY MICHAEL MD on 01/06/2025 06:15 AM Digitally Signed by WOODY MICHAEL MD on 01/06/2025 07:18 AM [facility] 07-29-2024 Note . MICRO - Microbiology PROCEDURE: Bone Culture [*1] SOURCE: Bone BODY SITE: Leg R COLLECTED DATE/TIME: 07/22/2024 12:38 EST RECEIVED DATE/TIME: 07/22/2024 13:32 EST START DATE/TIME: 07/22/2024 13:32 EST FREE TEXT SOURCE: Right tibial bone FINAL REPORTS Final Report [] Verified Date/Time/Personnel: 07/29/2024 11:19 EST No aerobes or anaerobes isolated at 7 days. PRELIMINARY REPORTS Preliminary Report [] Verified Date/Time/Personnel: 07/23/2024 07:29 EST No growth to date Performing Locations *1: This test was performed at: [facility], [address] [place] [address], [id number] , [facility] 07-23-2024 Hospital Discharge instructions Patient Education 07/23/2024 14:58:29 Tibial Plateau Fracture Treated With ORIF, Care After Tibial Plateau Fracture Treated With ORIF, Care After This sheet gives you information about how to care for yourself after your procedure. Your health care provider may also give you more specific instructions. If you have problems or questions, contact your health care provider. What can I expect after the procedure? After the procedure, it is common to have: Pain. Swelling. Stiffness. Tingling or numbness. A small amount of fluid from your incision. Follow these instructions at home: If you have a brace: Wear the brace as told by your health care provider. Remove it only as told by your health care provider. Loosen the brace if your toes tingle, become numb, or turn cold and blue. Keep the brace clean. If the brace is not waterproof: ?Do not let it get wet. ?Cover it with a watertight covering when you take a bath or a shower. Incision care Follow instructions from your health care provider about how to take care of your incision. Make sure you: ?Wash your hands with soap and water before you change your bandage (dressing). If soap and water are not available, use hand realtime court reporter. ?Change your dressing as told by your health care provider. ?Leave stitches (sutures), skin glue, or adhesive strips in place. These skin closures may need to stay in place for 2 weeks or longer. If adhesive strip edges start to loosen and curl up, you may trim the loose edges. Do not remove adhesive strips completely unless your health care provider tells you to do that. Check your incision area every day for signs of infection. Check for: ?Redness. ?More swelling or pain. ?Blood or more fluid. ?Warmth. ?Pus or a bad smell. Bathing Do not take baths, swim, or use a hot tub until your health care provider approves. Ask your health care provider if you can take showers. You may only be allowed to take sponge baths. If your brace is not waterproof, cover it with a watertight covering when you take a bath or a shower. Keep the dressing dry until your health care provider says it can be removed. Managing pain, stiffness, and swelling If directed, put ice on the affected area. ?If you have a removable brace, remove it as told by your health care provider. ?Put ice in a plastic bag. ?Place a towel between your skin and the bag or between your brace and the bag. ?Leave the ice on for 20 minutes, 2 3 times a day. Move your toes often to avoid stiffness and to lessen swelling. Raise (elevate) the injured leg above the level of your heart while you are sitting or lying down. To do this, try putting a few pillows under your knee and lower leg. Driving Do not drive or use heavy machinery while taking prescription pain medicine. Ask your health care provider when it is safe to drive if you have a brace on your leg. Activity Return to your normal activities as told by your health care provider. Ask your health care provider what activities are safe for you. Do exercises as told by your health care provider or physical therapist. Do not use your injured limb to support (bear) your body weight until your health care provider says that you can. Follow weight-bearing restrictions as told. Use crutches or a walker as told by your health care provider. General instructions Take jwfd-oeu-aqikbju and prescription medicines only as told by your health care provider. Do not use any products that contain nicotine or tobacco, such as cigarettes and e-cigarettes. These can delay bone healing. If you need help quitting, ask your health care provider. If you are taking prescription pain medicine, take actions to prevent or treat constipation. Your health care provider may recommend that you: ?Drink enough fluid to keep your urine pale yellow. ?Eat foods that are high in fiber, such as fresh fruits and vegetables, whole grains, and beans. ?Limit foods that are high in fat and processed sugars, such as fried or sweet foods. ?Take an rxim-apd-rujuhej or prescription medicine for constipation. Keep all follow-up visits as told by your health care provider. This is important. Contact a health care provider if you: Have a fever. Have pain that is not helped with medicine. Have redness around your incision. Have more swelling or pain around your incision. Have blood or more fluid coming from your incision or leaking through your dressing. Notice that your incision feels warm to the touch. Have pus or a bad smell coming from your incision area. Get help right away if you: Notice that the edges of your incision have come apart after the sutures or karina have been removed. Have pain, warmth, or tenderness in the back of your lower leg (calf). Have trouble breathing. Have chest pain. Summary After the procedure, it is common to have some pain, swelling, tingling, or numbness. If you have a brace, wear it as told by your health care provider. Remove it only as told by your health care provider. Return to your normal activities as told by your health care provider. Ask your health care provider what activities are safe for you. Contact your health care provider if you have blood or more fluid leaking through your dressing. This information is not intended to replace advice given to you by your health care provider. Make sure you discuss any questions you have with your health care provider. Document Released: 01/17/2006 Document Revised: 10/20/2019 Document Reviewed: 04/27/2018 [employer] Patient Education 2020 [employer] Follow Up Care 07/19/2024 14:05:15 With:ABDOUL WORTHY DO, Orthopedic Address: [address] [place] [phone] When:Within 2 Week(s) Comments:Call office to verify/schedule appointment as soon as possible for post-op visit 2 weeks from discharge. [facility] 07-23-2024 Orthopaedic surgery Progress note Date of Service 07/23/2024 Subjective Patient seen and examined at bedside this morning. There were no acute overnight events. Reports pain is under control at this time. Reports no needs. Objective Vitals and Measurements T: 36.8 C (Oral) TMIN: 36.13 C TMAX: 36.86 C HR: 100 RR: 16 BP: 111/71 SpO2: 94% HT: 170.2 cm WT: 83.9 kg BMI: 28.96 Intake and Output 7AM Yesterday to 7AM Today Intake and Output (Last 24 hours) Intake Other Intake 200.00 Administration Information 1300.00 Oral Intake 480.00 Output Urine Output Initial 3.00 Stool Count 0.00 Urine Count 0.00 Total Summary Total Intake 1980.00 Total Output 3.00 Fluid Balance 1977.00 Physical Exam - Dressing is clean, dry and intact without signs of infection - Braydon wrap in place to right lower extremity - Skin is pink and well perfused - Sensation intact to light touch L3-S1 - Gross motor function intact to dorsi/plantarflexion - DP and TP pulses are palpable - Compartments are soft and compressible - No calf tenderness Weight Dosing Weight: 83.9 kg (07/22/24) Dosing Weight: 83.9 kg (07/22/24) Medications Medications (23) Active Scheduled: (12) acetaminophen 325 mg Tablet 650 mg 2 tab(s), Oral, QID bupropion 150 mg/24 hours ER tablet 150 mg 1 tab(s), Oral, qAM ceFAZolin syringe 2 gram(s) 20 mL, IV Push (INT), q8hr DME 1, Other, Once enoxaparin 40 mg/ 0.4mL syringe 40 mg 0.4 mL, Subcutaneous, qDay fluoxetine 20 mg Capsule 40 mg 2 cap(s), Oral, qAM loratadine 10 mg Tablet 10 mg 1 tab(s), Oral, qHS mirtazapine 15 mg tablet 30 mg 2 tab(s), Oral, qHS montelukast 10 mg Tablet 10 mg 1 tab(s), Oral, qPM QUEtiapine 300 mg tablet 300 mg 1 tab(s), Oral, qHS traZODONE 150 mg Tablet 150 mg 1 tab(s), Oral, qHS zinc sulfate 220 mg Capsule 220 mg 1 cap(s), Oral, qAM Continuous: (0) PRN: (11) acetaminophen 325 mg Tablet 650 mg 2 tab(s), Oral, q4h acetaminophen-HYDROcodone 325-5 mg tablet 1 tab(s), Oral, q4h dextrose 50% Solution Disp syringe 50 mL 12.5 gram(s) 25 mL, IV Push, AsDirected dextrose 50% Solution Disp syringe 50 mL 12.5 gram(s) 25 mL, IV Push, AsDirected docusate sodium 100 mg Capsule 100 mg 1 cap(s), Oral, BID hydromorphone 1 mg/mL (1mL) INJ 1 mg 1 mL, IV Push, q3h melatonin 3 mg tablet 3 mg 1 tab(s), Oral, qHS morphine 2 mg/mL 1 mL syringe 2 mg 1 mL, IV Push, q3h ondansetron 2 mg/ 1 mL 2 mL INJ 4 mg 2 mL, IV Push, q4h polyethylene glycol 3350 - UD packet 17 gram(s) 15 mL, Oral, qDay tramadol 50 mg Tablet 50 mg 1 tab(s), Oral, q6h Lab Results No 36 Hour Lab Data EKG No qualifying data available. 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 Has not been received yet by patient -Lovenox for DVT prophylaxis -Post op Hgb is pending -Maintain dressing, reinforce as needed. May change if oversaturated -Finish 24-hour postop course of antibiotics today -Bone cultures pending -Medical management per hospitalist service -Case management consulted for discharge planning -We will discuss with attending, Dr. Dykes Orders: DME(Walking boot), 1, Other, Once Assign to Observation status, 07/22/24 13:38:00 EST, Level of Care: Regular floor, Reason for Admission: See History & Physical, I certify that hospital services are medically necessary. At this time I do not anticipate a two midnight stay., Constant Order Digitally Signed by GARRY CANO DO on 07/23/2024 05:39 AM Digitally Signed by GARRY CANO DO on 07/23/2024 05:42 AM [facility] 07-23-2024 Note Discharge Instructions Thank you for allowing [facility] to assist you with your healthcare needs. The following is important discharge information regarding your hospital visit. 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 The Following Activity and Diet Have Been Ordered for You Discharge Activity - Ordered -- Activity As Tolerated, Weight bearing as tolerated to operative extremity. Boot should be used at all times., 07/23/24 14:50:00 EST Discharge Activity - Ordered -- May Shower, Do not take a bath/submerge wounds in body of water for prolonged periods of time., 07/23/24 14:50:00 EST Discharge Driving Restrictions - Ordered -- No driving until follow up appt, 07/23/24 14:50:00 EST Discharge Diet - Ordered -- No changes were made to your diet during your hospital stay. Please resume your pre hospitalization diet on discharge., 07/23/24 14:50:00 EST The Following Equipment Has Been Ordered for You Discharge Home Equipment Discharge Wound Care - Ordered -- Ice and elevate to help with swelling and pain. Maintain site of injury/surgery above the heart with use of multiple pillows., 07/23/24 14:50:00 EST Discharge Wound Care - Ordered -- Surgical dressing to remain in place for 5-7 days. Reapply dry sterile dressing daily if needed after. Ok to shower. Do not soak/suberge surgical site in water for extended periods of time., 07/23/24 14:50:00 EST The Following Treatments Have Been Ordered for You Discharge Labs No qualifying data available. Discharge Radiology No qualifying data available. Other Therapies No qualifying data available. Post Acute Orders No qualifying data available. Someone Will Contact You Regarding These Home Health Referrals No home referrals have been ordered for you. No one will call you. Allergies [facility] Medications Please ask your primary doctor or pharmacist before taking any other medication not listed, including over the counter drugs, herbal medications, vitamins and or supplements as they may interact with your home medications. 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 Duration: 7 Days Pickup at [facility] Unchanged biotin (Biotin 5000 mcg oral capsule) 1 cap by mouth Every day Unchanged buPROPion (buPROPion 150 mg/ 24 hours (XL) oral tablet, extended release) 1 tab(s) by mouth Once a day (in the morning) Unchanged cetirizine (cetirizine 10 mg oral tablet) 1 tab(s) by mouth Daily at bedtime Unchanged cholecalciferol (Vitamin D3 25 mcg (1000 intl units) oral capsule) 3 cap by mouth Friday / Friday / Friday Unchanged enoxaparin (Lovenox 40 mg/ 0.4 mL injectable solution) 0.4 Milliliter Subcutaneous Once a day Duration: 6 week(s) Pickup at [facility] [address] Unchanged FLUoxetine (FLUoxetine 40 mg oral capsule) 1 cap by mouth Once a day (in the morning) Unchanged mirtazapine (mirtazapine 30 mg oral tablet) 1 tab(s) by mouth Daily at bedtime Unchanged montelukast (montelukast 10 mg oral tablet) 1 tab(s) by mouth Once a day (in the evening) Unchanged QUEtiapine (QUEtiapine 300 mg oral tablet) 1 tab(s) by mouth Daily at bedtime Unchanged traZODone (traZODone 150 mg oral tablet) 1 tab(s) by mouth Daily at bedtime Unchanged zinc gluconate (zinc (as gluconate) 50 mg oral tablet) 1 tab(s) by mouth Once a day (in the morning) Pharmacy Information [facility] [address]: [address] [place], [place] [phone] Please take this list to your next doctor s visit. Bring all medications you take, including over the counter medications, herbals and other supplements with you to your doctor s visit. Patients and families are reminded to discard old lists and to update any records with all medication providers or retail pharmacies. Education Materials Tibial Plateau Fracture Treated With ORIF, Care After This sheet gives you information about how to care for yourself after your procedure. Your health care provider may also give you more specific instructions. If you have problems or questions, contact your health care provider. What can I expect after the procedure? After the procedure, it is common to have: Pain. Swelling. Stiffness. Tingling or numbness. A small amount of fluid from your incision. Follow these instructions at home: If you have a brace: Wear the brace as told by your health care provider. Remove it only as told by your health care provider. Loosen the brace if your toes tingle, become numb, or turn cold and blue. Keep the brace clean. If the brace is not waterproof: ? Do not let it get wet. ? Cover it with a watertight covering when you take a bath or a shower. Incision care Follow instructions from your health care provider about how to take care of your incision. Make sure you: ? Wash your hands with soap and water before you change your bandage (dressing). If soap and water are not available, use hand realtime court reporter. ? Change your dressing as told by your health care provider. ? Leave stitches (sutures), skin glue, or adhesive strips in place. These skin closures may need to stay in place for 2 weeks or longer. If adhesive strip edges start to loosen and curl up, you may trim the loose edges. Do not remove adhesive strips completely unless your health care provider tells you to do that. Check your incision area every day for signs of infection. Check for: ? Redness. ? More swelling or pain. ? Blood or more fluid. ? Warmth. ? Pus or a bad smell. Bathing Do not take baths, swim, or use a hot tub until your health care provider approves. Ask your health care provider if you can take showers. You may only be allowed to take sponge baths. If your brace is not waterproof, cover it with a watertight covering when you take a bath or a shower. Keep the dressing dry until your health care provider says it can be removed. Managing pain, stiffness, and swelling If directed, put ice on the affected area. ? If you have a removable brace, remove it as told by your health care provider. ? Put ice in a plastic bag. ? Place a towel between your skin and the bag or between your brace and the bag. ? Leave the ice on for 20 minutes, 2 3 times a day. Move your toes often to avoid stiffness and to lessen swelling. Raise (elevate) the injured leg above the level of your heart while you are sitting or lying down. To do this, try putting a few pillows under your knee and lower leg. Driving Do not drive or use heavy machinery while taking prescription pain medicine. Ask your health care provider when it is safe to drive if you have a brace on your leg. Activity Return to your normal activities as told by your health care provider. Ask your health care provider what activities are safe for you. Do exercises as told by your health care provider or physical therapist. Do not use your injured limb to support (bear) your body weight until your health care provider says that you can. Follow weight-bearing restrictions as told. Use crutches or a walker as told by your health care provider. General instructions Take rton-hnd-pohpmef and prescription medicines only as told by your health care provider. Do not use any products that contain nicotine or tobacco, such as cigarettes and e-cigarettes. These can delay bone healing. If you need help quitting, ask your health care provider. If you are taking prescription pain medicine, take actions to prevent or treat constipation. Your health care provider may recommend that you: ? Drink enough fluid to keep your urine pale yellow. ? Eat foods that are high in fiber, such as fresh fruits and vegetables, whole grains, and beans. ? Limit foods that are high in fat and processed sugars, such as fried or sweet foods. ? Take an dfvw-nix-rhvpfnz or prescription medicine for constipation. Keep all follow-up visits as told by your health care provider. This is important. Contact a health care provider if you: Have a fever. Have pain that is not helped with medicine. Have redness around your incision. Have more swelling or pain around your incision. Have blood or more fluid coming from your incision or leaking through your dressing. Notice that your incision feels warm to the touch. Have pus or a bad smell coming from your incision area. Get help right away if you: Notice that the edges of your incision have come apart after the sutures or karina have been removed. Have pain, warmth, or tenderness in the back of your lower leg (calf). Have trouble breathing. Have chest pain. Summary After the procedure, it is common to have some pain, swelling, tingling, or numbness. If you have a brace, wear it as told by your health care provider. Remove it only as told by your health care provider. Return to your normal activities as told by your health care provider. Ask your health care provider what activities are safe for you. Contact your health care provider if you have blood or more fluid leaking through your dressing. This information is not intended to replace advice given to you by your health care provider. Make sure you discuss any questions you have with your health care provider. Document Released: 01/17/2006 Document Revised: 10/20/2019 Document Reviewed: 04/27/2018 Elsevier Patient Education 2020 [employer] Additional Information VACCINATE! IT SAVES LIVES! Members of the community who have not yet received the COVID-19 vaccine and would like to receive it can visit one of [facility] vaccine clinics. There are many vaccine clinic locations within the [facility]. For locations and available times, please visit [email or web address] It is important to note that some COVID mobile vaccine clinics are held outdoors and may be canceled in rainy or stormy conditions. To learn more about pediatric vaccinations (ages 5-11), we invite you to visit the [employer] webpage. https://www.[employer]s.org/pages /0065-Rvrll-Epcujszehih-Frequently-A sked-Questions.html To learn more about the COVID-19 vaccine, we invite you to visit the CDC website for a list of frequently asked questions.https://www.cdc.gov/alfaro virus/2019-ncov/vaccines/faq.html [facility] Patient Portal Access Instructions: Stay connected with your healthcare team and access your personal medical information anytime with the [facility] Patient Portal. Please follow the directions below to create your [facility] account: 1.Access the email account you provided upon registration to the hospital/physician office.2.Look for an invitation email from [facility].3.Open the email and access the invitation link: Accept Invitation to [facility].4.Fill in the required pineda to create your account. To access your account, visit [employer]. Click the blue button labeled Access Patient Portal and then log in with the username and password that you created in the steps above. You will be able to view your test results, lab results, a summary of your visits, upcoming appointments and more. There is also a convenient messaging option where you can send secure messages to your provider. In addition, you will have the ability to download any documents or summaries to your computer and/or send the information securely to a physician. Remember that your healthcare information is confidential, so carefully consider who you will allow to register on the [facility] for access to your information. You can also access the [facility] on the [facility] rama. Simply click on Patient Portal and then log into your account. If you would like to receive a full copy of your medical records, please contact the [facility] Medical Records Department by calling [phone], Friday through Friday between 8 a.m. and 4:30 p.m. HOW TO SAFELY DISPOSE OF PRESCRIPTION MEDICATIONS Please use one of the following methods to safely dispose of your unused medications. 1.Use a drug disposal kit: the drug disposal pouch allows you to safely discard your old and unused drugs. Ask your nurse to give you one when you are discharged.2.Visit a local take-back location: Many local pharmacies and police departments have programs that collect old and unwanted prescription drugs. Call your local pharmacy or go to http://Peak 10/7N3Pk9g to find one close to you.3.Make use of household items: Use cat litter or old coffee grounds to dispose medications if other options are not available. Mix your drugs with these household products, seal them in an airtight container and throw it into the garbage. Call [facility]: [phone] to be sure your drugs can be disposed of in this way. Some medicines may require a different approach.4.Never flush your medications down the toilet. IF YOU HAVE BEEN PRESCRIBED AN OPIOID FOR PAIN If you have been prescribed an opioid (such as hydrocodone, oxycodone or morphine), it is critical to understand the possible side effects and risks of opioid pain medications. Even when taken as directed, opioids can have several side effects including: Tolerance, meaning you might need to take more of a medication for the same pain relief. Nausea, vomiting and/or constipation. Sleepiness, dizziness, dry mouth, confusion, depression or itching. Physical dependence, meaning you have withdrawal symptoms when a medication is stopped, can develop within a few days. KNOW YOUR RESPONSIBILITIES It is important to know exactly how much and how often to take the opioid pain medications you are prescribed. Never take opioids in higher amounts or more often than prescribed. Do not combine opioids with alcohol or other drugs that cause drowsiness, such as benzodiazepines, also known as benzos, including diazepam and alprazolam, muscle relaxants or sleep aids. Never sell or share prescription opioids. This is illegal. Store opioids in a secure place and out of reach of others (including children, family, friends and visitors). The last page of this document has been signed and retained as a CHART COPY. Signatures Patient Education Materials Tibial Plateau Fracture Treated With ORIF, Care After Medication Leaflets My discharge plan and instructions have been reviewed and explained to me and I,LAY, RONNI understand my current condition and have read and understand these discharge instructions. I have received a written copy of the plan/instructions. If I have questions, I am aware that I should contact my doctor. Patient/Educational Psychologist Signature: ___ Date/Time: Relationship to Patient: _ Witness Name/Signature: Date/Time: [facility] 07-23-2024 Orthopaedic surgery Progress note Date of Service 07/23/2024 Subjective Patient seen and examined at bedside this morning. There were no acute overnight events. Reports pain is under control at this time. Reports no needs. Objective Vitals and Measurements T: 36.8 C (Oral) TMIN: 36.13 C TMAX: 36.86 C HR: 100 RR: 16 BP: 111/71 SpO2: 94% HT: 170.2 cm WT: 83.9 kg BMI: 28.96 Intake and Output 7AM Yesterday to 7AM Today Intake and Output (Last 24 hours) Intake Other Intake 200.00 Administration Information 1300.00 Oral Intake 480.00 Output Urine Output Initial 3.00 Stool Count 0.00 Urine Count 0.00 Total Summary Total Intake 1979.00 Total Output 3.00 Fluid Balance 1976.00 Physical Exam - Dressing is clean, dry and intact without signs of infection - Braydon wrap in place to right lower extremity - Skin is pink and well perfused - Sensation intact to light touch L3-S1 - Gross motor function intact to dorsi/plantarflexion - DP and TP pulses are palpable - Compartments are soft and compressible - No calf tenderness Weight Dosing Weight: 83.9 kg (07/22/24) Dosing Weight: 83.9 kg (07/22/24) Medications Medications (23) Active Scheduled: (12) acetaminophen 325 mg Tablet 650 mg 2 tab(s), Oral, QID bupropion 150 mg/24 hours ER tablet 150 mg 1 tab(s), Oral, qAM ceFAZolin syringe 2 gram(s) 20 mL, IV Push (INT), q8hr DME 1, Other, Once enoxaparin 40 mg/ 0.4mL syringe 40 mg 0.4 mL, Subcutaneous, qDay fluoxetine 20 mg Capsule 40 mg 2 cap(s), Oral, qAM loratadine 10 mg Tablet 10 mg 1 tab(s), Oral, qHS mirtazapine 15 mg tablet 30 mg 2 tab(s), Oral, qHS montelukast 10 mg Tablet 10 mg 1 tab(s), Oral, qPM QUEtiapine 300 mg tablet 300 mg 1 tab(s), Oral, qHS traZODONE 150 mg Tablet 150 mg 1 tab(s), Oral, qHS zinc sulfate 220 mg Capsule 220 mg 1 cap(s), Oral, qAM Continuous: (0) PRN: (11) acetaminophen 325 mg Tablet 650 mg 2 tab(s), Oral, q4h acetaminophen-HYDROcodone 325-5 mg tablet 1 tab(s), Oral, q4h dextrose 50% Solution Disp syringe 50 mL 12.5 gram(s) 25 mL, IV Push, AsDirected dextrose 50% Solution Disp syringe 50 mL 12.5 gram(s) 25 mL, IV Push, AsDirected docusate sodium 100 mg Capsule 100 mg 1 cap(s), Oral, BID hydromorphone 1 mg/mL (1mL) INJ 1 mg 1 mL, IV Push, q3h melatonin 3 mg tablet 3 mg 1 tab(s), Oral, qHS morphine 2 mg/mL 1 mL syringe 2 mg 1 mL, IV Push, q3h ondansetron 2 mg/ 1 mL 2 mL INJ 4 mg 2 mL, IV Push, q4h polyethylene glycol 3350 - UD packet 17 gram(s) 15 mL, Oral, qDay tramadol 50 mg Tablet 50 mg 1 tab(s), Oral, q6h Lab Results No 36 Hour Lab Data EKG No qualifying data available. 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 Has not been received yet by patient -Lovenox for DVT prophylaxis -Post op Hgb is pending -Maintain dressing, reinforce as needed. May change if oversaturated -Finish 24-hour postop course of antibiotics today -Bone cultures pending -Medical management per hospitalist service -Case management consulted for discharge planning -We will discuss with attending, Dr. Dykes Orders: DME(Walking boot), 1, Other, Once Assign to Observation status, 07/22/24 13:38:00 EST, Level of Care: Regular floor, Reason for Admission: See History & Physical, I certify that hospital services are medically necessary. At this time I do not anticipate a two midnight stay., Constant Order Digitally Signed by GARRY CANO DO on 07/23/2024 05:39 AM Digitally Signed by GARRY CANO DO on 07/23/2024 05:42 AM [facility] 07-23-2024 Orthopaedic surgery Progress note Date of Service 07/23/2024 Subjective Patient seen and examined at bedside this morning. There were no acute overnight events. Reports pain is under control at this time. Reports no needs. Objective Vitals and Measurements T: 36.8 C (Oral) TMIN: 36.13 C TMAX: 36.86 C HR: 100 RR: 16 BP: 111/71 SpO2: 94% HT: 170.2 cm WT: 83.9 kg BMI: 28.96 Intake and Output 7AM Yesterday to 7AM Today Intake and Output (Last 24 hours) Intake Other Intake 200.00 Administration Information 1300.00 Oral Intake 480.00 Output Urine Output Initial 3.00 Stool Count 0.00 Urine Count 0.00 Total Summary Total Intake 1980.00 Total Output 3.00 Fluid Balance 1976.00 Physical Exam - Dressing is clean, dry and intact without signs of infection - Braydon wrap in place to right lower extremity - Skin is pink and well perfused - Sensation intact to light touch L3-S1 - Gross motor function intact to dorsi/plantarflexion - DP and TP pulses are palpable - Compartments are soft and compressible - No calf tenderness Weight Dosing Weight: 83.9 kg (07/22/24) Dosing Weight: 83.9 kg (07/22/24) Medications Medications (23) Active Scheduled: (12) acetaminophen 325 mg Tablet 650 mg 2 tab(s), Oral, QID bupropion 150 mg/24 hours ER tablet 150 mg 1 tab(s), Oral, qAM ceFAZolin syringe 2 gram(s) 20 mL, IV Push (INT), q8hr DME 1, Other, Once enoxaparin 40 mg/ 0.4mL syringe 40 mg 0.4 mL, Subcutaneous, qDay fluoxetine 20 mg Capsule 40 mg 2 cap(s), Oral, qAM loratadine 10 mg Tablet 10 mg 1 tab(s), Oral, qHS mirtazapine 15 mg tablet 30 mg 2 tab(s), Oral, qHS montelukast 10 mg Tablet 10 mg 1 tab(s), Oral, qPM QUEtiapine 300 mg tablet 300 mg 1 tab(s), Oral, qHS traZODONE 150 mg Tablet 150 mg 1 tab(s), Oral, qHS zinc sulfate 220 mg Capsule 220 mg 1 cap(s), Oral, qAM Continuous: (0) PRN: (11) acetaminophen 325 mg Tablet 650 mg 2 tab(s), Oral, q4h acetaminophen-HYDROcodone 325-5 mg tablet 1 tab(s), Oral, q4h dextrose 50% Solution Disp syringe 50 mL 12.5 gram(s) 25 mL, IV Push, AsDirected dextrose 50% Solution Disp syringe 50 mL 12.5 gram(s) 25 mL, IV Push, AsDirected docusate sodium 100 mg Capsule 100 mg 1 cap(s), Oral, BID hydromorphone 1 mg/mL (1mL) INJ 1 mg 1 mL, IV Push, q3h melatonin 3 mg tablet 3 mg 1 tab(s), Oral, qHS morphine 2 mg/mL 1 mL syringe 2 mg 1 mL, IV Push, q3h ondansetron 2 mg/ 1 mL 2 mL INJ 4 mg 2 mL, IV Push, q4h polyethylene glycol 3350 - UD packet 17 gram(s) 15 mL, Oral, qDay tramadol 50 mg Tablet 50 mg 1 tab(s), Oral, q6h Lab Results No 36 Hour Lab Data EKG No qualifying data available. 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 Has not been received yet by patient -Lovenox for DVT prophylaxis -Post op Hgb is pending -Maintain dressing, reinforce as needed. May change if oversaturated -Finish 24-hour postop course of antibiotics today -Bone cultures pending -Medical management per hospitalist service -Case management consulted for discharge planning -We will discuss with attending, Dr. Dykes Orders: DME(Walking boot), 1, Other, Once Assign to Observation status, 07/22/24 13:38:00 EST, Level of Care: Regular floor, Reason for Admission: See History & Physical, I certify that hospital services are medically necessary. At this time I do not anticipate a two midnight stay., Constant Order Digitally Signed by GARRY CANO DO on 07/23/2024 05:39 AM Digitally Signed by GARRY CANO DO on 07/23/2024 05:42 AM [facility] 07-22-2024 Note Exam Date Time Procedure Performing Provider Status 07/22/24 5:27 PM XR Fluoro 1-2 Hrs Tech Time Alex YO MD; Auth (Verified) [id number] ORIGINAL EXAMINATION: SPOT FLUOROSCOPIC IMAGES 07/22/2024 5:27 pm TECHNIQUE: Fluoroscopy was provided by the radiology department for procedure. Radiologist was not present during examination. FLUOROSCOPY DOSE AND TYPE: Reference air kerma: mGy, 2.3683 Total number of images: 11. COMPARISON: None HISTORY: ORDERING SYSTEM PROVIDED HISTORY: Reason for Exam: RT TIBIA REVISION Intraprocedural imaging. FINDINGS: Spot intraoperative images are obtained demonstrating tibial fixation revision.. IMPRESSION: Intraprocedural fluoroscopic spot images as above. See separate procedure report for more information. Interpreted by: Guero Yo Preliminary Report By: Guero Yo Electronically signed By Guero Yo Dictated Date: 07/22/2024 5:32:05 PM Prelim Date: 07/22/2024 5:32:50 PM Sign Date: 07/22/2024 5:32:50 PM Ordering Provider: ABDOUL WORTHY [id number] Consult note Patient: RONNI BLUM Age: 58 years Sex: Female : 1965 Associated Diagnoses: None Author: VU BOYER DO Postoperative Information Post Operative Info: Post op day: Post Anesthesia Care Unit. Patient location: PACU. Assessment Postanesthesia assessment Vitals. Mental status: at preoperative baseline. Respiratory function: respirations are non-labored, Stable. Respiratory support: none. CV function: Stable. Cardiovascular support: none. Pain: Satisfactory. Nausea status: Satisfactory. Postoperative hydration status: within normal limits. Notes: Patient is sufficiently recovered from anesthesia to participate in the evaluation. No follow-up care needed. No complications post-anesthesia.. Digitally Signed by VU BOYER DO on 07/22/2024 02:35 PM [id number] History and physical note Date of Service 07/22/2024 History and Physical Update I have examined the patient; reviewed the History and Physical and there are no changes to the History and Physical unless noted below. Digitally Signed by ABDOUL WORTHY DO on 07/22/2024 08:58 AM [id number] Anesthesiology Consult note Patient: RONNI BLUM Age: 58 years Sex: Female : 1965 Associated Diagnoses: None Author: SHARON PIÑA DO Preoperative Information NPO greater than 8 hours food and greater than 2 hours liquid Anesthesia history Patient's history: negative. Health Status Allergies: Allergic Reactions (Selected) NKA, Allergies (1) ActiveSeverityReaction NKANone Documented Current medications: (Selected) Inpatient Medications Ordered Kefzol: 2 gram(s), 20 mL, 240 mL/hr, IV Push (INT), PREOP pharm Documented Medications Documented Biotin 5000 mcg oral capsule: 5,000 mcg, 1 cap(s), Oral, Daily, 0 Refill(s) FLUoxetine 40 mg oral capsule: 40 mg, 1 cap(s), Oral, qAM, 90 cap(s), 0 Refill(s) QUEtiapine 300 mg oral tablet: 300 mg, 1 tab(s), Oral, qHS, 90 tab(s), 0 Refill(s) Vitamin D3 25 mcg (1000 intl units) oral capsule: 75 mcg, 3 cap(s), Oral, Mon/Wed/Fri, 0 Refill(s) buPROPion 150 mg/24 hours (XL) oral tablet, extended release: 150 mg, 1 tab(s), Oral, qAM, 30 tab(s), 0 Refill(s) cetirizine 10 mg oral tablet: 10 mg, 1 tab(s), Oral, qHS, 90 tab(s), 0 Refill(s) mirtazapine 30 mg oral tablet: 30 mg, 1 tab(s), Oral, qHS, 0 Refill(s) montelukast 10 mg oral tablet: 10 mg, 1 tab(s), Oral, qPM, 30 tab(s), 0 Refill(s) traZODone 150 mg oral tablet: 150 mg, 1 tab(s), Oral, qHS, 0 Refill(s) zinc (as gluconate) 50 mg oral tablet: 50 mg, 1 tab(s), Oral, qAM, 30 tab(s), 0 Refill(s), Medications (1) Active Scheduled: (1) ceFAZolin syringe 2 gram(s) 20 mL, IV Push (INT), PREOP pharm Continuous: (0) PRN: (0) Problem list: No problem items selected or recorded., Active Problems (7) Anxiety BMI 28.0-28.9,adult Depression Glasses Other fracture of shaft of right tibia, subsequent encounter for closed fracture with nonunion Seasonal allergy Vitamin D deficiency Histories Past Medical History: No active or resolved past medical history items have been selected or recorded. Family History: Heart disease Brother Atrial fibrillation Brother Mental illness Mother Cancer Father Alcoholic Brother Procedure history: AR - Anterior repair of vagina ([id number]). Arthroscopic lateral meniscectomy ([id number]). Comments: 07/20/2024 7:55 SULY - DORI Ann RIGHT Colonoscopy ([id number]). Social History: Social & Psychosocial Habits Alcohol 07/22/2024 Use: Current Type: Liquor Frequency: 1-2 times per week Average drinks per episode in last year: 1 Previous treatment: None Substance Abuse 07/22/2024 Use: Never Tobacco 07/22/2024 Tobacco Use: Never (less than 100 in l Home/Environment 07/22/2024 Living situation: Home/Independent Domestic Concerns None Current Home Treatments None Special Services and Community Resources None Spouse Name SALLIE Marital Status of Patient if Patient Independent Adult: Nutrition/Health 07/22/2024 Type of diet: Regular Appetite Good Eating Difficulties None Physical Examination Vital Signs (last 24 hrs) Last Charted Temp Aypddate18.4 DegC (JUL 22:) Heart Rate Dkiojf59 bpm (JUL 22:) IBT224 mmHg (JUL 22:) DBP81 mmHg (JUL 22:) General: Alert and oriented. Airway: Mallampati classification: II (soft palate, fauces, uvula visible). Dentition Evaluation: Intact. Respiratory: Lungs are clear to auscultation, Respirations are non-labored. Cardiovascular: Normal rate, Regular rhythm. Heart Sounds: Normal. Neurologic: Alert, Oriented. Review / Management Results review: No qualifying data available . Documentation reviewed: Current records. Assessment and Plan [place] [employer] (ASA) physical status classification: Class II. Anesthetic Preoperative Plan Premedication: intravenous. Anesthetic technique: General. Induction: intravenously. Maintenance airway: Laryngeal mask airway. Postoperative pain management: Per surgeon. Informed consent: signed by patient. Notes: Patient will accept blood and blood products. Digitally Signed by SHARON PIÑA DO on 07/22/2024 08:36 AM [id number] Note* Exam Date Time Procedure Performing Provider Status 07/19/24 1:[address] Tibia/Fibula w/o Contrast Right GUERO YO MD; Auth (Verified) [id number] ORIGINAL EXAMINATION: CT OF THE RIGHT TIBIA AND FIBULA WITHOUT CONTRAST 07/19/2024 3:58 pm TECHNIQUE: CT of the right tibia and fibula was performed without the administration of intravenous contrast. Multiplanar reformatted images are provided for review. Automated exposure control, iterative reconstruction, and/or weight based adjustment of the mA/kV was utilized to reduce the radiation dose to as low as reasonably achievable. COMPARISON: None. HISTORY ORDERING SYSTEM PROVIDED HISTORY: Reason for Exam: OTH FX SHAFT OF RIGHT TIBIA, SUBS FOR CLOS FX W NONUNION FINDINGS: Fractures of the distal tibia and fibula status post plate screw fixation. A majority of the distal tibial fixation screws are fractured, with resultant widening of the space between the plate and the medial tibial cortex (although with underlying periosteal reaction), as well as mild displacement of the distal tibia and nonunion of the fracture. Nonunion of the distal fibular fracture. Generalized heterogeneous osseous demineralization. Degenerative changes of the knee. 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 Correlate with prior postoperative radiographs/imaging. 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 Reason for Visit Encounter for pre-em ployment health screening examination [facility] Work Phone: Evaluation + Plan note Future Appointments [facility] Evaluation noteNo assessment information available [facility] Work Phone: Evaluation note* Diagnosis Onset Date Resolution Status Encounter for pre-employment health screening examination acute [facility] Work Phone: Hospital course Narrative No data available for this section [facility] Hospital Discharge instructions No data available for this section [facility] Instructions* Name Dates Details Patient Instructions Indication:Current nonsmoker (Renamed from Current non-smoker) Start:27-Dec-2020 Instruction Type:Provider Instructions for Treatment How to Access Health Informa tion Online using Patient Portal and [employer] Apps Indication:Current nonsmoker (Renamed from Current non-smoker) Start:27-Dec-2020 Instruction Type:Patient Education Patient Instructions Indication:BMI 28.0-28.9,adult Start:08-Aug-2020 Instruction Type:Provider Instructions for Treatment How to Access Health Informa tion Online using Patient Portal and [employer] Apps Indication:Current nonsmoker (Renamed from Current non-smoker) Start:08-Aug-2020 Instruction Type:Patient Education How to access health informa tion online Indication:Current nonsmoker (Renamed from Current non-smoker) Start:24-Mar-2019 Instruction Type:Patient Education How to access health informa tion online - Detail Indication:Current nonsmoker (Renamed from Current non-smoker) Start:24-Mar-2019 Instruction Type:Patient Education Patient Instructions Indication:Current nonsmoker (Renamed from Current non-smoker) Start:24-Mar-2019 Instruction Type:Provider Instructions for Treatment How to access health informa tion online Indication:Current nonsmoker (Renamed from Current non-smoker) Start:17-Mar-2019 Instruction Type:Patient Education How to access health informa tion online - Detail Indication:Current nonsmoker (Renamed from Current non-smoker) Start:17-Mar-2019 Instruction Type:Patient Education Patient Instructions Indication:Current nonsmoker (Renamed from Current non-smoker) Start:17-Mar-2019 Instruction Type:Provider Instructions for Treatment How to access health informa tion online Indication:Current nonsmoker (Renamed from Current non-smoker) Start:27-Feb-2018 Instruction Type:Patient Education How to access health informa tion online - Detail Indication:Current nonsmoker (Renamed from Current non-smoker) Start:27-Feb-2018 Instruction Type:Patient Education Patient Instructions Indication:Current nonsmoker (Renamed from Current non-smoker) Start:27-Feb-2018 Instruction Type:Provider Instructions for Treatment How to access health informa tion online Indication:Cough Start:09-Sep-2016 Instruction Type:Patient Education How to access health informa tion online - Detail Indication:Cough Start:09-Sep-2016 Instruction Type:Patient Education Patient Instructions Indication:Cough Start:09-Sep-2016 Instruction Type:Provider Instructions for Treatment How to access health informa tion online Indication:Anxiety Start:28-Aug-2015 Instruction Type:Patient Education How to access health informa tion online - Detail Indication:Anxiety Start:28-Aug-2015 Instruction Type:Patient Education Patient Instructions Indication:Anxiety Start:28-Aug-2015 Instruction Type:Provider Instructions for Treatment How to access health informa tion online Indication:Dyspnea Start:07-Apr-2014 Instruction Type:Patient Education How to access health informa tion online - Detail Indication:Dyspnea Start:07-Apr-2014 Instruction Type:Patient Education Patient Instructions Indication:Dyspnea Start:07-Apr-2014 Instruction Type:Provider Instructions for Treatment Patient Instructions Indication:Neck muscle strain Start:23-Jul-2013 Instruction Type:Provider Instructions for Treatment [facility]; [facility] Work Phone: Instructions* Name Dates Details Patient Instructions Indication:Current nonsmoker (Renamed from Current non-smoker) Start:27-Dec-2020 Instruction Type:Provider Instructions for Treatment How to Access Health Informa tion Online using Patient Portal and [employer] Apps Indication:Current nonsmoker (Renamed from Current non-smoker) Start:27-Dec-2020 Instruction Type:Patient Education Patient Instructions Indication:BMI 28.0-28.9,adult Start:08-Aug-2020 Instruction Type:Provider Instructions for Treatment How to Access Health Informa tion Online using Patient Portal and [employer] Apps Indication:Current nonsmoker (Renamed from Current non-smoker) Start:08-Aug-2020 Instruction Type:Patient Education How to access health informa tion online Indication:Current nonsmoker (Renamed from Current non-smoker) Start:24-Mar-2019 Instruction Type:Patient Education How to access health informa tion online - Detail Indication:Current nonsmoker (Renamed from Current non-smoker) Start:24-Mar-2019 Instruction Type:Patient Education Patient Instructions Indication:Current nonsmoker (Renamed from Current non-smoker) Start:24-Mar-2019 Instruction Type:Provider Instructions for Treatment How to access health informa tion online Indication:Current nonsmoker (Renamed from Current non-smoker) Start:17-Mar-2019 Instruction Type:Patient Education How to access health informa tion online - Detail Indication:Current nonsmoker (Renamed from Current non-smoker) Start:17-Mar-2019 Instruction Type:Patient Education Patient Instructions Indication:Current nonsmoker (Renamed from Current non-smoker) Start:17-Mar-2019 Instruction Type:Provider Instructions for Treatment How to access health informa tion online Indication:Current nonsmoker (Renamed from Current non-smoker) Start:27-Feb-2018 Instruction Type:Patient Education How to access health informa tion online - Detail Indication:Current nonsmoker (Renamed from Current non-smoker) Start:27-Feb-2018 Instruction Type:Patient Education Patient Instructions Indication:Current nonsmoker (Renamed from Current non-smoker) Start:27-Feb-2018 Instruction Type:Provider Instructions for Treatment How to access health informa tion online Indication:Cough Start:09-Sep-2016 Instruction Type:Patient Education How to access health informa tion online - Detail Indication:Cough Start:09-Sep-2016 Instruction Type:Patient Education Patient Instructions Indication:Cough Start:09-Sep-2016 Instruction Type:Provider Instructions for Treatment How to access health informa tion online Indication:Anxiety Start:28-Aug-2015 Instruction Type:Patient Education How to access health informa tion online - Detail Indication:Anxiety Start:28-Aug-2015 Instruction Type:Patient Education Patient Instructions Indication:Anxiety Start:28-Aug-2015 Instruction Type:Provider Instructions for Treatment How to access health informa tion online Indication:Dyspnea Start:07-Apr-2014 Instruction Type:Patient Education How to access health informa tion online - Detail Indication:Dyspnea Start:07-Apr-2014 Instruction Type:Patient Education Patient Instructions Indication:Dyspnea Start:07-Apr-2014 Instruction Type:Provider Instructions for Treatment Patient Instructions Indication:Neck muscle strain Start:23-Jul-2013 Instruction Type:Provider Instructions for Treatment [facility]; [facility] Work Phone: Instructions* Name Dates Details Patient Instructions Indication:Current nonsmoker (Renamed from Current non-smoker) Start:27-Dec-2020 Instruction Type:Provider Instructions for Treatment How to Access Health Informa tion Online using Patient Portal and [employer] Apps Indication:Current nonsmoker (Renamed from Current non-smoker) Start:27-Dec-2020 Instruction Type:Patient Education Patient Instructions Indication:BMI 28.0-28.9,adult Start:08-Aug-2020 Instruction Type:Provider Instructions for Treatment How to Access Health Informa tion Online using Patient Portal and [employer] Indication:Current nonsmoker (Renamed from Current non-smoker) Start:08-Aug-2020 Instruction Type:Patient Education How to access health informa tion online Indication:Current nonsmoker (Renamed from Current non-smoker) Start:24-Mar-2019 Instruction Type:Patient Education How to access health informa tion online - Detail Indication:Current nonsmoker (Renamed from Current non-smoker) Start:24-Mar-2019 Instruction Type:Patient Education Patient Instructions Indication:Current nonsmoker (Renamed from Current non-smoker) Start:24-Mar-2019 Instruction Type:Provider Instructions for Treatment How to access health informa tion online Indication:Current nonsmoker (Renamed from Current non-smoker) Start:17-Mar-2019 Instruction Type:Patient Education How to access health informa tion online - Detail Indication:Current nonsmoker (Renamed from Current non-smoker) Start:17-Mar-2019 Instruction Type:Patient Education Patient Instructions Indication:Current nonsmoker (Renamed from Current non-smoker) Start:17-Mar-2019 Instruction Type:Provider Instructions for Treatment How to access health informa tion online Indication:Current nonsmoker (Renamed from Current non-smoker) Start:27-Feb-2018 Instruction Type:Patient Education How to access health informa tion online - Detail Indication:Current nonsmoker (Renamed from Current non-smoker) Start:27-Feb-2018 Instruction Type:Patient Education Patient Instructions Indication:Current nonsmoker (Renamed from Current non-smoker) Start:27-Feb-2018 Instruction Type:Provider Instructions for Treatment How to access health informa tion online Indication:Cough Start:09-Sep-2016 Instruction Type:Patient Education How to access health informa tion online - Detail Indication:Cough Start:09-Sep-2016 Instruction Type:Patient Education Patient Instructions Indication:Cough Start:09-Sep-2016 Instruction Type:Provider Instructions for Treatment How to access health informa tion online Indication:Anxiety Start:28-Aug-2015 Instruction Type:Patient Education How to access health informa tion online - Detail Indication:Anxiety Start:28-Aug-2015 Instruction Type:Patient Education Patient Instructions Indication:Anxiety Start:28-Aug-2015 Instruction Type:Provider Instructions for Treatment How to access health informa tion online Indication:Dyspnea Start:07-Apr-2014 Instruction Type:Patient Education How to access health informa tion online - Detail Indication:Dyspnea Start:07-Apr-2014 Instruction Type:Patient Education Patient Instructions Indication:Dyspnea Start:07-Apr-2014 Instruction Type:Provider Instructions for Treatment Patient Instructions Indication:Neck muscle strain Start:23-Jul-2013 Instruction Type:Provider Instructions for Treatment [facility]; [facility] Work Phone: Instructions* Name Dates Details Patient Instructions Indication:Current nonsmoker (Renamed from Current non-smoker) Start:27-Dec-2020 Instruction Type:Provider Instructions for Treatment How to Access Health Informa tion Online using Patient Portal and [employer] Apps Indication:Current nonsmoker (Renamed from Current non-smoker) Start:27-Dec-2020 Instruction Type:Patient Education Patient Instructions Indication:BMI 28.0-28.9,adult Start:08-Aug-2020 Instruction Type:Provider Instructions for Treatment How to Access Health Informa tion Online using Patient Portal and [employer] Apps Indication:Current nonsmoker (Renamed from Current non-smoker) Start:08-Aug-2020 Instruction Type:Patient Education How to access health informa tion online Indication:Current nonsmoker (Renamed from Current non-smoker) Start:24-Mar-2019 Instruction Type:Patient Education How to access health informa tion online - Detail Indication:Current nonsmoker (Renamed from Current non-smoker) Start:24-Mar-2019 Instruction Type:Patient Education Patient Instructions Indication:Current nonsmoker (Renamed from Current non-smoker) Start:24-Mar-2019 Instruction Type:Provider Instructions for Treatment How to access health informa tion online Indication:Current nonsmoker (Renamed from Current non-smoker) Start:17-Mar-2019 Instruction Type:Patient Education How to access health informa tion online - Detail Indication:Current nonsmoker (Renamed from Current non-smoker) Start:17-Mar-2019 Instruction Type:Patient Education Patient Instructions Indication:Current nonsmoker (Renamed from Current non-smoker) Start:17-Mar-2019 Instruction Type:Provider Instructions for Treatment How to access health informa tion online Indication:Current nonsmoker (Renamed from Current non-smoker) Start:27-Feb-2018 Instruction Type:Patient Education How to access health informa tion online - Detail Indication:Current nonsmoker (Renamed from Current non-smoker) Start:27-Feb-2018 Instruction Type:Patient Education Patient Instructions Indication:Current nonsmoker (Renamed from Current non-smoker) Start:27-Feb-2018 Instruction Type:Provider Instructions for Treatment How to access health informa tion online Indication:Cough Start:09-Sep-2016 Instruction Type:Patient Education How to access health informa tion online - Detail Indication:Cough Start:09-Sep-2016 Instruction Type:Patient Education Patient Instructions Indication:Cough Start:09-Sep-2016 Instruction Type:Provider Instructions for Treatment How to access health informa tion online Indication:Anxiety Start:28-Aug-2015 Instruction Type:Patient Education How to access health informa tion online - Detail Indication:Anxiety Start:28-Aug-2015 Instruction Type:Patient Education Patient Instructions Indication:Anxiety Start:28-Aug-2015 Instruction Type:Provider Instructions for Treatment How to access health informa tion online Indication:Dyspnea Start:07-Apr-2014 Instruction Type:Patient Education How to access health informa tion online - Detail Indication:Dyspnea Start:07-Apr-2014 Instruction Type:Patient Education Patient Instructions Indication:Dyspnea Start:07-Apr-2014 Instruction Type:Provider Instructions for Treatment Patient Instructions Indication:Neck muscle strain Start:23-Jul-2013 Instruction Type:Provider Instructions for Treatment [facility]; [facility] Work Phone: Instructions* Name Dates Details Patient Instructions Indication:Current nonsmoker (Renamed from Current non-smoker) Start:27-Dec-2020 Instruction Type:Provider Instructions for Treatment How to Access Health Informa tion Online using Patient Portal and [employer] Apps Indication:Current nonsmoker (Renamed from Current non-smoker) Start:27-Dec-2020 Instruction Type:Patient Education Patient Instructions Indication:BMI 28.0-28.9,adult Start:08-Aug-2020 Instruction Type:Provider Instructions for Treatment How to Access Health Informa tion Online using Patient Portal and [employer] Apps Indication:Current nonsmoker (Renamed from Current non-smoker) Start:08-Aug-2020 Instruction Type:Patient Education How to access health informa tion online Indication:Current nonsmoker (Renamed from Current non-smoker) Start:24-Mar-2019 Instruction Type:Patient Education How to access health informa tion online - Detail Indication:Current nonsmoker (Renamed from Current non-smoker) Start:24-Mar-2019 Instruction Type:Patient Education Patient Instructions Indication:Current nonsmoker (Renamed from Current non-smoker) Start:24-Mar-2019 Instruction Type:Provider Instructions for Treatment How to access health informa tion online Indication:Current nonsmoker (Renamed from Current non-smoker) Start:17-Mar-2019 Instruction Type:Patient Education How to access health informa tion online - Detail Indication:Current nonsmoker (Renamed from Current non-smoker) Start:17-Mar-2019 Instruction Type:Patient Education Patient Instructions Indication:Current nonsmoker (Renamed from Current non-smoker) Start:17-Mar-2019 Instruction Type:Provider Instructions for Treatment How to access health informa tion online Indication:Current nonsmoker (Renamed from Current non-smoker) Start:27-Feb-2018 Instruction Type:Patient Education How to access health informa tion online - Detail Indication:Current nonsmoker (Renamed from Current non-smoker) Start:27-Feb-2018 Instruction Type:Patient Education Patient Instructions Indication:Current nonsmoker (Renamed from Current non-smoker) Start:27-Feb-2018 Instruction Type:Provider Instructions for Treatment How to access health informa tion online Indication:Cough Start:09-Sep-2016 Instruction Type:Patient Education How to access health informa tion online - Detail Indication:Cough Start:09-Sep-2016 Instruction Type:Patient Education Patient Instructions Indication:Cough Start:09-Sep-2016 Instruction Type:Provider Instructions for Treatment How to access health informa tion online Indication:Anxiety Start:28-Aug-2015 Instruction Type:Patient Education How to access health informa tion online - Detail Indication:Anxiety Start:28-Aug-2015 Instruction Type:Patient Education Patient Instructions Indication:Anxiety Start:28-Aug-2015 Instruction Type:Provider Instructions for Treatment How to access health informa tion online Indication:Dyspnea Start:07-Apr-2014 Instruction Type:Patient Education How to access health informa tion online - Detail Indication:Dyspnea Start:07-Apr-2014 Instruction Type:Patient Education Patient Instructions Indication:Dyspnea Start:07-Apr-2014 Instruction Type:Provider Instructions for Treatment Patient Instructions Indication:Neck muscle strain Start:23-Jul-2013 Instruction Type:Provider Instructions for Treatment [facility]; [facility] Work Phone: Instructions* Name Dates Details Patient Instructions Indication:BMI 30.0-30.9,adult Start:04-Sep-2021 Instruction Type:Provider Instructions for Treatment How to Access Health Informa tion Online using Patient Portal and [employer] Indication:BMI 30.0-30.9,adult Start:04-Sep-2021 Instruction Type:Patient Education Patient Instructions Indication:Current nonsmoker (Renamed from Current non-smoker) Start:27-Dec-2020 Instruction Type:Provider Instructions for Treatment How to Access Health Informa tion Online using Patient Portal and [employer] Indication:Current nonsmoker (Renamed from Current non-smoker) Start:27-Dec-2020 Instruction Type:Patient Education Patient Instructions Indication:BMI 28.0-28.9,adult Start:08-Aug-2020 Instruction Type:Provider Instructions for Treatment How to Access Health Informa tion Online using Patient Portal and [employer] Apps Indication:Current nonsmoker (Renamed from Current non-smoker) Start:08-Aug-2020 Instruction Type:Patient Education How to access health informa tion online Indication:Current nonsmoker (Renamed from Current non-smoker) Start:24-Mar-2019 Instruction Type:Patient Education How to access health informa tion online - Detail Indication:Current nonsmoker (Renamed from Current non-smoker) Start:24-Mar-2019 Instruction Type:Patient Education Patient Instructions Indication:Current nonsmoker (Renamed from Current non-smoker) Start:24-Mar-2019 Instruction Type:Provider Instructions for Treatment How to access health informa tion online Indication:Current nonsmoker (Renamed from Current non-smoker) Start:17-Mar-2019 Instruction Type:Patient Education How to access health informa tion online - Detail Indication:Current nonsmoker (Renamed from Current non-smoker) Start:17-Mar-2019 Instruction Type:Patient Education Patient Instructions Indication:Current nonsmoker (Renamed from Current non-smoker) Start:17-Mar-2019 Instruction Type:Provider Instructions for Treatment How to access health informa tion online Indication:Current nonsmoker (Renamed from Current non-smoker) Start:27-Feb-2018 Instruction Type:Patient Education How to access health informa tion online - Detail Indication:Current nonsmoker (Renamed from Current non-smoker) Start:27-Feb-2018 Instruction Type:Patient Education Patient Instructions Indication:Current nonsmoker (Renamed from Current non-smoker) Start:27-Feb-2018 Instruction Type:Provider Instructions for Treatment How to access health informa tion online Indication:Cough Start:09-Sep-2016 Instruction Type:Patient Education How to access health informa tion online - Detail Indication:Cough Start:09-Sep-2016 Instruction Type:Patient Education Patient Instructions Indication:Cough Start:09-Sep-2016 Instruction Type:Provider Instructions for Treatment How to access health informa tion online Indication:Anxiety Start:28-Aug-2015 Instruction Type:Patient Education How to access health informa tion online - Detail Indication:Anxiety Start:28-Aug-2015 Instruction Type:Patient Education Patient Instructions Indication:Anxiety Start:28-Aug-2015 Instruction Type:Provider Instructions for Treatment How to access health informa tion online Indication:Dyspnea Start:07-Apr-2014 Instruction Type:Patient Education How to access health informa tion online - Detail Indication:Dyspnea Start:07-Apr-2014 Instruction Type:Patient Education Patient Instructions Indication:Dyspnea Start:07-Apr-2014 Instruction Type:Provider Instructions for Treatment Patient Instructions Indication:Neck muscle strain Start:23-Jul-2013 Instruction Type:Provider Instructions for Treatment [facility]; [facility] Work Phone: Instructions* Name Dates Details Patient Instructions Indication:BMI 30.0-30.9,adult Start:04-Sep-2021 Instruction Type:Provider Instructions for Treatment How to Access Health Informa tion Online using Patient Portal and [employer] Apps Indication:BMI 30.0-30.9,adult Start:04-Sep-2021 Instruction Type:Patient Education Patient Instructions Indication:Current nonsmoker (Renamed from Current non-smoker) Start:27-Dec-2020 Instruction Type:Provider Instructions for Treatment How to Access Health Informa tion Online using Patient Portal and [employer] Apps Indication:Current nonsmoker (Renamed from Current non-smoker) Start:27-Dec-2020 Instruction Type:Patient Education Patient Instructions Indication:BMI 28.0-28.9,adult Start:08-Aug-2020 Instruction Type:Provider Instructions for Treatment How to Access Health Informa tion Online using Patient Portal and [employer] Indication:Current nonsmoker (Renamed from Current non-smoker) Start:08-Aug-2020 Instruction Type:Patient Education How to access health informa tion online Indication:Current nonsmoker (Renamed from Current non-smoker) Start:24-Mar-2019 Instruction Type:Patient Education How to access health informa tion online - Detail Indication:Current nonsmoker (Renamed from Current non-smoker) Start:24-Mar-2019 Instruction Type:Patient Education Patient Instructions Indication:Current nonsmoker (Renamed from Current non-smoker) Start:24-Mar-2019 Instruction Type:Provider Instructions for Treatment How to access health informa tion online Indication:Current nonsmoker (Renamed from Current non-smoker) Start:17-Mar-2019 Instruction Type:Patient Education How to access health informa tion online - Detail Indication:Current nonsmoker (Renamed from Current non-smoker) Start:17-Mar-2019 Instruction Type:Patient Education Patient Instructions Indication:Current nonsmoker (Renamed from Current non-smoker) Start:17-Mar-2019 Instruction Type:Provider Instructions for Treatment How to access health informa tion online Indication:Current nonsmoker (Renamed from Current non-smoker) Start:27-Feb-2018 Instruction Type:Patient Education How to access health informa tion online - Detail Indication:Current nonsmoker (Renamed from Current non-smoker) Start:27-Feb-2018 Instruction Type:Patient Education Patient Instructions Indication:Current nonsmoker (Renamed from Current non-smoker) Start:27-Feb-2018 Instruction Type:Provider Instructions for Treatment How to access health informa tion online Indication:Cough Start:09-Sep-2016 Instruction Type:Patient Education How to access health informa tion online - Detail Indication:Cough Start:09-Sep-2016 Instruction Type:Patient Education Patient Instructions Indication:Cough Start:09-Sep-2016 Instruction Type:Provider Instructions for Treatment How to access health informa tion online Indication:Anxiety Start:28-Aug-2015 Instruction Type:Patient Education How to access health informa tion online - Detail Indication:Anxiety Start:28-Aug-2015 Instruction Type:Patient Education Patient Instructions Indication:Anxiety Start:28-Aug-2015 Instruction Type:Provider Instructions for Treatment How to access health informa tion online Indication:Dyspnea Start:07-Apr-2014 Instruction Type:Patient Education How to access health informa tion online - Detail Indication:Dyspnea Start:07-Apr-2014 Instruction Type:Patient Education Patient Instructions Indication:Dyspnea Start:07-Apr-2014 Instruction Type:Provider Instructions for Treatment Patient Instructions Indication:Neck muscle strain Start:23-Jul-2013 Instruction Type:Provider Instructions for Treatment [facility]; [facility] Work Phone: Instructions* Name Dates Details Patient Instructions Indication:BMI 30.0-30.9,adult Start:04-Sep-2021 Instruction Type:Provider Instructions for Treatment How to Access Health Informa tion Online using Patient Portal and [employer] Indication:BMI 30.0-30.9,adult Start:04-Sep-2021 Instruction Type:Patient Education Patient Instructions Indication:Current nonsmoker (Renamed from Current non-smoker) Start:27-Dec-2020 Instruction Type:Provider Instructions for Treatment How to Access Health Informa tion Online using Patient Portal and [employer] Apps Indication:Current nonsmoker (Renamed from Current non-smoker) Start:27-Dec-2020 Instruction Type:Patient Education Patient Instructions Indication:BMI 28.0-28.9,adult Start:08-Aug-2020 Instruction Type:Provider Instructions for Treatment How to Access Health Informa tion Online using Patient Portal and [employer] Apps Indication:Current nonsmoker (Renamed from Current non-smoker) Start:08-Aug-2020 Instruction Type:Patient Education How to access health informa tion online Indication:Current nonsmoker (Renamed from Current non-smoker) Start:24-Mar-2019 Instruction Type:Patient Education How to access health informa tion online - Detail Indication:Current nonsmoker (Renamed from Current non-smoker) Start:24-Mar-2019 Instruction Type:Patient Education Patient Instructions Indication:Current nonsmoker (Renamed from Current non-smoker) Start:24-Mar-2019 Instruction Type:Provider Instructions for Treatment How to access health informa tion online Indication:Current nonsmoker (Renamed from Current non-smoker) Start:17-Mar-2019 Instruction Type:Patient Education How to access health informa tion online - Detail Indication:Current nonsmoker (Renamed from Current non-smoker) Start:17-Mar-2019 Instruction Type:Patient Education Patient Instructions Indication:Current nonsmoker (Renamed from Current non-smoker) Start:17-Mar-2019 Instruction Type:Provider Instructions for Treatment How to access health informa tion online Indication:Current nonsmoker (Renamed from Current non-smoker) Start:27-Feb-2018 Instruction Type:Patient Education How to access health informa tion online - Detail Indication:Current nonsmoker (Renamed from Current non-smoker) Start:27-Feb-2018 Instruction Type:Patient Education Patient Instructions Indication:Current nonsmoker (Renamed from Current non-smoker) Start:27-Feb-2018 Instruction Type:Provider Instructions for Treatment How to access health informa tion online Indication:Cough Start:09-Sep-2016 Instruction Type:Patient Education How to access health informa tion online - Detail Indication:Cough Start:09-Sep-2016 Instruction Type:Patient Education Patient Instructions Indication:Cough Start:09-Sep-2016 Instruction Type:Provider Instructions for Treatment How to access health informa tion online Indication:Anxiety Start:28-Aug-2015 Instruction Type:Patient Education How to access health informa tion online - Detail Indication:Anxiety Start:28-Aug-2015 Instruction Type:Patient Education Patient Instructions Indication:Anxiety Start:28-Aug-2015 Instruction Type:Provider Instructions for Treatment How to access health informa tion online Indication:Dyspnea Start:07-Apr-2014 Instruction Type:Patient Education How to access health informa tion online - Detail Indication:Dyspnea Start:07-Apr-2014 Instruction Type:Patient Education Patient Instructions Indication:Dyspnea Start:07-Apr-2014 Instruction Type:Provider Instructions for Treatment Patient Instructions Indication:Neck muscle strain Start:23-Jul-2013 Instruction Type:Provider Instructions for Treatment [facility]; [facility] Work Phone: Instructions* Name Dates Details Patient Instructions Indication:BMI 30.0-30.9,adult Start:04-Sep-2021 Instruction Type:Provider Instructions for Treatment How to Access Health Informa tion Online using Patient Portal and [employer] Indication:BMI 30.0-30.9,adult Start:04-Sep-2021 Instruction Type:Patient Education Patient Instructions Indication:Current nonsmoker (Renamed from Current non-smoker) Start:27-Dec-2020 Instruction Type:Provider Instructions for Treatment How to Access Health Informa tion Online using Patient Portal and [employer] Apps Indication:Current nonsmoker (Renamed from Current non-smoker) Start:27-Dec-2020 Instruction Type:Patient Education Patient Instructions Indication:BMI 28.0-28.9,adult Start:08-Aug-2020 Instruction Type:Provider Instructions for Treatment How to Access Health Informa tion Online using Patient Portal and [employer] Apps Indication:Current nonsmoker (Renamed from Current non-smoker) Start:08-Aug-2020 Instruction Type:Patient Education How to access health informa tion online Indication:Current nonsmoker (Renamed from Current non-smoker) Start:24-Mar-2019 Instruction Type:Patient Education How to access health informa tion online - Detail Indication:Current nonsmoker (Renamed from Current non-smoker) Start:24-Mar-2019 Instruction Type:Patient Education Patient Instructions Indication:Current nonsmoker (Renamed from Current non-smoker) Start:24-Mar-2019 Instruction Type:Provider Instructions for Treatment How to access health informa tion online Indication:Current nonsmoker (Renamed from Current non-smoker) Start:17-Mar-2019 Instruction Type:Patient Education How to access health informa tion online - Detail Indication:Current nonsmoker (Renamed from Current non-smoker) Start:17-Mar-2019 Instruction Type:Patient Education Patient Instructions Indication:Current nonsmoker (Renamed from Current non-smoker) Start:17-Mar-2019 Instruction Type:Provider Instructions for Treatment How to access health informa tion online Indication:Current nonsmoker (Renamed from Current non-smoker) Start:27-Feb-2018 Instruction Type:Patient Education How to access health informa tion online - Detail Indication:Current nonsmoker (Renamed from Current non-smoker) Start:27-Feb-2018 Instruction Type:Patient Education Patient Instructions Indication:Current nonsmoker (Renamed from Current non-smoker) Start:27-Feb-2018 Instruction Type:Provider Instructions for Treatment How to access health informa tion online Indication:Cough Start:09-Sep-2016 Instruction Type:Patient Education How to access health informa tion online - Detail Indication:Cough Start:09-Sep-2016 Instruction Type:Patient Education Patient Instructions Indication:Cough Start:09-Sep-2016 Instruction Type:Provider Instructions for Treatment How to access health informa tion online Indication:Anxiety Start:28-Aug-2015 Instruction Type:Patient Education How to access health informa tion online - Detail Indication:Anxiety Start:28-Aug-2015 Instruction Type:Patient Education Patient Instructions Indication:Anxiety Start:28-Aug-2015 Instruction Type:Provider Instructions for Treatment How to access health informa tion online Indication:Dyspnea Start:07-Apr-2014 Instruction Type:Patient Education How to access health informa tion online - Detail Indication:Dyspnea Start:07-Apr-2014 Instruction Type:Patient Education Patient Instructions Indication:Dyspnea Start:07-Apr-2014 Instruction Type:Provider Instructions for Treatment Patient Instructions Indication:Neck muscle strain Start:23-Jul-2013 Instruction Type:Provider Instructions for Treatment [facility]; [facility] Work Phone: Instructions* Name Dates Details Patient Instructions Indication:BMI 30.0-30.9,adult Start:04-Sep-2021 Instruction Type:Provider Instructions for Treatment How to Access Health Informa tion Online using Patient Portal and [employer] Apps Indication:BMI 30.0-30.9,adult Start:04-Sep-2021 Instruction Type:Patient Education Patient Instructions Indication:Current nonsmoker (Renamed from Current non-smoker) Start:27-Dec-2020 Instruction Type:Provider Instructions for Treatment How to Access Health Informa tion Online using Patient Portal and [employer] Apps Indication:Current nonsmoker (Renamed from Current non-smoker) Start:27-Dec-2020 Instruction Type:Patient Education Patient Instructions Indication:BMI 28.0-28.9,adult Start:08-Aug-2020 Instruction Type:Provider Instructions for Treatment How to Access Health Informa tion Online using Patient Portal and [employer] Indication:Current nonsmoker (Renamed from Current non-smoker) Start:08-Aug-2020 Instruction Type:Patient Education How to access health informa tion online Indication:Current nonsmoker (Renamed from Current non-smoker) Start:24-Mar-2019 Instruction Type:Patient Education How to access health informa tion online - Detail Indication:Current nonsmoker (Renamed from Current non-smoker) Start:24-Mar-2019 Instruction Type:Patient Education Patient Instructions Indication:Current nonsmoker (Renamed from Current non-smoker) Start:24-Mar-2019 Instruction Type:Provider Instructions for Treatment How to access health informa tion online Indication:Current nonsmoker (Renamed from Current non-smoker) Start:17-Mar-2019 Instruction Type:Patient Education How to access health informa tion online - Detail Indication:Current nonsmoker (Renamed from Current non-smoker) Start:17-Mar-2019 Instruction Type:Patient Education Patient Instructions Indication:Current nonsmoker (Renamed from Current non-smoker) Start:17-Mar-2019 Instruction Type:Provider Instructions for Treatment How to access health informa tion online Indication:Current nonsmoker (Renamed from Current non-smoker) Start:27-Feb-2018 Instruction Type:Patient Education How to access health informa tion online - Detail Indication:Current nonsmoker (Renamed from Current non-smoker) Start:27-Feb-2018 Instruction Type:Patient Education Patient Instructions Indication:Current nonsmoker (Renamed from Current non-smoker) Start:27-Feb-2018 Instruction Type:Provider Instructions for Treatment How to access health informa tion online Indication:Cough Start:09-Sep-2016 Instruction Type:Patient Education How to access health informa tion online - Detail Indication:Cough Start:09-Sep-2016 Instruction Type:Patient Education Patient Instructions Indication:Cough Start:09-Sep-2016 Instruction Type:Provider Instructions for Treatment How to access health informa tion online Indication:Anxiety Start:28-Aug-2015 Instruction Type:Patient Education How to access health informa tion online - Detail Indication:Anxiety Start:28-Aug-2015 Instruction Type:Patient Education Patient Instructions Indication:Anxiety Start:28-Aug-2015 Instruction Type:Provider Instructions for Treatment How to access health informa tion online Indication:Dyspnea Start:07-Apr-2014 Instruction Type:Patient Education How to access health informa tion online - Detail Indication:Dyspnea Start:07-Apr-2014 Instruction Type:Patient Education Patient Instructions Indication:Dyspnea Start:07-Apr-2014 Instruction Type:Provider Instructions for Treatment Patient Instructions Indication:Neck muscle strain Start:23-Jul-2013 Instruction Type:Provider Instructions for Treatment [facility]; [facility] Work Phone: Instructions* Name Dates Details Patient Instructions Indication:BMI 30.0-30.9,adult Start:04-Sep-2021 Instruction Type:Provider Instructions for Treatment How to Access Health Informa tion Online using Patient Portal and [employer] Indication:BMI 30.0-30.9,adult Start:04-Sep-2021 Instruction Type:Patient Education Patient Instructions Indication:Current nonsmoker (Renamed from Current non-smoker) Start:27-Dec-2020 Instruction Type:Provider Instructions for Treatment How to Access Health Informa tion Online using Patient Portal and [employer] Indication:Current nonsmoker (Renamed from Current non-smoker) Start:27-Dec-2020 Instruction Type:Patient Education Patient Instructions Indication:BMI 28.0-28.9,adult Start:08-Aug-2020 Instruction Type:Provider Instructions for Treatment How to Access Health Informa tion Online using Patient Portal and [employer] Indication:Current nonsmoker (Renamed from Current non-smoker) Start:08-Aug-2020 Instruction Type:Patient Education How to access health informa tion online Indication:Current nonsmoker (Renamed from Current non-smoker) Start:24-Mar-2019 Instruction Type:Patient Education How to access health informa tion online - Detail Indication:Current nonsmoker (Renamed from Current non-smoker) Start:24-Mar-2019 Instruction Type:Patient Education Patient Instructions Indication:Current nonsmoker (Renamed from Current non-smoker) Start:24-Mar-2019 Instruction Type:Provider Instructions for Treatment How to access health informa tion online Indication:Current nonsmoker (Renamed from Current non-smoker) Start:17-Mar-2019 Instruction Type:Patient Education How to access health informa tion online - Detail Indication:Current nonsmoker (Renamed from Current non-smoker) Start:17-Mar-2019 Instruction Type:Patient Education Patient Instructions Indication:Current nonsmoker (Renamed from Current non-smoker) Start:17-Mar-2019 Instruction Type:Provider Instructions for Treatment How to access health informa tion online Indication:Current nonsmoker (Renamed from Current non-smoker) Start:27-Feb-2018 Instruction Type:Patient Education How to access health informa tion online - Detail Indication:Current nonsmoker (Renamed from Current non-smoker) Start:27-Feb-2018 Instruction Type:Patient Education Patient Instructions Indication:Current nonsmoker (Renamed from Current non-smoker) Start:27-Feb-2018 Instruction Type:Provider Instructions for Treatment How to access health informa tion online Indication:Cough Start:09-Sep-2016 Instruction Type:Patient Education How to access health informa tion online - Detail Indication:Cough Start:09-Sep-2016 Instruction Type:Patient Education Patient Instructions Indication:Cough Start:09-Sep-2016 Instruction Type:Provider Instructions for Treatment How to access health informa tion online Indication:Anxiety Start:28-Aug-2015 Instruction Type:Patient Education How to access health informa tion online - Detail Indication:Anxiety Start:28-Aug-2015 Instruction Type:Patient Education Patient Instructions Indication:Anxiety Start:28-Aug-2015 Instruction Type:Provider Instructions for Treatment How to access health informa tion online Indication:Dyspnea Start:07-Apr-2014 Instruction Type:Patient Education How to access health informa tion online - Detail Indication:Dyspnea Start:07-Apr-2014 Instruction Type:Patient Education Patient Instructions Indication:Dyspnea Start:07-Apr-2014 Instruction Type:Provider Instructions for Treatment Patient Instructions Indication:Neck muscle strain Start:23-Jul-2013 Instruction Type:Provider Instructions for Treatment [facility]; [facility] Work Phone: Instructions* Name Dates Details Patient Instructions Indication:BMI 30.0-30.9,adult Start:04-Sep-2021 Instruction Type:Provider Instructions for Treatment How to Access Health Informa tion Online using Patient Portal and [employer] Apps Indication:BMI 30.0-30.9,adult Start:04-Sep-2021 Instruction Type:Patient Education Patient Instructions Indication:Current nonsmoker (Renamed from Current non-smoker) Start:27-Dec-2020 Instruction Type:Provider Instructions for Treatment How to Access Health Informa tion Online using Patient Portal and [employer] Apps Indication:Current nonsmoker (Renamed from Current non-smoker) Start:27-Dec-2020 Instruction Type:Patient Education Patient Instructions Indication:BMI 28.0-28.9,adult Start:08-Aug-2020 Instruction Type:Provider Instructions for Treatment How to Access Health Informa tion Online using Patient Portal and [employer] Apps Indication:Current nonsmoker (Renamed from Current non-smoker) Start:08-Aug-2020 Instruction Type:Patient Education How to access health informa tion online Indication:Current nonsmoker (Renamed from Current non-smoker) Start:24-Mar-2019 Instruction Type:Patient Education How to access health informa tion online - Detail Indication:Current nonsmoker (Renamed from Current non-smoker) Start:24-Mar-2019 Instruction Type:Patient Education Patient Instructions Indication:Current nonsmoker (Renamed from Current non-smoker) Start:24-Mar-2019 Instruction Type:Provider Instructions for Treatment How to access health informa tion online Indication:Current nonsmoker (Renamed from Current non-smoker) Start:17-Mar-2019 Instruction Type:Patient Education How to access health informa tion online - Detail Indication:Current nonsmoker (Renamed from Current non-smoker) Start:17-Mar-2019 Instruction Type:Patient Education Patient Instructions Indication:Current nonsmoker (Renamed from Current non-smoker) Start:17-Mar-2019 Instruction Type:Provider Instructions for Treatment How to access health informa tion online Indication:Current nonsmoker (Renamed from Current non-smoker) Start:27-Feb-2018 Instruction Type:Patient Education How to access health informa tion online - Detail Indication:Current nonsmoker (Renamed from Current non-smoker) Start:27-Feb-2018 Instruction Type:Patient Education Patient Instructions Indication:Current nonsmoker (Renamed from Current non-smoker) Start:27-Feb-2018 Instruction Type:Provider Instructions for Treatment How to access health informa tion online Indication:Cough Start:09-Sep-2016 Instruction Type:Patient Education How to access health informa tion online - Detail Indication:Cough Start:09-Sep-2016 Instruction Type:Patient Education Patient Instructions Indication:Cough Start:09-Sep-2016 Instruction Type:Provider Instructions for Treatment How to access health informa tion online Indication:Anxiety Start:28-Aug-2015 Instruction Type:Patient Education How to access health informa tion online - Detail Indication:Anxiety Start:28-Aug-2015 Instruction Type:Patient Education Patient Instructions Indication:Anxiety Start:28-Aug-2015 Instruction Type:Provider Instructions for Treatment How to access health informa tion online Indication:Dyspnea Start:07-Apr-2014 Instruction Type:Patient Education How to access health informa tion online - Detail Indication:Dyspnea Start:07-Apr-2014 Instruction Type:Patient Education Patient Instructions Indication:Dyspnea Start:07-Apr-2014 Instruction Type:Provider Instructions for Treatment Patient Instructions Indication:Neck muscle strain Start:23-Jul-2013 Instruction Type:Provider Instructions for Treatment [facility]; [facility] Work Phone: Instructions* Name Dates Details Patient Instructions Indication:BMI 30.0-30.9,adult Start:04-Sep-2021 Instruction Type:Provider Instructions for Treatment How to Access Health Informa tion Online using Patient Portal and [employer] Indication:BMI 30.0-30.9,adult Start:04-Sep-2021 Instruction Type:Patient Education Patient Instructions Indication:Current nonsmoker (Renamed from Current non-smoker) Start:27-Dec-2020 Instruction Type:Provider Instructions for Treatment How to Access Health Informa tion Online using Patient Portal and [employer] Indication:Current nonsmoker (Renamed from Current non-smoker) Start:27-Dec-2020 Instruction Type:Patient Education Patient Instructions Indication:BMI 28.0-28.9,adult Start:08-Aug-2020 Instruction Type:Provider Instructions for Treatment How to Access Health Informa tion Online using Patient Portal and [employer] Indication:Current nonsmoker (Renamed from Current non-smoker) Start:08-Aug-2020 Instruction Type:Patient Education How to access health informa tion online Indication:Current nonsmoker (Renamed from Current non-smoker) Start:24-Mar-2019 Instruction Type:Patient Education How to access health informa tion online - Detail Indication:Current nonsmoker (Renamed from Current non-smoker) Start:24-Mar-2019 Instruction Type:Patient Education Patient Instructions Indication:Current nonsmoker (Renamed from Current non-smoker) Start:24-Mar-2019 Instruction Type:Provider Instructions for Treatment How to access health informa tion online Indication:Current nonsmoker (Renamed from Current non-smoker) Start:17-Mar-2019 Instruction Type:Patient Education How to access health informa tion online - Detail Indication:Current nonsmoker (Renamed from Current non-smoker) Start:17-Mar-2019 Instruction Type:Patient Education Patient Instructions Indication:Current nonsmoker (Renamed from Current non-smoker) Start:17-Mar-2019 Instruction Type:Provider Instructions for Treatment How to access health informa tion online Indication:Current nonsmoker (Renamed from Current non-smoker) Start:27-Feb-2018 Instruction Type:Patient Education How to access health informa tion online - Detail Indication:Current nonsmoker (Renamed from Current non-smoker) Start:27-Feb-2018 Instruction Type:Patient Education Patient Instructions Indication:Current nonsmoker (Renamed from Current non-smoker) Start:27-Feb-2018 Instruction Type:Provider Instructions for Treatment How to access health informa tion online Indication:Cough Start:09-Sep-2016 Instruction Type:Patient Education How to access health informa tion online - Detail Indication:Cough Start:09-Sep-2016 Instruction Type:Patient Education Patient Instructions Indication:Cough Start:09-Sep-2016 Instruction Type:Provider Instructions for Treatment How to access health informa tion online Indication:Anxiety Start:28-Aug-2015 Instruction Type:Patient Education How to access health informa tion online - Detail Indication:Anxiety Start:28-Aug-2015 Instruction Type:Patient Education Patient Instructions Indication:Anxiety Start:28-Aug-2015 Instruction Type:Provider Instructions for Treatment How to access health informa tion online Indication:Dyspnea Start:07-Apr-2014 Instruction Type:Patient Education How to access health informa tion online - Detail Indication:Dyspnea Start:07-Apr-2014 Instruction Type:Patient Education Patient Instructions Indication:Dyspnea Start:07-Apr-2014 Instruction Type:Provider Instructions for Treatment Patient Instructions Indication:Neck muscle strain Start:23-Jul-2013 Instruction Type:Provider Instructions for Treatment [facility]; [facility] Work Phone: Instructions* Name Dates Details Patient Instructions Indication:BMI 30.0-30.9,adult Start:04-Sep-2021 Instruction Type:Provider Instructions for Treatment How to Access Health Informa tion Online using Patient Portal and [employer] Apps Indication:BMI 30.0-30.9,adult Start:04-Sep-2021 Instruction Type:Patient Education Patient Instructions Indication:Current nonsmoker (Renamed from Current non-smoker) Start:27-Dec-2020 Instruction Type:Provider Instructions for Treatment How to Access Health Informa tion Online using Patient Portal and [employer] Apps Indication:Current nonsmoker (Renamed from Current non-smoker) Start:27-Dec-2020 Instruction Type:Patient Education Patient Instructions Indication:BMI 28.0-28.9,adult Start:08-Aug-2020 Instruction Type:Provider Instructions for Treatment How to Access Health Informa tion Online using Patient Portal and [employer] Apps Indication:Current nonsmoker (Renamed from Current non-smoker) Start:08-Aug-2020 Instruction Type:Patient Education How to access health informa tion online Indication:Current nonsmoker (Renamed from Current non-smoker) Start:24-Mar-2019 Instruction Type:Patient Education How to access health informa tion online - Detail Indication:Current nonsmoker (Renamed from Current non-smoker) Start:24-Mar-2019 Instruction Type:Patient Education Patient Instructions Indication:Current nonsmoker (Renamed from Current non-smoker) Start:24-Mar-2019 Instruction Type:Provider Instructions for Treatment How to access health informa tion online Indication:Current nonsmoker (Renamed from Current non-smoker) Start:17-Mar-2019 Instruction Type:Patient Education How to access health informa tion online - Detail Indication:Current nonsmoker (Renamed from Current non-smoker) Start:17-Mar-2019 Instruction Type:Patient Education Patient Instructions Indication:Current nonsmoker (Renamed from Current non-smoker) Start:17-Mar-2019 Instruction Type:Provider Instructions for Treatment How to access health informa tion online Indication:Current nonsmoker (Renamed from Current non-smoker) Start:27-Feb-2018 Instruction Type:Patient Education How to access health informa tion online - Detail Indication:Current nonsmoker (Renamed from Current non-smoker) Start:27-Feb-2018 Instruction Type:Patient Education Patient Instructions Indication:Current nonsmoker (Renamed from Current non-smoker) Start:27-Feb-2018 Instruction Type:Provider Instructions for Treatment How to access health informa tion online Indication:Cough Start:09-Sep-2016 Instruction Type:Patient Education How to access health informa tion online - Detail Indication:Cough Start:09-Sep-2016 Instruction Type:Patient Education Patient Instructions Indication:Cough Start:09-Sep-2016 Instruction Type:Provider Instructions for Treatment How to access health informa tion online Indication:Anxiety Start:28-Aug-2015 Instruction Type:Patient Education How to access health informa tion online - Detail Indication:Anxiety Start:28-Aug-2015 Instruction Type:Patient Education Patient Instructions Indication:Anxiety Start:28-Aug-2015 Instruction Type:Provider Instructions for Treatment How to access health informa tion online Indication:Dyspnea Start:07-Apr-2014 Instruction Type:Patient Education How to access health informa tion online - Detail Indication:Dyspnea Start:07-Apr-2014 Instruction Type:Patient Education Patient Instructions Indication:Dyspnea Start:07-Apr-2014 Instruction Type:Provider Instructions for Treatment Patient Instructions Indication:Neck muscle strain Start:23-Jul-2013 Instruction Type:Provider Instructions for Treatment [facility]; [facility] Work Phone: Instructions* Name Dates Details Patient Instructions Indication:BMI 30.0-30.9,adult Start:04-Sep-2021 Instruction Type:Provider Instructions for Treatment How to Access Health Informa tion Online using Patient Portal and [employer] Indication:BMI 30.0-30.9,adult Start:04-Sep-2021 Instruction Type:Patient Education Patient Instructions Indication:Current nonsmoker (Renamed from Current non-smoker) Start:27-Dec-2020 Instruction Type:Provider Instructions for Treatment How to Access Health Informa tion Online using Patient Portal and [employer] Indication:Current nonsmoker (Renamed from Current non-smoker) Start:27-Dec-2020 Instruction Type:Patient Education Patient Instructions Indication:BMI 28.0-28.9,adult Start:08-Aug-2020 Instruction Type:Provider Instructions for Treatment How to Access Health Informa tion Online using Patient Portal and [employer] Indication:Current nonsmoker (Renamed from Current non-smoker) Start:08-Aug-2020 Instruction Type:Patient Education How to access health informa tion online Indication:Current nonsmoker (Renamed from Current non-smoker) Start:24-Mar-2019 Instruction Type:Patient Education How to access health informa tion online - Detail Indication:Current nonsmoker (Renamed from Current non-smoker) Start:24-Mar-2019 Instruction Type:Patient Education Patient Instructions Indication:Current nonsmoker (Renamed from Current non-smoker) Start:24-Mar-2019 Instruction Type:Provider Instructions for Treatment How to access health informa tion online Indication:Current nonsmoker (Renamed from Current non-smoker) Start:17-Mar-2019 Instruction Type:Patient Education How to access health informa tion online - Detail Indication:Current nonsmoker (Renamed from Current non-smoker) Start:17-Mar-2019 Instruction Type:Patient Education Patient Instructions Indication:Current nonsmoker (Renamed from Current non-smoker) Start:17-Mar-2019 Instruction Type:Provider Instructions for Treatment How to access health informa tion online Indication:Current nonsmoker (Renamed from Current non-smoker) Start:27-Feb-2018 Instruction Type:Patient Education How to access health informa tion online - Detail Indication:Current nonsmoker (Renamed from Current non-smoker) Start:27-Feb-2018 Instruction Type:Patient Education Patient Instructions Indication:Current nonsmoker (Renamed from Current non-smoker) Start:27-Feb-2018 Instruction Type:Provider Instructions for Treatment How to access health informa tion online Indication:Cough Start:09-Sep-2016 Instruction Type:Patient Education How to access health informa tion online - Detail Indication:Cough Start:09-Sep-2016 Instruction Type:Patient Education Patient Instructions Indication:Cough Start:09-Sep-2016 Instruction Type:Provider Instructions for Treatment How to access health informa tion online Indication:Anxiety Start:28-Aug-2015 Instruction Type:Patient Education How to access health informa tion online - Detail Indication:Anxiety Start:28-Aug-2015 Instruction Type:Patient Education Patient Instructions Indication:Anxiety Start:28-Aug-2015 Instruction Type:Provider Instructions for Treatment How to access health informa tion online Indication:Dyspnea Start:07-Apr-2014 Instruction Type:Patient Education How to access health informa tion online - Detail Indication:Dyspnea Start:07-Apr-2014 Instruction Type:Patient Education Patient Instructions Indication:Dyspnea Start:07-Apr-2014 Instruction Type:Provider Instructions for Treatment Patient Instructions Indication:Neck muscle strain Start:23-Jul-2013 Instruction Type:Provider Instructions for Treatment [facility]; [facility] Work Phone: Instructions* Name Dates Details Patient Instructions Indication:Current nonsmoker (Renamed from Current non-smoker) Start:15-Apr-2023 Instruction Type:Provider Instructions for Treatment How to Access Health Informa tion Online using Patient Portal and [employer] Apps Indication:Current nonsmoker (Renamed from Current non-smoker) Start:15-Apr-2023 Instruction Type:Patient Education Patient Instructions Indication:BMI 30.0-30.9,adult Start:04-Sep-2021 Instruction Type:Provider Instructions for Treatment How to Access Health Informa tion Online using Patient Portal and [employer] Indication:BMI 30.0-30.9,adult Start:04-Sep-2021 Instruction Type:Patient Education Patient Instructions Indication:Current nonsmoker (Renamed from Current non-smoker) Start:27-Dec-2020 Instruction Type:Provider Instructions for Treatment How to Access Health Informa tion Online using Patient Portal and [employer] Apps Indication:Current nonsmoker (Renamed from Current non-smoker) Start:27-Dec-2020 Instruction Type:Patient Education Patient Instructions Indication:BMI 28.0-28.9,adult Start:08-Aug-2020 Instruction Type:Provider Instructions for Treatment How to Access Health Informa tion Online using Patient Portal and [employer] Apps Indication:Current nonsmoker (Renamed from Current non-smoker) Start:08-Aug-2020 Instruction Type:Patient Education How to access health informa tion online Indication:Current nonsmoker (Renamed from Current non-smoker) Start:24-Mar-2019 Instruction Type:Patient Education How to access health informa tion online - Detail Indication:Current nonsmoker (Renamed from Current non-smoker) Start:24-Mar-2019 Instruction Type:Patient Education Patient Instructions Indication:Current nonsmoker (Renamed from Current non-smoker) Start:24-Mar-2019 Instruction Type:Provider Instructions for Treatment How to access health informa tion online Indication:Current nonsmoker (Renamed from Current non-smoker) Start:17-Mar-2019 Instruction Type:Patient Education How to access health informa tion online - Detail Indication:Current nonsmoker (Renamed from Current non-smoker) Start:17-Mar-2019 Instruction Type:Patient Education Patient Instructions Indication:Current nonsmoker (Renamed from Current non-smoker) Start:17-Mar-2019 Instruction Type:Provider Instructions for Treatment How to access health informa tion online Indication:Current nonsmoker (Renamed from Current non-smoker) Start:27-Feb-2018 Instruction Type:Patient Education How to access health informa tion online - Detail Indication:Current nonsmoker (Renamed from Current non-smoker) Start:27-Feb-2018 Instruction Type:Patient Education Patient Instructions Indication:Current nonsmoker (Renamed from Current non-smoker) Start:27-Feb-2018 Instruction Type:Provider Instructions for Treatment How to access health informa tion online Indication:Cough Start:09-Sep-2016 Instruction Type:Patient Education How to access health informa tion online - Detail Indication:Cough Start:09-Sep-2016 Instruction Type:Patient Education Patient Instructions Indication:Cough Start:09-Sep-2016 Instruction Type:Provider Instructions for Treatment How to access health informa tion online Indication:Anxiety Start:28-Aug-2015 Instruction Type:Patient Education How to access health informa tion online - Detail Indication:Anxiety Start:28-Aug-2015 Instruction Type:Patient Education Patient Instructions Indication:Anxiety Start:28-Aug-2015 Instruction Type:Provider Instructions for Treatment How to access health informa tion online Indication:Dyspnea Start:07-Apr-2014 Instruction Type:Patient Education How to access health informa tion online - Detail Indication:Dyspnea Start:07-Apr-2014 Instruction Type:Patient Education Patient Instructions Indication:Dyspnea Start:07-Apr-2014 Instruction Type:Provider Instructions for Treatment Patient Instructions Indication:Neck muscle strain Start:23-Jul-2013 Instruction Type:Provider Instructions for Treatment [facility]; [facility] Work Phone: Instructions* Name Dates Details Patient Instructions Indication:Current nonsmoker (Renamed from Current non-smoker) Start:15-Apr-2023 Instruction Type:Provider Instructions for Treatment How to Access Health Informa tion Online using Patient Portal and [employer] Apps Indication:Current nonsmoker (Renamed from Current non-smoker) Start:15-Apr-2023 Instruction Type:Patient Education Patient Instructions Indication:BMI 30.0-30.9,adult Start:04-Sep-2021 Instruction Type:Provider Instructions for Treatment How to Access Health Informa tion Online using Patient Portal and [employer] Apps Indication:BMI 30.0-30.9,adult Start:04-Sep-2021 Instruction Type:Patient Education Patient Instructions Indication:Current nonsmoker (Renamed from Current non-smoker) Start:27-Dec-2020 Instruction Type:Provider Instructions for Treatment How to Access Health Informa tion Online using Patient Portal and [employer] Apps Indication:Current nonsmoker (Renamed from Current non-smoker) Start:27-Dec-2020 Instruction Type:Patient Education Patient Instructions Indication:BMI 28.0-28.9,adult Start:08-Aug-2020 Instruction Type:Provider Instructions for Treatment How to Access Health Informa tion Online using Patient Portal and [employer] Apps Indication:Current nonsmoker (Renamed from Current non-smoker) Start:08-Aug-2020 Instruction Type:Patient Education How to access health informa tion online Indication:Current nonsmoker (Renamed from Current non-smoker) Start:24-Mar-2019 Instruction Type:Patient Education How to access health informa tion online - Detail Indication:Current nonsmoker (Renamed from Current non-smoker) Start:24-Mar-2019 Instruction Type:Patient Education Patient Instructions Indication:Current nonsmoker (Renamed from Current non-smoker) Start:24-Mar-2019 Instruction Type:Provider Instructions for Treatment How to access health informa tion online Indication:Current nonsmoker (Renamed from Current non-smoker) Start:17-Mar-2019 Instruction Type:Patient Education How to access health informa tion online - Detail Indication:Current nonsmoker (Renamed from Current non-smoker) Start:17-Mar-2019 Instruction Type:Patient Education Patient Instructions Indication:Current nonsmoker (Renamed from Current non-smoker) Start:17-Mar-2019 Instruction Type:Provider Instructions for Treatment How to access health informa tion online Indication:Current nonsmoker (Renamed from Current non-smoker) Start:27-Feb-2018 Instruction Type:Patient Education How to access health informa tion online - Detail Indication:Current nonsmoker (Renamed from Current non-smoker) Start:27-Feb-2018 Instruction Type:Patient Education Patient Instructions Indication:Current nonsmoker (Renamed from Current non-smoker) Start:27-Feb-2018 Instruction Type:Provider Instructions for Treatment How to access health informa tion online Indication:Cough Start:09-Sep-2016 Instruction Type:Patient Education How to access health informa tion online - Detail Indication:Cough Start:09-Sep-2016 Instruction Type:Patient Education Patient Instructions Indication:Cough Start:09-Sep-2016 Instruction Type:Provider Instructions for Treatment How to access health informa tion online Indication:Anxiety Start:28-Aug-2015 Instruction Type:Patient Education How to access health informa tion online - Detail Indication:Anxiety Start:28-Aug-2015 Instruction Type:Patient Education Patient Instructions Indication:Anxiety Start:28-Aug-2015 Instruction Type:Provider Instructions for Treatment How to access health informa tion online Indication:Dyspnea Start:07-Apr-2014 Instruction Type:Patient Education How to access health informa [employer] online - Detail Indication:Dyspnea Start:07-Apr-2014 Instruction Type:Patient Education Patient Instructions Indication:Dyspnea Start:07-Apr-2014 Instruction Type:Provider Instructions for Treatment Patient Instructions Indication:Neck muscle strain Start:23-Jul-2013 Instruction Type:Provider Instructions for Treatment [facility] Work Phone: progress note No data available for this section [facility] Summary Purpose Family History No Family History Records FoundUnknown Family Member Name Dates Details Brother 1 Comments:pre-diabetes Status:Active Father Comments:THYROID, mental dis order, abuse to her mother. Status:Active Mother Comments:HTN. breast atypica Status:Active Sister 1 Comments:Schizophrenia, bipo lar - treated Status:Active Unknown Family Member Name Dates Details Brother 1 Comments:pre-diabetes Status:Active Father Comments:THYROID, mental dis order, abuse to her mother. Status:Active Mother Comments:HTN. breast atypica Status:Active Sister 1 Comments:Schizophrenia, bipo lar - treated Status:Active Unknown Family Member Name Dates Details Brother 1 Comments:pre-diabetes Status:Active Father Comments:THYROID, mental dis order, abuse to her mother. Status:Active Mother Comments:HTN. breast atypica Status:Active Sister 1 Comments:Schizophrenia, bipo lar - treated Status:Active Unknown Family Member Name Dates Details Brother 1 Comments:pre-diabetes Status:Active Father Comments:THYROID, mental dis order, abuse to her mother. Status:Active Mother Comments:HTN. breast atypica Status:Active Sister 1 Comments:Schizophrenia, bipo lar - treated Status:Active Unknown Family Member Name Dates Details Brother 1 Comments:pre-diabetes Status:Active Father Comments:THYROID, mental dis order, abuse to her mother. Status:Active Mother Comments:HTN. breast atypica Status:Active Sister 1 Comments:Schizophrenia, bipo lar - treated Status:Active Unknown Family Member Name Dates Details Brother 1 Comments:pre-diabetes Status:Active Father Comments:THYROID, mental dis order, abuse to her mother. Status:Active Mother Comments:HTN. breast atypica Status:Active Sister 1 Comments:Schizophrenia, bipo lar - treated Status:Active Unknown Family Member Name Dates Details Brother 1 Comments:pre-diabetes Status:Active Father Comments:THYROID, mental dis order, abuse to her mother. Status:Active Mother Comments:HTN. breast atypica Status:Active Sister 1 Comments:Schizophrenia, bipo lar - treated Status:Active Unknown Family Member Name Dates Details Brother 1 Comments:pre-diabetes Status:Active Father Comments:THYROID, mental dis order, abuse to her mother. Status:Active Mother Comments:HTN. breast atypica Status:Active Sister 1 Comments:Schizophrenia, bipo lar - treated Status:Active Unknown Family Member Name Dates Details Brother 1 Comments:pre-diabetes Status:Active Father Comments:THYROID, mental dis order, abuse to her mother. Status:Active Mother Comments:HTN. breast atypica Status:Active Sister 1 Comments:Schizophrenia, bipo lar - treated Status:Active Unknown Family Member Name Dates Details Brother 1 Comments:pre-diabetes Status:Active Father Comments:THYROID, mental dis order, abuse to her mother. Status:Active Mother Comments:HTN. breast atypica Status:Active Sister 1 Comments:Schizophrenia, bipo lar - treated Status:Active Unknown Family Member Name Dates Details Brother 1 Comments:pre-diabetes Status:Active Father Comments:THYROID, mental dis order, abuse to her mother. Status:Active Mother Comments:HTN. breast atypica Status:Active Sister 1 Comments:Schizophrenia, bipo lar - treated Status:Active Unknown Family Member Name Dates Details Brother 1 Comments:pre-diabetes Status:Active Father Comments:THYROID, mental dis order, abuse to her mother. Status:Active Mother Comments:HTN. breast atypica Status:Active Sister 1 Comments:Schizophrenia, bipo lar - treated Status:Active Unknown Family Member Name Dates Details Brother 1 Comments:pre-diabetes Status:Active Father Comments:THYROID, mental dis order, abuse to her mother. Status:Active Mother Comments:HTN. breast atypica Status:Active Sister 1 Comments:Schizophrenia, bipo lar - treated Status:Active Unknown Family Member Name Dates Details Brother 1 Comments:pre-diabetes Status:Active Father Comments:THYROID, mental dis order, abuse to her mother. Status:Active Mother Comments:HTN. breast atypica Status:Active Sister 1 Comments:Schizophrenia, bipo lar - treated Status:Active Unknown Family Member Name Dates Details Brother 1 Comments:pre-diabetes Status:Active Father Comments:THYROID, mental dis order, abuse to her mother. Status:Active Mother Comments:HTN. breast atypica Status:Active Sister 1 Comments:Schizophrenia, bipo lar - treated Status:Active Unknown Family Member Name Dates Details Brother 1 Comments:pre-diabetes Status:Active Father Comments:THYROID, mental dis order, abuse to her mother. Status:Active Mother Comments:HTN. breast atypica Status:Active Sister 1 Comments:Schizophrenia, bipo lar - treated Status:Active Unknown Family Member Name Dates Details Brother 1 Comments:pre-diabetes Status:Active Father Comments:THYROID, mental dis order, abuse to her mother. Status:Active Mother Comments:HTN. breast atypica Status:Active Sister 1 Comments:Schizophrenia, bipo lar - treated Status:Active Unknown Family Member Name Dates Details Brother 1 Comments:pre-diabetes Status:Active Father Comments:THYROID, mental dis order, abuse to her mother. Status:Active Mother Comments:HTN. breast atypica Status:Active Sister 1 Comments:Schizophrenia, bipo lar - treated Status:Active Unknown Family Member Name Dates Details Brother 1 Comments:pre-diabetes Status:Active Father Comments:THYROID, mental dis order, abuse to her mother. Status:Active Mother Comments:HTN. breast atypica Status:Active Sister 1 Comments:Schizophrenia, bipo lar - treated Status:Active Unknown Family Member Name Dates Details Brother 1 Comments:pre-diabetes Status:Active Father Comments:THYROID, mental dis order, abuse to her mother. Status:Active Mother Comments:HTN. breast atypica Status:Active Sister 1 Comments:Schizophrenia, bipo lar - treated Status:Active Unknown Family Member Name Dates Details Brother 1 Comments:pre-diabetes Status:Active Father Comments:THYROID, mental dis order, abuse to her mother. Status:Active Mother Comments:HTN. breast atypica Status:Active Sister 1 Comments:Schizophrenia, bipo lar - treated Status:Active Unknown Family Member Name Dates Details Brother 1 Comments:pre-diabetes Status:Active Father Comments:THYROID, mental dis order, abuse to her mother. Status:Active Mother Comments:HTN. breast atypica Status:Active Sister 1 Comments:Schizophrenia, bipo lar - treated Status:Active Unknown Family Member Name Dates Details Brother 1 Comments:pre-diabetes Status:Active Father Comments:THYROID, mental dis order, abuse to her mother. Status:Active Mother Comments:HTN. breast atypica Status:Active Sister 1 Comments:Schizophrenia, bipo lar - treated Status:Active Unknown Family Member Name Dates Details Brother 1 Comments:pre-diabetes Status:Active Father Comments:THYROID, mental dis order, abuse to her mother. Status:Active Mother Comments:HTN. breast atypica Status:Active Sister 1 Comments:Schizophrenia, bipo lar - treated Status:Active Unknown Family Member Name Dates Details Brother 1 Comments:pre-diabetes Status:Active Father Comments:THYROID, mental dis order, abuse to her mother. Status:Active Mother Comments:HTN. breast atypica Status:Active Sister 1 Comments:Schizophrenia, bipo lar - treated Status:Active Advance Directives No Advanced Directives Records FoundDocuments on File Type Date Recorded Patient Educational Psychologist Expl anation Advance Directives and Living Will Power of Break Out Man Latest Code Status on File Code Status Date Activated Date Inactivated Comments Full Code 03/31/2019 2:59 AM 04/16/2019 7:50 PM Latest Code Status on File Code Status Date Activated Date Inactivated Comments Full Code 03/31/2019 2:59 AM Advance Directive Response Recorded Date/ Time Living Will No March 10, 201 9 7:34pm Power of Break Out Man No March 10, 2 019 7:34pm Name Dates Details Immunization Registry [place] - Effective on 04/15/2023. Expiration date unspecified Effective:15-Apr-2023 Name Dates Details Immunization Registry [place] - Effective on 04/15/2023. Expiration date unspecified Effective:15-Apr-2023 Instructions Name Dates Details How to access health informa tion online Indication:Current nonsmoker (Renamed from Current non-smoker) Start:27-Feb-2018 Instruction Type:Patient Education How to access health informa tion online - Detail Indication:Current nonsmoker (Renamed from Current non-smoker) Start:27-Feb-2018 Instruction Type:Patient Education Patient Instructions Indication:Current nonsmoker (Renamed from Current non-smoker) Start:27-Feb-2018 Instruction Type:Provider Instructions for Treatment How to access health informa tion online Indication:Cough Start:09-Sep-2016 Instruction Type:Patient Education How to access health informa tion online - Detail Indication:Cough Start:09-Sep-2016 Instruction Type:Patient Education Patient Instructions Indication:Cough Start:09-Sep-2016 Instruction Type:Provider Instructions for Treatment How to access health informa tion online Indication:Anxiety Start:28-Aug-2015 Instruction Type:Patient Education How to access health informa tion online - Detail Indication:Anxiety Start:28-Aug-2015 Instruction Type:Patient Education Patient Instructions Indication:Anxiety Start:28-Aug-2015 Instruction Type:Provider Instructions for Treatment How to access health informa tion online Indication:Dyspnea Start:07-Apr-2014 Instruction Type:Patient Education How to access health informa tion online - Detail Indication:Dyspnea Start:07-Apr-2014 Instruction Type:Patient Education Patient Instructions Indication:Dyspnea Start:07-Apr-2014 Instruction Type:Provider Instructions for Treatment Patient Instructions Indication:Neck muscle strain Start:23-Jul-2013 Instruction Type:Provider Instructions for Treatment Name Dates Details How to access health informa tion online Indication:Current nonsmoker (Renamed from Current non-smoker) Start:17-Mar-2019 Instruction Type:Patient Education How to access health informa tion online - Detail Indication:Current nonsmoker (Renamed from Current non-smoker) Start:17-Mar-2019 Instruction Type:Patient Education Patient Instructions Indication:Current nonsmoker (Renamed from Current non-smoker) Start:17-Mar-2019 Instruction Type:Provider Instructions for Treatment How to access health informa tion online Indication:Current nonsmoker (Renamed from Current non-smoker) Start:27-Feb-2018 Instruction Type:Patient Education How to access health informa tion online - Detail Indication:Current nonsmoker (Renamed from Current non-smoker) Start:27-Feb-2018 Instruction Type:Patient Education Patient Instructions Indication:Current nonsmoker (Renamed from Current non-smoker) Start:27-Feb-2018 Instruction Type:Provider Instructions for Treatment How to access health informa tion online Indication:Cough Start:09-Sep-2016 Instruction Type:Patient Education How to access health informa tion online - Detail Indication:Cough Start:09-Sep-2016 Instruction Type:Patient Education Patient Instructions Indication:Cough Start:09-Sep-2016 Instruction Type:Provider Instructions for Treatment How to access health informa tion online Indication:Anxiety Start:28-Aug-2015 Instruction Type:Patient Education How to access health informa tion online - Detail Indication:Anxiety Start:28-Aug-2015 Instruction Type:Patient Education Patient Instructions Indication:Anxiety Start:28-Aug-2015 Instruction Type:Provider Instructions for Treatment How to access health informa tion online Indication:Dyspnea Start:07-Apr-2014 Instruction Type:Patient Education How to access health informa tion online - Detail Indication:Dyspnea Start:07-Apr-2014 Instruction Type:Patient Education Patient Instructions Indication:Dyspnea Start:07-Apr-2014 Instruction Type:Provider Instructions for Treatment Patient Instructions Indication:Neck muscle strain Start:23-Jul-2013 Instruction Type:Provider Instructions for Treatment Name Dates Details How to access health informa tion online Indication:Current nonsmoker (Renamed from Current non-smoker) Start:17-Mar-2019 Instruction Type:Patient Education How to access health informa tion online - Detail Indication:Current nonsmoker (Renamed from Current non-smoker) Start:17-Mar-2019 Instruction Type:Patient Education Patient Instructions Indication:Current nonsmoker (Renamed from Current non-smoker) Start:17-Mar-2019 Instruction Type:Provider Instructions for Treatment How to access health informa tion online Indication:Current nonsmoker (Renamed from Current non-smoker) Start:27-Feb-2018 Instruction Type:Patient Education How to access health informa tion online - Detail Indication:Current nonsmoker (Renamed from Current non-smoker) Start:27-Feb-2018 Instruction Type:Patient Education Patient Instructions Indication:Current nonsmoker (Renamed from Current non-smoker) Start:27-Feb-2018 Instruction Type:Provider Instructions for Treatment How to access health informa tion online Indication:Cough Start:09-Sep-2016 Instruction Type:Patient Education How to access health informa tion online - Detail Indication:Cough Start:09-Sep-2016 Instruction Type:Patient Education Patient Instructions Indication:Cough Start:09-Sep-2016 Instruction Type:Provider Instructions for Treatment How to access health informa tion online Indication:Anxiety Start:28-Aug-2015 Instruction Type:Patient Education How to access health informa tion online - Detail Indication:Anxiety Start:28-Aug-2015 Instruction Type:Patient Education Patient Instructions Indication:Anxiety Start:28-Aug-2015 Instruction Type:Provider Instructions for Treatment How to access health informa tion online Indication:Dyspnea Start:07-Apr-2014 Instruction Type:Patient Education How to access health informa tion online - Detail Indication:Dyspnea Start:07-Apr-2014 Instruction Type:Patient Education Patient Instructions Indication:Dyspnea Start:07-Apr-2014 Instruction Type:Provider Instructions for Treatment Patient Instructions Indication:Neck muscle strain Start:23-Jul-2013 Instruction Type:Provider Instructions for Treatment Name Dates Details How to access health informa tion online Start:17-Mar-2019 Instruction Type:Patient Education How to access health informa tion online - Detail Start:17-Mar-2019 Instruction Type:Patient Education Patient Instructions Start:17-Mar-2019 Instruction Type:Provider Instructions for Treatment How to access health informa tion online Start:27-Feb-2018 Instruction Type:Patient Education How to access health informa tion online - Detail Start:27-Feb-2018 Instruction Type:Patient Education Patient Instructions Start:27-Feb-2018 Instruction Type:Provider Instructions for Treatment How to access health informa tion online Indication:Cough Start:09-Sep-2016 Instruction Type:Patient Education How to access health informa tion online - Detail Indication:Cough Start:09-Sep-2016 Instruction Type:Patient Education Patient Instructions Indication:Cough Start:09-Sep-2016 Instruction Type:Provider Instructions for Treatment How to access health informa tion online Indication:Anxiety Start:28-Aug-2015 Instruction Type:Patient Education How to access health informa tion online - Detail Indication:Anxiety Start:28-Aug-2015 Instruction Type:Patient Education Patient Instructions Indication:Anxiety Start:28-Aug-2015 Instruction Type:Provider Instructions for Treatment How to access health informa tion online Indication:Dyspnea Start:07-Apr-2014 Instruction Type:Patient Education How to access health informa tion online - Detail Indication:Dyspnea Start:07-Apr-2014 Instruction Type:Patient Education Patient Instructions Indication:Dyspnea Start:07-Apr-2014 Instruction Type:Provider Instructions for Treatment Patient Instructions Indication:Neck muscle strain Start:23-Jul-2013 Instruction Type:Provider Instructions for Treatment Name Dates Details How to access health informa tion online Indication:Current nonsmoker (Renamed from Current non-smoker) Start:24-Mar-2019 Instruction Type:Patient Education How to access health informa tion online - Detail Indication:Current nonsmoker (Renamed from Current non-smoker) Start:24-Mar-2019 Instruction Type:Patient Education Patient Instructions Indication:Current nonsmoker (Renamed from Current non-smoker) Start:24-Mar-2019 Instruction Type:Provider Instructions for Treatment How to access health informa tion online Indication:Current nonsmoker (Renamed from Current non-smoker) Start:17-Mar-2019 Instruction Type:Patient Education How to access health informa tion online - Detail Indication:Current nonsmoker (Renamed from Current non-smoker) Start:17-Mar-2019 Instruction Type:Patient Education Patient Instructions Indication:Current nonsmoker (Renamed from Current non-smoker) Start:17-Mar-2019 Instruction Type:Provider Instructions for Treatment How to access health informa tion online Indication:Current nonsmoker (Renamed from Current non-smoker) Start:27-Feb-2018 Instruction Type:Patient Education How to access health informa tion online - Detail Indication:Current nonsmoker (Renamed from Current non-smoker) Start:27-Feb-2018 Instruction Type:Patient Education Patient Instructions Indication:Current nonsmoker (Renamed from Current non-smoker) Start:27-Feb-2018 Instruction Type:Provider Instructions for Treatment How to access health informa tion online Indication:Cough Start:09-Sep-2016 Instruction Type:Patient Education How to access health informa tion online - Detail Indication:Cough Start:09-Sep-2016 Instruction Type:Patient Education Patient Instructions Indication:Cough Start:09-Sep-2016 Instruction Type:Provider Instructions for Treatment How to access health informa tion online Indication:Anxiety Start:28-Aug-2015 Instruction Type:Patient Education How to access health informa tion online - Detail Indication:Anxiety Start:28-Aug-2015 Instruction Type:Patient Education Patient Instructions Indication:Anxiety Start:28-Aug-2015 Instruction Type:Provider Instructions for Treatment How to access health informa tion online Indication:Dyspnea Start:07-Apr-2014 Instruction Type:Patient Education How to access health informa tion online - Detail Indication:Dyspnea Start:07-Apr-2014 Instruction Type:Patient Education Patient Instructions Indication:Dyspnea Start:07-Apr-2014 Instruction Type:Provider Instructions for Treatment Patient Instructions Indication:Neck muscle strain Start:23-Jul-2013 Instruction Type:Provider Instructions for Treatment Name Dates Details How to access health informa tion online Indication:Current nonsmoker (Renamed from Current non-smoker) Start:24-Mar-2019 Instruction Type:Patient Education How to access health informa tion online - Detail Indication:Current nonsmoker (Renamed from Current non-smoker) Start:24-Mar-2019 Instruction Type:Patient Education Patient Instructions Indication:Current nonsmoker (Renamed from Current non-smoker) Start:24-Mar-2019 Instruction Type:Provider Instructions for Treatment How to access health informa tion online Indication:Current nonsmoker (Renamed from Current non-smoker) Start:17-Mar-2019 Instruction Type:Patient Education How to access health informa tion online - Detail Indication:Current nonsmoker (Renamed from Current non-smoker) Start:17-Mar-2019 Instruction Type:Patient Education Patient Instructions Indication:Current nonsmoker (Renamed from Current non-smoker) Start:17-Mar-2019 Instruction Type:Provider Instructions for Treatment How to access health informa tion online Indication:Current nonsmoker (Renamed from Current non-smoker) Start:27-Feb-2018 Instruction Type:Patient Education How to access health informa tion online - Detail Indication:Current nonsmoker (Renamed from Current non-smoker) Start:27-Feb-2018 Instruction Type:Patient Education Patient Instructions Indication:Current nonsmoker (Renamed from Current non-smoker) Start:27-Feb-2018 Instruction Type:Provider Instructions for Treatment How to access health informa tion online Indication:Cough Start:09-Sep-2016 Instruction Type:Patient Education How to access health informa tion online - Detail Indication:Cough Start:09-Sep-2016 Instruction Type:Patient Education Patient Instructions Indication:Cough Start:09-Sep-2016 Instruction Type:Provider Instructions for Treatment How to access health informa tion online Indication:Anxiety Start:28-Aug-2015 Instruction Type:Patient Education How to access health informa tion online - Detail Indication:Anxiety Start:28-Aug-2015 Instruction Type:Patient Education Patient Instructions Indication:Anxiety Start:28-Aug-2015 Instruction Type:Provider Instructions for Treatment How to access health informa tion online Indication:Dyspnea Start:07-Apr-2014 Instruction Type:Patient Education How to access health informa tion online - Detail Indication:Dyspnea Start:07-Apr-2014 Instruction Type:Patient Education Patient Instructions Indication:Dyspnea Start:07-Apr-2014 Instruction Type:Provider Instructions for Treatment Patient Instructions Indication:Neck muscle strain Start:23-Jul-2013 Instruction Type:Provider Instructions for Treatment Name Dates Details Patient Instructions Indication:BMI 28.0-28.9,adult Start:08-Aug-2020 Instruction Type:Provider Instructions for Treatment How to Access Health Informa tion Online using Patient Portal and [employer] Apps Indication:Current nonsmoker (Renamed from Current non-smoker) Start:08-Aug-2020 Instruction Type:Patient Education How to access health informa tion online Indication:Current nonsmoker (Renamed from Current non-smoker) Start:24-Mar-2019 Instruction Type:Patient Education How to access health informa tion online - Detail Indication:Current nonsmoker (Renamed from Current non-smoker) Start:24-Mar-2019 Instruction Type:Patient Education Patient Instructions Indication:Current nonsmoker (Renamed from Current non-smoker) Start:24-Mar-2019 Instruction Type:Provider Instructions for Treatment How to access health informa tion online Indication:Current nonsmoker (Renamed from Current non-smoker) Start:17-Mar-2019 Instruction Type:Patient Education How to access health informa tion online - Detail Indication:Current nonsmoker (Renamed from Current non-smoker) Start:17-Mar-2019 Instruction Type:Patient Education Patient Instructions Indication:Current nonsmoker (Renamed from Current non-smoker) Start:17-Mar-2019 Instruction Type:Provider Instructions for Treatment How to access health informa tion online Indication:Current nonsmoker (Renamed from Current non-smoker) Start:27-Feb-2018 Instruction Type:Patient Education How to access health informa tion online - Detail Indication:Current nonsmoker (Renamed from Current non-smoker) Start:27-Feb-2018 Instruction Type:Patient Education Patient Instructions Indication:Current nonsmoker (Renamed from Current non-smoker) Start:27-Feb-2018 Instruction Type:Provider Instructions for Treatment How to access health informa tion online Indication:Cough Start:09-Sep-2016 Instruction Type:Patient Education How to access health informa tion online - Detail Indication:Cough Start:09-Sep-2016 Instruction Type:Patient Education Patient Instructions Indication:Cough Start:09-Sep-2016 Instruction Type:Provider Instructions for Treatment How to access health informa tion online Indication:Anxiety Start:28-Aug-2015 Instruction Type:Patient Education How to access health informa tion online - Detail Indication:Anxiety Start:28-Aug-2015 Instruction Type:Patient Education Patient Instructions Indication:Anxiety Start:28-Aug-2015 Instruction Type:Provider Instructions for Treatment How to access health informa tion online Indication:Dyspnea Start:07-Apr-2014 Instruction Type:Patient Education How to access health informa tion online - Detail Indication:Dyspnea Start:07-Apr-2014 Instruction Type:Patient Education Patient Instructions Indication:Dyspnea Start:07-Apr-2014 Instruction Type:Provider Instructions for Treatment Patient Instructions Indication:Neck muscle strain Start:23-Jul-2013 Instruction Type:Provider Instructions for Treatment Name Dates Details Patient Instructions Indication:BMI 28.0-28.9,adult Start:08-Aug-2020 Instruction Type:Provider Instructions for Treatment How to Access Health Informa tion Online using Patient Portal and [employer] Apps Indication:Current nonsmoker (Renamed from Current non-smoker) Start:08-Aug-2020 Instruction Type:Patient Education How to access health informa tion online Indication:Current nonsmoker (Renamed from Current non-smoker) Start:24-Mar-2019 Instruction Type:Patient Education How to access health informa tion online - Detail Indication:Current nonsmoker (Renamed from Current non-smoker) Start:24-Mar-2019 Instruction Type:Patient Education Patient Instructions Indication:Current nonsmoker (Renamed from Current non-smoker) Start:24-Mar-2019 Instruction Type:Provider Instructions for Treatment How to access health informa tion online Indication:Current nonsmoker (Renamed from Current non-smoker) Start:17-Mar-2019 Instruction Type:Patient Education How to access health informa tion online - Detail Indication:Current nonsmoker (Renamed from Current non-smoker) Start:17-Mar-2019 Instruction Type:Patient Education Patient Instructions Indication:Current nonsmoker (Renamed from Current non-smoker) Start:17-Mar-2019 Instruction Type:Provider Instructions for Treatment How to access health informa tion online Indication:Current nonsmoker (Renamed from Current non-smoker) Start:27-Feb-2018 Instruction Type:Patient Education How to access health informa tion online - Detail Indication:Current nonsmoker (Renamed from Current non-smoker) Start:27-Feb-2018 Instruction Type:Patient Education Patient Instructions Indication:Current nonsmoker (Renamed from Current non-smoker) Start:27-Feb-2018 Instruction Type:Provider Instructions for Treatment How to access health informa tion online Indication:Cough Start:09-Sep-2016 Instruction Type:Patient Education How to access health informa tion online - Detail Indication:Cough Start:09-Sep-2016 Instruction Type:Patient Education Patient Instructions Indication:Cough Start:09-Sep-2016 Instruction Type:Provider Instructions for Treatment How to access health informa tion online Indication:Anxiety Start:28-Aug-2015 Instruction Type:Patient Education How to access health informa tion online - Detail Indication:Anxiety Start:28-Aug-2015 Instruction Type:Patient Education Patient Instructions Indication:Anxiety Start:28-Aug-2015 Instruction Type:Provider Instructions for Treatment How to access health informa tion online Indication:Dyspnea Start:07-Apr-2014 Instruction Type:Patient Education How to access health informa tion online - Detail Indication:Dyspnea Start:07-Apr-2014 Instruction Type:Patient Education Patient Instructions Indication:Dyspnea Start:07-Apr-2014 Instruction Type:Provider Instructions for Treatment Patient Instructions Indication:Neck muscle strain Start:23-Jul-2013 Instruction Type:Provider Instructions for Treatment Name Dates Details Patient Instructions Indication:BMI 28.0-28.9,adult Start:08-Aug-2020 Instruction Type:Provider Instructions for Treatment How to Access Health Informa tion Online using Patient Portal and [employer] Apps Indication:Current nonsmoker (Renamed from Current non-smoker) Start:08-Aug-2020 Instruction Type:Patient Education How to access health informa tion online Indication:Current nonsmoker (Renamed from Current non-smoker) Start:24-Mar-2019 Instruction Type:Patient Education How to access health informa tion online - Detail Indication:Current nonsmoker (Renamed from Current non-smoker) Start:24-Mar-2019 Instruction Type:Patient Education Patient Instructions Indication:Current nonsmoker (Renamed from Current non-smoker) Start:24-Mar-2019 Instruction Type:Provider Instructions for Treatment How to access health informa tion online Indication:Current nonsmoker (Renamed from Current non-smoker) Start:17-Mar-2019 Instruction Type:Patient Education How to access health informa tion online - Detail Indication:Current nonsmoker (Renamed from Current non-smoker) Start:17-Mar-2019 Instruction Type:Patient Education Patient Instructions Indication:Current nonsmoker (Renamed from Current non-smoker) Start:17-Mar-2019 Instruction Type:Provider Instructions for Treatment How to access health informa tion online Indication:Current nonsmoker (Renamed from Current non-smoker) Start:27-Feb-2018 Instruction Type:Patient Education How to access health informa tion online - Detail Indication:Current nonsmoker (Renamed from Current non-smoker) Start:27-Feb-2018 Instruction Type:Patient Education Patient Instructions Indication:Current nonsmoker (Renamed from Current non-smoker) Start:27-Feb-2018 Instruction Type:Provider Instructions for Treatment How to access health informa tion online Indication:Cough Start:09-Sep-2016 Instruction Type:Patient Education How to access health informa tion online - Detail Indication:Cough Start:09-Sep-2016 Instruction Type:Patient Education Patient Instructions Indication:Cough Start:09-Sep-2016 Instruction Type:Provider Instructions for Treatment How to access health informa tion online Indication:Anxiety Start:28-Aug-2015 Instruction Type:Patient Education How to access health informa tion online - Detail Indication:Anxiety Start:28-Aug-2015 Instruction Type:Patient Education Patient Instructions Indication:Anxiety Start:28-Aug-2015 Instruction Type:Provider Instructions for Treatment How to access health informa tion online Indication:Dyspnea Start:07-Apr-2014 Instruction Type:Patient Education How to access health informa tion online - Detail Indication:Dyspnea Start:07-Apr-2014 Instruction Type:Patient Education Patient Instructions Indication:Dyspnea Start:07-Apr-2014 Instruction Type:Provider Instructions for Treatment Patient Instructions Indication:Neck muscle strain Start:23-Jul-2013 Instruction Type:Provider Instructions for Treatment Chief Complaint and Reason for Visit Chief Complaint 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 Reason for Visit Encounter for pre-em ployment health screening examination Additional Source Comments INFORMATION SOURCE (unrecogn ized section and content) DATE CREATED AUTHOR 05/15/2018 [facility] DATE CREATED AUTHOR AUTHOR'S ORGANIZ ATION 05/22/2018 [facility] DATE CREATED AUTHOR AUTHOR'S ORGANIZ ATION 04/19/2019 [facility] DATE CREATED AUTHOR AUTHOR'S ORGANIZ ATION 05/10/2019 [facility] DATE CREATED AUTHOR AUTHOR'S ORGANIZ ATION 10/17/2022 [facility] DATE CREATED AUTHOR AUTHOR'S ORGANIZ ATION 07/29/2024 [facility] DATE CREATED AUTHOR AUTHOR'S ORGANIZ ATION 02/13/2025 [facility] DATE CREATED AUTHOR AUTHOR'S ORGANIZ ATION 05/18/2025 [facility] Goals (unrecognized section and content) Goals may be documented in a n alternate sectionGoals may be documented in an alternate sectionGoals may be documented in an alternate sectionGoals may be documented in an alternate section No data available for this section No data available for this section No data available for this section Patient Care team informatio n (unrecognized section and content) Care Team Personnel Name: RENALDO HURT Member Role: Primary Care Physician Address: [address] [place] [address] Telecom: Care Team Related Persons Name: SALLIE BLUM Care Team Personnel Name: RENALDO HURT Member Role: Primary Care Physician Address: [address] [place] [phone] Telecom: Care Team Related Persons Name: SALLIE BLUM Care Team Personnel Name: RENALDO HURT Member Role: Primary Care Physician Address: [address] [place] [phone] Telecom: Care Team Related Persons Name: SALLIE BLUM FOR RECORDS PERTAINING TO PATIENTS WHO ARE OR HAVE BEEN ENROLLED IN A CHEMICAL DEPENDENCY/SUBSTANCEABUSE PROGRAM, SOME INFORMATION MAY BE OMITTED. This clinical summary was aggregated from multiple sources. Caution should be exercised in using it in the provision of clinical care. This summary normalizes information from multiple sources, and as a consequence, information in this document may materially change the coding, format and clinical context of patient data. In addition, data may be omitted in some cases. CLINICAL DECISIONS SHOULD BE BASED ON THE PRIMARY CLINICAL RECORDS. [employer] [facility]. provides no warranty or guarantee of the accuracy or completeness of information in this document.
== END | disposition home or self-care (01) ==
PROVIDERS: PCP Nurse Practitioner Family; Referring Provider Physician Assistant; Visit Provider Physician Assistant
DX: J34.0 Abscess, furuncle and carbuncle of nose (principal)
CPT/HCPCS: 87070; 87077; 87149; 87186; 87205